=== PATIENT | male | born 1985 | race African-American/Black ===

== ENCOUNTER 2016-10-06 00:54 | Emergency (ER) | payer BC ==
[2016-10-06 01:25] VITALS: BMI 62.0
--- NOTE | 2016-10-06 01:39 | PDOC ---
History of Present Illness - General History Source: Patient Exam Limitations: No Limitations - History of Present Illness Initial Comments: 10/06/16 02:27 The patient is a 31 year old male, with a significant past medical history of a gastric sleeve operation (6 weeks ago), who presents to the emergency department complaining of numbness and paresthesias in the bilateral lower extremities for 2 days. The patient states the pain began in his left ankle, radiated up his legs, and is now up to his waist. He reports he has been losing sensation in the left lower extremities more than the right. The patient denies any decrease in strength or loss of bladder control. The patient reports he has not been adhering to the diet suggested by his bariatric surgeon. He states he has been unable to tolerate soft foods, but is able to have his protein shakes. The patient denies any dysuria, hematuria, frequency, or urgency. The patient denies any abdominal pain, nausea, vomiting, diarrhea, or constipation. The patient denies any fever, chills, cough, headache, or dizziness. Allergies: None reported. Past Surgical History: Gastric Sleeve(6 weeks ago) Social History: Non-smoker. No ETOH or drug use. <Janel Mccoy - Last Filed: 10/06/16 02:27> - General History Source: Patient <MatiasDallas - Last Filed: 10/11/16 19:51> - General Chief Complaint: Weakness Stated Complaint: NUMBNESS/SWELLING Time Seen by Provider: 10/06/16 01:39 Past History <Janel Mccoy - Last Filed: 10/06/16 02:27> - Past Medical History HTN: Yes - Surgical History GI Surgery: Yes (gastric sleeve) - Psycho/Social/Smoking Cessation Hx Suicidal Ideation: No Smoking History: Never smoked Have you smoked in the past 12 months: No Information on smoking cessation initiated: No Hx Alcohol Use: No Drug/Substance Use Hx: No <Dallas Valderrama - Last Filed: 10/11/16 19:51> - Past Medical History Allergies/Adverse Reactions: Allergies Allergy/AdvReac Type Severity Reaction Status Date / Time No Known Drug Allergies Allergy Verified 10/06/16 06:10 yolk Allergy Severe Hives Uncoded 10/06/16 06:10 Home Medications: Ambulatory Orders NK [No Known Home Medication] 10/06/16 Review of Systems - Review of Systems Able to Perform ROS?: Yes Comments:: 10/06/16 02:34 CONSTITUTIONAL: Absent: fever, no chills, no fatigue EYES: Absent: visual changes ENT: Absent: ear pain, no sore throat CARDIOVASCULAR: Absent: chest pain, no palpitations RESPIRATORY: Absent: cough, no SOB GI: Absent: abdominal pain, no nausea, no vomiting, no constipation, no diarrhea GENITOURINARY: Absent: dysuria, no frequency, no hematuria MUSKULOSKELETAL: Absent: back pain, no arthralgia, no myalgia SKIN: Absent: rash NEURO: Present: +Paresthesias and numbness to the bilateral lower extremities Absent: headache, dizziness, unsteady gait, seizure, mental status changes, bladder or bowel incontinence <Janel Mccoy - Last Filed: 10/06/16 02:27> *Physical Exam - Vital Signs Last Vital Signs Temp Pulse Resp BP Pulse Ox 97.8 F 79 16 140/96 97 10/06/16 01:01 10/06/16 01:01 10/06/16 01:01 10/06/16 01:01 10/06/16 01:01 - Physical Exam Comments: 10/06/16 02:34 GENERAL: Morbidly obese. Well developed, well nourished. Awake and alert. No acute distress. HEENT: Normocephalic, atraumatic. PERRLA, EOMI. No conjunctival pallor. Sclera are non- icteric. Moist mucous membranes. Oropharynx is clear. NECK: Supple. Full ROM. No JVD. Carotid pulses 2+ and symmetric, without bruits. No thyromegaly. No lymphadenopathy. CARDIOVASCULAR: Regular rate and rhythm. No murmurs, rubs, or gallops. Distal pulses are 2+ and symmetric. PULMONARY: No evidence of respiratory distress. Lungs clear to auscultation bilaterally. No wheezing, rales or rhonchi. ABDOMINAL: Soft. Non-tender. Non-distended. No rebound or guarding. No organomegaly. Normoactive bowel sounds. MUSCULOSKELETAL Normal range of motion at all joints. No bony deformities or tenderness. No CVA tenderness. Muscle strength 5/5. EXTREMITIES: No cyanosis. No clubbing. No edema. No calf tenderness. SKIN: Warm and dry. Normal capillary refill. No rashes. No jaundice. NEUROLOGICAL: Alert, awake, appropriate. Cranial nerves 2-12 intact. No deficits to light touch and temperature in face, upper extremities. No motor deficits in the in face, upper extremities and lower extremities. Normoreflexic in the upper and lower extremities. Normal speech. Toes are down-going bilaterally. Gait is normal without ataxia. Deficits to light touch in the bilateral lower extremities (left more than right). Decreased sensation to the interior thigh more than the lateral thigh. PSYCHIATRIC: Cooperative. Good eye contact. Appropriate mood and affect. <Janel Mccoy - Last Filed: 10/06/16 02:27> - Vital Signs Last Vital Signs Temp Pulse Resp BP Pulse Ox 97.8 F 79 16 140/96 97 10/06/16 01:01 10/06/16 01:01 10/06/16 01:01 10/06/16 01:01 10/06/16 01:01 <Dallas Valderrama - Last Filed: 10/11/16 19:51> ED Treatment Course - LABORATORY CBC & Chemistry Diagram: 10/06/16 02:20 10/06/16 02:20 <Dallas Valderrama - Last Filed: 10/11/16 19:51> Medical Decision Making - Medical Decision Making 10/11/16 19:51 Dr. Valderrama: The scribe's documentation has been prepared under my direction and personally reviewed by me in its entirery. I confirm that the note above accurately reflects all work, treatment, procedures, and medical decision making performed by me. <Dallas Valderrama - Last Filed: 10/11/16 19:51> *DC/Admit/Observation/Transfer - Attestations Scribe Attestion: 10/06/16 02:34 Documentation prepared by Janel Mccoy, acting as biomedical engineering professor for Dallas Valderrama DO. <Janel Mccoy - Last Filed: 10/06/16 02:27> - Discharge Dispostion Admit: No <Dallas Valderrama - Last Filed: 10/11/16 19:51> Diagnosis at time of Disposition: Paresthesias - Discharge Dispostion Disposition: HOME Condition at time of disposition: Stable - Referrals Referrals: Stephanie Peraza MD [Staff Physician] - - Patient Instructions Printed Discharge Instructions: DI for Numbness/tingling
[2016-10-06] MEDS ORDERED: ONDANSETRON 4 MG/2 ML VIAL ONE (02:18)
[2016-10-06] MEDS ORDERED: ONDANSETRON 4 MG/2 ML VIAL IVPUSH STA (02:19)
[2016-10-06] MEDS ORDERED: ONDANSETRON 4 MG/2 ML VIAL IVPB ONE (02:29)
[2016-10-06 02:31] LABS: BASOPHIL 0.9 % (0-2.0); EOSINOPHIL 2.8 % (0-4.5); MCH 27.7 pg (25.7-33.7); MCHC 33.4 g/dl (32.0-35.9); NEUTROPHILS 50.1 % (42.8-82.8); PLATELET COUNT 320 K/MM3 (134-434); WHITE BLOOD COUNT 6.5 K/mm3 (4.0-10.0)
[2016-10-06 02:54] LABS: ALBUMIN 3.7 g/dl (3.4-5.0); AMYLASE 36 U/L (25-115); ANION GAP 14 (8-16); BILIRUBIN,TOTAL 0.5 mg/dL (0.2-1.0); CALCIUM 9.3 mg/dL (8.5-10.1); CO2 27 mmol/L (21-32); CREATININE 0.8 mg/dL (0.7-1.3); GLUCOSE,RANDOM 97 mg/dL (74-106); MAGNESIUM 1.7 mg/dL (1.8-2.4); SGOT/AST 56 U/L (15-37); SGPT/ALT 76 U/L (12-78); TOT PROT 8.5 g/dl (6.4-8.2)
[2016-10-06 02:55] LABS: ALK PHOS 84 U/L (45-117)
[2016-10-06 03:01] LABS: TROPONIN I < 0.02 ng/ml (0.00-0.05)
[2016-10-06 03:52] LABS: INR 1.36 (0.82-1.09); PROTHROMBIN TIME (PATIENT) 15.1 SEC (9.98-11.88)
[2016-10-06 07:35] VITALS: TEMP 98.6
--- NOTE | 2016-10-06 08:11 | PDOC ---
*Physical Exam - Vital Signs Last Vital Signs Temp Pulse Resp BP Pulse Ox 98.6 F 67 18 143/90 97 10/06/16 07:35 10/06/16 07:35 10/06/16 07:35 10/06/16 07:35 10/06/16 07:35 ED Treatment Course - LABORATORY CBC & Chemistry Diagram: 10/06/16 02:20 10/06/16 02:20 - ADDITIONAL ORDERS Additional order review: Laboratory Results 10/06/16 10/06/16 10/06/16 02:20 02:20 02:20 INR D-Dimer Sodium 138 Potassium 3.6 Chloride 97 L Carbon Dioxide 27 Anion Gap 14 BUN 6 L Creatinine 0.8 Creat Clearance w eGFR > 60 Random Glucose 97 Calcium 9.3 Magnesium 1.7 L Total Bilirubin 0.5 AST 56 H ALT 76 Alkaline Phosphatase 84 Creatine Kinase 225 Creatine Kinase Index 0.8 CK-MB (CK-2) 1.754 CK-MB (CK-2) Rel Index Cancelled Troponin I < 0.02 Total Protein 8.5 H Albumin 3.7 Total Amylase 36 Lipase 94 91 10/06/16 02:20 INR 1.36 H D-Dimer 249 H Sodium Potassium Chloride Carbon Dioxide Anion Gap BUN Creatinine Creat Clearance w eGFR Random Glucose Calcium Magnesium Total Bilirubin AST ALT Alkaline Phosphatase Creatine Kinase Creatine Kinase Index CK-MB (CK-2) CK-MB (CK-2) Rel Index Troponin I Total Protein Albumin Total Amylase Lipase 10/06/16 02:20 RBC 4.74 MCV 83.0 MCHC 33.4 RDW 17.0 H MPV 8.0 Neutrophils % 50.1 Lymphocytes % 36.7 Monocytes % 9.5 Eosinophils % 2.8 Basophils % 0.9 - Medications Given in the ED: ED Medications Discontinued Medications Generic Name Dose Route Start Last Admin Trade Name Freq PRN Reason Stop Dose Admin Ondansetron HCl 4 mg 10/06/16 02:19 10/06/16 02:29 Zofran Injection IVPUSH 10/06/16 02:20 4 mg ONCE STA Administration Ondansetron HCl 4 mg 10/06/16 02:29 10/06/16 02:29 Zofran Injection IVPB 10/06/16 02:30 4 mg NOW ONE Administration Medical Decision Making - Medical Decision Making 10/06/16 09:49 Pt reassessed. He states that he is having paresthesias in the L medial leg and R lateral leg. He has history of back problems in the past. No recent injury. DVT study is negative. I counseled him that he will need to f/u with neurology as an outpatient. *DC/Admit/Observation/Transfer Diagnosis at time of Disposition: Paresthesias - Discharge Dispostion Disposition: HOME Condition at time of disposition: Stable Admit: No - Referrals Referrals: Stephanie Peraza MD [Staff Physician] - - Patient Instructions Printed Discharge Instructions: DI for Numbness/tingling
[2016-10-06 09:13] LABS: URINE APPEARANCE SLCLOUDY; URINE BLOOD NEGATIVE (NEGATIVE); URINE COLOR AMBER; URINE GLUCOSE (UA) NEGATIVE (NEGATIVE); URINE KETONE 1+ (NEGATIVE); URINE NITRITE NEGATIVE (NEGATIVE); URINE UROBILINOGEN 4.0 E.U/dl E.U./dl (0.2-1.0)
[2016-10-06 09:14] LABS: URINE LEUK ESTERASE TRACE (NEGATIVE); URINE PROTEIN 2+ (NEGATIVE)
[2016-10-06 09:18] LABS: URINE HYALINE CAST 30 /lpf; URINE MUCUS MANY; URINE RBC 3 /hpf (0-3); URINE WBC 4 /hpf (3-5)
[2016-10-06 10:14] VITALS: BP 137/80; PULSE 61
== END 2016-10-06 10:13 | disposition home or self-care (01) ==
LOC: JER 00:54
PROC: 3E033GC Introduction of Other Therapeutic Substance into Peripheral Vein, Percutaneous Approach (ICD-10-PCS; principal; 2016-10-06)
DX: R20.2 Paresthesia of skin (principal); Z98.84 Bariatric surgery status; E66.01 Morbid (severe) obesity due to excess calories; Z68.44 Body mass index [BMI] 60.0-69.9, adult; I10 Essential (primary) hypertension
CPT/HCPCS: 36415; 80053; 81003; 81015; 82150; 82550; 82553; 83690; 83735; 84484; 85025; 85379; 85610; 93970-TC; 99284-25

== ENCOUNTER 2016-11-11 16:25 | Inpatient (IN) | payer BC ==
[2016-11-11] MEDS ORDERED: ONDANSETRON 4 MG/2 ML VIAL IVPB ONE (16:39)
[2016-11-11] MEDS ORDERED: SODIUM CHLORIDE 1,000 ML IV STA ×2 (16:39→16:49)
[2016-11-11] MEDS ORDERED: FAMOTIDINE 20 MG/50 ML IVPB 50 ML IVPB ONE ×2 (16:48→17:06)
[2016-11-11] MEDS ORDERED: morphine CARPU-JECT 4 MG/1 ML DISP.SYRIN IVPUSH ONE (16:48)
[2016-11-11] MEDS ORDERED: morphine CARPU-JECT 4 MG/1 ML DISP.SYRIN ONE (17:05)
[2016-11-11] MEDS ORDERED: ONDANSETRON 4 MG/2 ML VIAL ONE ×2 (17:05→21:44)
[2016-11-11 17:09] LABS: BASOPHIL 0.4 % (0-2.0); EOSINOPHIL 0.1 % (0-4.5); MCH 28.4 pg (25.7-33.7); MCHC 33.8 g/dl (32.0-35.9); MEAN CELL VOLUME 83.9 fl (80-96); MEAN PLT VOLUME 7.7 fl (7.5-11.1); NEUTROPHILS 72.9 % (42.8-82.8); PLATELET COUNT 347 K/MM3 (134-434); RDW 17.7 % (11.9-15.9); WHITE BLOOD COUNT 11.7 K/mm3 (4.0-10.0)
--- NOTE | 2016-11-11 17:10 | PDOC ---
History of Present Illness - General History Source: Patient, Family Exam Limitations: No Limitations <Van Drummond - Last Filed: 11/11/16 20:54> - History of Present Illness Initial Comments: 11/11/16 17:11 The patient is a 31 year old male, with a significant past medical history of gastric sleeve, who presents to the emergency department with right upper and lower abdominal pain, nausea, diarrhea, and vomiting after reportedly eating chicken 2 days ago. He reports his right upper quadrant pain is sharp and constant, worse with his episodes of vomiting. He reports his right lower quadrant pain is dull and intermittent. He denies any exacerbating or alleviating factors to his right lower quadrant pain. He also reports a couple episodes of watery stool. The patient states that since the onset of these symptoms, he has been unable to eat without vomiting. He denies chest pain, shortness of breath, headache and dizziness. He denies fever, chills, and constipation. He denies dysuria, frequency, urgency and hematuria. Allergies: NKDA Past surgical history: gastric sleeve (. ) Social history: denies toxic habits <Tata Milan - Last Filed: 11/11/16 21:17> - General Chief Complaint: Pain, Acute Stated Complaint: VOMITING/ABD PAIN Time Seen by Provider: 11/11/16 16:39 Past History - Past Medical History GI Disorders: Yes (gastric sleeve(2016)) HTN: Yes - Surgical History GI Surgery: Yes (gastric sleeve) - Psycho/Social/Smoking Cessation Hx Anxiety: No Suicidal Ideation: No Smoking History: Never smoked Have you smoked in the past 12 months: No Information on smoking cessation initiated: No Hx Alcohol Use: No Drug/Substance Use Hx: No <Van Drummond - Last Filed: 11/11/16 20:54> <Tata Milan - Last Filed: 11/11/16 21:17> - Past Medical History Allergies/Adverse Reactions: Allergies Allergy/AdvReac Type Severity Reaction Status Date / Time No Known Drug Allergies Allergy Verified 11/11/16 16:33 Home Medications: Ambulatory Orders NK [No Known Home Medication] 10/06/16 Review of Systems - Review of Systems Able to Perform ROS?: Yes Comments:: 11/11/16 17:11 GENERAL/CONSTITUTIONAL: No fever or chills. No weakness. HEAD, EYES, EARS, NOSE AND THROAT: No change in vision. No ear pain or discharge. No sore throat. CARDIOVASCULAR: No chest pain or shortness of breath. RESPIRATORY: No cough, wheezing, or hemoptysis. GASTROINTESTINAL: (+)nausea, vomiting, diarrhea and right sided abdominal pain. NO constipation. GENITOURINARY: No dysuria, frequency, or change in urination. MUSCULOSKELETAL: No joint or muscle swelling or pain. No neck or back pain. SKIN: No rash NEUROLOGIC: No headache, vertigo, loss of consciousness, or change in strength/ sensation. ENDOCRINE: No increased thirst. No abnormal weight change. HEMATOLOGIC/LYMPHATIC: No anemia, easy bleeding, or history of blood clots. ALLERGIC/IMMUNOLOGIC: No hives or skin allergy. <Tata Milan - Last Filed: 11/11/16 21:17> *Physical Exam - Vital Signs Last Vital Signs Temp Pulse Resp BP Pulse Ox 98.6 F 111 H 20 130/82 100 11/11/16 16:30 11/11/16 16:30 11/11/16 16:30 11/11/16 16:30 11/11/16 16:30 <Van Drummond - Last Filed: 11/11/16 20:54> - Vital Signs Last Vital Signs Temp Pulse Resp BP Pulse Ox 98.6 F 111 H 20 130/82 100 11/11/16 16:30 11/11/16 16:30 11/11/16 16:30 11/11/16 16:30 11/11/16 16:30 - Physical Exam Comments: 11/11/16 17:12 GENERAL: (+) obese. Awake, alert, and fully oriented, in no acute distress HEAD: No signs of trauma EYES: PERRLA, EOMI, sclera anicteric, conjunctiva clear ENT: (+) Dry mucous membranes. Auricles normal inspection, hearing grossly normal, nares patent, oropharynx clear without exudates. NECK: Normal ROM, supple, no lymphadenopathy, JVD, or masses LUNGS: Breath sounds equal, clear to auscultation bilaterally. No wheezes, and no crackles HEART: Regular rate and rhythm, normal S1 and S2, no murmurs, rubs or gallops ABDOMEN: (+) RUQ tenderness to palpation. Soft, normoactive bowel sounds. No guarding, no rebound. No masses EXTREMITIES: Normal range of motion, no edema. No clubbing or cyanosis. No cords, erythema, or tenderness NEUROLOGICAL: Cranial nerves II-XII intact. Normal speech, normal gait. Sensation intact in upper and lower extremities. 5/5 motor strength in upper and lower extremities. No pronator drift. Finger to nose intact. Rapid alternations intact. SKIN: Warm, Dry, normal turgor, no rashes or lesions noted. <Tata Milan - Last Filed: 11/11/16 21:17> Heart Score/ECG Review #1 ECG reviewed & interpreted by me at: 16:45 11/11/16 17:10 NSR 98, +LVH, no std/mitzy, normal axis, normal intervals, QTC 441 msec <Van Drummond - Last Filed: 11/11/16 20:54> ED Treatment Course - LABORATORY CBC & Chemistry Diagram: 11/11/16 16:55 11/11/16 16:55 - RADIOLOGY Radiology Studies Ordered: Category Date Time Status ABDOMEN & PELVIS CT WITH CONTR [CT] Stat CT Scan 11/11/16 16:48 Ordered ABDOMEN US -LIMITED [US] Stat Ultrasound 11/11/16 16:48 Ordered <Van Drummond - Last Filed: 11/11/16 20:54> - LABORATORY CBC & Chemistry Diagram: 11/11/16 16:55 11/11/16 16:55 - RADIOLOGY Radiograph Interpretation: 11/11/16 20:34 EXAM: CT abdomen and pelvis with contrast was read by Nii Jacobson MD at 20:24 EST Findings: Mild atelectasis and scarring in lung bases. No pleural effusions. Prior gastric sleeve. Probable hepatic steatosis. Low attenuation area in the left hepatic lobe anteriorly, usually due to volume averaging with a hepatic ligament. Gallbladder, pancreas, adrenal glands, and spleen unremarkable. No renal or urinary calculi. No AAA. *Enlargement of the appendix measuring up to 2.5 cm thickness with ill-defined margins and moderate adjacent edema, suggestive of perforated appendicitis. No well formed abscess at this time. Adjacent mildly enlarged mesenteric lymph nodes, likely reactive. Slight thickening of the adjacent ileum, likely reactive. No evidence for diverticulitis, small bowel obstruction, free pelvic fluid, or free air. <Tata Milan - Last Filed: 11/11/16 21:17> Medical Decision Making - Medical Decision Making 11/11/16 16:50 A portion of this note was documented by scribe services under my direction. I have reviewed the details of the note, within reason, and agree with the documentation with the following case summary and management plan written by me. Patient treated in the ED. Nursing notes are reviewed and incorporated into the medical decision-making. Vital signs reviewed. Peripheral IV access obtained by the nurse, laboratory studies are drawn and sent, reviewed and interpreted by myself. Vital Signs Temp Pulse Resp BP Pulse Ox 98.6 F 111 H 20 130/82 100 11/11/16 16:30 11/11/16 16:30 11/11/16 16:30 11/11/16 16:30 11/11/16 16:30 31-year-old male with past medical history of obesity, gastric sleeve status post performed at 2005 presents with persistent vomiting and right upper quadrant pain for several days. Reported eating chicken and soon became ill. Denies fevers. Report some loose stooling as well. Differential includes bariatric complications, acute rosana, gastroenteritis. Patient appears dry. He has not had much appetite. Will hydrate patient up. Obtain labs and obtain CT abdomen and pelvis and reassess. 11/11/16 20:54 CBC, BMP 11/11/16 16:55 11/11/16 16:55 CMP Sodium 138 mmol/L (136-145) 11/11/16 16:55 Potassium 4.0 mmol/L (3.5-5.1) 11/11/16 16:55 Chloride 100 mmol/L (98-107) 11/11/16 16:55 Carbon Dioxide 26 mmol/L (21-32) 11/11/16 16:55 Anion Gap 12 (8-16) 11/11/16 16:55 BUN 9 mg/dL (7-18) D 11/11/16 16:55 Creatinine 0.7 mg/dL (0.7-1.3) 11/11/16 16:55 Creat Clearance w eGFR > 60 (>60) 11/11/16 16:55 Random Glucose 104 mg/dL (74-106) 11/11/16 16:55 Calcium 9.0 mg/dL (8.5-10.1) 11/11/16 16:55 Total Bilirubin 0.8 mg/dL (0.2-1.0) D 11/11/16 16:55 AST 41 U/L (15-37) H D 11/11/16 16:55 ALT 73 U/L (12-78) 11/11/16 16:55 Alkaline Phosphatase 129 U/L (45-117) H D 11/11/16 16:55 Creatine Kinase 68 IU/L (39-308) 11/11/16 16:55 Troponin I < 0.02 ng/ml (0.00-0.05) 11/11/16 16:55 Total Protein 8.3 g/dl (6.4-8.2) H 11/11/16 16:55 Albumin 3.0 g/dl (3.4-5.0) L 11/11/16 16:55 Lipase 104 U/L (73-393) 11/11/16 16:55 CT abdomen and pelvis: perforated appendicitis. Zosyn ordered. Dr. Chowdhury (surgery) paged. Awaiting phone call back. Case discussed with Dr. Cardenas. He accepts for med/surg admission. <Van Drummond - Last Filed: 11/11/16 20:54> - Medical Decision Making 11/11/16 21:17 Dr. Deepak Chowdhury was called and the patient's case was discussed at this time. <Tata Milan - Last Filed: 11/11/16 21:17> *DC/Admit/Observation/Transfer - Discharge Dispostion Admit: Yes <Van Drummond - Last Filed: 11/11/16 20:54> - Attestations Scribe Attestion: 11/11/16 17:13 Documentation prepared by Tata Milan, acting as director medical affairs for Van Drummond MD, MD <Tata Milan - Last Filed: 11/11/16 21:17> Diagnosis at time of Disposition: Perforated appendicitis - Referrals Referrals: STAFF,NOT ON [Primary Care Provider] -
[2016-11-11 17:36] LABS: ANION GAP 12 (8-16); BILIRUBIN,TOTAL 0.8 mg/dL (0.2-1.0); CO2 26 mmol/L (21-32); CREATININE 0.7 mg/dL (0.7-1.3); GLUCOSE,RANDOM 104 mg/dL (74-106); SGOT/AST 41 U/L (15-37); SGPT/ALT 73 U/L (12-78); TOT PROT 8.3 g/dl (6.4-8.2)
[2016-11-11 17:39] LABS: ALK PHOS 129 U/L (45-117); TROPONIN I < 0.02 ng/ml (0.00-0.05)
[2016-11-11] MEDS ORDERED: PIPERACILLIN/TAZOB 3.375 GM/50 ML PRE-DOCKED IVPB ONE (20:23)
[2016-11-11] MEDS ORDERED: PIPERACILLIN/TAZOB 3.375 GM 50 ML IVPB ONE (20:32)
[2016-11-11] MEDS ORDERED: SODIUM CHLORIDE 1,000 ML IV SCH (21:15)
--- NOTE | 2016-11-11 21:21 | PN ---
<Tyler Cardenas - Last Filed: 11/11/16 21:20> Teaching Attending Note Name of Resident: Brittany Hayes ATTENDING PHYSICIAN STATEMENT I saw and evaluated the patient. I reviewed the resident's note and discussed the case with the resident. I agree with the resident's findings and plan as documented. SUBJECTIVE: OBJECTIVE: ASSESSMENT AND PLAN: <Dallas Soto - Last Filed: 11/11/16 21:36> Teaching Attending Note Name of Resident: Brittany Hayes ATTENDING PHYSICIAN STATEMENT I saw and evaluated the patient. I reviewed the resident's note and discussed the case with the resident. I agree with the resident's findings and plan as documented. SUBJECTIVE: The patient is a 31 year old male, with past medical history of morbid obesity, who had abdominal pain located in the right upper and right lower quadrant, nausea, vomiting and diarrhea which started at 3am on Sunday and worsened Sunday morning. Started spontaneously. No trauma. Recent gastric sleeve in 2015 with 1over 100 pound weight loss. Unable to take PO without vomiting. Vomit is yellow in color, stools are mucous. Describes subjective chills. OBJECTIVE: GENERAL: +Morbidly obese. Awake, alert, and fully oriented, in no acute distress HEENT: Atraumatic. PERRLA, EOMI. Dry Oral mucosa. No JVD LUNGS: No distress, speaks full sentences, clear to auscultation bilaterally HEART: Regular rate and rhythm, normal S1 and S2, no murmurs, rubs or gallops, peripheral pulses normal and equal bilaterally. CHEST: +Gynecomasteo. ABDOMEN: +Right upper and lower quadrant abdominal tenderness. No rebound tenderness. Decrease bowel sounds. Soft, nontender, normoactive bowel sounds. No guarding, no rebound. No masses EXTREMITIES: Normal inspection, Normal range of motion, no edema. No clubbing or cyanosis. NEUROLOGICAL: Cranial nerves II through XII grossly intact. Normal speech, normal gait, no focal sensorimotor deficits SKIN: Warm, Dry, normal turgor, no rashes or lesions noted. Positive tattoos on his skin. CBCD WBC 11.7 K/mm3 (4.0-10.0) H D 11/11/16 16:55 RBC 4.16 M/mm3 (4.00-5.60) 11/11/16 16:55 Hgb 11.8 GM/dL (11.7-16.9) 11/11/16 16:55 Hct 34.9 % (35.4-49) L 11/11/16 16:55 MCV 83.9 fl (80-96) 11/11/16 16:55 MCHC 33.8 g/dl (32.0-35.9) 11/11/16 16:55 RDW 17.7 % (11.9-15.9) H 11/11/16 16:55 Plt Count 347 K/MM3 (134-434) 11/11/16 16:55 MPV 7.7 fl (7.5-11.1) 11/11/16 16:55 CMP Sodium 138 mmol/L (136-145) 11/11/16 16:55 Potassium 4.0 mmol/L (3.5-5.1) 11/11/16 16:55 Chloride 100 mmol/L (98-107) 11/11/16 16:55 Carbon Dioxide 26 mmol/L (21-32) 11/11/16 16:55 Anion Gap 12 (8-16) 11/11/16 16:55 BUN 9 mg/dL (7-18) D 11/11/16 16:55 Creatinine 0.7 mg/dL (0.7-1.3) 11/11/16 16:55 Creat Clearance w eGFR > 60 (>60) 11/11/16 16:55 Calcium 9.0 mg/dL (8.5-10.1) 11/11/16 16:55 Total Bilirubin 0.8 mg/dL (0.2-1.0) D 11/11/16 16:55 AST 41 U/L (15-37) H D 11/11/16 16:55 ALT 73 U/L (12-78) 11/11/16 16:55 Alkaline Phosphatase 129 U/L (45-117) H D 11/11/16 16:55 Total Protein 8.3 g/dl (6.4-8.2) H 11/11/16 16:55 Albumin 3.0 g/dl (3.4-5.0) L 11/11/16 16:55 Last Vital Signs Temp Pulse Resp BP Pulse Ox 98.6 F 111 H 20 130/82 100 11/11/16 16:30 11/11/16 16:30 11/11/16 16:30 11/11/16 16:30 11/11/16 16:30 CT abdomen and Pelvis Impression: Mild atelectasis and scarring in lung bases. No pleural effusions. Prior gastric sleeve. Probable hepatic steatosis. Low attenuation area in the left hepatic lobe anteriorly, usually due to volume averaging with a hepatic ligament. Gallbladder, pancreas, adrenal glands, and spleen unremarkable. No renal or urinary calculi. No AAA. *Enlargement of the appendix measuring up to 2.5 cm thickness with ill-defined margins and moderate adjacent edema, suggestive of perforated appendicitis. No well formed abscess at this time. Adjacent mildly enlarged mesenteric lymph nodes, likely reactive. Slight thickening of the adjacent ileum, likely reactive. No evidence for diverticulitis, small bowel obstruction, free pelvic fluid, or free air. EKG Sinus tachycardia with LVH ASSESSMENT AND PLAN: 1. Perforated Appendicitis, Clinically and hemodynalicaly stable with mild leukocytosis and tachycardia - Send blood cultures x2 - Surgery consult. - Continue Zosyn - NPO - IVF hydration - Morphine 2 mg IV Q4 if pain - Zofran 4 mg IV piggy back Q4 if nausea or vomiting 2. DVT Prophylaxes - Low risk for DVT - SCDs Admit to med surg Documentation prepared by Dallas Soto, acting as medical coding specialist for Tyler Cardenas MD.
[2016-11-11] MEDS: ONDANSETRON 4 MG/2 ML VIAL IVPUSH SCH (21:51)
[2016-11-11 22:03] LABS: URINE APPEARANCE CLEAR; URINE BILIRUBIN NEGATIVE (NEGATIVE); URINE COLOR AMBER; URINE GLUCOSE (UA) NEGATIVE (NEGATIVE); URINE KETONE 1+ (NEGATIVE)
[2016-11-11 22:04] LABS: URINE BLOOD NEGATIVE (NEGATIVE); URINE LEUK ESTERASE NEGATIVE (NEGATIVE); URINE NITRITE NEGATIVE (NEGATIVE); URINE PROTEIN 1+ (NEGATIVE); URINE RBC 2 /hpf (0-3); URINE UROBILINOGEN 4.0 E.U/dl E.U./dl (0.2-1.0); URINE WBC 3 /hpf (3-5)
[2016-11-11 22:05] LABS: URINE MUCUS MANY
[2016-11-11] MEDS ORDERED: morphine CARPU-JECT 2 MG/1 ML DISP.SYRIN ONE (22:05)
[2016-11-11] MEDS: morphine CARPU-JECT 2 MG/1 ML DISP.SYRIN IVPUSH PRN (22:10)
[2016-11-11 23:20] VITALS: BMI 56.5
--- NOTE | 2016-11-12 00:29 | HP ---
CHIEF COMPLAINT: Abdominal pain, nausea and vomiting PCP: HISTORY OF PRESENT ILLNESS: Patient is a 31 year old male presented to the ED with the chief complaints of abdominal pain, nausea and vomiting since 2 days. A/c to the patient, he was feeling fine until 2 days ago when he started having abdominal pain that woke him up from sleep at 3am. He started vomiting 4-5 times/day for 2 days, non projectile, non bilious with streaks of blood. Patient couldn't keep anything down, not even few sips of water. Started having abdominal pain, located in the right upper quadrant constant and in the Right lower quadrant which comes and goes, sharp in quality, 9/10 in intensity, radiating towards the back. No relieving or aggravating factors. Also reports to have diarrhoea, few times a day, watery, non bloody. Patient reports to have Gastric sleeve done in Aug, 2016 and lost 101 pounds. Denies chest pain, sob, cough, palpitation, fever, chills, rigors or sweating. Appetite decreased Sleep disturbed. ER course was notable for: (1) Tachycardic, Leukocytosis (11.7); AST-41; ALP-129; (2) CT abdomen/Pelvis: Ruptured appendicitis (3) IV NS, Morphine, Famotidine, Zofran, Zosyn Recent Travel: None PAST MEDICAL HISTORY: Seizure (at age 9yrs) PAST SURGICAL HISTORY: Gastric sleeve (Aug, 2016 at [facility]) Social History: Smoking: Denies Alcohol: Denies Drugs: Denies Family History: Mother of complications due to diabetes. Father has HIV, he was tested and is negative Allergies No Known Drug Allergies Allergy (Verified 11/11/16 16:33) HOME MEDICATIONS: Home Medications Medication Instructions Recorded NK [No Known Home Medication] 10/06/16 REVIEW OF SYSTEMS CONSTITUTIONAL: Present: loss of appetite Absent: fever, chills, diaphoresis, generalized weakness, malaise, weight change HEENT: Absent: rhinorrhea, nasal congestion, throat pain, throat swelling, difficulty swallowing, mouth swelling, ear pain, eye pain, visual changes CARDIOVASCULAR: Absent: chest pain, syncope, palpitations, irregular heart rate, lightheadedness , peripheral edema RESPIRATORY: Absent: cough, shortness of breath, dyspnea with exertion, orthopnea, wheezing, stridor, hemoptysis GASTROINTESTINAL: Present: abdominal pain, nausea, vomiting, diarrhea Absent: abdominal distension, constipation, melena, hematochezia GENITOURINARY: Absent: dysuria, frequency, urgency, hesitancy, hematuria, flank pain, genital pain MUSCULOSKELETAL: Absent: myalgia, arthralgia, joint swelling, back pain, neck pain SKIN: Absent: rash, itching, pallor HEMATOLOGIC/IMMUNOLOGIC: Absent: easy bleeding, easy bruising, lymphadenopathy, frequent infections ENDOCRINE: Absent: unexplained weight gain, unexplained weight loss, heat intolerance, cold intolerance NEUROLOGIC: Absent: headache, focal weakness or paresthesias, dizziness, unsteady gait, seizure, mental status changes, bladder or bowel incontinence PSYCHIATRIC: Absent: anxiety, depression, suicidal or homicidal ideation, hallucinations. PHYSICAL EXAMINATION Vital Signs - 24 hr 11/11/16 11/11/16 21:40 22:15 Temperature 97.6 F Pulse Rate 88 Pulse Rate [ 95 H Left] Respiratory 17 20 Rate Blood Pressure 161/95 Blood Pressure 125/78 [Arm] O2 Sat by Pulse 99 99 Oximetry (%) GENERAL: Morbidly obese patient, lying comfortably in bed, Awake, alert, and fully oriented, in no acute distress. HEAD: Normal with no signs of trauma. EYES: EOM intact, no pallor or icterus. EARS, NOSE, THROAT: Ears normal. Moist mucous membranes. NECK: Normal range of motion, supple without lymphadenopathy, JVD, or masses. LUNGS: Breath sounds equal, clear to auscultation bilaterally. No wheezes, and no crackles. No accessory muscle use. HEART: Regular rate and rhythm, normal S1 and S2 without murmur, rub or gallop. ABDOMEN: Soft, tenderness over the Right upper and right lower quadrant, rebound tenderness +, not distended, decreased bowel sounds, no guarding, no rebound, no masses. No hepatomegaly or splenomegaly. MUSCULOSKELETAL: Normal range of motion at all joints. No bony deformities or tenderness. No CVA tenderness. UPPER EXTREMITIES: 2+ pulses, warm, well-perfused. No cyanosis. No clubbing. Cap refill <2 seconds. No peripheral edema. LOWER EXTREMITIES: 2+ pulses, warm, well-perfused. No calf tenderness. No peripheral edema. NEUROLOGICAL: Cranial nerves II-XII intact. Normal speech. Gait not observed. PSYCHIATRIC: Cooperative. Good eye contact. Appropriate mood and affect. SKIN: Warm, dry, normal turgor, no rashes or lesions noted. 11/11/2016 CT abdomen and Pelvis Impression: Mild atelectasis and scarring in lung bases. No pleural effusions. Prior gastric sleeve. Probable hepatic steatosis. Low attenuation area in the left hepatic lobe anteriorly, usually due to volume averaging with a hepatic ligament. Gallbladder, pancreas, adrenal glands, and spleen unremarkable. No renal or urinary calculi. No AAA. *Enlargement of the appendix measuring up to 2.5 cm thickness with ill-defined margins and moderate adjacent edema, suggestive of perforated appendicitis. No well formed abscess at this time. Adjacent mildly enlarged mesenteric lymph nodes, likely reactive. Slight thickening of the adjacent ileum, likely reactive. No evidence for diverticulitis, small bowel obstruction, free pelvic fluid, or free air. ASSESSMENT/PLAN: Patient is a 31 year old male with PMH of seizure (at age 9 years), gastric sleeve (Aug, 2016 at [facility]), presented to the ED with the chief complaints of abdominal pain, nausea and vomiting since 2 days. # Perforated Appendicitis Patient presented with severe abdominal pain, nausea and vomiting. On arrival, Tachycardic, Leukocytosis (11.7); AST-41; ALP-129; In the ED, patient was given IV NS, Morphine, Famotidine, Zofran, Zosyn Abdominal CT scan as mentioned above Admitted in Med-Surg Surgery consult placed ID consult placed Continue IV fluids IV Morphine 2mg Q4H PRN NPO Monitor symptoms # Morbidly obese Diet and exercise counseling Eat small portions s/p gastric sleeve # FEN IV NS @ 100mls/hr Electrolytes WNL NPO # Prophylaxis For GI: Not indicated For DVT: On SCDS # Code status: Full Code # Dispo: Admitted in the Med-surg. Duration of stay unknown. Illness, Investigation and Plan of care explained to the patient. He verbalized understanding. Case seen and discussed with Dr. Cardenas. Visit type - Emergency Visit Emergency Visit: Yes ED Registration Date: 11/11/16 Care time: The patient presented to the Emergency Department on the above date and was hospitalized for further evaluation of their emergent condition. - New Patient This patient is new to me today: Yes Date on this admission: 11/11/16 - Critical Care Critical Care patient: No
[2016-11-12] MEDS: ONDANSETRON 4 MG/2 ML VIAL IVPUSH SCH ×3 (04:00→11:33)
[2016-11-12] MEDS: morphine CARPU-JECT 2 MG/1 ML DISP.SYRIN IVPUSH PRN ×2 (05:12→23:17)
[2016-11-12] MEDS ORDERED: PIPERACILLIN/TAZOB 3.375 GM/50 ML PRE-DOCKED IVPB ONE (07:45)
[2016-11-12 07:47] LABS: BASOPHIL 0.4 % (0-2.0); EOSINOPHIL 0.4 % (0-4.5); MCH 28.5 pg (25.7-33.7); MCHC 33.2 g/dl (32.0-35.9); MEAN CELL VOLUME 85.9 fl (80-96); MEAN PLT VOLUME 7.7 fl (7.5-11.1); NEUTROPHILS 73.6 % (42.8-82.8); PLATELET COUNT 278 K/MM3 (134-434)
[2016-11-12 08:14] LABS: ALBUMIN 2.6 g/dl (3.4-5.0); ANION GAP 9 (8-16); CALCIUM 8.4 mg/dL (8.5-10.1); CO2 28 mmol/L (21-32); GLUCOSE,RANDOM 91 mg/dL (74-106); INR 1.56 (0.82-1.09); PROTHROMBIN TIME (PATIENT) 17.3 SEC (9.98-11.88); SGPT/ALT 57 U/L (12-78)
[2016-11-12 08:16] LABS: ACTIVATED PTT 29.4 SECONDS (26.9-34.4)
[2016-11-12 08:17] LABS: ALK PHOS 109 U/L (45-117); BILIRUBIN,TOTAL 0.9 mg/dL (0.2-1.0); CREATININE 0.6 mg/dL (0.7-1.3); SGOT/AST 22 U/L (15-37); TOT PROT 7.2 g/dl (6.4-8.2)
--- NOTE | 2016-11-12 08:52 | PN ---
Progress Note (short form) - Note Progress Note: Subjective: has RUQ abd pain ( constant ) and RLQ abd pain ( intermittent ) x 2 days , no N/ V now but had it yesterday. had fever last night . no diarrhea . no CP or SOB . does n to have exertional cp or SOB . has no cardiac hx or pulm hx . Objective: Vital Signs: Last Vital Signs Temp Pulse Resp BP Pulse Ox 100.1 F H 96 H 20 139/79 99 11/12/16 06:00 11/12/16 06:00 11/12/16 06:00 11/12/16 06:00 11/11/16 22:15 Physical Exam: NAD , AAOx CV: RRR, no MRG, no JVD Lungs; CTAB ext : no edema over LE or UPper ext Abd : obese , soft , TTP in RUQ and RLQ . no rebound tenderness. Neg Rofsing sign , Neg Psoas sign, Positive Obtorater Sign . nl BS Labs: Laboratory Results - last 24 hr 11/11/16 11/11/16 11/11/16 16:55 16:55 18:52 WBC 11.7 H D RBC 4.16 Hgb 11.8 Hct 34.9 L MCV 83.9 MCHC 33.8 RDW 17.7 H Plt Count 347 MPV 7.7 Neutrophils % 72.9 D Lymphocytes % 17.6 D Monocytes % 9.0 Eosinophils % 0.1 D Basophils % 0.4 INR PTT (Actin FS) Sodium 138 Potassium 4.0 Chloride 100 Carbon Dioxide 26 Anion Gap 12 BUN 9 D Creatinine 0.7 Creat Clearance w eGFR > 60 Random Glucose 104 Calcium 9.0 Total Bilirubin 0.8 D AST 41 H D ALT 73 Alkaline Phosphatase 129 H D Creatine Kinase 68 Troponin I < 0.02 Total Protein 8.3 H Albumin 3.0 L Lipase 104 Urine Color Celi Urine Appearance Clear Urine pH 5.0 Ur Specific [place] 1.010 Urine Protein 1+ H Urine Glucose (UA) Negative Urine Ketones 1+ H Urine Blood Negative Urine Nitrite Negative Urine Bilirubin Negative Urine Urobilinogen 4.0 e.u/dl Ur Leukocyte Esterase Negative Urine RBC 2 Urine WBC 3 Ur Epithelial Cells Rare Urine Mucus Many 11/12/16 11/12/16 11/12/16 06:15 06:15 06:15 WBC 10.0 RBC 3.80 L Hgb 10.8 L Hct 32.6 L MCV 85.9 MCHC 33.2 RDW 18.0 H Plt Count 278 MPV 7.7 Neutrophils % 73.6 Lymphocytes % 14.8 Monocytes % 10.8 H Eosinophils % 0.4 D Basophils % 0.4 INR 1.56 H PTT (Actin FS) 29.4 Sodium 140 Potassium 4.1 Chloride 103 Carbon Dioxide 28 Anion Gap 9 BUN 8 Creatinine 0.6 L Creat Clearance w eGFR > 60 Random Glucose 91 Calcium 8.4 L Total Bilirubin 0.9 AST 22 D ALT 57 D Alkaline Phosphatase 109 Creatine Kinase Troponin I Total Protein 7.2 Albumin 2.6 L Lipase Urine Color Urine Appearance Urine pH Ur Specific [place] Urine Protein Urine Glucose (UA) Urine Ketones Urine Blood Urine Nitrite Urine Bilirubin Urine Urobilinogen Ur Leukocyte Esterase Urine RBC Urine WBC Ur Epithelial Cells Urine Mucus Imaging: prelim report of US and Abd CT , reviewed. Cxray image and report reviewed. Assessment/Plan: 31 y/o male with h/o Morbid obesity, s/p gastric sleeve sx in Aug 2016 who presented with Abd pain and was found to have ruptured appendix . 1- Appendicitis with rupture. No abscess formation on Ct scan. Pt is hemodynamically stable but had fever last night and missed his 2 am Abx dose. - give stat dose of zosyn , then standing - IVF , NPO , pain control - Spoke to Dr. Chowdhury, who will evaluate pt for surgery - His RUQ abd pain , might be due to the appendicitis , but he has small non obstructing stones, and ALk phos was slightly elevated last night .No evidence of cholecystitis on US per Imaging director of rehabilitation. ? CCY along with appendectomy. Sx eval appreciated - INR 1.5 . likely will be OK for sx otherwise will give FFPs before procedure - Pre-OP risk stratification :This is an intermediate risk sx. The pt himself is low risk pt, as he has no cardiac hx, and no exertional CP or SOB. He has no signs fo ACS, CHF or arrhythmias now . His functional status is > 10 METs. over all , this is a patietn who carries low risk for fabi-op cardiac complication for this intermediate risk sx. No further cardiac w/u is needed Visit type - Emergency Visit Emergency Visit: Yes ED Registration Date: 11/11/16 Care time: The patient presented to the Emergency Department on the above date and was hospitalized for further evaluation of their emergent condition. - New Patient This patient is new to me today: Yes Date on this admission: 11/12/16 - Critical Care Critical Care patient: No
--- NOTE | 2016-11-12 11:07 | CONSULT ---
Consult Consult Specialty:: general surgery Reason for Consultation:: perforated appendicitis - History of Present Illness Chief Complaint: ruq pain and emesis History of Present Illness: pt is a 31M with 2 day hx of intractable nonbilious emesis with RUQ pain starting 3AM sunday. He has never had this before. Of note he had a lap gastric sleeve at [facility] by Dr. Mele Heard in 08/2016 and has lost 100+ lbs since then. Came to ER and CT done. ER tells me it was perforated appendicitis. I reviewed films and concur that there appears to be phlegmon in RLQ. Await final reading. - Past Surgical History Additional Surgical History: 08/2016 gastric sleeve for morbid obesity at [facility] (Dr. Mele Heard) - Alcohol/Substance Use Hx Alcohol Use: No - Smoking History Smoking history: Never smoked Have you smoked in the past 12 months: No Home Medications - Allergies Allergies/Adverse Reactions: Allergies Allergy/AdvReac Type Severity Reaction Status Date / Time No Known Drug Allergies Allergy Verified 11/11/16 16:33 - Home Medications Home Medications: Ambulatory Orders NK [No Known Home Medication] 10/06/16 Review of Systems - Review of Systems Constitutional: denies: Chills, Diaphoresis Eyes: denies: Blind Spots, Blurred Vision HENT: denies: Difficult Swallowing, Ear Discharge Neck: denies: Decreased ROM, Lumps Cardiovascular: denies: Chest Pain, Edema Respiratory: denies: Cough, Exercise Intolerance Gastrointestinal: reports: Abdominal Pain, Vomiting Genitourinary: denies: Burning, Discharge Breasts: denies: Breast Implants, Discharge from Nipple Musculoskeletal: denies: Back Pain, Crepitus Integumentary: denies: Blister, Bruising Neurological: denies: Change in LOC, Change in Speech Endocrine: denies: Excessive Sweating, Flushing Hematology/Lymphatic: denies: Easily Bruised, Excessive Bleeding Psychiatric: denies: Altered Sleep Pattern Physical Exam Vital Signs: Vital Signs Temperature 99.5 F 11/12/16 10:00 Pulse Rate 92 H 11/12/16 10:00 Respiratory Rate 20 11/12/16 10:00 Blood Pressure 146/72 11/12/16 10:00 O2 Sat by Pulse Oximetry (%) 93 L 11/12/16 09:00 Constitutional: Yes: No Distress, Calm Eyes: Yes: Conjunctiva Clear, EOM Intact HENT: Yes: Atraumatic, Normocephalic, Thrush Neck: Yes: Supple, Trachea Midline Cardiovascular: Yes: Regular Rate and Rhythm Respiratory: Yes: Regular Gastrointestinal: Yes: Soft, Abdomen, Obese. No: Distention, Tenderness ...Rectal Exam: Yes: Deferred Renal/: No: CVA Tenderness - Left, CVA Tenderness - Right Breast(s): Yes: Gynecomastia. No: Mass Musculoskeletal: No: Joint Stiffness, Joint Swelling Extremities: No: Calf Tenderness, Erythema Integumentary: No: Erythema, Rash Neurological: Yes: Alert, Oriented Psychiatric: Yes: Alert, Oriented Labs: CBC, BMP 11/12/16 06:15 11/12/16 06:15 Imaging - Results Cat Scan: Image Reviewed Problem List - Problems (1) Perforated appendicitis Assessment/Plan: sips of clears IVF nystatin swish and swallow IV Abx given read of perforated appendicitis will attempt non operative management. counseled pt about hospital stay. Code(s): K35.2 - ACUTE APPENDICITIS WITH GENERALIZED PERITONITIS
[2016-11-12] MEDS: NYSTATIN 500,000 UNITS/5 ML SUSPENSION PO SCH ×2 (12:03→17:45)
[2016-11-12] MEDS: LACTATED RINGERS SOLUTION 1,000 ML IV SCH ×2 (12:04→23:07)
--- NOTE | 2016-11-12 12:30 | EKG ---
Test Reason : Blood Pressure : / mmHG Vent. Rate : 098 BPM Atrial Rate : 098 BPM P-R Int : 146 ms QRS Dur : 092 ms QT Int : 346 ms P-R-T Axes : 043 004 013 degrees QTc Int : 441 ms NORMAL SINUS RHYTHM MODERATE VOLTAGE CRITERIA FOR LVH, MAY BE NORMAL VARIANT NO PREVIOUS ECGS AVAILABLE Confirmed by NATHANIEL SCHNEIDER MD ([id number]) on 11/12/2016 12:30:21 PM Referred By: Confirmed By:NATHANIEL SCHNEIDER MD
[2016-11-12] MEDS ORDERED: ONDANSETRON 4 MG/2 ML VIAL IVPUSH PRN (13:12)
[2016-11-12] MEDS: PIPERACILLIN/TAZOB 3.375 GM 50 ML IVPB SCH ×2 (13:48→20:41)
--- NOTE | 2016-11-12 14:22 | CONSULT ---
Consult Consult Specialty:: infectious diseases Referred by:: Reason for Consultation:: appendicits - History of Present Illness Chief Complaint: abd pain History of Present Illness: 31 year old male presented to the ED with the chief complaints of abdominal pain, nausea and vomiting since 2 days. A/c to the patient, he was feeling fine until 2 days ago when he started having abdominal pain that woke him up from sleep at 3am. He started vomiting 4-5 times/day for 2 days, non projectile, non bilious with streaks of blood. patient was evaluated and imaging studies and found to have acute appendicitis patient is morbidly obese and has gastric sleeve done last year and has lost about 100 pounds patient currently feeling better and his pain is improving - History Source History Provided By: Patient Limitations to Obtaining History: No Limitations - Past Surgical History Additional Surgical History: 08/2016 gastric sleeve for morbid obesity at [facility] (Dr. Mele Heard) - Alcohol/Substance Use Hx Alcohol Use: No - Smoking History Smoking history: Never smoked Have you smoked in the past 12 months: No Home Medications - Allergies Allergies/Adverse Reactions: Allergies Allergy/AdvReac Type Severity Reaction Status Date / Time No Known Drug Allergies Allergy Verified 11/11/16 16:33 - Home Medications Home Medications: Ambulatory Orders NK [No Known Home Medication] 10/06/16 Review of Systems - Review of Systems Constitutional: reports: Other Eyes: reports: No Symptoms HENT: reports: No Symptoms Neck: reports: No Symptoms Cardiovascular: reports: No Symptoms Respiratory: reports: No Symptoms Gastrointestinal: reports: Nausea, Vomiting, Other (abd pain rt lower quadrant) Musculoskeletal: reports: No Symptoms Integumentary: reports: No Symptoms Neurological: reports: No Symptoms Endocrine: reports: No Symptoms Hematology/Lymphatic: reports: No Symptoms Psychiatric: reports: No Symptoms Physical Exam Vital Signs: Vital Signs Temperature 99.5 F 11/12/16 10:00 Pulse Rate 92 H 11/12/16 10:00 Respiratory Rate 20 11/12/16 10:00 Blood Pressure 146/72 11/12/16 10:00 O2 Sat by Pulse Oximetry (%) 93 L 11/12/16 09:00 Constitutional: Yes: Well Nourished, Obese (morbidly obese) Cardiovascular: Yes: Regular Rate and Rhythm Respiratory: Yes: Regular, CTA Bilaterally Gastrointestinal: Yes: Normal Bowel Sounds, Soft Musculoskeletal: Yes: WNL Extremities: Yes: WNL Neurological: Yes: Alert, Oriented Psychiatric: Yes: Alert, Oriented Labs: CBC, BMP 11/12/16 06:15 11/12/16 06:15 Imaging - Results Chest X-ray: Report Reviewed, Image Reviewed Cat Scan: Report Reviewed, Image Reviewed Assessment/Plan ac appendicitis morbid obesity plan continue abx iv fluids
[2016-11-12] MEDS: LISINOPRIL 10 MG TABLET (FP) PO SCH (17:45)
[2016-11-13] MEDS ORDERED: ONDANSETRON 4 MG/2 ML VIAL IVPB ONE (01:05)
[2016-11-13] MEDS: PIPERACILLIN/TAZOB 3.375 GM 50 ML IVPB SCH ×4 (02:03→20:30)
[2016-11-13] MEDS: LACTATED RINGERS SOLUTION 1,000 ML IV SCH ×5 (06:37→23:01)
[2016-11-13] MEDS: NYSTATIN 500,000 UNITS/5 ML SUSPENSION PO SCH ×4 (06:42→17:44)
[2016-11-13 09:01] LABS: INR 1.54 (0.82-1.09); PROTHROMBIN TIME (PATIENT) 17.1 SEC (9.98-11.88)
[2016-11-13] MEDS ORDERED: ROCURONIUM BROMIDE 50 MG/5 ML VIAL ONE ×2 (09:43→10:49)
[2016-11-13] MEDS ORDERED: PROPOFOL 20 ML ONE ×2 (09:43)
[2016-11-13] MEDS ORDERED: MIDAZOLAM HCL 2 MG/2 ML SINGLE DOSE VIAL ONE (09:47)
[2016-11-13] MEDS ORDERED: HEPARIN NA (PORCINE) 5,000 UNITS/ML 1ML VIAL ONE (10:57)
[2016-11-13] MEDS ORDERED: GLYCOPYRROLATE 0.2 MG/1 ML VIAL ONE (11:59)
[2016-11-13] MEDS ORDERED: NEOSTIGMINE METHYLSULFATE 0.5 MG/ML - 10 ML MDV ONE (11:59)
[2016-11-13] MEDS ORDERED: METOPROLOL TARTRATE 5 MG/5 ML VIAL ONE (11:59)
[2016-11-13] MEDS ORDERED: DESFLURANE GAS 240 ML BOTTLE IH ONE (12:03)
--- NOTE | 2016-11-13 12:15 | OP ---
Operative Note - Note: Operative Date: 11/13/16 Pre-Operative Diagnosis: appendicitis Operation: laparoscopic drainage of retroperitoneal periappendicial abscess Findings: large (20cc) fabi-appendicial abscess, markedly inflammed terminal ileum. unable to identify appendix Post-Operative Diagnosis: Other (fabi-appendiceal abscess) Surgeon: Deepak Chowdhury Pediatric Cns: Germaine Hammond Anesthesia: General Estimated Blood Loss (mls): 20 Operative Report Dictated: Yes
--- NOTE | 2016-11-13 13:01 | PN ---
Progress Note, Physician History of Present Illness: post op from laproscopic drianage of the apeendiceal abscess - Current Medication List Current Medications: Active Medications Fentanyl (Sublimaze Injection -) 50 mcg IVPUSH [id number] PRN PRN Reason: PAIN Stop: 11/16/16 12:48 Piperacillin Sod/Tazobactam Sod (Zosyn 3.375gm Ivpb (Pre-Docked)) 50 mls @ 100 mls/hr IVPB Q6H [facility] PRN Reason: Protocol Last Admin: 11/13/16 08:05 Dose: 100 mls/hr Lactated Ringer's (Lactated Ringers Solution) 1,000 mls @ 150 mls/hr IV ASDIR [facility] Last Admin: 11/13/16 06:37 Dose: 150 mls/hr Lisinopril (Prinivil) 10 mg PO DAILY [facility] Last Admin: 11/12/16 17:45 Dose: 10 mg Morphine Sulfate (Morphine Injection -) 2 mg IVPUSH Q4H PRN PRN Reason: PAIN Last Admin: 11/12/16 23:17 Dose: 2 mg Nystatin (Nystatin Oral Suspension -) 500,000 units PO Q6HPO [facility] Last Admin: 11/13/16 06:42 Dose: Not Given Ondansetron HCl (Zofran Injection) 4 mg IVPUSH Q6H PRN PRN Reason: NAUSEA Last Admin: 11/12/16 23:19 Dose: 4 mg - Objective Vital Signs: Vital Signs Temperature 98.2 F 11/13/16 08:40 Pulse Rate 87 11/13/16 08:40 Respiratory Rate 18 11/13/16 08:40 Blood Pressure 150/89 11/13/16 08:40 O2 Sat by Pulse Oximetry (%) 92 L 11/12/16 21:00 Constitutional: Yes: No Distress, Calm, Obese Cardiovascular: Yes: Regular Rate and Rhythm Respiratory: Yes: Regular, CTA Bilaterally Gastrointestinal: Yes: Normal Bowel Sounds, Soft Musculoskeletal: Yes: WNL Extremities: Yes: WNL Neurological: Yes: Alert, Oriented Psychiatric: Yes: Alert Labs: CBC, BMP 11/12/16 06:15 11/12/16 06:15 INR, PTT INR 1.54 (0.82-1.09) H 11/13/16 06:15 Assessment/Plan ac appendicitis morbid obesity plan continue abx continue as per surgery
[2016-11-13] MEDS: LISINOPRIL 10 MG TABLET (FP) PO SCH (13:02)
--- NOTE | 2016-11-13 13:54 | PN ---
Addendum entered and electronically signed by Ramon Reynoso RES 11/13/16 14:34: Zosyn day 2 not day 1 Original Note: Physical Exam: SUBJECTIVE: Patient seen and examined at bedside at 830 this morning for surgery today complains of abdominal pain OBJECTIVE: Vital Signs Period Temp Pulse Resp BP Sys/Peoples Pulse Ox Last 24 Hr 98.1 F-100.3 F 83-93 18-20 138-159/86-100 92 GENERAL: The patient is awake, alert, and fully oriented moderate distress HEAD: Normal with no signs of trauma. EYES: PERRL NECK: Trachea midline, full range of motion, supple. LUNGS: Breath sounds equal, clear to auscultation bilaterally, no wheezes, no crackles, no accessory muscle use. HEART: Regular rate and rhythm, S1, S2 without murmur, rub or gallop. ABDOMEN: Soft, obese, tender to palpation RLQ and RUQ voluntary guarding NEUROLOGICAL: Cranial nerves II through XII grossly intact. Normal speech, gait not observed. Laboratory Results - last 24 hr 11/13/16 06:15 INR 1.54 H Active Medications Generic Name Dose Route Start Last Admin Trade Name Freq PRN Reason Stop Dose Admin Lactated Ringer's 1,000 mls @ 150 mls/hr 11/13/16 13:51 Lactated Ringers Solution IV ASDIR EUSEBIA Piperacillin Sod/Tazobactam Sod 50 mls @ 100 mls/hr 11/13/16 14:00 Zosyn 3.375gm Ivpb (Pre-Docked) IVPB Q6H [facility] Protocol Lisinopril 10 mg 11/14/16 10:00 Prinivil PO DAILY [facility] Morphine Sulfate 2 mg 11/13/16 13:51 Morphine Injection - IVPUSH Q4H PRN PAIN Nystatin 500,000 units 11/13/16 18:00 Nystatin Oral Suspension - PO Q6HPO [facility] Ondansetron HCl 4 mg 11/13/16 13:51 Zofran Injection IVPUSH Q6H PRN NAUSEA ASSESSMENT/PLAN: 31M with a PMH of morbid obesity presents to the hospital with abdominal pain found to have a perforated appendicitis in the OR. Sepsis secondary to Perforated appendicitis: CT scan initially read as perforated appendicitis the read changed to non perforated appendicitis. Taken to the OR for attempted Laparoscopic appendectomy found to be perforated. Appendix was not able to be visualized as a result was not resected. Patient s/ p laparoscopic drainage and washout of fabi-appendiceal abscess POD #0 ID consult appreciated surgery consult appreciated will continue IV ABx with Zosyn day 1 Advance diet when able monitor drainage of Drain f/u cultures IVF pain control will follow up for post op check after surgery Leukocytosis: improving with antibiotics i suspect this will further improve after drainage Essential Hypertension: no previous diagnosis per patient but he has been hypertensive in the hopital although pain may be a contributing factor he liely has underlying hypertension started on lisinopril 10mg will continue and titrate up as needed Oral Thrush: Continue nystatin Swish and Swallow Morbid Obesity: s/p sleeve gastrectomy continue gastrectomy diet follow up outpatient PPx: HSQ no GI PPx needed-no major or minor criteria met PT consult not needed at this time FEN: continue LR @ 150ml/hr no electrolyte issues advance diet post-op as tolerated Case discussed with attending Dr. Goldberg Visit type - Emergency Visit Emergency Visit: Yes ED Registration Date: 11/11/16 Care time: The patient presented to the Emergency Department on the above date and was hospitalized for further evaluation of their emergent condition. - New Patient This patient is new to me today: Yes Date on this admission: 11/13/16 - Critical Care Critical Care patient: No
--- NOTE | 2016-11-13 15:39 | PN ---
Teaching Attending Note Name of Resident: Ramon Reynoso ATTENDING PHYSICIAN STATEMENT I saw and evaluated the patient. I reviewed the resident's note and discussed the case with the resident. I agree with the resident's findings and plan as documented. SUBJECTIVE: Has Abd pain , feels very dry. OBJECTIVE: NAD CV : RRR Lungs : CTAB ext : no rodo Abd : obese, drainage tube in . TTP in RLQ and RUQ . no rebound tenderness , hypoactive BS ASSESSMENT AND PLAN: 31 y/o male with h/o Morbid obesity, s/p gastric sleeve sx in Aug 2016 who presented with Abd pain and was found to have ruptured appendix . 1- Appendicitis with rupture. although final CT scan read showed non ruptured appendix. during OR an abscess was formed and the appendix is ruptured. appendectomy was not done and a drainage tube was placed . - cont zosyn - monitor blood count - cont IVF , will decrease rate in am - d/w CCY with Dr. Hogue who thought it was not necessary at this time - monitor RUQ . if needed can repeat US - clears and pain control 2- HTN: had a h/o HTN , was o n ACEI - cont lisinopril which was started yesterday dispo : OC
[2016-11-13] MEDS: morphine CARPU-JECT 2 MG/1 ML DISP.SYRIN IVPUSH PRN ×2 (16:01→20:02)
[2016-11-13] MEDS: ONDANSETRON 4 MG/2 ML VIAL IVPUSH PRN (18:49)
[2016-11-13] MEDS: HEPARIN NA (PORCINE) 5,000 UNITS/ML 1ML VIAL SQ SCH (21:58)
[2016-11-13] MEDS ORDERED: ACETAMINOPHEN 325 MG TABLET (FP) PO ONE (23:23)
--- NOTE | 2016-11-13 23:43 | OP ---
DATE OF OPERATION: 11/13/2016 PREOPERATIVE DIAGNOSIS: Acute appendicitis. POSTOPERATIVE DIAGNOSIS: Perforated appendix with abscess in the retroperitoneum and periappendiceal area with secondary inflammation of terminal ileum. SURGEON: Sandy Chowdhury M.D. AFTER SCHOOL PROGRAM COORDINATOR: Carlos Burgess OPERATIVE NOTE: Patient was brought to the emergency room after a preliminary CAT scan that was read as perforated appendix was re-read finally as acute appendicitis. Patient was taken to OR after his name, date of , and medical record number were confirmed. He was then induced and put under general anesthesia. He had appropriate SCDs on, and he received appropriate perioperative antibiotics. A Jameson was placed under sterile conditions, and then he was prepped and draped in the usual sterile fashion. A timeout was then performed. A 1-inch supraumbilical incision and I bluntly dissected down to his fascia. It took over 45 minutes to establish a Celis, as his abdominal wall was markedly obese, and it was very difficult to safely get in. Once I did get in, I was able to put in a 12-mm balloon Celis type trocar inside the abdomen and insufflate the abdomen to a pressure of 18 mmHg, as his heavy abdominal wall mandated such. At this point, we then placed him in Trendelenburg position, and then I placed a 5-mm trocar in his right upper quadrant because of limited insufflation and this extended through his whole abdominal wall. I then had to use a bariatric length, 5-mm trocar, and I put this in the upper midline. At this point, the patient was then placed in Trendelenburg position with some right side up; however, visualization was still somewhat limited, and then at this point I then attempted to identify the appendix in the right lower quadrant. I began by medializing the cecum and terminal ileum and trying to rotate it medially; however, the was somewhat necrotic, and the terminal ileum was very inflamed. Once I was able to medialize it, there was a large amount of purulent material that was expressed. Once I medialized this area, and this pus was then aspirated out. Once the cecum was medialized, the terminal ileum was completely standing anteriorly. We could not identify the appendix. At this point, the decision was made to just place a drain at this abscess area, as my concern was that conversion to open would most likely require ileocolic resection with a very high risk of wound infection in a super morbidly obese patient. Therefore, I thought it would be a better idea to leave a drain, control his sepsis, cool him down, and have a expert in laparoscopic surgery with more experience with super morbidly obese patient deal with his appendix definitively at a future date once this is cooled down. Once this drain was left in the abscess cavity, we then secured it with a 3-0 nylon to his skin, and then the trocars were removed, and then I closed the fascia with number 1 Vicryl in a running fashion tied to itself. Abelardo was then reapproximated with number 1 Vicryl, and the skin and subcutaneous tissues were reapproximated with skin dusty. A Jameson catheter was then removed. All counts were correct. SANDY CHOWDHURY M.D. [place]/[id number]
[2016-11-14] MEDS: NYSTATIN 500,000 UNITS/5 ML SUSPENSION PO SCH ×4 (00:06→17:44)
[2016-11-14] MEDS: PIPERACILLIN/TAZOB 3.375 GM 50 ML IVPB SCH ×4 (02:20→21:10)
[2016-11-14] MEDS: LACTATED RINGERS SOLUTION 1,000 ML IV SCH ×2 (05:59→18:50)
[2016-11-14] MEDS: HEPARIN NA (PORCINE) 5,000 UNITS/ML 1ML VIAL SQ SCH ×3 (05:59→21:10)
[2016-11-14] MEDS ORDERED: LACTATED RINGERS SOLUTION 1,000 ML IV SCH ×2 (07:40→12:57)
[2016-11-14 08:01] LABS: MCH 28.1 pg (25.7-33.7); MCHC 32.9 g/dl (32.0-35.9); MEAN CELL VOLUME 85.4 fl (80-96); MEAN PLT VOLUME 7.6 fl (7.5-11.1); PLATELET COUNT 306 K/MM3 (134-434); RDW 17.4 % (11.9-15.9); WHITE BLOOD COUNT 9.4 K/mm3 (4.0-10.0)
[2016-11-14 08:47] LABS: CALCIUM 8.5 mg/dL (8.5-10.1); CREATININE 0.6 mg/dL (0.7-1.3)
[2016-11-14] MEDS: ONDANSETRON 4 MG/2 ML VIAL IVPUSH PRN (09:27)
[2016-11-14] MEDS ORDERED: LISINOPRIL 10 MG TABLET (FP) PO SCH ×2 (10:00→12:36)
--- NOTE | 2016-11-14 12:35 | PN ---
Progress Note, Physician Chief Complaint: feels weird History of Present Illness: +fever overnight. hunger on/off. drain 30cc serosang. still having pain in RUQ/RLQ - Current Medication List Current Medications: Active Medications Heparin Sodium (Porcine) (Heparin -) 5,000 unit SQ TID [facility] Last Admin: 11/14/16 05:59 Dose: 5,000 unit Piperacillin Sod/Tazobactam Sod (Zosyn 3.375gm Ivpb (Pre-Docked)) 50 mls @ 100 mls/hr IVPB Q6H-IV [facility] PRN Reason: Protocol Last Admin: 11/14/16 09:29 Dose: 100 mls/hr Lactated Ringer's (Lactated Ringers Solution) 1,000 mls @ 100 mls/hr IV ASDIR [facility] Last Admin: 11/14/16 09:30 Dose: 100 mls/hr Lisinopril (Prinivil) 10 mg PO DAILY [facility] Last Admin: 11/14/16 09:29 Dose: 10 mg Morphine Sulfate (Morphine Injection -) 2 mg IVPUSH Q4H PRN PRN Reason: PAIN Last Admin: 11/13/16 20:02 Dose: 2 mg Nystatin (Nystatin Oral Suspension -) 500,000 units PO Q6HPO [facility] Last Admin: 11/14/16 11:42 Dose: 500,000 units Ondansetron HCl (Zofran Injection) 4 mg IVPUSH Q6H PRN PRN Reason: NAUSEA Last Admin: 11/14/16 09:27 Dose: 4 mg - Objective Vital Signs: Vital Signs Temperature 99.6 F 11/14/16 08:25 Pulse Rate 91 H 11/14/16 08:25 Respiratory Rate 20 11/14/16 08:25 Blood Pressure 154/99 11/14/16 08:25 O2 Sat by Pulse Oximetry (%) 94 L 11/13/16 21:00 Constitutional: Yes: No Distress, Calm Gastrointestinal: Yes: Soft, Tenderness. No: Distention Wound/Incision: Yes: Dressing Dry and Intact Labs: CBC, BMP 11/14/16 06:30 11/14/16 06:30 INR, PTT INR 1.54 (0.82-1.09) H 11/13/16 06:15 Problem List - Problems (1) Perforated appendicitis Assessment/Plan: s/p lap drainage of fabi-appendicial abscess. unable to find appendix. cont IV abx adv to reg diet if patient wants daily labs Code(s): K35.2 - ACUTE APPENDICITIS WITH GENERALIZED PERITONITIS
[2016-11-14] MEDS ORDERED: LISINOPRIL 10 MG TABLET (FP) PO ONE (12:36)
--- NOTE | 2016-11-14 12:49 | PN ---
Teaching Attending Note Name of Resident: Ramon Reynoso ATTENDING PHYSICIAN STATEMENT I saw and evaluated the patient. I reviewed the resident's note and discussed the case with the resident. I agree with the resident's findings and plan as documented. SUBJECTIVE:seen at 11: 15 am abd pain has imporved , no nausea or vomiting . had fever this am . has numbness and weakness in R arm and leg, which is chronic but worsened this AM to a point he was not able to lift his R arm or R leg earlier this am. he was w/u with An EMG as out pt , but denies any CT or MRI of brain OBJECTIVE: NAD , awake and alert CV : RRR Lungs : CTAB ext : no rodo Abd : morbidly obese, RIVERA drain in . TTP in RLQ and RUQ ( RUQ pain has improved) . no rebound tenderness , hypoactive BS. NEuro : Awake and alert , oriented. no facial droop, uvula at mid line , tongue at mid line . nl facial sensation , EOMI. round equal pupils reactive to light . strength : RUE : shoulder abduction 4/5 , Biceps 4/5 , triceps 4/5 , hand rn wound care 4/5 LUE : shoulder abduction 5/5 , Biceps 5/5 , triceps 5/5 , hand rn wound care 5/5 RLE : hip flexion 2/5, knee flexion 4/5, knee extension 4/5 , Ankle dorsiflecxion 2/5, ankle plantar flexion 5/5 LLE: hip flexion 5/5, knee flexion 5/5, knee extension 5/5 , Ankle dorsiflecxion 5/5, ankle plantar flexion 5/5 Reflexees: 2+ L knee jerk, 1+ R knee jerk . 2+ R biceps , 1+ L biceps Sensation: decreased to light touch in R upper and Lower ext. NL over face. ASSESSMENT AND PLAN: 31 y/o male with h/o Morbid obesity, s/p gastric sleeve sx in Aug 2016 who presented with Abd pain and was found to have ruptured appendix. 1- Complicated Appendicitis with rupture and periappendicial abscess. s/p laparoscopic RIVERA drainage of the abscess .POD1 - cont zosyn , fever trended down - monitor blood count - decrease IVF rate till am only - RUQ pain improved , if it worsens or if fever persists then will repeat US or do HIDA scan - advance diet to full ( normally on phase 3 post gastric sleeve diet ) 2- R upper and lower ext weakness and numbness : numbness and mild weakness are old , but weakness worsened this am> 3 hrs ago . He presneted to ER in Oct with b/l LE numbness, referred to neuro and he recently had EMG study. but no CT or MRI of brain . Exam today of R sided weakness and numbness ( worse ) is concerning. - check CT of head w/c stat - give ASA - after CT will check MRI to r/o stroke - if Neg might evaluate neck - lipid panel . 2- HTN: increase lisinopril. Dispo : [facility]LOC
[2016-11-14] MEDS ORDERED: ASPIRIN 325 MG ENTERIC COATED TABLET (FP) PO ONE (13:07)
--- NOTE | 2016-11-14 13:49 | PN ---
Physical Exam: SUBJECTIVE: Patient seen and examined when seen at 9AM patient stated he felt worse than before the surgery when seen again at 1145am he stated he feels better now. complains of right arm and right leg numbness and weakness. patient was very hypertensive 2 days ago. Concern for CVA. OBJECTIVE: Vital Signs Period Temp Pulse Resp BP Sys/Peoples Pulse Ox Last 24 Hr 98.9 F-101.8 F 91-98 18-20 150-162/85-102 94-94 GENERAL: The patient is awake, alert, and fully oriented HEAD: Normal with no signs of trauma. EYES: PERRLA EOMI NECK: Trachea midline, full range of motion, supple. LUNGS: Breath sounds equal, clear to auscultation bilaterally, no wheezes, no crackles, no accessory muscle use. HEART: Regular rate and rhythm, S1, S2 without murmur, rub or gallop. ABDOMEN: Soft, morbidly obese, tender to palpation RLQ and RUQ RIVERA drain in place with serosangenous output 30ml since midnight NEUROLOGICAL: Cranial nerves II through XII intact. no facial droop or weakness and sensation is intact in the face Normal speech. Left upper and left lower extremities have global 5/5 strength. RUE has decreased strength 3/5 strength there is also decreased sensation to the right upper extremity. RLE sensation also decreased when compared to the left hip flexion 2/5 strength knee flexion 4/5 ankle dorsifelxion 3/5 plantar flexion 4/5 reflexes: 2+ left knee 2+ left bicep 2+ right bicep 1+ right knee Laboratory Results - last 24 hr 11/14/16 11/14/16 06:30 06:30 WBC 9.4 RBC 3.66 L Hgb 10.3 L Hct 31.3 L MCV 85.4 MCHC 32.9 RDW 17.4 H Plt Count 306 MPV 7.6 Sodium 141 Potassium 4.0 Chloride 102 Carbon Dioxide 31 Anion Gap 8 BUN 5 L D Creatinine 0.6 L Random Glucose 99 Calcium 8.5 Active Medications Generic Name Dose Route Start Last Admin Trade Name Freq PRN Reason Stop Dose Admin Heparin Sodium (Porcine) 5,000 unit 11/13/16 22:00 11/14/16 13:26 Heparin - SQ 5,000 unit TID [facility] Administration Piperacillin Sod/Tazobactam Sod 50 mls @ 100 mls/hr 11/13/16 15:00 11/14/16 09: 29 Zosyn 3.375gm Ivpb (Pre-Docked) IVPB 100 mls/hr Q6H-IV [facility] Administration Protocol Lactated Ringer's 1,000 mls @ 50 mls/hr 11/14/16 12:57 11/14/16 13:26 Lactated Ringers Solution IV 11/15/16 01:39 50 mls/hr ASDIR [facility] Administration Lisinopril 20 mg 11/15/16 10:00 Prinivil PO DAILY [facility] Morphine Sulfate 2 mg 11/13/16 13:51 11/13/16 20:02 Morphine Injection - IVPUSH 2 mg Q4H PRN Administration PAIN Nystatin 500,000 units 11/13/16 18:00 11/14/16 11:42 Nystatin Oral Suspension - PO 500,000 units Q6HPO [facility] Administration Ondansetron HCl 4 mg 11/13/16 13:51 11/14/16 09:27 Zofran Injection IVPUSH 4 mg Q6H PRN Administration NAUSEA ASSESSMENT/PLAN: 31M with a PMH of morbid obesity presents to the hospital with abdominal pain found to have a perforated appendicitis in the OR. Sepsis secondary to Perforated appendicitis: CT scan initially read as perforated appendicitis the read changed to non perforated appendicitis. Taken to the OR for attempted Laparoscopic appendectomy found to be perforated. Appendix was not able to be visualized as a result was not resected. Patient s/ p laparoscopic drainage and washout of fabi-appendiceal abscess POD #1. Patient was discussed with Dr. Chowdhury. He will seek assistance from Dr. Horton as well as his opinion for this case as he has more experience with morbidly obese patients ID consult appreciated surgery consult appreciated will continue IV ABx with Zosyn day 3 Advance diet as tolerated --> Full liquid diet for dinner monitor drainage of Drain f/u cultures IVF pain control Will repeat ultrasound ig RUQ pain worsens currently he states it is improving Right sided numbness and weakness: need to rule out CVA. Patient had elevated diastolic BP to 100 2 days ago. Will do head CT if CT negative will consider MRI Will need to contact neurologist patient was seeing today office is closed states hes had this problem chronically and had an EMG as outpatient but now it is worse will give one dose aspirin 325mg will consider US of carotids Leukocytosis: Resolved continue with antibiotics Essential Hypertension: no previous diagnosis per patient but he has been hypertensive in the hospital although pain may be a contributing factor he likely has underlying hypertension started on lisinopril 10mg during this hospitalization, however, his blood pressure needs to be better controlled so will increase lisinopril to 20mg po daily Oral Thrush: Continue nystatin Swish and Swallow Morbid Obesity: s/p sleeve gastrectomy continue gastrectomy diet follow up outpatient PPx: HSQ no GI PPx needed-no major or minor criteria met PT consult not needed at this time FEN: continue LR but decrease to 50ml/hr no electrolyte issues will advance to full liquid diet for dinner Case discussed with attending Dr. Goldberg Visit type - Emergency Visit Emergency Visit: Yes ED Registration Date: 11/11/16 Care time: The patient presented to the Emergency Department on the above date and was hospitalized for further evaluation of their emergent condition. - New Patient This patient is new to me today: No - Critical Care Critical Care patient: No
[2016-11-14] MEDS ORDERED: ONDANSETRON 4 MG/2 ML VIAL IVPUSH STA (14:05)
[2016-11-14] MEDS: morphine CARPU-JECT 2 MG/1 ML DISP.SYRIN IVPUSH PRN (14:20)
[2016-11-14] MEDS ORDERED: oxyCODONE HCL 5 MG TABLET PO PRN (16:17)
[2016-11-14] MEDS ORDERED: BENZOCAINE/MENTH/CETYLPYRD CL 1 EACH LOZENGE MM PRN (18:38)
--- NOTE | 2016-11-14 20:52 | PN ---
Progress Note, Physician Chief Complaint: Pt. has a sore throat, not tolerating fluids well earlier. His fluids were increased, Also was having right sided weakness, in which CT was found to be negative for stroke. - Current Medication List Current Medications: Active Medications Benzocaine/Menthol (Cepacol Lozenge -) 1 each MM Q4H PRN PRN Reason: SORE THROAT Heparin Sodium (Porcine) (Heparin -) 5,000 unit SQ TID [facility] Last Admin: 11/14/16 13:26 Dose: 5,000 unit Piperacillin Sod/Tazobactam Sod (Zosyn 3.375gm Ivpb (Pre-Docked)) 50 mls @ 100 mls/hr IVPB Q6H-IV [facility] PRN Reason: Protocol Last Admin: 11/14/16 15:44 Dose: 100 mls/hr Lactated Ringer's (Lactated Ringers Solution) 1,000 mls @ 100 mls/hr IV ASDIR [facility] Last Admin: 11/14/16 18:50 Dose: 100 mls/hr Lisinopril (Prinivil) 20 mg PO DAILY [facility] Morphine Sulfate (Morphine Injection -) 2 mg IVPUSH Q4H PRN PRN Reason: PAIN Last Admin: 11/14/16 14:20 Dose: 2 mg Nystatin (Nystatin Oral Suspension -) 500,000 units PO Q6HPO [facility] Last Admin: 11/14/16 17:44 Dose: 500,000 units Ondansetron HCl (Zofran Injection) 4 mg IVPUSH Q6H PRN PRN Reason: NAUSEA Last Admin: 11/14/16 09:27 Dose: 4 mg Oxycodone HCl (Roxicodone -) 5 mg PO Q4H PRN PRN Reason: PAIN - Objective Vital Signs: Vital Signs Temperature 99.6 F 11/14/16 08:25 Pulse Rate 91 H 11/14/16 08:25 Respiratory Rate 20 11/14/16 08:25 Blood Pressure 154/99 11/14/16 08:25 O2 Sat by Pulse Oximetry (%) 94 L 11/13/16 21:00 Constitutional: Yes: Well Nourished, No Distress, Calm Musculoskeletal: Yes: WNL Neurological: Yes: WNL, Alert, Oriented Labs: CBC, BMP 11/14/16 06:30 11/14/16 06:30 INR, PTT INR 1.54 (0.82-1.09) H 11/13/16 06:15 Assessment/Plan POD#1 s/p laparoscopy with drain placement. Has a sore throat that is resolving. Stable post operative course. D/C from anesthesia care
[2016-11-15] MEDS: NYSTATIN 500,000 UNITS/5 ML SUSPENSION PO SCH ×6 (00:01→23:24)
[2016-11-15] MEDS: PIPERACILLIN/TAZOB 3.375 GM 50 ML IVPB SCH ×2 (02:19→10:41)
[2016-11-15] MEDS: LACTATED RINGERS SOLUTION 1,000 ML IV SCH ×2 (04:55→08:30)
--- NOTE | 2016-11-15 05:09 | HOSP ---
Subjective - Review of Symptoms Subjective: Was paged by the nurse and informed me that patient lost balance and hit his head this morning at 4:15am. Immediately went to assess the patient. A/c to the advanced nursing professor, patient had a large bowel movement so she cleaned him. Patient then tried to stand up and as he was doing so, his knees gave up and hit his head at the edge of the wall. A/c to the patient, he was able to hold himself and didn't hit the head with the force. Denies headache, dizziness, vertigo or any other symptoms before or after the fall. No h/o LOC. Did have urinary incontinence while trying to help him get on to the bed with the help of the nurses. Patient reports that he has been having nausea, 3-4 episodes of vomiting/day, had 1 large bowel movement after almost 5 days. He also mentions that he has been feeling worse and says its not getting any better. Physical examination Vitals: BP-159/103 mmHg, -84 bpm, T-100.4F, RR-20 GENERAL: Morbidly obese patient, lying comfortably in bed, Awake, alert, and fully oriented, in no acute distress. HEAD: Normal with no signs of trauma. EYES: EOM intact, no pallor or icterus. EARS, NOSE, THROAT: Ears normal. Moist mucous membranes. NECK: Normal range of motion, supple without lymphadenopathy, JVD, or masses. LUNGS: Breath sounds equal, clear to auscultation bilaterally. No wheezes, and no crackles. No accessory muscle use. HEART: Regular rate and rhythm, normal S1 and S2 without murmur, rub or gallop. ABDOMEN: Soft, morbidly obese, tender to palpation RLQ and RUQ RIVERA drain in place with serosangenous MUSCULOSKELETAL: Normal range of motion at all joints. No bony deformities or tenderness. No CVA tenderness. UPPER EXTREMITIES: 2+ pulses, warm, well-perfused. No cyanosis. No clubbing. Cap refill <2 seconds. No peripheral edema. LOWER EXTREMITIES: 2+ pulses, warm, well-perfused. No calf tenderness. No peripheral edema. NEUROLOGICAL: RUE : shoulder abduction 4/5 , Biceps 4/5 , triceps 4/5 , hand executive chef 4/5 LUE : shoulder abduction 5/5 , Biceps 5/5 , triceps 5/5 , hand executive chef 5/5 RLE : hip flexion 2/5, knee flexion 4/5, knee extension 4/5 , Ankle dorsiflecxion 2/5, ankle plantar flexion 5/5 LLE: hip flexion 5/5, knee flexion 5/5, knee extension 5/5 , Ankle dorsiflecxion 5/5, ankle plantar flexion 5/5 Reflexees: 2+ L knee jerk, 1+ R knee jerk . 2+ R biceps , 1+ L biceps Sensation: decreased to light touch in R upper and Lower ext. NL over face. PSYCHIATRIC: Cooperative. Good eye contact. Appropriate mood and affect. SKIN: Warm, dry, normal turgor, no rashes or lesions noted. A/P Head trauma s/p mechanical fall Patient had CT head done yesterday to r/o stroke since patient complained of numbness of the extremities He was scheduled to do an MRI of brain yesterday 11/14/2016. Would like to r/o fracture/bleed, hence will wait for the MRI brain today. Neurological exam unchanged as compared to yesterdays exam. No change in mental status. No significant symptoms post fall Nausea/Vomiting Most likely due to ruptured appenditicitis Continue Zofran 4mg stat Illness, plan of care explained to the patient. He verbalized understanding. Case discussed with Dr. eClaya. Physical Examination Vital Signs: Vital Signs Temperature 99.1 F 11/14/16 22:00 Pulse Rate 98 H 11/14/16 22:00 Respiratory Rate 22 11/14/16 22:00 Blood Pressure 160/90 11/14/16 22:00 O2 Sat by Pulse Oximetry (%) 94 L 11/14/16 21:00 Labs: CBC, BMP 11/14/16 06:30 11/14/16 06:30 Visit type - Emergency Visit Emergency Visit: Yes ED Registration Date: 11/11/16 Care time: The patient presented to the Emergency Department on the above date and was hospitalized for further evaluation of their emergent condition. - New Patient This patient is new to me today: Yes Date on this admission: 11/16/16 - Critical Care Critical Care patient: No
[2016-11-15] MEDS: ONDANSETRON 4 MG/2 ML VIAL IVPUSH PRN (05:11)
[2016-11-15] MEDS: HEPARIN NA (PORCINE) 5,000 UNITS/ML 1ML VIAL SQ SCH ×3 (05:41→21:49)
[2016-11-15 08:08] LABS: MCH 28.3 pg (25.7-33.7); MCHC 33.3 g/dl (32.0-35.9); MEAN CELL VOLUME 84.9 fl (80-96); MEAN PLT VOLUME 7.8 fl (7.5-11.1); PLATELET COUNT 330 K/MM3 (134-434); RDW 17.5 % (11.9-15.9); WHITE BLOOD COUNT 11.3 K/mm3 (4.0-10.0)
[2016-11-15 08:32] LABS: CALCIUM 8.5 mg/dL (8.5-10.1); CREATININE 0.5 mg/dL (0.7-1.3)
--- NOTE | 2016-11-15 10:20 | PN ---
Progress Note, Physician Chief Complaint: n/v History of Present Illness: pt feels worse than before surgery. more N/V/dry heaving. +BM yesterday. abd pain in RUQ and RLQ. low grade temp to 100.5 - Current Medication List Current Medications: Active Medications Benzocaine/Menthol (Cepacol Lozenge -) 1 each MM Q4H PRN PRN Reason: SORE THROAT Heparin Sodium (Porcine) (Heparin -) 5,000 unit SQ TID [facility] Last Admin: 11/15/16 05:41 Dose: 5,000 unit Piperacillin Sod/Tazobactam Sod (Zosyn 3.375gm Ivpb (Pre-Docked)) 50 mls @ 100 mls/hr IVPB Q6H-IV [facility] PRN Reason: Protocol Last Admin: 11/15/16 02:19 Dose: 100 mls/hr Lactated Ringer's (Lactated Ringers Solution) 1,000 mls @ 150 mls/hr IV ASDIR [facility] Lisinopril (Prinivil) 20 mg PO DAILY [facility] Morphine Sulfate (Morphine Injection -) 2 mg IVPUSH Q4H PRN PRN Reason: PAIN Last Admin: 11/14/16 14:20 Dose: 2 mg Nystatin (Nystatin Oral Suspension -) 500,000 units PO Q6HPO [facility] Last Admin: 11/15/16 05:41 Dose: Not Given Ondansetron HCl (Zofran Injection) 4 mg IVPUSH Q6H PRN PRN Reason: NAUSEA Last Admin: 11/15/16 05:11 Dose: 4 mg Oxycodone HCl (Roxicodone -) 5 mg PO Q4H PRN PRN Reason: PAIN - Objective Vital Signs: Vital Signs Temperature 100.5 F H 11/15/16 06:59 Pulse Rate 84 11/15/16 06:59 Respiratory Rate 20 11/15/16 06:59 Blood Pressure 159/100 11/15/16 06:59 O2 Sat by Pulse Oximetry (%) 94 L 11/14/16 21:00 Constitutional: Yes: Moderate Distress Eyes: Yes: Conjunctiva Clear, EOM Intact HENT: Yes: Atraumatic, Normocephalic Neck: Yes: Supple, Trachea Midline Cardiovascular: Yes: Regular Rate and Rhythm Respiratory: Yes: Regular, CTA Bilaterally Gastrointestinal: Yes: Soft, Other (drain serosanguinous). No: Distention, Tenderness ...Rectal Exam: Yes: Deferred Genitourinary: No: CVA Tenderness - Left, CVA Tenderness - Right Breast(s): No: Nipple Inversion, Skin Changes Musculoskeletal: No: Joint Stiffness, Joint Swelling Extremities: No: Calf Tenderness, Erythema Wound/Incision: Yes: Clean/Dry, Well Approximated Neurological: Yes: Alert, Oriented Psychiatric: Yes: Alert, Oriented Labs: CBC, BMP 11/15/16 06:10 11/15/16 06:10 INR, PTT INR 1.54 (0.82-1.09) H 11/13/16 06:15 Problem List - Problems (1) Perforated appendicitis Assessment/Plan: s/p lap drainage of retroperitoneal abscess from what i suppose was appendicitis patient isn't improving clinically will re-scan patient to assess hesitant to immediately reoperate because i am concerned about likely conversion to open and high likelihood of needing ileocolic resection and high likelihood of abd wall infection complications. currently not septic and will use CT to differeniate between poor source control vs simple postop ileus (had really inflammed TI) Code(s): K35.2 - ACUTE APPENDICITIS WITH GENERALIZED PERITONITIS
[2016-11-15] MEDS: LISINOPRIL 20 MG TABLET (FP) PO SCH (10:41)
--- NOTE | 2016-11-15 11:20 | PN ---
Progress Note, Physician History of Present Illness: patient post op from appendicitis still spiking fever - Current Medication List Current Medications: Active Medications Acetaminophen (Ofirmev Injection -) 1,000 mg IVPB ONCE ONE Stop: 11/15/16 10:41 Benzocaine/Menthol (Cepacol Lozenge -) 1 each MM Q4H PRN PRN Reason: SORE THROAT Heparin Sodium (Porcine) (Heparin -) 5,000 unit SQ TID [facility] Last Admin: 11/15/16 05:41 Dose: 5,000 unit Piperacillin Sod/Tazobactam Sod (Zosyn 3.375gm Ivpb (Pre-Docked)) 50 mls @ 100 mls/hr IVPB Q6H-IV [facility] PRN Reason: Protocol Last Admin: 11/15/16 10:41 Dose: 100 mls/hr Lactated Ringer's (Lactated Ringers Solution) 1,000 mls @ 150 mls/hr IV ASDIR [facility] Last Admin: 11/15/16 08:30 Dose: 150 mls/hr Lisinopril (Prinivil) 20 mg PO DAILY [facility] Last Admin: 11/15/16 10:41 Dose: 20 mg Morphine Sulfate (Morphine Injection -) 2 mg IVPUSH Q4H PRN PRN Reason: PAIN Last Admin: 11/14/16 14:20 Dose: 2 mg Nystatin (Nystatin Oral Suspension -) 500,000 units PO Q6HPO [facility] Last Admin: 11/15/16 05:41 Dose: Not Given Ondansetron HCl (Zofran Injection) 4 mg IVPUSH Q6H PRN PRN Reason: NAUSEA Last Admin: 11/15/16 05:11 Dose: 4 mg Oxycodone HCl (Roxicodone -) 5 mg PO Q4H PRN PRN Reason: PAIN - Objective Vital Signs: Vital Signs Temperature 100.5 F H 11/15/16 06:59 Pulse Rate 84 11/15/16 06:59 Respiratory Rate 20 11/15/16 06:59 Blood Pressure 159/100 11/15/16 06:59 O2 Sat by Pulse Oximetry (%) 94 L 11/14/16 21:00 Constitutional: Yes: No Distress, Calm HENT: Yes: Atraumatic Neck: Yes: Supple Cardiovascular: Yes: Regular Rate and Rhythm Respiratory: Yes: Regular, CTA Bilaterally Gastrointestinal: Yes: Soft, Hypoactive Bowel Sounds, Tenderness, Other ( drainage tube in place) Musculoskeletal: Yes: WNL Extremities: Yes: WNL Wound/Incision: Yes: Clean/Dry Neurological: Yes: Alert, Oriented Psychiatric: Yes: Alert, Oriented Labs: CBC, BMP 11/15/16 06:10 11/15/16 06:10 INR, PTT INR 1.54 (0.82-1.09) H 11/13/16 06:15 Assessment/Plan ac appendicitis morbid obesity plan will increase dose of zosyn will also add diflucan i think he should get an hiv test done
[2016-11-15] MEDS ORDERED: ACETAMINOPHEN 1000 MG/100 ML VIAL (NON FORMULARY) IVPB ONE (11:30)
--- NOTE | 2016-11-15 12:05 | PN ---
Physical Exam: SUBJECTIVE: Patient seen and examined at bedside. Patient had a BM yesterday and while going back to bed he states his knees buckled and he fell but he caught himself before he was able to hit his head. still complaining of pain nausea and vomiting. He states he feels worse off than before the surgery. He is spiking fevers and having leukocytosis. OBJECTIVE: Vital Signs Period Temp Pulse Resp BP Sys/Peoples Pulse Ox Last 24 Hr 99.1 F-100.5 F 84-98 20-22 159-160/90-100 94 GENERAL: The patient is awake, alert, and fully oriented HEAD: Normal with no signs of trauma. EYES: PERRLA EOMI NECK: Trachea midline, full range of motion, supple. LUNGS: Breath sounds equal, clear to auscultation bilaterally, no wheezes, no crackles, no accessory muscle use. HEART: Regular rate and rhythm, S1, S2 without murmur, rub or gallop. ABDOMEN: Soft, morbidly obese, tender to palpation RLQ and RUQ RIVERA drain in place with serous output NEUROLOGICAL: Cranial nerves II through XII intact. no facial droop or weakness and sensation is intact in the face Normal speech. Left upper and left lower extremities have global 5/5 strength. RUE has decreased strength 3/5 strength there is also decreased sensation to the right upper extremity. RLE sensation also decreased when compared to the left hip flexion 2/5 strength knee flexion 4/5 ankle dorsifelxion 3/5 plantar flexion 4/5 reflexes: 2+ left knee 2+ left bicep 2+ right bicep 1+ right knee Overall neurological exam unchanged from yesterday Laboratory Results - last 24 hr 11/15/16 11/15/16 06:10 06:10 WBC 11.3 H RBC 3.68 L Hgb 10.4 L Hct 31.3 L MCV 84.9 MCHC 33.3 RDW 17.5 H Plt Count 330 MPV 7.8 Sodium 138 Potassium 3.8 Chloride 100 Carbon Dioxide 31 Anion Gap 7 L BUN 6 L Creatinine 0.5 L Random Glucose 103 Calcium 8.5 Triglycerides 133 Cholesterol 175 Total LDL Cholesterol 94 HDL Cholesterol 39 L Active Medications Generic Name Dose Route Start Last Admin Trade Name Freq PRN Reason Stop Dose Admin Benzocaine/Menthol 1 each 11/14/16 18:38 Cepacol Lozenge - MM Q4H PRN SORE THROAT Heparin Sodium (Porcine) 5,000 unit 11/13/16 22:00 11/15/16 05:41 Heparin - SQ 5,000 unit TID [facility] Administration Lactated Ringer's 1,000 mls @ 150 mls/hr 11/15/16 08:13 11/15/16 08:30 Lactated Ringers Solution IV 150 mls/hr ASDIR [facility] Administration Piperacillin Sod/Tazobactam Sod 100 mls @ 200 mls/hr 11/15/16 18:00 Zosyn 4.5gm Ivpb (Pre-Docked) IVPB Q8H-IV [facility] Protocol Fluconazole 50 mls @ 100 mls/hr 11/15/16 11:45 Diflucan 100 Mg/D5w Premixed Ivpb - IVPB DAILY [facility] Lisinopril 20 mg 11/15/16 10:00 11/15/16 10:41 Prinivil PO 20 mg DAILY [facility] Administration Morphine Sulfate 2 mg 11/13/16 13:51 11/14/16 14:20 Morphine Injection - IVPUSH 2 mg Q4H PRN Administration PAIN Nystatin 500,000 units 11/13/16 18:00 11/15/16 05:41 Nystatin Oral Suspension - PO Not Given Q6HPO [facility] Ondansetron HCl 4 mg 11/13/16 13:51 11/15/16 05:11 Zofran Injection IVPUSH 4 mg Q6H PRN Administration NAUSEA Oxycodone HCl 5 mg 11/14/16 16:17 Roxicodone - PO Q4H PRN PAIN ASSESSMENT/PLAN: 31M with a PMH of morbid obesity presents to the hospital with abdominal pain found to have a perforated appendicitis in the OR. Sepsis secondary to Perforated appendicitis: CT scan initially read as perforated appendicitis the read changed to non perforated appendicitis. Taken to the OR for attempted Laparoscopic appendectomy found to be perforated. Appendix was not able to be visualized as a result was not resected. Patient s/ p laparoscopic drainage and washout of fabi-appendiceal abscess POD #2. Patient was discussed with Dr. Chowdhury. He will seek assistance from Dr. Horton as well as his opinion for this case as he has more experience with morbidly obese patients. After speaking to Dr. Chowdhury today he wis requesting a repeat CT scan with PO/IV contrast to check for abscess formation vs another pathology. ID consult appreciated-spoke to ID attending. will start diflucan and increase dose of Zosyn. Recommends HIV testing. Will talk to patient about it and hiv counselor him. surgery consult appreciated will continue IV ABx with Zosyn day 4 continue full liquid diet for now patient not tolerating diet will increase LR to 150ml/hr monitor drainage of Drain f/u cultures-negative so far pain control Will repeat ultrasound if RUQ pain worsens currently it is not worse but it is not better will follow up CT scan for now Right sided numbness and weakness: need to rule out CVA. Patient had elevated diastolic BP to 100 on this admission Head CT negative patient can not fit in MRI machine neurology consult placed will follow up states had EMG as outpatient does not know results Leukocytosis: WBC 11.3 today worse than yesterday continue with antibiotics - increase dose to zosyn start diflucan Essential Hypertension: no previous diagnosis per patient but he has been hypertensive in the hospital although pain may be a contributing factor he likely has underlying hypertension started on lisinopril 10mg during this hospitalization, however, his blood pressure needs to be better controlled continue lisinopril 20mg po daily will increase if NBP does not improve Oral Thrush: Continue nystatin Swish and Swallow Morbid Obesity: s/p sleeve gastrectomy continue gastrectomy diet follow up outpatient PPx: HSQ no GI PPx needed-no major or minor criteria met will get PT consult patient fll and it could be due to deconditioning. patient is at risk for rapid deconditioning given his morbid obesity FEN: continue LR and increase to 150ml/hr no electrolyte issues FLD Case discussed with attending Dr. Guzman Visit type - Emergency Visit Emergency Visit: Yes ED Registration Date: 11/11/16 Care time: The patient presented to the Emergency Department on the above date and was hospitalized for further evaluation of their emergent condition. - New Patient This patient is new to me today: No - Critical Care Critical Care patient: No
[2016-11-15] MEDS: FLUCONAZOLE 100 MG/D5W 50 ML IVPB SCH (13:34)
--- NOTE | 2016-11-15 15:20 | PN ---
Teaching Attending Note Name of Resident: Ramon Reynoso ATTENDING PHYSICIAN STATEMENT I saw and evaluated the patient. I reviewed the resident's note and discussed the case with the resident. I agree with the resident's findings and plan as documented. Vital Signs Temperature 98.7 F 11/15/16 13:41 Pulse Rate 82 11/15/16 13:44 Respiratory Rate 20 11/15/16 13:44 Blood Pressure 158/102 11/15/16 13:44 O2 Sat by Pulse Oximetry (%) 94 L 11/14/16 21:00 CBCD WBC 11.3 K/mm3 (4.0-10.0) H 11/15/16 06:10 RBC 3.68 M/mm3 (4.00-5.60) L 11/15/16 06:10 Hgb 10.4 GM/dL (11.7-16.9) L 11/15/16 06:10 Hct 31.3 % (35.4-49) L 11/15/16 06:10 MCV 84.9 fl (80-96) 11/15/16 06:10 MCHC 33.3 g/dl (32.0-35.9) 11/15/16 06:10 RDW 17.5 % (11.9-15.9) H 11/15/16 06:10 Plt Count 330 K/MM3 (134-434) 11/15/16 06:10 MPV 7.8 fl (7.5-11.1) 11/15/16 06:10 CMP Sodium 138 mmol/L (136-145) 11/15/16 06:10 Potassium 3.8 mmol/L (3.5-5.1) 11/15/16 06:10 Chloride 100 mmol/L (98-107) 11/15/16 06:10 Carbon Dioxide 31 mmol/L (21-32) 11/15/16 06:10 Anion Gap 7 (8-16) L 11/15/16 06:10 BUN 6 mg/dL (7-18) L 11/15/16 06:10 Creatinine 0.5 mg/dL (0.7-1.3) L 11/15/16 06:10 Creat Clearance w eGFR > 60 (>60) 11/12/16 06:15 Random Glucose 103 mg/dL (74-106) 11/15/16 06:10 Calcium 8.5 mg/dL (8.5-10.1) 11/15/16 06:10 Total Bilirubin 0.9 mg/dL (0.2-1.0) 11/12/16 06:15 AST 22 U/L (15-37) D 11/12/16 06:15 ALT 57 U/L (12-78) D 11/12/16 06:15 Alkaline Phosphatase 109 U/L (45-117) 11/12/16 06:15 Total Protein 7.2 g/dl (6.4-8.2) 11/12/16 06:15 Albumin 2.6 g/dl (3.4-5.0) L 11/12/16 06:15 CARDIAC ENZYMES Creatine Kinase 68 IU/L (39-308) 11/11/16 16:55 Troponin I < 0.02 ng/ml (0.00-0.05) 11/11/16 16:55 Current Medications Generic Name Dose Route Start Last Admin Trade Name Freq PRN Reason Stop Dose Admin Benzocaine/Menthol 1 each 11/14/16 18:38 Cepacol Lozenge - MM Q4H PRN SORE THROAT Heparin Sodium (Porcine) 5,000 unit 11/13/16 22:00 11/15/16 13:42 Heparin - SQ 5,000 unit TID [facility] Administration Lactated Ringer's 1,000 mls @ 150 mls/hr 11/15/16 08:13 11/15/16 08:30 Lactated Ringers Solution IV 150 mls/hr ASDIR [facility] Administration Piperacillin Sod/Tazobactam Sod 100 mls @ 200 mls/hr 11/15/16 18:00 Zosyn 4.5gm Ivpb (Pre-Docked) IVPB Q8H-IV [facility] Protocol Fluconazole 50 mls @ 100 mls/hr 11/15/16 11:45 11/15/16 13:34 Diflucan 100 Mg/D5w Premixed Ivpb - IVPB 100 mls/hr DAILY [facility] Administration Lisinopril 20 mg 11/15/16 10:00 11/15/16 10:41 Prinivil PO 20 mg DAILY [facility] Administration Morphine Sulfate 2 mg 11/13/16 13:51 11/14/16 14:20 Morphine Injection - IVPUSH 2 mg Q4H PRN Administration PAIN Nystatin 500,000 units 11/13/16 18:00 11/15/16 12:12 Nystatin Oral Suspension - PO 500,000 units Q6HPO [place] Administration Ondansetron HCl 4 mg 11/13/16 13:51 11/15/16 05:11 Zofran Injection IVPUSH 4 mg Q6H PRN Administration NAUSEA Oxycodone HCl 5 mg 11/14/16 16:17 Roxicodone - PO Q4H PRN PAIN Home Medications Medication Instructions Recorded NK [No Known Home Medication] 10/06/16 ASSESSMENT AND PLAN: Patient is a 31 yo male with h/o Morbid obesity, s/p gastric sleeve sx in Aug 2016 who presented with Abd pain and was found to have ruptured appendix. # POD #2 s/p laparoscopic RIVERA drainage of the abscess due to having an acute complicated Appendicitis with rupture and periappendicial abscess. On IV zosyn , and added Diflucan IV since patient has an oral thrush, HIV test was recommended to the patient. Dr.Peter Chowdhury surgical consult appreciated patient is going for CT scan of abdomen and pelvis. # Acute RUQ pain continues worse on palpation , will repeat US if pain worsens , might need HIDA scan # R upper and lower ext weakness and numbness : numbness and mild weakness are old . # Hypertensive Urgency on Lisinopril; will add Labetolol 100mg po bid with little sip of water. DVT Px: SCD, Heparin
--- NOTE | 2016-11-15 17:39 | CONSULT ---
Consult - text type - Consultation Consultation Note: NEUROLOGY CONSULTATION is greatly appreciated: This 31 yo RH man with h/o morbid obesity is s/p bariatric surgery. Admitted with nausea, vomiting and abdominal pain. H/O chronic, episodic headaches since teenage years. These occur 1/week without warning and are throbbing holocranial headaches with photophobia. + FH of migraines in his mother. Chronic, nocturnal leg cramps. Few months of numbness, tingling and pains in both legs at night. Occ sharp, shooting component on the right. Now occur duroing the day as well, particularly when immobile. Now, for 1 week, the "feelings have spread up to the right arm." Prior neuro eval and EMG studies in the [facility] few weeks ago. He doesn't know the results. ROS sig for Bruxism. Pt told by his girlfriend. EDGAR: Obese. Neck supple with full ROM. - SLR NEURO: MS/sapeech: Normal CN II-XII: Normal Motor: No drift. Normal strength, tone and reflexes. Toes downgoing. Coord: No FTN dystaxia Sensory: Normal Gait: deferred IMP: Non-focal neurological exam, probably normal. Migraine headaches. Restless Limbs syndrome. SUGGEST: Review prior neuro w/u, imaging and EMG to r/o cervical and LS radiculopathy. Check Fe++, TIBC, Ferritin. Trial of pramipexole .25 mg PO q HS x 2 days then BID after meals. Mobilize Pt OO bed to chair and ambulate. Also could consider treating with topiramate for migraine prophylaxis which may also assist with weight loss. Thank you very much, Nii Up MD
[2016-11-15] MEDS: LABETALOL HCL 100 MG TABLET (FP) PO SCH ×2 (17:49→21:49)
[2016-11-15] MEDS: PIPERACILLIN/TAZOB 4.5 GM 100 ML IVPB SCH (17:49)
[2016-11-15] MEDS: PRAMIPEXOLE DIHYDROCHLORIDE 0.25 MG TABLET PO SCH (21:50)
[2016-11-16] MEDS: NYSTATIN 500,000 UNITS/5 ML SUSPENSION PO SCH ×4 (00:40→18:29)
[2016-11-16] MEDS: PIPERACILLIN/TAZOB 4.5 GM 100 ML IVPB SCH ×3 (02:01→18:29)
[2016-11-16] MEDS: HEPARIN NA (PORCINE) 5,000 UNITS/ML 1ML VIAL SQ SCH ×3 (06:35→21:05)
[2016-11-16 07:49] LABS: BASOPHIL 0.7 % (0-2.0); EOSINOPHIL 1.1 % (0-4.5); MCH 28.3 pg (25.7-33.7); MCHC 33.2 g/dl (32.0-35.9); MEAN CELL VOLUME 85.3 fl (80-96); MEAN PLT VOLUME 7.5 fl (7.5-11.1); NEUTROPHILS 68.8 % (42.8-82.8); PLATELET COUNT 307 K/MM3 (134-434); RDW 17.5 % (11.9-15.9); WHITE BLOOD COUNT 9.4 K/mm3 (4.0-10.0)
[2016-11-16 08:08] LABS: ALBUMIN 2.1 g/dl (3.4-5.0); ALK PHOS 80 U/L (45-117); ANION GAP 8 (8-16); BILIRUBIN,TOTAL 0.8 mg/dL (0.2-1.0); CALCIUM 8.3 mg/dL (8.5-10.1); CO2 31 mmol/L (21-32); CREATININE 0.4 mg/dL (0.7-1.3); GLUCOSE,RANDOM 101 mg/dL (74-106); SGOT/AST 43 U/L (15-37); SGPT/ALT 54 U/L (12-78); TOT PROT 6.6 g/dl (6.4-8.2)
[2016-11-16] MEDS ORDERED: PT OWN MED DRAWER 7, Y5N ONE (09:59)
[2016-11-16] MEDS: LACTATED RINGERS SOLUTION 1,000 ML IV SCH ×2 (10:01→16:52)
[2016-11-16] MEDS: FLUCONAZOLE 100 MG/D5W 50 ML IVPB SCH (10:02)
[2016-11-16] MEDS: LABETALOL HCL 100 MG TABLET (FP) PO SCH ×3 (10:02→23:30)
[2016-11-16] MEDS: LISINOPRIL 20 MG TABLET (FP) PO SCH (10:02)
--- NOTE | 2016-11-16 10:27 | PN ---
Progress Note, Physician Chief Complaint: feels better History of Present Illness: no more retching. feels better than yesterday. CT results noted. abscess/ phlegmon now more medial/superior in retroperitoneal plane. - Current Medication List Current Medications: Active Medications Benzocaine/Menthol (Cepacol Lozenge -) 1 each MM Q4H PRN PRN Reason: SORE THROAT Heparin Sodium (Porcine) (Heparin -) 5,000 unit SQ TID [facility] Last Admin: 11/16/16 06:35 Dose: 5,000 unit Lactated Ringer's (Lactated Ringers Solution) 1,000 mls @ 150 mls/hr IV ASDIR [facility] Last Admin: 11/16/16 10:01 Dose: 150 mls/hr Piperacillin Sod/Tazobactam Sod (Zosyn 4.5gm Ivpb (Pre-Docked)) 100 mls @ 200 mls/hr IVPB Q8H-IV [place] PRN Reason: Protocol Last Admin: 11/16/16 10:01 Dose: 200 mls/hr Fluconazole (Diflucan 100 Mg/D5w Premixed Ivpb -) 50 mls @ 100 mls/hr IVPB DAILY [facility] Last Admin: 11/16/16 10:02 Dose: 100 mls/hr Labetalol HCl (Normodyne -) 100 mg PO BID [facility] Last Admin: 11/16/16 10:02 Dose: 100 mg Lisinopril (Prinivil) 20 mg PO DAILY [facility] Last Admin: 11/16/16 10:02 Dose: 20 mg Morphine Sulfate (Morphine Injection -) 2 mg IVPUSH Q4H PRN PRN Reason: PAIN Last Admin: 11/14/16 14:20 Dose: 2 mg Nystatin (Nystatin Oral Suspension -) 500,000 units PO Q6HPO [facility] Last Admin: 11/16/16 06:35 Dose: 500,000 units Ondansetron HCl (Zofran Injection) 4 mg IVPUSH Q6H PRN PRN Reason: NAUSEA Last Admin: 11/15/16 05:11 Dose: 4 mg Oxycodone HCl (Roxicodone -) 5 mg PO Q4H PRN PRN Reason: PAIN Pramipexole Dihydrochloride (Mirapex -) 0.25 mg PO BIDCOX BRANSON Pramipexole Dihydrochloride (Mirapex -) 0.25 mg PO DAILY@1830 [facility] Stop: 11/16/16 18:31 Last Admin: 11/15/16 21:50 Dose: 0.25 mg - Objective Vital Signs: Vital Signs Temperature 98.7 F 11/16/16 06:19 Pulse Rate 82 11/16/16 06:19 Respiratory Rate 20 11/16/16 06:19 Blood Pressure 139/98 11/16/16 06:19 O2 Sat by Pulse Oximetry (%) 94 L 11/15/16 21:00 Constitutional: Yes: No Distress, Calm Eyes: Yes: Conjunctiva Clear, EOM Intact HENT: Yes: Atraumatic, Normocephalic Neck: Yes: Supple, Trachea Midline Cardiovascular: Yes: Regular Rate and Rhythm Respiratory: Yes: Regular Gastrointestinal: Yes: Soft. No: Distention, Tenderness ...Rectal Exam: Yes: Deferred Genitourinary: No: CVA Tenderness - Left, CVA Tenderness - Right Breast(s): Yes: Gynecomastia. No: Mass, Nipple Inversion Musculoskeletal: No: Joint Stiffness, Joint Swelling Extremities: No: Calf Tenderness, Erythema Integumentary: No: Erythema, Rash Wound/Incision: Yes: Clean/Dry, Well Approximated Neurological: Yes: Alert, Oriented Psychiatric: Yes: Alert, Oriented Labs: CBC, BMP 11/16/16 06:20 11/16/16 06:20 INR, PTT INR 1.54 (0.82-1.09) H 11/13/16 06:15 Problem List - Problems (1) Perforated appendicitis Assessment/Plan: s/p lap drainage of abscess from appendicitis -cont IV Abx clear liquid diet avoid operation for now Code(s): K35.2 - ACUTE APPENDICITIS WITH GENERALIZED PERITONITIS
[2016-11-16 10:28] LABS: HIV 1 & 2 AB NEGATIVE; HIV 1 AGp24 NEGATIVE
[2016-11-16] MEDS ORDERED: POTASSIUM CHLORIDE TABS 20 MEQ TABLET.ER (FP) PO ONE (14:04)
--- NOTE | 2016-11-16 14:15 | PN ---
Progress Note, Physician History of Present Illness: patient stable feeling much better no fevers - Current Medication List Current Medications: Active Medications Benzocaine/Menthol (Cepacol Lozenge -) 1 each MM Q4H PRN PRN Reason: SORE THROAT Heparin Sodium (Porcine) (Heparin -) 5,000 unit SQ TID [facility] Last Admin: 11/16/16 06:35 Dose: 5,000 unit Lactated Ringer's (Lactated Ringers Solution) 1,000 mls @ 150 mls/hr IV ASDIR [facility] Last Admin: 11/16/16 10:01 Dose: 150 mls/hr Piperacillin Sod/Tazobactam Sod (Zosyn 4.5gm Ivpb (Pre-Docked)) 100 mls @ 200 mls/hr IVPB Q8H-IV [place] PRN Reason: Protocol Last Admin: 11/16/16 10:01 Dose: 200 mls/hr Fluconazole (Diflucan 100 Mg/D5w Premixed Ivpb -) 50 mls @ 100 mls/hr IVPB DAILY [facility] Last Admin: 11/16/16 10:02 Dose: 100 mls/hr Labetalol HCl (Normodyne -) 100 mg PO BID [facility] Last Admin: 11/16/16 10:02 Dose: 100 mg Lisinopril (Prinivil) 20 mg PO DAILY [facility] Last Admin: 11/16/16 10:02 Dose: 20 mg Morphine Sulfate (Morphine Injection -) 2 mg IVPUSH Q4H PRN PRN Reason: PAIN Last Admin: 11/14/16 14:20 Dose: 2 mg Nystatin (Nystatin Oral Suspension -) 500,000 units PO Q6HPO [facility] Last Admin: 11/16/16 13:04 Dose: 500,000 units Ondansetron HCl (Zofran Injection) 4 mg IVPUSH Q6H PRN PRN Reason: NAUSEA Last Admin: 11/15/16 05:11 Dose: 4 mg Oxycodone HCl (Roxicodone -) 5 mg PO Q4H PRN PRN Reason: PAIN Pantoprazole Sodium (Protonix -) 40 mg PO DAILY [facility] Potassium Chloride (K-Dur -) 40 meq PO ONCE ONE Stop: 11/16/16 14:05 Pramipexole Dihydrochloride (Mirapex -) 0.25 mg PO BIDPC [facility] Pramipexole Dihydrochloride (Mirapex -) 0.25 mg PO DAILY@1830 [facility] Stop: 11/16/16 18:31 Last Admin: 11/15/16 21:50 Dose: 0.25 mg - Objective Vital Signs: Vital Signs Temperature 98.7 F 11/16/16 06:19 Pulse Rate 82 11/16/16 06:19 Respiratory Rate 20 11/16/16 06:19 Blood Pressure 139/98 11/16/16 06:19 O2 Sat by Pulse Oximetry (%) 94 L 11/15/16 21:00 Constitutional: Yes: No Distress, Calm Cardiovascular: Yes: Regular Rate and Rhythm Respiratory: Yes: Regular, CTA Bilaterally Gastrointestinal: Yes: Normal Bowel Sounds, Soft, Other (drainage tube in place) Musculoskeletal: Yes: WNL Extremities: Yes: WNL Labs: CBC, BMP 11/16/16 06:20 11/16/16 06:20 INR, PTT INR 1.54 (0.82-1.09) H 11/13/16 06:15 Assessment/Plan ac appendicitis morbid obesity plan continue current mgmt continue abx will decide further course once patient remains afebrile
--- NOTE | 2016-11-16 14:18 | PN ---
Physical Exam: SUBJECTIVE: Patient seen and examined. States he feels slightly better than yesterday happy he is not having any more fevers OBJECTIVE: Vital Signs Period Temp Pulse Resp BP Sys/Peoples Pulse Ox Last 24 Hr 98.7 F-99.5 F 72-88 20-85 139-182/72-113 94 GENERAL: The patient is awake, alert, and fully oriented HEAD: Normal with no signs of trauma. EYES: PERRLA EOMI NECK: Trachea midline, full range of motion, supple. LUNGS: Breath sounds equal, clear to auscultation bilaterally, no wheezes, no crackles, no accessory muscle use. HEART: Regular rate and rhythm, S1, S2 without murmur, rub or gallop. ABDOMEN: Soft, morbidly obese, tender to palpation RLQ and RUQ RIVERA drain in place with serous output NEUROLOGICAL: Cranial nerves II through XII intact. no facial droop or weakness and sensation is intact in the face Normal speech. Laboratory Results - last 24 hr 11/16/16 11/16/16 11/16/16 06:20 06:20 06:20 WBC 9.4 RBC 3.48 L Hgb 9.9 L Hct 29.7 L MCV 85.3 MCHC 33.2 RDW 17.5 H Plt Count 307 MPV 7.5 Neutrophils % 68.8 Lymphocytes % 19.9 D Monocytes % 9.5 Eosinophils % 1.1 D Basophils % 0.7 Sodium 137 Potassium 3.5 Chloride 98 Carbon Dioxide 31 Anion Gap 8 BUN 4 L D Creatinine 0.4 L Creat Clearance w eGFR > 60 Random Glucose 101 Calcium 8.3 L Total Bilirubin 0.8 AST 43 H D ALT 54 Alkaline Phosphatase 80 D Total Protein 6.6 Albumin 2.1 L HIV 1&2 Antibody Screen Negative HIV P24 Antigen Negative Active Medications Generic Name Dose Route Start Last Admin Trade Name Freq PRN Reason Stop Dose Admin Benzocaine/Menthol 1 each 11/14/16 18:38 Cepacol Lozenge - MM Q4H PRN SORE THROAT Heparin Sodium (Porcine) 5,000 unit 11/13/16 22:00 11/16/16 06:35 Heparin - SQ 5,000 unit TID [place] Administration Lactated Ringer's 1,000 mls @ 150 mls/hr 11/15/16 08:13 11/16/16 10:01 Lactated Ringers Solution IV 150 mls/hr ASDIR [place] Administration Piperacillin Sod/Tazobactam Sod 100 mls @ 200 mls/hr 11/15/16 18:00 11/16/16 10 :01 Zosyn 4.5gm Ivpb (Pre-Docked) IVPB 200 mls/hr Q8H-IV [place] Administration Protocol Fluconazole 50 mls @ 100 mls/hr 11/15/16 11:45 11/16/16 10:02 Diflucan 100 Mg/D5w Premixed Ivpb - IVPB 100 mls/hr DAILY [place] Administration Labetalol HCl 100 mg 11/15/16 17:30 11/16/16 10:02 Normodyne - PO 100 mg BID [place] Administration Lisinopril 20 mg 11/15/16 10:00 11/16/16 10:02 Prinivil PO 20 mg DAILY [place] Administration Morphine Sulfate 2 mg 11/13/16 13:51 11/14/16 14:20 Morphine Injection - IVPUSH 2 mg Q4H PRN Administration PAIN Nystatin 500,000 units 11/13/16 18:00 11/16/16 13:04 Nystatin Oral Suspension - PO 500,000 units Q6HPO [place] Administration Ondansetron HCl 4 mg 11/13/16 13:51 11/15/16 05:11 Zofran Injection IVPUSH 4 mg Q6H PRN Administration NAUSEA Oxycodone HCl 5 mg 11/14/16 16:17 Roxicodone - PO Q4H PRN PAIN Pantoprazole Sodium 40 mg 11/16/16 14:15 Protonix - PO DAILY [place] Pramipexole Dihydrochloride 0.25 mg 11/17/16 09:00 Mirapex - PO BIDPC [place] Pramipexole Dihydrochloride 0.25 mg 11/15/16 18:30 11/15/16 21:50 Mirapex - PO 11/16/16 18:31 0.25 mg DAILY@1830 [place] Administration ASSESSMENT/PLAN: 31M with a PMH of morbid obesity presents to the hospital with abdominal pain found to have a perforated appendicitis in the OR. Sepsis secondary to Perforated appendicitis: CT scan initially read as perforated appendicitis the read changed to non perforated appendicitis. Taken to the OR for attempted Laparoscopic appendectomy found to be perforated. Appendix was not able to be visualized as a result was not resected. Patient s/ p laparoscopic drainage and washout of fabi-appendiceal abscess POD #3. CT scan did not show any worsening pathology abscess moved more medial appendix not visualized ID consult appreciated-spoke to ID attending. continue diflucan and increased dose of Zosyn. HIV test negative surgery consult appreciated will continue IV ABx with Zosyn day 5 continue full liquid diet for now patient not tolerating diet decrease LR to 100ml/hr as he states he feels his legs more swollen monitor drainage of Drain f/u cultures-negative so far pain control Will repeat ultrasound if RUQ pain worsens currently it is not worse but it is not better will follow up CT scan for now Right sided numbness and weakness: need to rule out CVA. Patient had elevated diastolic BP to 100 on this admission Head CT negative patient can not fit in MRI machine neurology consult appreciated likely from restless leg syndrome-on mirapex states had EMG as outpatient does not know results-unable to reach neurologist Leukocytosis: WBC 9.4 improved continue with antibiotics - increased dose of zosyn continue diflucan Essential Hypertension: no previous diagnosis per patient but he has been hypertensive in the hospital although pain may be a contributing factor he likely has underlying hypertension started on lisinopril 10mg during this hospitalization, however, his blood pressure needs to be better controlled continue lisinopril 20mg po daily BP improved Oral Thrush: Continue nystatin Swish and Swallow HIV negative Morbid Obesity: s/p sleeve gastrectomy continue gastrectomy diet follow up outpatient PPx: HSQ protonix PT consult FEN: Decrease LR to 150ml/hr give potassium for hypokalemia FLD Visit type - Emergency Visit Emergency Visit: Yes ED Registration Date: 11/11/16 Care time: The patient presented to the Emergency Department on the above date and was hospitalized for further evaluation of their emergent condition. - New Patient This patient is new to me today: No - Critical Care Critical Care patient: No
[2016-11-16] MEDS: PANTOPRAZOLE 40 MG TABLET (FP) PO SCH (15:04)
[2016-11-16] MEDS: PRAMIPEXOLE DIHYDROCHLORIDE 0.25 MG TABLET PO SCH (18:29)
[2016-11-16] MEDS ORDERED: LISINOPRIL 20 MG TABLET (FP) PO ONE (18:30)
[2016-11-16] MEDS: ONDANSETRON 4 MG/2 ML VIAL IVPUSH PRN (20:33)
--- NOTE | 2016-11-16 21:56 | PN ---
Teaching Attending Note Name of Resident: Ramon Reynoso ATTENDING PHYSICIAN STATEMENT I saw and evaluated the patient. I reviewed the resident's note and discussed the case with the resident. I agree with the resident's findings and plan as documented. Patient is not able to tolerate any food. Feels nauseas after trying to eat any food. Vital Signs Temperature 99.8 F H 11/16/16 17:06 Pulse Rate 66 11/16/16 17:06 Respiratory Rate 20 11/16/16 17:06 Blood Pressure 161/100 11/16/16 17:06 O2 Sat by Pulse Oximetry (%) 94 L 11/16/16 09:00 CBCD WBC 9.4 K/mm3 (4.0-10.0) 11/16/16 06:20 RBC 3.48 M/mm3 (4.00-5.60) L 11/16/16 06:20 Hgb 9.9 GM/dL (11.7-16.9) L 11/16/16 06:20 Hct 29.7 % (35.4-49) L 11/16/16 06:20 MCV 85.3 fl (80-96) 11/16/16 06:20 MCHC 33.2 g/dl (32.0-35.9) 11/16/16 06:20 RDW 17.5 % (11.9-15.9) H 11/16/16 06:20 Plt Count 307 K/MM3 (134-434) 11/16/16 06:20 MPV 7.5 fl (7.5-11.1) 11/16/16 06:20 CMP Sodium 137 mmol/L (136-145) 11/16/16 06:20 Potassium 3.5 mmol/L (3.5-5.1) 11/16/16 06:20 Chloride 98 mmol/L (98-107) 11/16/16 06:20 Carbon Dioxide 31 mmol/L (21-32) 11/16/16 06:20 Anion Gap 8 (8-16) 11/16/16 06:20 BUN 4 mg/dL (7-18) L D 11/16/16 06:20 Creatinine 0.4 mg/dL (0.7-1.3) L 11/16/16 06:20 Creat Clearance w eGFR > 60 (>60) 11/16/16 06:20 Random Glucose 101 mg/dL (74-106) 11/16/16 06:20 Calcium 8.3 mg/dL (8.5-10.1) L 11/16/16 06:20 Total Bilirubin 0.8 mg/dL (0.2-1.0) 11/16/16 06:20 AST 43 U/L (15-37) H D 11/16/16 06:20 ALT 54 U/L (12-78) 11/16/16 06:20 Alkaline Phosphatase 80 U/L (45-117) D 11/16/16 06:20 Total Protein 6.6 g/dl (6.4-8.2) 11/16/16 06:20 Albumin 2.1 g/dl (3.4-5.0) L 11/16/16 06:20 CARDIAC ENZYMES Creatine Kinase 68 IU/L (39-308) 11/11/16 16:55 Troponin I < 0.02 ng/ml (0.00-0.05) 11/11/16 16:55 Current Medications Generic Name Dose Route Start Last Admin Trade Name Freq PRN Reason Stop Dose Admin Benzocaine/Menthol 1 each 11/14/16 18:38 Cepacol Lozenge - MM Q4H PRN SORE THROAT Heparin Sodium (Porcine) 5,000 unit 11/13/16 22:00 11/16/16 21:05 Heparin - SQ 5,000 unit TID [place] Administration Piperacillin Sod/Tazobactam Sod 100 mls @ 200 mls/hr 11/15/16 18:00 11/16/16 18 :29 Zosyn 4.5gm Ivpb (Pre-Docked) IVPB 200 mls/hr Q8H-IV [place] Administration Protocol Fluconazole 50 mls @ 100 mls/hr 11/15/16 11:45 11/16/16 10:02 Diflucan 100 Mg/D5w Premixed Ivpb - IVPB 100 mls/hr DAILY [place] Administration Lactated Ringer's 1,000 mls @ 100 mls/hr 11/16/16 15:46 11/16/16 16:52 Lactated Ringers Solution IV 100 mls/hr ASDIR [place] Administration Labetalol HCl 100 mg 11/15/16 17:30 11/16/16 21:35 Normodyne - PO Not Given BID [place] Lisinopril 40 mg 11/17/16 10:00 Prinivil PO DAILY [facility] Morphine Sulfate 2 mg 11/13/16 13:51 11/14/16 14:20 Morphine Injection - IVPUSH 2 mg Q4H PRN Administration PAIN Nystatin 500,000 units 11/13/16 18:00 11/16/16 18:29 Nystatin Oral Suspension - PO 500,000 units Q6HPO [place] Administration Ondansetron HCl 4 mg 11/13/16 13:51 11/16/16 20:33 Zofran Injection IVPUSH 4 mg Q6H PRN Administration NAUSEA Oxycodone HCl 5 mg 11/14/16 16:17 Roxicodone - PO Q4H PRN PAIN Pantoprazole Sodium 40 mg 11/16/16 14:15 11/16/16 15:04 Protonix - PO 40 mg DAILY [place] Administration Pramipexole Dihydrochloride 0.25 mg 11/17/16 09:00 Mirapex - PO BIDPC [facility] Home Medications Medication Instructions Recorded NK [No Known Home Medication] 10/06/16 11/16/2016 CT scan of the abdomen and pelvis following oral and intravenous contrast. Coronal and sagittal reformatted images were obtained 120 cc of Omnipaque 350 was intravenously injected Comparison: Prior CT scan of the abdomen pelvis dated 11/17 There are now bibasal atelectatic changes and probable infiltrates, right more than left. The heart is within normal limits in size. Fatty infiltration of the liver mainly in the left hepatic lobe again seen. The spleen, pancreas, gallbladder, both adrenal glands and both kidneys appear unremarkable. Nondistended stomach with surgical sutures is suggestive of a gastric sleeve. There is no evidence of small bowel obstruction. Interval surgery with a midline incision in the lower anterior abdominal pelvic wall. A Percutaneous drainage catheter is now present in the right lower quadrant with the catheter tip seen extending to the right lower pelvis, anteriorly. A few extraluminal air pockets are present in the inferior aspect of the right lower quadrant. There is stranding/inflammation with phlegmon like density again seen now measuring 6 x 4.4 cm that appears to have slightly increased since see prior examination with thickening of the adjacent bowel loops. Partially distended urinary bladder without wall thickening. Perirectal fat is clear. Visualized osseous structures appear intact with anterior spondylosis at T12 and L1 level IMPRESSION: Status post op. The appendix is not seen. Interval slight increase in edema with stranding and phlegmon like density in the right lower quadrant. A percutaneous drainage catheter is now present with its tip extending to lowermost portion of the right lower quadrant , anteriorly with a few air pockets consistent with recent surgery. Close follow-up is needed. ASSESSMENT AND PLAN: Patient is a 31 yo male with h/o Morbid obesity, s/p gastric sleeve sx in Aug 2016 who presented with Abd pain and was found to have ruptured appendix. # POD #3 s/p laparoscopic RIVERA drainage of the abscess due to having an acute complicated Appendicitis with rupture and periappendicial abscess. On IV zosyn , and added Diflucan IV and Nyastatin liquid for an oral thrush, HIV test was recommended to the patient. Dr.Peter Chowdhury surgical consult appreciated. # Acute RUQ pain continues worse on palpation , will repeat US if needed # R upper and lower ext weakness and numbness : numbness and mild weakness which are old . # Hypertensive Urgency on Lisinopril; continue Labetolol 100mg po bid . DVT Px: SCD, Heparin
[2016-11-17] MEDS: PIPERACILLIN/TAZOB 4.5 GM 100 ML IVPB SCH ×4 (02:43→17:22)
[2016-11-17] MEDS: LACTATED RINGERS SOLUTION 1,000 ML IV SCH (02:48)
[2016-11-17] MEDS: HEPARIN NA (PORCINE) 5,000 UNITS/ML 1ML VIAL SQ SCH ×3 (06:00→21:39)
[2016-11-17] MEDS: NYSTATIN 500,000 UNITS/5 ML SUSPENSION PO SCH ×4 (06:00→23:30)
[2016-11-17 06:06] LABS: SERUM IRON 38 ug/dL (38-169); TOTAL IRON BINDING CAPACITY 137 ug/dL (250-450); UIBC 99 ug/dL (111-343)
--- NOTE | 2016-11-17 08:05 | PN ---
Teaching Attending Note Name of Resident: Ramon Reynoso ATTENDING PHYSICIAN STATEMENT I saw and evaluated the patient. I reviewed the resident's note and discussed the case with the resident. I agree with the resident's findings and plan as documented. Patient feels the same , continues to feel nauseas and continues to have pain. Vital Signs Temperature 98.1 F 11/17/16 06:00 Pulse Rate 66 11/17/16 06:00 Respiratory Rate 18 11/17/16 06:00 Blood Pressure 180/98 11/17/16 06:00 O2 Sat by Pulse Oximetry (%) 95 11/16/16 21:00 CBCD WBC 9.4 K/mm3 (4.0-10.0) 11/16/16 06:20 RBC 3.48 M/mm3 (4.00-5.60) L 11/16/16 06:20 Hgb 9.9 GM/dL (11.7-16.9) L 11/16/16 06:20 Hct 29.7 % (35.4-49) L 11/16/16 06:20 MCV 85.3 fl (80-96) 11/16/16 06:20 MCHC 33.2 g/dl (32.0-35.9) 11/16/16 06:20 RDW 17.5 % (11.9-15.9) H 11/16/16 06:20 Plt Count 307 K/MM3 (134-434) 11/16/16 06:20 MPV 7.5 fl (7.5-11.1) 11/16/16 06:20 CMP Sodium 137 mmol/L (136-145) 11/16/16 06:20 Potassium 3.5 mmol/L (3.5-5.1) 11/16/16 06:20 Chloride 98 mmol/L (98-107) 11/16/16 06:20 Carbon Dioxide 31 mmol/L (21-32) 11/16/16 06:20 Anion Gap 8 (8-16) 11/16/16 06:20 BUN 4 mg/dL (7-18) L D 11/16/16 06:20 Creatinine 0.4 mg/dL (0.7-1.3) L 11/16/16 06:20 Creat Clearance w eGFR > 60 (>60) 11/16/16 06:20 Random Glucose 101 mg/dL (74-106) 11/16/16 06:20 Calcium 8.3 mg/dL (8.5-10.1) L 11/16/16 06:20 Total Bilirubin 0.8 mg/dL (0.2-1.0) 11/16/16 06:20 AST 43 U/L (15-37) H D 11/16/16 06:20 ALT 54 U/L (12-78) 11/16/16 06:20 Alkaline Phosphatase 80 U/L (45-117) D 11/16/16 06:20 Total Protein 6.6 g/dl (6.4-8.2) 11/16/16 06:20 Albumin 2.1 g/dl (3.4-5.0) L 11/16/16 06:20 CARDIAC ENZYMES Creatine Kinase 68 IU/L (39-308) 11/11/16 16:55 Troponin I < 0.02 ng/ml (0.00-0.05) 11/11/16 16:55 Current Medications Generic Name Dose Route Start Last Admin Trade Name Freq PRN Reason Stop Dose Admin Benzocaine/Menthol 1 each 11/14/16 18:38 Cepacol Lozenge - MM Q4H PRN SORE THROAT Heparin Sodium (Porcine) 5,000 unit 11/13/16 22:00 11/17/16 06:00 Heparin - SQ 5,000 unit TID [place] Administration Piperacillin Sod/Tazobactam Sod 100 mls @ 200 mls/hr 11/15/16 18:00 11/17/16 02 :43 Zosyn 4.5gm Ivpb (Pre-Docked) IVPB 200 mls/hr Q8H-IV [place] Administration Protocol Fluconazole 50 mls @ 100 mls/hr 11/15/16 11:45 11/16/16 10:02 Diflucan 100 Mg/D5w Premixed Ivpb - IVPB 100 mls/hr DAILY [place] Administration Lactated Ringer's 1,000 mls @ 100 mls/hr 11/16/16 15:46 11/17/16 02:48 Lactated Ringers Solution IV 100 mls/hr ASDIR [place] Administration Labetalol HCl 100 mg 11/15/16 17:30 11/16/16 23:30 Normodyne - PO 100 mg BID [place] Administration Lisinopril 40 mg 03/17/17 10:00 Prinivil PO DAILY [place] Morphine Sulfate 2 mg 11/13/16 13:51 11/14/16 14:20 Morphine Injection - IVPUSH 2 mg Q4H PRN Administration PAIN Nystatin 500,000 units 11/13/16 18:00 11/17/16 06:00 Nystatin Oral Suspension - PO 500,000 units Q6HPO [place] Administration Ondansetron HCl 4 mg 11/13/16 13:51 11/16/16 20:33 Zofran Injection IVPUSH 4 mg Q6H PRN Administration NAUSEA Oxycodone HCl 5 mg 11/14/16 16:17 Roxicodone - PO Q4H PRN PAIN Pantoprazole Sodium 40 mg 11/16/16 14:15 11/16/16 15:04 Protonix - PO 40 mg DAILY [place] Administration Pramipexole Dihydrochloride 0.25 mg 11/17/16 09:00 Mirapex - PO BIDPC [facility] Home Medications Medication Instructions Recorded NK [No Known Home Medication] 10/06/16 ASSESSMENT AND PLAN: Patient is a 31 yo male with h/o Morbid obesity, s/p gastric sleeve sx in Aug 2016 who presented with Abd pain and was found to have ruptured appendix. # POD #4 s/p laparoscopic RIVERA drainage of the abscess due to having an acute complicated Appendicitis with rupture and periappendicial abscess. On IV zosyn ,Diflucan IV and oral Nyastatin since patient has an oral thrush , HIV test was recommended to the patient. Dr.Peter Chowdhury surgical consult appreciated. # Acute RUQ pain continues worse on palpation # R upper and lower ext weakness and numbness : numbness and mild weakness which are old . # Hypertensive Urgency on Lisinopril; Labetolol 100mg po bid with little sip of water. DVT Px: SCD, Heparin
[2016-11-17 08:22] LABS: MCH 28.5 pg (25.7-33.7); MCHC 33.3 g/dl (32.0-35.9); MEAN CELL VOLUME 85.6 fl (80-96); MEAN PLT VOLUME 7.6 fl (7.5-11.1); PLATELET COUNT 342 K/MM3 (134-434); RDW 17.5 % (11.9-15.9); WHITE BLOOD COUNT 8.2 K/mm3 (4.0-10.0)
[2016-11-17] MEDS ORDERED: PT OWN MED DRAWER 7, Y5N ONE ×2 (08:47→17:09)
[2016-11-17] MEDS: LABETALOL HCL 100 MG TABLET (FP) PO SCH ×2 (08:55→12:05)
[2016-11-17] MEDS: PRAMIPEXOLE DIHYDROCHLORIDE 0.25 MG TABLET PO SCH ×2 (08:55→18:21)
[2016-11-17] MEDS: LISINOPRIL 20 MG TABLET (FP) PO SCH ×2 (08:56→10:42)
[2016-11-17] MEDS: PANTOPRAZOLE 40 MG TABLET (FP) PO SCH ×2 (08:56→10:20)
--- NOTE | 2016-11-17 10:02 | PN ---
Progress Note, Physician Chief Complaint: feels better History of Present Illness: drinking minimal fluids. tolerated some apple sauce. alot less pain. no more N/V. wbc 8. - Current Medication List Current Medications: Active Medications Benzocaine/Menthol (Cepacol Lozenge -) 1 each MM Q4H PRN PRN Reason: SORE THROAT Heparin Sodium (Porcine) (Heparin -) 5,000 unit SQ TID [facility] Last Admin: 11/17/16 06:00 Dose: 5,000 unit Piperacillin Sod/Tazobactam Sod (Zosyn 4.5gm Ivpb (Pre-Docked)) 100 mls @ 200 mls/hr IVPB Q8H-IV [place] PRN Reason: Protocol Last Admin: 11/17/16 08:57 Dose: 200 mls/hr Fluconazole (Diflucan 100 Mg/D5w Premixed Ivpb -) 50 mls @ 100 mls/hr IVPB DAILY [facility] Last Admin: 11/16/16 10:02 Dose: 100 mls/hr Lactated Ringer's (Lactated Ringers Solution) 1,000 mls @ 100 mls/hr IV ASDIR [facility] Last Admin: 11/17/16 02:48 Dose: 100 mls/hr Labetalol HCl (Normodyne -) 100 mg PO BID [facility] Last Admin: 11/17/16 08:55 Dose: 100 mg Lisinopril (Prinivil) 40 mg PO DAILY [facility] Last Admin: 11/17/16 08:56 Dose: 40 mg Morphine Sulfate (Morphine Injection -) 2 mg IVPUSH Q4H PRN PRN Reason: PAIN Last Admin: 11/14/16 14:20 Dose: 2 mg Nystatin (Nystatin Oral Suspension -) 500,000 units PO Q6HPO [facility] Last Admin: 11/17/16 06:00 Dose: 500,000 units Ondansetron HCl (Zofran Injection) 4 mg IVPUSH Q6H PRN PRN Reason: NAUSEA Last Admin: 11/16/16 20:33 Dose: 4 mg Oxycodone HCl (Roxicodone -) 5 mg PO Q4H PRN PRN Reason: PAIN Pantoprazole Sodium (Protonix -) 40 mg PO DAILY [facility] Last Admin: 11/17/16 08:56 Dose: 40 mg Pramipexole Dihydrochloride (Mirapex -) 0.25 mg PO BIDPC [facility] Last Admin: 11/17/16 08:55 Dose: 0.25 mg - Objective Vital Signs: Vital Signs Temperature 98.1 F 11/17/16 06:00 Pulse Rate 66 11/17/16 06:00 Respiratory Rate 18 11/17/16 06:00 Blood Pressure 180/98 11/17/16 06:00 O2 Sat by Pulse Oximetry (%) 95 11/16/16 21:00 Constitutional: Yes: No Distress, Calm Eyes: Yes: Conjunctiva Clear, EOM Intact HENT: Yes: Atraumatic, Normocephalic Neck: Yes: Supple, Trachea Midline Cardiovascular: Yes: Regular Rate and Rhythm Respiratory: Yes: Regular Gastrointestinal: Yes: Soft, Other (drain serous fluid). No: Distention, Tenderness Genitourinary: No: CVA Tenderness - Left, CVA Tenderness - Right Breast(s): No: Mass, Nipple Inversion Musculoskeletal: No: Joint Stiffness, Joint Swelling Extremities: No: Calf Tenderness, Erythema Integumentary: No: Erythema, Rash Neurological: Yes: Alert, Oriented Psychiatric: Yes: Alert, Oriented Labs: CBC, BMP 11/17/16 06:15 11/16/16 06:20 INR, PTT INR 1.54 (0.82-1.09) H 11/13/16 06:15 Problem List - Problems (1) Perforated appendicitis Assessment/Plan: adv to regular diet cont IV abx he can go home once his ileus resolves where he is eating more and meeting caloric needs and can be weaned off IVF will likely remove drain prior to discharge. I anticiapte he will need a couple more days in hospital but it really depends on his appetite. he will likely need oral abx to go home with. Code(s): K35.2 - ACUTE APPENDICITIS WITH GENERALIZED PERITONITIS
[2016-11-17] MEDS ORDERED: LABETALOL HCL 100 MG TABLET (FP) PO ONE (10:06)
--- NOTE | 2016-11-17 10:09 | PN ---
Physical Exam: SUBJECTIVE: Patient seen and examined at bedside states he feels better today still does not have his appetite completely back but it is improved OBJECTIVE: Vital Signs Period Temp Pulse Resp BP Sys/Peoples Pulse Ox Last 24 Hr 98.1 F-99.8 F 65-71 18-20 150-180/90-101 95 GENERAL: The patient is awake, alert, and fully oriented HEAD: Normal with no signs of trauma. EYES: PERRLA EOMI NECK: Trachea midline, full range of motion, supple. LUNGS: Breath sounds equal, clear to auscultation bilaterally, no wheezes, no crackles, no accessory muscle use. HEART: Regular rate and rhythm, S1, S2 without murmur, rub or gallop. ABDOMEN: Soft, morbidly obese, tender to palpation RLQ and RUQ but improved and less tender than yesterday. RIVERA drain in place with serous output NEUROLOGICAL: Cranial nerves II through XII intact. no facial droop or weakness and sensation is intact in the face Normal speech. Laboratory Results - last 24 hr 11/15/16 11/16/16 11/17/16 18:45 06:20 06:15 WBC 8.2 RBC 3.63 L Hgb 10.3 L Hct 31.1 L MCV 85.6 MCHC 33.3 RDW 17.5 H Plt Count 342 MPV 7.6 Iron 38 TIBC 137 L Iron Saturation 28 HIV 1&2 Antibody Screen Negative HIV P24 Antigen Negative Active Medications Generic Name Dose Route Start Last Admin Trade Name Freq PRN Reason Stop Dose Admin Amlodipine Besylate 5 mg 11/17/16 10:15 Norvasc - PO DAILY [facility] Benzocaine/Menthol 1 each 11/14/16 18:38 Cepacol Lozenge - MM Q4H PRN SORE THROAT Heparin Sodium (Porcine) 5,000 unit 11/13/16 22:00 11/17/16 06:00 Heparin - SQ 5,000 unit TID [facility] Administration Piperacillin Sod/Tazobactam Sod 100 mls @ 200 mls/hr 11/15/16 18:00 11/17/16 08 :57 Zosyn 4.5gm Ivpb (Pre-Docked) IVPB 200 mls/hr Q8H-IV [facility] Administration Protocol Fluconazole 50 mls @ 100 mls/hr 11/15/16 11:45 11/16/16 10:02 Diflucan 100 Mg/D5w Premixed Ivpb - IVPB 100 mls/hr DAILY [facility] Administration Labetalol HCl 100 mg 11/17/16 10:06 Normodyne - PO 11/17/16 10:07 ONCE ONE Labetalol HCl 200 mg 11/17/16 10:06 Normodyne - PO BID [facility] Lisinopril 40 mg 11/17/16 10:00 11/17/16 08:56 Prinivil PO 40 mg DAILY [facility] Administration Nystatin 500,000 units 11/13/16 18:00 11/17/16 06:00 Nystatin Oral Suspension - PO 500,000 units Q6HPO [facility] Administration Ondansetron HCl 4 mg 11/13/16 13:51 11/16/16 20:33 Zofran Injection IVPUSH 4 mg Q6H PRN Administration NAUSEA Oxycodone HCl 5 mg 11/14/16 16:17 Roxicodone - PO Q4H PRN PAIN Pantoprazole Sodium 40 mg 11/16/16 14:15 11/17/16 08:56 Protonix - PO 40 mg DAILY [facility] Administration Pramipexole Dihydrochloride 0.25 mg 11/17/16 09:00 11/17/16 08:55 Mirapex - PO 0.25 mg BIDPC [facility] Administration Laboratory Results - last 24 hr 11/15/16 11/16/16 11/17/16 18:45 06:20 06:15 WBC 8.2 RBC 3.63 L Hgb 10.3 L Hct 31.1 L MCV 85.6 MCHC 33.3 RDW 17.5 H Plt Count 342 MPV 7.6 Iron 38 TIBC 137 L Iron Saturation 28 HIV 1&2 Antibody Screen Negative HIV P24 Antigen Negative ASSESSMENT/PLAN: 31M with a PMH of morbid obesity presents to the hospital with abdominal pain found to have a perforated appendicitis in the OR. Sepsis secondary to Perforated appendicitis: CT scan initially read as perforated appendicitis the read changed to non perforated appendicitis. Taken to the OR for attempted Laparoscopic appendectomy found to be perforated. Appendix was not able to be visualized as a result was not resected. Patient s/ p laparoscopic drainage and washout of fabi-appendiceal abscess POD #4. CT scan did not show any worsening pathology abscess moved more medial appendix not visualized ID consult appreciated-spoke to ID attending. continue diflucan and increased dose of Zosyn. HIV test negative surgery consult appreciated recommendations noted will continue IV ABx with Zosyn day 6 advance to regular diet stop IVF monitor drainage of Drain f/u cultures-negative so far pain control Will repeat ultrasound if RUQ pain worsens currently it is not worse but it is not better will follow up CT scan for now Micro-no growth so far Right sided numbness and weakness: Head CT negative patient can not fit in MRI machine neurology consult appreciated likely from restless leg syndrome-on mirapex after he was started on mirapex he states his right leg has more function now states had EMG as outpatient does not know results-unable to reach neurologist Leukocytosis: Wresolved continue with antibiotics - increased dose of zosyn continue diflucan Essential Hypertension: no previous diagnosis per patient but he has been hypertensive in the hospital although pain may be a contributing factor he likely has underlying hypertension started on lisinopril 10mg during this hospitalization, however, his blood pressure needs to be better controlled increase lisinopril to 40mg po daily start norvasc 5mg po daily increase PO labealol to 200 BID Oral Thrush: Continue nystatin Swish and Swallow HIV negative Morbid Obesity: s/p sleeve gastrectomy continue gastrectomy diet follow up outpatient PPx: HSQ protonix PT consult FEN: stop IVF no electrolyte issues advance to regular diet today D/C home once tolerating diet Visit type - Emergency Visit Emergency Visit: Yes ED Registration Date: 11/11/16 Care time: The patient presented to the Emergency Department on the above date and was hospitalized for further evaluation of their emergent condition. - New Patient This patient is new to me today: No - Critical Care Critical Care patient: No
[2016-11-17] MEDS ORDERED: amLODIPine BESYLATE 5 MG TABLET (FP) PO SCH (10:15)
[2016-11-17] MEDS: FLUCONAZOLE 100 MG/D5W 50 ML IVPB SCH ×2 (10:20→10:43)
[2016-11-17] MEDS ORDERED: amLODIPine BESYLATE 5 MG TABLET (FP) PO ONE (13:04)
--- NOTE | 2016-11-17 14:06 | PN ---
Progress Note, Physician History of Present Illness: patient improving no fevers wbc normalized - Current Medication List Current Medications: Active Medications Amlodipine Besylate (Norvasc -) 10 mg PO DAILY [facility] Benzocaine/Menthol (Cepacol Lozenge -) 1 each MM Q4H PRN PRN Reason: SORE THROAT Heparin Sodium (Porcine) (Heparin -) 5,000 unit SQ TID [facility] Last Admin: 11/17/16 06:00 Dose: 5,000 unit Piperacillin Sod/Tazobactam Sod (Zosyn 4.5gm Ivpb (Pre-Docked)) 100 mls @ 200 mls/hr IVPB Q8H-IV [facility] PRN Reason: Protocol Last Admin: 11/17/16 10:42 Dose: Not Given Fluconazole (Diflucan 100 Mg/D5w Premixed Ivpb -) 50 mls @ 100 mls/hr IVPB DAILY [facility] Last Admin: 11/17/16 10:43 Dose: 100 mls/hr Labetalol HCl (Normodyne -) 200 mg PO BID [facility] Lisinopril (Prinivil) 40 mg PO DAILY [facility] Last Admin: 11/17/16 10:42 Dose: Not Given Nystatin (Nystatin Oral Suspension -) 500,000 units PO Q6HPO [facility] Last Admin: 11/17/16 11:35 Dose: 500,000 units Ondansetron HCl (Zofran Injection) 4 mg IVPUSH Q6H PRN PRN Reason: NAUSEA Last Admin: 11/16/16 20:33 Dose: 4 mg Oxycodone HCl (Roxicodone -) 5 mg PO Q4H PRN PRN Reason: PAIN Pantoprazole Sodium (Protonix -) 40 mg PO DAILY [facility] Last Admin: 11/17/16 10:20 Dose: Not Given Pramipexole Dihydrochloride (Mirapex -) 0.25 mg PO BIDPC [facility] Last Admin: 11/17/16 08:55 Dose: 0.25 mg - Objective Vital Signs: Vital Signs Temperature 98.3 F 11/17/16 10:00 Pulse Rate 76 11/17/16 10:00 Respiratory Rate 18 11/17/16 10:00 Blood Pressure 154/98 11/17/16 13:01 O2 Sat by Pulse Oximetry (%) 95 11/16/16 21:00 Constitutional: Yes: No Distress, Calm Cardiovascular: Yes: Regular Rate and Rhythm Respiratory: Yes: Regular, CTA Bilaterally Gastrointestinal: Yes: Soft, Hypoactive Bowel Sounds, Other Musculoskeletal: Yes: WNL Extremities: Yes: WNL Neurological: Yes: Alert, Oriented Psychiatric: Yes: Alert, Oriented Labs: CBC, BMP 11/17/16 06:15 11/16/16 06:20 INR, PTT INR 1.54 (0.82-1.09) H 11/13/16 06:15 Assessment/Plan ac appendicitis morbid obesity oral thrush abd abscess plan continue abx continue as per surgery will stop diflucan probably by tomorrow await for gi function to return
[2016-11-17] MEDS: LABETALOL HCL 200 MG TABLET (FP) PO SCH (21:39)
[2016-11-18] MEDS: PIPERACILLIN/TAZOB 4.5 GM 100 ML IVPB SCH ×3 (01:26→17:26)
[2016-11-18] MEDS: HEPARIN NA (PORCINE) 5,000 UNITS/ML 1ML VIAL SQ SCH ×3 (06:02→22:15)
[2016-11-18] MEDS: NYSTATIN 500,000 UNITS/5 ML SUSPENSION PO SCH ×3 (06:02→17:33)
[2016-11-18] MEDS: amLODIPine BESYLATE 10 MG TABLET (FP) PO SCH ×2 (08:09→09:01)
[2016-11-18] MEDS: LISINOPRIL 20 MG TABLET (FP) PO SCH ×2 (08:09→09:01)
[2016-11-18] MEDS ORDERED: PT OWN MED DRAWER 7, Y5N ONE ×2 (08:57→09:55)
[2016-11-18] MEDS: PRAMIPEXOLE DIHYDROCHLORIDE 0.25 MG TABLET PO SCH ×2 (09:00→09:19)
[2016-11-18] MEDS: PANTOPRAZOLE 40 MG TABLET (FP) PO SCH (09:00)
[2016-11-18] MEDS: LABETALOL HCL 200 MG TABLET (FP) PO SCH ×2 (09:00→22:14)
--- NOTE | 2016-11-18 09:09 | PN ---
Progress Note, Physician Chief Complaint: cant eat History of Present Illness: when he eats it just comes back out. +BM. no more pain. no fever. feels very weak. - Current Medication List Current Medications: Active Medications Amlodipine Besylate (Norvasc -) 10 mg PO DAILY [facility] Last Admin: 11/18/16 09:01 Dose: Not Given Benzocaine/Menthol (Cepacol Lozenge -) 1 each MM Q4H PRN PRN Reason: SORE THROAT Heparin Sodium (Porcine) (Heparin -) 5,000 unit SQ TID [facility] Last Admin: 11/18/16 06:02 Dose: 5,000 unit Piperacillin Sod/Tazobactam Sod (Zosyn 4.5gm Ivpb (Pre-Docked)) 100 mls @ 200 mls/hr IVPB Q8H-IV [facility] PRN Reason: Protocol Last Admin: 11/18/16 09:00 Dose: 200 mls/hr Fluconazole (Diflucan 100 Mg/D5w Premixed Ivpb -) 50 mls @ 100 mls/hr IVPB DAILY [facility] Last Admin: 11/17/16 10:43 Dose: 100 mls/hr Labetalol HCl (Normodyne -) 200 mg PO BID [facility] Last Admin: 11/18/16 09:00 Dose: 200 mg Lisinopril (Prinivil) 40 mg PO DAILY [facility] Last Admin: 11/18/16 09:01 Dose: Not Given Nystatin (Nystatin Oral Suspension -) 500,000 units PO Q6HPO [facility] Last Admin: 11/18/16 06:02 Dose: 500,000 units Ondansetron HCl (Zofran Injection) 4 mg IVPUSH Q6H PRN PRN Reason: NAUSEA Last Admin: 11/16/16 20:33 Dose: 4 mg Oxycodone HCl (Roxicodone -) 5 mg PO Q4H PRN PRN Reason: PAIN Pantoprazole Sodium (Protonix -) 40 mg PO DAILY [facility] Last Admin: 11/18/16 09:00 Dose: 40 mg Pramipexole Dihydrochloride (Mirapex -) 0.25 mg PO BIDPC [facility] Last Admin: 11/18/16 09:00 Dose: 0.25 mg - Objective Vital Signs: Vital Signs Temperature 98.6 F 11/18/16 06:22 Pulse Rate 74 11/18/16 06:22 Respiratory Rate 20 11/18/16 06:22 Blood Pressure 159/98 11/18/16 06:22 O2 Sat by Pulse Oximetry (%) 96 11/17/16 21:00 Constitutional: Yes: No Distress, Calm Eyes: Yes: Conjunctiva Clear, EOM Intact HENT: Yes: Atraumatic, Normocephalic Neck: Yes: Supple, Trachea Midline Cardiovascular: Yes: Regular Rate and Rhythm Respiratory: Yes: Regular Gastrointestinal: Yes: Soft. No: Distention, Tenderness Genitourinary: No: CVA Tenderness - Left, CVA Tenderness - Right Breast(s): No: Mass, Nipple Inversion Musculoskeletal: No: Joint Stiffness, Joint Swelling Extremities: No: Calf Tenderness, Erythema Integumentary: No: Erythema, Rash Wound/Incision: Yes: Clean/Dry, Well Approximated Neurological: Yes: Alert, Oriented Psychiatric: Yes: Alert, Oriented Labs: CBC, BMP 11/16/16 06:20 INR, PTT INR 1.54 (0.82-1.09) H 11/13/16 06:15 Problem List - Problems (1) Perforated appendicitis Assessment/Plan: s/p lap drainage of appendiceal abscess postop ileus cont IVF/IV abx hopefully will not have to reoperate for his ileus Code(s): K35.2 - ACUTE APPENDICITIS WITH GENERALIZED PERITONITIS
[2016-11-18 09:19] LABS: MCH 28.3 pg (25.7-33.7); MCHC 33.4 g/dl (32.0-35.9); MEAN CELL VOLUME 84.9 fl (80-96); MEAN PLT VOLUME 7.4 fl (7.5-11.1); PLATELET COUNT 374 K/MM3 (134-434); RDW 17.2 % (11.9-15.9); WHITE BLOOD COUNT 8.5 K/mm3 (4.0-10.0)
[2016-11-18] MEDS: FLUCONAZOLE 100 MG/D5W 50 ML IVPB SCH (09:56)
--- NOTE | 2016-11-18 11:30 | PN ---
Progress Note, Physician History of Present Illness: patient doing well still not able to take properly otherwise doing well - Current Medication List Current Medications: Active Medications Amlodipine Besylate (Norvasc -) 10 mg PO DAILY [facility] Last Admin: 11/18/16 09:01 Dose: Not Given Benzocaine/Menthol (Cepacol Lozenge -) 1 each MM Q4H PRN PRN Reason: SORE THROAT Heparin Sodium (Porcine) (Heparin -) 5,000 unit SQ TID [facility] Last Admin: 11/18/16 06:02 Dose: 5,000 unit Piperacillin Sod/Tazobactam Sod (Zosyn 4.5gm Ivpb (Pre-Docked)) 100 mls @ 200 mls/hr IVPB Q8H-IV [facility] PRN Reason: Protocol Last Admin: 11/18/16 09:00 Dose: 200 mls/hr Fluconazole (Diflucan 100 Mg/D5w Premixed Ivpb -) 50 mls @ 100 mls/hr IVPB DAILY [facility] Last Admin: 11/18/16 09:56 Dose: 100 mls/hr Labetalol HCl (Normodyne -) 200 mg PO BID [facility] Last Admin: 11/18/16 09:00 Dose: 200 mg Lisinopril (Prinivil) 40 mg PO DAILY [facility] Last Admin: 11/18/16 09:01 Dose: Not Given Nystatin (Nystatin Oral Suspension -) 500,000 units PO Q6HPO [facility] Last Admin: 11/18/16 11:09 Dose: 500,000 units Ondansetron HCl (Zofran Injection) 4 mg IVPUSH Q6H PRN PRN Reason: NAUSEA Last Admin: 11/16/16 20:33 Dose: 4 mg Oxycodone HCl (Roxicodone -) 5 mg PO Q4H PRN PRN Reason: PAIN Pantoprazole Sodium (Protonix -) 40 mg PO DAILY [facility] Last Admin: 11/18/16 09:00 Dose: 40 mg Pramipexole Dihydrochloride (Mirapex -) 0.25 mg PO BIDPC [facility] Last Admin: 11/18/16 09:00 Dose: 0.25 mg - Objective Vital Signs: Vital Signs Temperature 97.9 F 11/18/16 09:00 Pulse Rate 70 11/18/16 09:00 Respiratory Rate 20 11/18/16 09:00 Blood Pressure 176/100 11/18/16 09:00 O2 Sat by Pulse Oximetry (%) 96 11/17/16 21:00 Constitutional: Yes: No Distress, Calm, Obese Cardiovascular: Yes: Regular Rate and Rhythm Respiratory: Yes: Regular, CTA Bilaterally Gastrointestinal: Yes: Soft, Hypoactive Bowel Sounds, Other (drainage tube in place) Musculoskeletal: Yes: WNL Extremities: Yes: WNL Neurological: Yes: Alert, Oriented Psychiatric: Yes: Alert Labs: CBC, BMP 11/18/16 08:30 11/16/16 06:20 INR, PTT INR 1.54 (0.82-1.09) H 11/13/16 06:15 Assessment/Plan ac appendicitis morbid obesity oral thrush abd abscess plan continue abx continue as per surgery stopped diflucan will monitor how patient does
--- NOTE | 2016-11-18 16:29 | PN ---
Physical Exam: SUBJECTIVE: Patient seen and examined Patient continues to feel nauseas, unable to keep anything down, feeling nauseas. OBJECTIVE: Vital Signs Temperature 97.6 F 11/18/16 14:43 Pulse Rate 72 11/18/16 14:43 Respiratory Rate 20 11/18/16 14:43 Blood Pressure 150/91 11/18/16 14:43 O2 Sat by Pulse Oximetry (%) 96 11/17/16 21:00 GENERAL: The patient is awake, alert, and fully oriented, in no acute distress with morbid obesity HEAD: Normal with no signs of trauma. EYES: PERRL, extraocular movements intact, sclera anicteric, conjunctiva clear. ENT: Ears normal, oropharynx clear without exudates, moist mucous membranes. NECK: Trachea midline, full range of motion, supple. LUNGS: Breath sounds equal, clear to auscultation bilaterally, no wheezes, no crackles, no accessory muscle use. HEART: Regular rate and rhythm, S1, S2 without murmur, rub or gallop. ABDOMEN: Soft, positive for RIVERA draining around 10cc serasengounous fluid ,with mild tenderness on palpation , normoactive bowel sounds, no guarding, no rebound , no masses. EXTREMITIES: 2+ pulses, warm, well-perfused, no edema. NEUROLOGICAL: Cranial nerves II through XII grossly intact. Normal speech, gait not observed. PSYCH: Normal mood, normal affect. SKIN: Warm, dry, normal turgor, no rashes or lesions noted CBCD WBC 8.5 K/mm3 (4.0-10.0) 11/18/16 08:30 RBC 3.87 M/mm3 (4.00-5.60) L 11/18/16 08:30 Hgb 11.0 GM/dL (11.7-16.9) L 11/18/16 08:30 Hct 32.9 % (35.4-49) L 11/18/16 08:30 MCV 84.9 fl (80-96) 11/18/16 08:30 MCHC 33.4 g/dl (32.0-35.9) 11/18/16 08:30 RDW 17.2 % (11.9-15.9) H 11/18/16 08:30 Plt Count 374 K/MM3 (134-434) 11/18/16 08:30 MPV 7.4 fl (7.5-11.1) L 11/18/16 08:30 CMP Sodium 137 mmol/L (136-145) 11/16/16 06:20 Potassium 3.5 mmol/L (3.5-5.1) 11/16/16 06:20 Chloride 98 mmol/L (98-107) 11/16/16 06:20 Carbon Dioxide 31 mmol/L (21-32) 11/16/16 06:20 Anion Gap 8 (8-16) 11/16/16 06:20 BUN 4 mg/dL (7-18) L D 11/16/16 06:20 Creatinine 0.4 mg/dL (0.7-1.3) L 11/16/16 06:20 Creat Clearance w eGFR > 60 (>60) 11/16/16 06:20 Random Glucose 101 mg/dL (74-106) 11/16/16 06:20 Calcium 8.3 mg/dL (8.5-10.1) L 11/16/16 06:20 Total Bilirubin 0.8 mg/dL (0.2-1.0) 11/16/16 06:20 AST 43 U/L (15-37) H D 11/16/16 06:20 ALT 54 U/L (12-78) 11/16/16 06:20 Alkaline Phosphatase 80 U/L (45-117) D 11/16/16 06:20 Total Protein 6.6 g/dl (6.4-8.2) 11/16/16 06:20 Albumin 2.1 g/dl (3.4-5.0) L 11/16/16 06:20 CARDIAC ENZYMES Creatine Kinase 68 IU/L (39-308) 11/11/16 16:55 Troponin I < 0.02 ng/ml (0.00-0.05) 11/11/16 16:55 Laboratory Results - last 24 hr 11/18/16 08:30 WBC 8.5 RBC 3.87 L Hgb 11.0 L Hct 32.9 L MCV 84.9 MCHC 33.4 RDW 17.2 H Plt Count 374 MPV 7.4 L Active Medications Generic Name Dose Route Start Last Admin Trade Name Freq PRN Reason Stop Dose Admin Amlodipine Besylate 10 mg 11/18/16 10:00 11/18/16 09:01 Norvasc - PO Not Given DAILY [facility] Benzocaine/Menthol 1 each 11/14/16 18:38 Cepacol Lozenge - MM Q4H PRN SORE THROAT Heparin Sodium (Porcine) 5,000 unit 11/13/16 22:00 11/18/16 13:08 Heparin - SQ 5,000 unit TID [facility] Administration Piperacillin Sod/Tazobactam Sod 100 mls @ 200 mls/hr 11/15/16 18:00 11/18/16 09 :00 Zosyn 4.5gm Ivpb (Pre-Docked) IVPB 200 mls/hr Q8H-IV [facility] Administration Protocol Labetalol HCl 200 mg 11/17/16 10:06 11/18/16 09:00 Normodyne - PO 200 mg BID [facility] Administration Lisinopril 40 mg 11/17/16 10:00 11/18/16 09:01 Prinivil PO Not Given DAILY [facility] Nystatin 500,000 units 11/13/16 18:00 11/18/16 11:09 Nystatin Oral Suspension - PO 500,000 units Q6HPO [facility] Administration Ondansetron HCl 4 mg 11/13/16 13:51 11/16/16 20:33 Zofran Injection IVPUSH 4 mg Q6H PRN Administration NAUSEA Oxycodone HCl 5 mg 11/14/16 16:17 Roxicodone - PO Q4H PRN PAIN Pantoprazole Sodium 40 mg 11/16/16 14:15 11/18/16 09:00 Protonix - PO 40 mg DAILY [facility] Administration Pramipexole Dihydrochloride 0.25 mg 11/17/16 09:00 11/18/16 09:00 Mirapex - PO 0.25 mg BIDPC [facility] Administration Home Medications Medication Instructions Recorded NK [No Known Home Medication] 10/06/16 ASSESSMENT/PLAN: Patient is a 31 yo male with h/o Morbid obesity, s/p gastric sleeve sx in Aug 2016 who presented with Abd pain and was found to h. On IV zosyn continue, HIV test was recommended to the patient. Dr.Peter Chowdhury surgical consult appreciated ; CT scan of abdomen and pelvis repeated on 11/15/2016; # POD #5 s/p laparoscopic RIVERA drainage of the abscess due to having an acute complicated Appendicitis with rupture. Continue IV zosyn ,oral Nyastatin since patient has an oral thrush. Dr.Peter Chowdhury surgery on the case. #post-op ileus cont IVF/IV abx discussed with # Acute RUQ pain continues worse on palpation # R upper and lower ext weakness and numbness : numbness and mild weakness are old . # Hypertensive Urgency on Lisinopril; will add Labetolol 100mg po bid with little sip of water. DVT Px: SCD, Heparin Visit type - Emergency Visit Emergency Visit: Yes ED Registration Date: 11/11/16 Care time: The patient presented to the Emergency Department on the above date and was hospitalized for further evaluation of their emergent condition. - New Patient This patient is new to me today: No - Critical Care Critical Care patient: No
[2016-11-19] MEDS: NYSTATIN 500,000 UNITS/5 ML SUSPENSION PO SCH ×5 (01:07→17:14)
[2016-11-19] MEDS: PIPERACILLIN/TAZOB 4.5 GM 100 ML IVPB SCH ×3 (02:06→17:14)
[2016-11-19] MEDS: HEPARIN NA (PORCINE) 5,000 UNITS/ML 1ML VIAL SQ SCH ×3 (06:54→21:54)
[2016-11-19 09:13] LABS: BASOPHIL 0.8 % (0-2.0); EOSINOPHIL 2.2 % (0-4.5); MCH 28.1 pg (25.7-33.7); MCHC 33.1 g/dl (32.0-35.9); MEAN CELL VOLUME 84.9 fl (80-96); MEAN PLT VOLUME 7.3 fl (7.5-11.1); NEUTROPHILS 67.2 % (42.8-82.8); PLATELET COUNT 400 K/MM3 (134-434); RDW 17.5 % (11.9-15.9); WHITE BLOOD COUNT 9.5 K/mm3 (4.0-10.0)
[2016-11-19] MEDS ORDERED: PT OWN MED DRAWER 7, Y5N ONE (09:17)
[2016-11-19] MEDS: PRAMIPEXOLE DIHYDROCHLORIDE 0.25 MG TABLET PO SCH ×2 (09:19→18:09)
[2016-11-19] MEDS: PANTOPRAZOLE 40 MG TABLET (FP) PO SCH (09:20)
[2016-11-19] MEDS: amLODIPine BESYLATE 10 MG TABLET (FP) PO SCH (09:20)
[2016-11-19] MEDS: LISINOPRIL 20 MG TABLET (FP) PO SCH (09:20)
[2016-11-19] MEDS: LABETALOL HCL 200 MG TABLET (FP) PO SCH ×2 (09:20→21:53)
[2016-11-19 09:32] LABS: ALBUMIN 2.5 g/dl (3.4-5.0); ANION GAP 11 (8-16); CALCIUM 8.7 mg/dL (8.5-10.1); CO2 27 mmol/L (21-32); GLUCOSE,RANDOM 95 mg/dL (74-106); PHOSPHOROUS 3.7 mg/dL (2.5-4.9); SGOT/AST 137 U/L (15-37); SGPT/ALT 149 U/L (12-78)
[2016-11-19 09:34] LABS: ALK PHOS 82 U/L (45-117); BILIRUBIN,TOTAL 0.7 mg/dL (0.2-1.0); CREATININE 0.5 mg/dL (0.7-1.3); TOT PROT 7.5 g/dl (6.4-8.2)
--- NOTE | 2016-11-19 12:02 | PN ---
Physical Exam: SUBJECTIVE: Patient seen and examined at bedside states he is still anable to tolerate PO patient was ambulating with staff this morning and his "knees buckled" but patient was caught by the staff and never fell. he was lowered to the ground by staff OBJECTIVE: Vital Signs Period Temp Pulse Resp BP Sys/Peoples Pulse Ox Last 24 Hr 97.6 F-99.1 F 71-73 18-22 139-150/76-91 GENERAL: The patient is awake, alert, and fully oriented HEAD: Normal with no signs of trauma. EYES: PERRLA EOMI NECK: Trachea midline, full range of motion, supple. LUNGS: Breath sounds equal, clear to auscultation bilaterally, no wheezes, no crackles, no accessory muscle use. HEART: Regular rate and rhythm, S1, S2 without murmur, rub or gallop. ABDOMEN: Soft, morbidly obese, tender to palpation RLQ and RUQ RIVERA drain in place with serous output NEUROLOGICAL: Cranial nerves II through XII intact. no facial droop or weakness and sensation is intact in the face Normal speech. Laboratory Results - last 24 hr 11/19/16 11/19/16 08:50 08:50 WBC 9.5 RBC 3.86 L Hgb 10.8 L Hct 32.8 L MCV 84.9 MCHC 33.1 RDW 17.5 H Plt Count 400 MPV 7.3 L Neutrophils % 67.2 Lymphocytes % 22.4 Monocytes % 7.4 Eosinophils % 2.2 D Basophils % 0.8 Sodium 133 L Potassium 3.9 Chloride 95 L Carbon Dioxide 27 Anion Gap 11 BUN 6 L D Creatinine 0.5 L D Creat Clearance w eGFR > 60 Random Glucose 95 Calcium 8.7 Phosphorus 3.7 Magnesium 2.0 Total Bilirubin 0.7 AST 137 H D ALT 149 H D Alkaline Phosphatase 82 Total Protein 7.5 Albumin 2.5 L Active Medications Generic Name Dose Route Start Last Admin Trade Name Freq PRN Reason Stop Dose Admin Amlodipine Besylate 10 mg 11/18/16 10:00 11/19/16 09:20 Norvasc - PO 10 mg DAILY [facility] Administration Benzocaine/Menthol 1 each 11/14/16 18:38 Cepacol Lozenge - MM Q4H PRN SORE THROAT Heparin Sodium (Porcine) 5,000 unit 11/13/16 22:00 11/19/16 06:54 Heparin - SQ 5,000 unit TID [facility] Administration Piperacillin Sod/Tazobactam Sod 100 mls @ 200 mls/hr 11/15/16 18:00 11/19/16 09 :20 Zosyn 4.5gm Ivpb (Pre-Docked) IVPB 200 mls/hr Q8H-IV [facility] Administration Protocol Labetalol HCl 200 mg 11/17/16 10:06 11/19/16 09:20 Normodyne - PO 200 mg BID [facility] Administration Lisinopril 40 mg 11/17/16 10:00 11/19/16 09:20 Prinivil PO 40 mg DAILY [facility] Administration Nystatin 500,000 units 11/13/16 18:00 11/19/16 11:55 Nystatin Oral Suspension - PO 500,000 units Q6HPO [facility] Administration Ondansetron HCl 4 mg 11/13/16 13:51 11/16/16 20:33 Zofran Injection IVPUSH 4 mg Q6H PRN Administration NAUSEA Oxycodone HCl 5 mg 11/14/16 16:17 Roxicodone - PO Q4H PRN PAIN Pantoprazole Sodium 40 mg 11/16/16 14:15 11/19/16 09:20 Protonix - PO 40 mg DAILY [facility] Administration Pramipexole Dihydrochloride 0.25 mg 11/17/16 09:00 11/19/16 09:19 Mirapex - PO 0.25 mg BIDPC [facility] Administration ASSESSMENT/PLAN: 31M with a PMH of morbid obesity presents to the hospital with abdominal pain found to have a perforated appendicitis in the OR. Sepsis secondary to Perforated appendicitis: CT scan initially read as perforated appendicitis the read changed to non perforated appendicitis. Taken to the OR for attempted Laparoscopic appendectomy found to be perforated. Appendix was not able to be visualized as a result was not resected. Patient s/ p laparoscopic drainage and washout of fabi-appendiceal abscess POD #6. CT scan did not show any worsening pathology abscess moved more medial appendix not visualized ID consult appreciated-spoke to ID attending. continue diflucan and increased dose of Zosyn. HIV test negative surgery consult appreciated recommendations noted will continue IV ABx with Zosyn day 7 unable to tolerate diet continue to monitor drainage of RIVERA Drain f/u cultures-negative final pain control Will repeat RUQ ultrasound as pain is not improving Right sided numbness and weakness: Head CT negative patient can not fit in MRI machine neurology consult appreciated likely from restless leg syndrome-on mirapex after he was started on mirapex he states his right leg has more function now states had EMG as outpatient does not know results-unable to reach neurologist this is the second time on this admission that patient states his "knees buckled " on him. likely he is very deconditioned from a combination of Class 3 severe super morbid obesity and lack of movement will continue PT consult nurses made aware that they should not ambulate patient without adequate client support professional and he should always have a chair behind him Leukocytosis: resolved continue with antibiotics - zosyn diflucan stopped Essential Hypertension: no previous diagnosis per patient but he has been hypertensive in the hospital although pain may be a contributing factor he likely has underlying hypertension Better controlled today continue lisinopril 40mg po daily continue norvasc 10mg po daily continue PO labealol to 200 BID Oral Thrush: Continue nystatin Swish and Swallow diflucan stopped HIV negative Morbid Obesity: s/p sleeve gastrectomy follow up outpatient PPx: HSQ protonix PT consult FEN: stop IVF no electrolyte issues on regular diet D/C home once tolerating diet Visit type - Emergency Visit Emergency Visit: Yes ED Registration Date: 11/11/16 Care time: The patient presented to the Emergency Department on the above date and was hospitalized for further evaluation of their emergent condition. - New Patient This patient is new to me today: No - Critical Care Critical Care patient: No
--- NOTE | 2016-11-19 14:25 | PN ---
Progress Note, Physician Chief Complaint: unable to eat History of Present Illness: N/V with eating. no abd pain. no leukocytosis. feels very weak. - Current Medication List Current Medications: Active Medications Amlodipine Besylate (Norvasc -) 10 mg PO DAILY [facility] Last Admin: 11/19/16 09:20 Dose: 10 mg Benzocaine/Menthol (Cepacol Lozenge -) 1 each MM Q4H PRN PRN Reason: SORE THROAT Heparin Sodium (Porcine) (Heparin -) 5,000 unit SQ TID [facility] Last Admin: 11/19/16 13:08 Dose: 5,000 unit Piperacillin Sod/Tazobactam Sod (Zosyn 4.5gm Ivpb (Pre-Docked)) 100 mls @ 200 mls/hr IVPB Q8H-IV [facility] PRN Reason: Protocol Last Admin: 11/19/16 09:20 Dose: 200 mls/hr Labetalol HCl (Normodyne -) 200 mg PO BID [facility] Last Admin: 11/19/16 09:20 Dose: 200 mg Lisinopril (Prinivil) 40 mg PO DAILY [facility] Last Admin: 11/19/16 09:20 Dose: 40 mg Nystatin (Nystatin Oral Suspension -) 500,000 units PO Q6HPO [facility] Last Admin: 11/19/16 11:55 Dose: 500,000 units Ondansetron HCl (Zofran Injection) 4 mg IVPUSH Q6H PRN PRN Reason: NAUSEA Last Admin: 11/16/16 20:33 Dose: 4 mg Oxycodone HCl (Roxicodone -) 5 mg PO Q4H PRN PRN Reason: PAIN Pantoprazole Sodium (Protonix -) 40 mg PO DAILY [facility] Last Admin: 11/19/16 09:20 Dose: 40 mg Pramipexole Dihydrochloride (Mirapex -) 0.25 mg PO BIDPC [facility] Last Admin: 11/19/16 09:19 Dose: 0.25 mg - Objective Vital Signs: Vital Signs Temperature 99.8 F H 11/19/16 09:00 Pulse Rate 77 11/19/16 09:00 Respiratory Rate 20 11/19/16 09:00 Blood Pressure 153/88 11/19/16 09:00 O2 Sat by Pulse Oximetry (%) 96 11/17/16 21:00 Constitutional: Yes: No Distress, Calm Gastrointestinal: Yes: Soft, Abdomen, Obese. No: Distention, Tenderness Labs: CBC, BMP 11/19/16 08:50 11/19/16 08:50 INR, PTT INR 1.54 (0.82-1.09) H 11/13/16 06:15 Problem List - Problems (1) Perforated appendicitis Assessment/Plan: cont IV abx if he fails to improve will contemplate exlap this week. will likely need R hemicolectomy. Code(s): K35.2 - ACUTE APPENDICITIS WITH GENERALIZED PERITONITIS
--- NOTE | 2016-11-19 16:41 | PN ---
Teaching Attending Note Name of Resident: Ramon Reynoso ATTENDING PHYSICIAN STATEMENT I saw and evaluated the patient. I reviewed the resident's note and discussed the case with the resident. I agree with the resident's findings and plan as documented. Patient is unable to keep any food down Vital Signs Temperature 98.3 F 11/19/16 14:54 Pulse Rate 79 11/19/16 14:54 Respiratory Rate 20 11/19/16 14:54 Blood Pressure 144/87 11/19/16 14:54 O2 Sat by Pulse Oximetry (%) 96 11/17/16 21:00 CBCD WBC 9.5 K/mm3 (4.0-10.0) 11/19/16 08:50 RBC 3.86 M/mm3 (4.00-5.60) L 11/19/16 08:50 Hgb 10.8 GM/dL (11.7-16.9) L 11/19/16 08:50 Hct 32.8 % (35.4-49) L 11/19/16 08:50 MCV 84.9 fl (80-96) 11/19/16 08:50 MCHC 33.1 g/dl (32.0-35.9) 11/19/16 08:50 RDW 17.5 % (11.9-15.9) H 11/19/16 08:50 Plt Count 400 K/MM3 (134-434) 11/19/16 08:50 MPV 7.3 fl (7.5-11.1) L 11/19/16 08:50 CMP Sodium 133 mmol/L (136-145) L 11/19/16 08:50 Potassium 3.9 mmol/L (3.5-5.1) 11/19/16 08:50 Chloride 95 mmol/L (98-107) L 11/19/16 08:50 Carbon Dioxide 27 mmol/L (21-32) 11/19/16 08:50 Anion Gap 11 (8-16) 11/19/16 08:50 BUN 6 mg/dL (7-18) L D 11/19/16 08:50 Creatinine 0.5 mg/dL (0.7-1.3) L D 11/19/16 08:50 Creat Clearance w eGFR > 60 (>60) 11/19/16 08:50 Random Glucose 95 mg/dL (74-106) 11/19/16 08:50 Calcium 8.7 mg/dL (8.5-10.1) 11/19/16 08:50 Total Bilirubin 0.7 mg/dL (0.2-1.0) 11/19/16 08:50 AST 137 U/L (15-37) H D 11/19/16 08:50 ALT 149 U/L (12-78) H D 11/19/16 08:50 Alkaline Phosphatase 82 U/L (45-117) 11/19/16 08:50 Total Protein 7.5 g/dl (6.4-8.2) 11/19/16 08:50 Albumin 2.5 g/dl (3.4-5.0) L 11/19/16 08:50 CARDIAC ENZYMES Creatine Kinase 68 IU/L (39-308) 11/11/16 16:55 Troponin I < 0.02 ng/ml (0.00-0.05) 11/11/16 16:55 Current Medications Generic Name Dose Route Start Last Admin Trade Name Freq PRN Reason Stop Dose Admin Amlodipine Besylate 10 mg 11/18/16 10:00 11/19/16 09:20 Norvasc - PO 10 mg DAILY [facility] Administration Benzocaine/Menthol 1 each 11/14/16 18:38 Cepacol Lozenge - MM Q4H PRN SORE THROAT Heparin Sodium (Porcine) 5,000 unit 11/13/16 22:00 11/19/16 13:08 Heparin - SQ 5,000 unit TID [facility] Administration Piperacillin Sod/Tazobactam Sod 100 mls @ 200 mls/hr 11/15/16 18:00 11/19/16 09 :20 Zosyn 4.5gm Ivpb (Pre-Docked) IVPB 200 mls/hr Q8H-IV [facility] Administration Protocol Labetalol HCl 200 mg 11/17/16 10:06 11/19/16 09:20 Normodyne - PO 200 mg BID [facility] Administration Lisinopril 40 mg 11/17/16 10:00 11/19/16 09:20 Prinivil PO 40 mg DAILY [facility] Administration Nystatin 500,000 units 11/13/16 18:00 11/19/16 11:55 Nystatin Oral Suspension - PO 500,000 units Q6HPO [facility] Administration Ondansetron HCl 4 mg 11/13/16 13:51 11/16/16 20:33 Zofran Injection IVPUSH 4 mg Q6H PRN Administration NAUSEA Oxycodone HCl 5 mg 11/14/16 16:17 Roxicodone - PO Q4H PRN PAIN Pantoprazole Sodium 40 mg 11/16/16 14:15 11/19/16 09:20 Protonix - PO 40 mg DAILY [facility] Administration Pramipexole Dihydrochloride 0.25 mg 11/17/16 09:00 11/19/16 09:19 Mirapex - PO 0.25 mg BIDPC [facility] Administration Home Medications Medication Instructions Recorded NK [No Known Home Medication] 10/06/16 ASSESSMENT AND PLAN: Patient is a 31 yo male with h/o Morbid obesity, s/p gastric sleeve sx in Aug 2016 who presented with Abd pain and was found to h. On IV zosyn continue, HIV test was recommended to the patient. Dr.Peter Chowdhury surgical consult appreciated ; CT scan of abdomen and pelvis repeated on 11/15/2016; # POD #6 s/p laparoscopic RIVERA drainage of the abscess due to having an acute complicated Appendicitis with rupture. Continue IV zosyn ,oral Nyastatin since patient has an oral thrush. Dr.Peter Chowdhury surgery on the case. if patient does not improve might on him . will add IVf #post-op ileus cont IVF/IV abx discussed with # Acute RUQ pain continues worse on palpation # R upper and lower ext weakness and numbness : numbness and mild weakness are old . # Hypertensive Urgency on Lisinopril; will add Labetolol 100mg po bid with little sip of water. DVT Px: SCD, Heparin
--- NOTE | 2016-11-19 16:53 | PN ---
Progress Note, Physician History of Present Illness: patient doing well still no able to take even liquids according to him says he feels very thirsty but cannot take anything by mouth--not able to - Current Medication List Current Medications: Active Medications Amlodipine Besylate (Norvasc -) 10 mg PO DAILY [facility] Last Admin: 11/19/16 09:20 Dose: 10 mg Benzocaine/Menthol (Cepacol Lozenge -) 1 each MM Q4H PRN PRN Reason: SORE THROAT Heparin Sodium (Porcine) (Heparin -) 5,000 unit SQ TID [facility] Last Admin: 11/19/16 13:08 Dose: 5,000 unit Piperacillin Sod/Tazobactam Sod (Zosyn 4.5gm Ivpb (Pre-Docked)) 100 mls @ 200 mls/hr IVPB Q8H-IV [facility] PRN Reason: Protocol Last Admin: 11/19/16 09:20 Dose: 200 mls/hr Labetalol HCl (Normodyne -) 200 mg PO BID [facility] Last Admin: 11/19/16 09:20 Dose: 200 mg Lisinopril (Prinivil) 40 mg PO DAILY [facility] Last Admin: 11/19/16 09:20 Dose: 40 mg Nystatin (Nystatin Oral Suspension -) 500,000 units PO Q6HPO [facility] Last Admin: 11/19/16 11:55 Dose: 500,000 units Ondansetron HCl (Zofran Injection) 4 mg IVPUSH Q6H PRN PRN Reason: NAUSEA Last Admin: 11/16/16 20:33 Dose: 4 mg Oxycodone HCl (Roxicodone -) 5 mg PO Q4H PRN PRN Reason: PAIN Pantoprazole Sodium (Protonix -) 40 mg PO DAILY [facility] Last Admin: 11/19/16 09:20 Dose: 40 mg Pramipexole Dihydrochloride (Mirapex -) 0.25 mg PO BIDPC [facility] Last Admin: 11/19/16 09:19 Dose: 0.25 mg - Objective Vital Signs: Vital Signs Temperature 98.3 F 11/19/16 14:54 Pulse Rate 79 11/19/16 14:54 Respiratory Rate 20 11/19/16 14:54 Blood Pressure 144/87 11/19/16 14:54 O2 Sat by Pulse Oximetry (%) 96 11/17/16 21:00 Constitutional: Yes: No Distress, Calm Cardiovascular: Yes: Regular Rate and Rhythm Respiratory: Yes: Regular, CTA Bilaterally Gastrointestinal: Yes: Soft, Hypoactive Bowel Sounds Musculoskeletal: Yes: WNL Extremities: Yes: WNL Wound/Incision: Yes: Clean/Dry Neurological: Yes: Alert, Oriented Psychiatric: Yes: Alert Labs: CBC, BMP 11/19/16 08:50 11/19/16 08:50 INR, PTT INR 1.54 (0.82-1.09) H 11/13/16 06:15 Assessment/Plan ac appendicitis morbid obesity oral thrush abd abscess plan continue abx once patient starts eating we will switch to oral patient not able to take y mouth
[2016-11-19] MEDS: SODIUM CHLORIDE 0.45% 1,000 ML IV SCH (18:07)
[2016-11-20] MEDS: NYSTATIN 500,000 UNITS/5 ML SUSPENSION PO SCH ×4 (00:05→17:17)
[2016-11-20] MEDS: PIPERACILLIN/TAZOB 4.5 GM 100 ML IVPB SCH ×3 (02:05→17:16)
[2016-11-20] MEDS: SODIUM CHLORIDE 0.45% 1,000 ML IV SCH (04:39)
[2016-11-20] MEDS: HEPARIN NA (PORCINE) 5,000 UNITS/ML 1ML VIAL SQ SCH ×3 (06:01→22:44)
[2016-11-20 08:34] LABS: MCH 28.4 pg (25.7-33.7); MCHC 33.1 g/dl (32.0-35.9); MEAN CELL VOLUME 85.9 fl (80-96); MEAN PLT VOLUME 7.5 fl (7.5-11.1); PLATELET COUNT 355 K/MM3 (134-434); RDW 17.9 % (11.9-15.9)
[2016-11-20] MEDS: PRAMIPEXOLE DIHYDROCHLORIDE 0.25 MG TABLET PO SCH ×2 (08:46→17:29)
[2016-11-20 09:00] LABS: ALBUMIN 2.5 g/dl (3.4-5.0); ALK PHOS 76 U/L (45-117); ANION GAP 11 (8-16); BILIRUBIN,TOTAL 0.6 mg/dL (0.2-1.0); CALCIUM 8.3 mg/dL (8.5-10.1); CO2 25 mmol/L (21-32); CREATININE 0.5 mg/dL (0.7-1.3); GLUCOSE,RANDOM 82 mg/dL (74-106); PHOSPHOROUS 3.2 mg/dL (2.5-4.9); SGOT/AST 108 U/L (15-37); SGPT/ALT 151 U/L (12-78); TOT PROT 7.2 g/dl (6.4-8.2)
[2016-11-20] MEDS: PANTOPRAZOLE 40 MG TABLET (FP) PO SCH (10:46)
[2016-11-20] MEDS: amLODIPine BESYLATE 10 MG TABLET (FP) PO SCH (10:46)
[2016-11-20] MEDS: LABETALOL HCL 200 MG TABLET (FP) PO SCH ×2 (10:46→22:44)
[2016-11-20] MEDS: LISINOPRIL 20 MG TABLET (FP) PO SCH (10:46)
--- NOTE | 2016-11-20 11:08 | PN ---
Progress Note, Physician Chief Complaint: min PO intake History of Present Illness: +flatus. no pain. no fever. no leukocytosis. tolerating less than his post sleeve diet. hyponatremia. - Current Medication List Current Medications: Active Medications Amlodipine Besylate (Norvasc -) 10 mg PO DAILY [facility] Last Admin: 11/20/16 10:46 Dose: 10 mg Benzocaine/Menthol (Cepacol Lozenge -) 1 each MM Q4H PRN PRN Reason: SORE THROAT Last Admin: 11/19/16 21:54 Dose: 1 each Heparin Sodium (Porcine) (Heparin -) 5,000 unit SQ TID [facility] Last Admin: 11/20/16 06:01 Dose: 5,000 unit Piperacillin Sod/Tazobactam Sod (Zosyn 4.5gm Ivpb (Pre-Docked)) 100 mls @ 200 mls/hr IVPB Q8H-IV [facility] PRN Reason: Protocol Last Admin: 11/20/16 10:46 Dose: 200 mls/hr Amino Acids (Clinimix -) 1,000 mls @ 84 mls/hr IV Q12H [facility] Labetalol HCl (Normodyne -) 200 mg PO BID [facility] Last Admin: 11/20/16 10:46 Dose: 200 mg Lisinopril (Prinivil) 40 mg PO DAILY [facility] Last Admin: 11/20/16 10:46 Dose: 40 mg Nystatin (Nystatin Oral Suspension -) 500,000 units PO Q6HPO [facility] Last Admin: 11/20/16 06:39 Dose: Not Given Ondansetron HCl (Zofran Injection) 4 mg IVPUSH Q6H PRN PRN Reason: NAUSEA Last Admin: 11/16/16 20:33 Dose: 4 mg Oxycodone HCl (Roxicodone -) 5 mg PO Q4H PRN PRN Reason: PAIN Pantoprazole Sodium (Protonix -) 40 mg PO DAILY [facility] Last Admin: 11/20/16 10:46 Dose: 40 mg Pramipexole Dihydrochloride (Mirapex -) 0.25 mg PO BIDPC [facility] Last Admin: 11/20/16 08:46 Dose: Not Given - Objective Vital Signs: Vital Signs Temperature 97.8 F 11/20/16 08:52 Pulse Rate 78 11/20/16 08:52 Respiratory Rate 20 11/20/16 08:52 Blood Pressure 127/89 11/20/16 08:52 O2 Sat by Pulse Oximetry (%) 97 11/19/16 21:00 Constitutional: Yes: No Distress, Calm Eyes: Yes: Conjunctiva Clear, EOM Intact HENT: Yes: Atraumatic, Normocephalic Neck: Yes: Supple, Trachea Midline Cardiovascular: Yes: Regular Rate and Rhythm Respiratory: Yes: Regular Gastrointestinal: Yes: Soft, Other (inc c/d/i). No: Distention, Tenderness Genitourinary: No: CVA Tenderness - Left, CVA Tenderness - Right Musculoskeletal: No: Back Pain, Joint Stiffness Extremities: No: Calf Tenderness, Erythema Integumentary: No: Erythema, Rash Neurological: Yes: Alert, Oriented Psychiatric: Yes: Alert, Oriented Labs: CBC, BMP 11/20/16 07:00 11/20/16 07:00 INR, PTT INR 1.54 (0.82-1.09) H 11/13/16 06:15 Problem List - Problems (1) Perforated appendicitis Assessment/Plan: ileus vs obstruction from uncontrolled infection please start TPN u/s results noted reg diet CT scan tomorrow with oral/IV contrast to help determine ileus vs obstruction if he doesn't eat well by Sunday plan will be exlap on Sunday afternoon wiht possible right hemicolectomy/possible ostomy creation. Code(s): K35.2 - ACUTE APPENDICITIS WITH GENERALIZED PERITONITIS
[2016-11-20] MEDS: AMINO ACIDS 4.25%/D5W 1,000 ML IV SCH ×2 (11:43→20:16)
--- NOTE | 2016-11-20 13:10 | PN ---
Progress Note, Physician History of Present Illness: patient says he is doing well still not able to eat properly or tolerate liquids surgery note and plan noted now on clinimax - Current Medication List Current Medications: Active Medications Amlodipine Besylate (Norvasc -) 10 mg PO DAILY [facility] Last Admin: 11/20/16 10:46 Dose: 10 mg Benzocaine/Menthol (Cepacol Lozenge -) 1 each MM Q4H PRN PRN Reason: SORE THROAT Last Admin: 11/19/16 21:54 Dose: 1 each Heparin Sodium (Porcine) (Heparin -) 5,000 unit SQ TID [facility] Last Admin: 11/20/16 06:01 Dose: 5,000 unit Piperacillin Sod/Tazobactam Sod (Zosyn 4.5gm Ivpb (Pre-Docked)) 100 mls @ 200 mls/hr IVPB Q8H-IV [facility] PRN Reason: Protocol Last Admin: 11/20/16 10:46 Dose: 200 mls/hr Amino Acids (Clinimix -) 1,000 mls @ 84 mls/hr IV Q12H [facility] Last Admin: 11/20/16 11:43 Dose: 84 mls/hr Labetalol HCl (Normodyne -) 200 mg PO BID [facility] Last Admin: 11/20/16 10:46 Dose: 200 mg Lisinopril (Prinivil) 40 mg PO DAILY [facility] Last Admin: 11/20/16 10:46 Dose: 40 mg Nystatin (Nystatin Oral Suspension -) 500,000 units PO Q6HPO [facility] Last Admin: 11/20/16 11:48 Dose: 500,000 units Ondansetron HCl (Zofran Injection) 4 mg IVPUSH Q6H PRN PRN Reason: NAUSEA Last Admin: 11/16/16 20:33 Dose: 4 mg Oxycodone HCl (Roxicodone -) 5 mg PO Q4H PRN PRN Reason: PAIN Pantoprazole Sodium (Protonix -) 40 mg PO DAILY [facility] Last Admin: 11/20/16 10:46 Dose: 40 mg Pramipexole Dihydrochloride (Mirapex -) 0.25 mg PO BIDPC [facility] Last Admin: 11/20/16 08:46 Dose: Not Given - Objective Vital Signs: Vital Signs Temperature 97.8 F 11/20/16 08:52 Pulse Rate 78 11/20/16 08:52 Respiratory Rate 20 11/20/16 08:52 Blood Pressure 127/89 11/20/16 08:52 O2 Sat by Pulse Oximetry (%) 98 11/20/16 12:06 Constitutional: Yes: No Distress, Calm, Obese Cardiovascular: Yes: Regular Rate and Rhythm Respiratory: Yes: Regular, Poor Air Entry Gastrointestinal: Yes: Soft, Hypoactive Bowel Sounds, Other (drianage tube in place) Musculoskeletal: Yes: WNL Extremities: Yes: WNL Neurological: Yes: Alert, Oriented Psychiatric: Yes: Alert, Oriented Labs: CBC, BMP 11/20/16 07:00 11/20/16 07:00 INR, PTT INR 1.54 (0.82-1.09) H 11/13/16 06:15 Assessment/Plan ac appendicitis morbid obesity oral thrush abd abscess plan continue abx plan of surgery noted continue current mgmt final decision after surgery decision
--- NOTE | 2016-11-20 14:08 | PN ---
Physical Exam: SUBJECTIVE: Patient seen and examined at bedside having flatus still not tolerating PO diet OBJECTIVE: Vital Signs Period Temp Pulse Resp BP Sys/Peoples Pulse Ox Last 24 Hr 97.5 F-98.4 F 72-85 18-20 127-158/85-93 97-98 GENERAL: The patient is awake, alert, and fully oriented HEAD: Normal with no signs of trauma. EYES: PERRLA EOMI NECK: Trachea midline, full range of motion, supple. LUNGS: Breath sounds equal, clear to auscultation bilaterally, no wheezes, no crackles, no accessory muscle use. HEART: Regular rate and rhythm, S1, S2 without murmur, rub or gallop. ABDOMEN: Soft, morbidly obese, tender to palpation RLQ and RUQ RIVERA drain in place with serous output NEUROLOGICAL: Cranial nerves II through XII intact. no facial droop or weakness and sensation is intact in the face Normal speech. Laboratory Results - last 24 hr 11/20/16 11/20/16 07:00 07:00 WBC 9.0 RBC 3.67 L Hgb 10.4 L Hct 31.5 L MCV 85.9 MCHC 33.1 RDW 17.9 H Plt Count 355 MPV 7.5 Neutrophils % 56.0 Lymphocytes % 30.0 D Monocytes % 8.0 Eosinophils % 3.0 Basophils % 2.0 Band Neutrophils 1.0 Differential Comment Manual diff done Sodium 131 L Potassium 4.0 Chloride 95 L Carbon Dioxide 25 Anion Gap 11 BUN 7 Creatinine 0.5 L Creat Clearance w eGFR > 60 Random Glucose 82 Calcium 8.3 L Phosphorus 3.2 Magnesium 2.0 Total Bilirubin 0.6 AST 108 H D ALT 151 H Alkaline Phosphatase 76 Total Protein 7.2 Albumin 2.5 L Active Medications Generic Name Dose Route Start Last Admin Trade Name Freq PRN Reason Stop Dose Admin Amlodipine Besylate 10 mg 11/18/16 10:00 11/20/16 10:46 Norvasc - PO 10 mg DAILY [facility] Administration Benzocaine/Menthol 1 each 11/14/16 18:38 11/19/16 21:54 Cepacol Lozenge - MM 1 each Q4H PRN Administration SORE THROAT Heparin Sodium (Porcine) 5,000 unit 11/13/16 22:00 11/20/16 06:01 Heparin - SQ 5,000 unit TID [facility] Administration Piperacillin Sod/Tazobactam Sod 100 mls @ 200 mls/hr 11/15/16 18:00 11/20/16 10 :46 Zosyn 4.5gm Ivpb (Pre-Docked) IVPB 200 mls/hr Q8H-IV [facility] Administration Protocol Amino Acids 1,000 mls @ 84 mls/hr 11/20/16 07:45 11/20/16 11:43 Clinimix - IV 84 mls/hr Q12H [facility] Administration Labetalol HCl 200 mg 11/17/16 10:06 11/20/16 10:46 Normodyne - PO 200 mg BID [facility] Administration Lisinopril 40 mg 11/17/16 10:00 11/20/16 10:46 Prinivil PO 40 mg DAILY [facility] Administration Nystatin 500,000 units 11/13/16 18:00 11/20/16 11:48 Nystatin Oral Suspension - PO 500,000 units Q6HPO [facility] Administration Ondansetron HCl 4 mg 11/13/16 13:51 11/16/16 20:33 Zofran Injection IVPUSH 4 mg Q6H PRN Administration NAUSEA Oxycodone HCl 5 mg 11/14/16 16:17 Roxicodone - PO Q4H PRN PAIN Pantoprazole Sodium 40 mg 11/16/16 14:15 11/20/16 10:46 Protonix - PO 40 mg DAILY [facility] Administration Pramipexole Dihydrochloride 0.25 mg 11/17/16 09:00 11/20/16 08:46 Mirapex - PO Not Given BIDPC [facility] ASSESSMENT/PLAN: 31M with a PMH of morbid obesity presents to the hospital with abdominal pain found to have a perforated appendicitis in the OR. Sepsis secondary to Perforated appendicitis: CT scan initially read as perforated appendicitis the read changed to non perforated appendicitis. Taken to the OR for attempted Laparoscopic appendectomy found to be perforated. Appendix was not able to be visualized as a result was not resected. Patient s/ p laparoscopic drainage and washout of fabi-appendiceal abscess POD #7. CT scan did not show any worsening pathology abscess moved more medial appendix not visualized ID consult appreciated- HIV test negative surgery consult appreciated recommendations noted-CT scan tomorrow possible Ex- lap on sunday will continue IV ABx with Zosyn day 9 unable to tolerate diet continue to monitor drainage of RIVERA Drain f/u cultures-negative final pain control repeat RUQ US show cholelithiasis without cholecystitis and diffuse fatty infiltration of liver Right sided numbness and weakness: Head CT negative patient can not fit in MRI machine neurology consult appreciated likely from restless leg syndrome-on mirapex after he was started on mirapex he states his right leg has more function now states had EMG as outpatient does not know results-unable to reach neurologist this is the second time on this admission that patient states his "knees buckled " on him. likely he is very deconditioned from a combination of Class 3 severe super morbid obesity and lack of movement will continue PT consult nurses made aware that they should not ambulate patient without adequate residential support worker and he should always have a chair behind him Leukocytosis: resolved continue with antibiotics - zosyn diflucan stopped Essential Hypertension: no previous diagnosis per patient but he has been hypertensive in the hospital although pain may be a contributing factor he likely has underlying hypertension Better controlled today continue lisinopril 40mg po daily continue norvasc 10mg po daily continue PO labetalol to 200 BID Oral Thrush: Continue nystatin Swish and Swallow diflucan stopped HIV negative Morbid Obesity: s/p sleeve gastrectomy follow up outpatient PPx: HSQ protonix PT consult FEN: stop IVF no electrolyte issues on regular diet but not tolerating started on clinimix. Dietary consult placed for TPN-patient will need PICC vs central line for TPN Visit type - Emergency Visit Emergency Visit: Yes ED Registration Date: 11/11/16 Care time: The patient presented to the Emergency Department on the above date and was hospitalized for further evaluation of their emergent condition. - New Patient This patient is new to me today: No - Critical Care Critical Care patient: No
--- NOTE | 2016-11-20 15:37 | PN ---
Teaching Attending Note Name of Resident: Ramon Reynoso ATTENDING PHYSICIAN STATEMENT I saw and evaluated the patient. I reviewed the resident's note and discussed the case with the resident. I agree with the resident's findings and plan as documented. c/o unable to eat.feeling nauseas Vital Signs Temperature 97.7 F 11/20/16 15:12 Pulse Rate 81 11/20/16 15:12 Respiratory Rate 20 11/20/16 15:12 Blood Pressure 125/65 11/20/16 15:12 O2 Sat by Pulse Oximetry (%) 98 11/20/16 12:06 CBCD WBC 9.0 K/mm3 (4.0-10.0) 11/20/16 07:00 RBC 3.67 M/mm3 (4.00-5.60) L 11/20/16 07:00 Hgb 10.4 GM/dL (11.7-16.9) L 11/20/16 07:00 Hct 31.5 % (35.4-49) L 11/20/16 07:00 MCV 85.9 fl (80-96) 11/20/16 07:00 MCHC 33.1 g/dl (32.0-35.9) 11/20/16 07:00 RDW 17.9 % (11.9-15.9) H 11/20/16 07:00 Plt Count 355 K/MM3 (134-434) 11/20/16 07:00 MPV 7.5 fl (7.5-11.1) 11/20/16 07:00 CMP Sodium 131 mmol/L (136-145) L 11/20/16 07:00 Potassium 4.0 mmol/L (3.5-5.1) 11/20/16 07:00 Chloride 95 mmol/L (98-107) L 11/20/16 07:00 Carbon Dioxide 25 mmol/L (21-32) 11/20/16 07:00 Anion Gap 11 (8-16) 11/20/16 07:00 BUN 7 mg/dL (7-18) 11/20/16 07:00 Creatinine 0.5 mg/dL (0.7-1.3) L 11/20/16 07:00 Creat Clearance w eGFR > 60 (>60) 11/20/16 07:00 Random Glucose 82 mg/dL (74-106) 11/20/16 07:00 Calcium 8.3 mg/dL (8.5-10.1) L 11/20/16 07:00 Total Bilirubin 0.6 mg/dL (0.2-1.0) 11/20/16 07:00 AST 108 U/L (15-37) H D 11/20/16 07:00 ALT 151 U/L (12-78) H 11/20/16 07:00 Alkaline Phosphatase 76 U/L (45-117) 11/20/16 07:00 Total Protein 7.2 g/dl (6.4-8.2) 11/20/16 07:00 Albumin 2.5 g/dl (3.4-5.0) L 11/20/16 07:00 CARDIAC ENZYMES Creatine Kinase 68 IU/L (39-308) 11/11/16 16:55 Troponin I < 0.02 ng/ml (0.00-0.05) 11/11/16 16:55 Current Medications Generic Name Dose Route Start Last Admin Trade Name Freq PRN Reason Stop Dose Admin Amlodipine Besylate 10 mg 11/18/16 10:00 11/20/16 10:46 Norvasc - PO 10 mg DAILY [facility] Administration Benzocaine/Menthol 1 each 11/14/16 18:38 11/19/16 21:54 Cepacol Lozenge - MM 1 each Q4H PRN Administration SORE THROAT Heparin Sodium (Porcine) 5,000 unit 11/13/16 22:00 11/20/16 14:09 Heparin - SQ 5,000 unit TID [facility] Administration Piperacillin Sod/Tazobactam Sod 100 mls @ 200 mls/hr 11/15/16 18:00 11/20/16 10 :46 Zosyn 4.5gm Ivpb (Pre-Docked) IVPB 200 mls/hr Q8H-IV [facility] Administration Protocol Amino Acids 1,000 mls @ 84 mls/hr 11/20/16 07:45 11/20/16 11:43 Clinimix - IV 84 mls/hr Q12H [facility] Administration Labetalol HCl 200 mg 11/17/16 10:06 11/20/16 10:46 Normodyne - PO 200 mg BID [facility] Administration Lisinopril 40 mg 11/17/16 10:00 11/20/16 10:46 Prinivil PO 40 mg DAILY [facility] Administration Nystatin 500,000 units 11/13/16 18:00 11/20/16 11:48 Nystatin Oral Suspension - PO 500,000 units Q6HPO [facility] Administration Ondansetron HCl 4 mg 11/13/16 13:51 11/16/16 20:33 Zofran Injection IVPUSH 4 mg Q6H PRN Administration NAUSEA Oxycodone HCl 5 mg 11/14/16 16:17 Roxicodone - PO Q4H PRN PAIN Pantoprazole Sodium 40 mg 11/16/16 14:15 11/20/16 10:46 Protonix - PO 40 mg DAILY [facility] Administration Pramipexole Dihydrochloride 0.25 mg 11/17/16 09:00 11/20/16 08:46 Mirapex - PO Not Given BIDPC [facility] Home Medications Medication Instructions Recorded NK [No Known Home Medication] 10/06/16 ASSESSMENT AND PLAN: Patient is a 31 yo male with h/o Morbid obesity, s/p gastric sleeve sx in Aug 2016 who presented with Abd pain and was found to h. On IV zosyn continue, HIV test was recommended to the patient. Dr.Peter Chowdhury surgical consult appreciated ; CT scan of abdomen and pelvis repeated on 11/15/2016; # POD #7 s/p laparoscopic RIVERA drainage of the abscess due to having an acute complicated Appendicitis with rupture. Continue IV zosyn ,oral Nyastatin since patient has an oral thrush. Dr.Peter Chowdhury surgery on the case. if patient does not improve by Sunday , he will operate by Sunday. Started on Clinimax since unable to tolerate any diet #post-op ileus cont IVF/IV abx discussed with # Acute RUQ pain continues worse on palpation # R upper and lower ext weakness and numbness : numbness and mild weakness are old . # Hypertensive Urgency on Lisinopril; will add Labetolol 200mg po bid with little sip of water. DVT Px: SCD, Heparin
[2016-11-20] MEDS ORDERED: PT OWN MED DRAWER 7, Y5N ONE (17:27)
[2016-11-21] MEDS: NYSTATIN 500,000 UNITS/5 ML SUSPENSION PO SCH ×4 (00:16→17:41)
[2016-11-21] MEDS: AMINO ACIDS 4.25%/D5W 1,000 ML IV SCH ×3 (00:17→12:55)
[2016-11-21] MEDS: PIPERACILLIN/TAZOB 4.5 GM 100 ML IVPB SCH ×2 (02:13→09:15)
[2016-11-21] MEDS: HEPARIN NA (PORCINE) 5,000 UNITS/ML 1ML VIAL SQ SCH ×3 (06:28→22:30)
[2016-11-21] MEDS ORDERED: PT OWN MED DRAWER 7, Y5N ONE (09:11)
[2016-11-21] MEDS: LISINOPRIL 20 MG TABLET (FP) PO SCH (09:14)
[2016-11-21] MEDS: PRAMIPEXOLE DIHYDROCHLORIDE 0.25 MG TABLET PO SCH ×2 (09:14→18:08)
[2016-11-21] MEDS: amLODIPine BESYLATE 10 MG TABLET (FP) PO SCH (09:14)
[2016-11-21] MEDS: LABETALOL HCL 200 MG TABLET (FP) PO SCH ×2 (09:14→22:29)
[2016-11-21] MEDS: PANTOPRAZOLE 40 MG TABLET (FP) PO SCH (09:14)
--- NOTE | 2016-11-21 09:46 | PN ---
Progress Note, Physician Chief Complaint: emesis History of Present Illness: pt refuses to take oral contrast as it causes abd pain. labs today pending. - Current Medication List Current Medications: Active Medications Amlodipine Besylate (Norvasc -) 10 mg PO DAILY [facility] Last Admin: 11/21/16 09:14 Dose: 10 mg Benzocaine/Menthol (Cepacol Lozenge -) 1 each MM Q4H PRN PRN Reason: SORE THROAT Last Admin: 11/19/16 21:54 Dose: 1 each Heparin Sodium (Porcine) (Heparin -) 5,000 unit SQ TID [facility] Last Admin: 11/21/16 06:28 Dose: 5,000 unit Piperacillin Sod/Tazobactam Sod (Zosyn 4.5gm Ivpb (Pre-Docked)) 100 mls @ 200 mls/hr IVPB Q8H-IV [facility] PRN Reason: Protocol Last Admin: 11/21/16 09:15 Dose: 200 mls/hr Amino Acids (Clinimix -) 1,000 mls @ 84 mls/hr IV Q12H [facility] Last Admin: 11/21/16 09:15 Dose: Not Given Labetalol HCl (Normodyne -) 200 mg PO BID [facility] Last Admin: 11/21/16 09:14 Dose: 200 mg Lisinopril (Prinivil) 40 mg PO DAILY [facility] Last Admin: 11/21/16 09:14 Dose: 40 mg Nystatin (Nystatin Oral Suspension -) 500,000 units PO Q6HPO [facility] Last Admin: 11/21/16 06:28 Dose: Not Given Ondansetron HCl (Zofran Injection) 4 mg IVPUSH Q6H PRN PRN Reason: NAUSEA Last Admin: 11/16/16 20:33 Dose: 4 mg Oxycodone HCl (Roxicodone -) 5 mg PO Q4H PRN PRN Reason: PAIN Pantoprazole Sodium (Protonix -) 40 mg PO DAILY [facility] Last Admin: 11/21/16 09:14 Dose: 40 mg Pramipexole Dihydrochloride (Mirapex -) 0.25 mg PO BIDPC [facility] Last Admin: 11/21/16 09:14 Dose: 0.25 mg - Objective Vital Signs: Vital Signs Temperature 98.2 F 11/21/16 08:08 Pulse Rate 66 11/21/16 08:08 Respiratory Rate 18 11/21/16 08:08 Blood Pressure 117/59 11/21/16 08:08 O2 Sat by Pulse Oximetry (%) 97 11/20/16 21:00 Constitutional: Yes: No Distress, Calm Eyes: Yes: Conjunctiva Clear, EOM Intact HENT: Yes: Atraumatic, Normocephalic Neck: Yes: Supple, Trachea Midline Cardiovascular: Yes: Regular Rate and Rhythm Respiratory: Yes: Regular, CTA Bilaterally Gastrointestinal: Yes: Soft, Other (incision c/d/i.). No: Distention, Tenderness Genitourinary: No: CVA Tenderness - Left, CVA Tenderness - Right Breast(s): No: Nipple Inversion, Skin Changes Musculoskeletal: No: Joint Stiffness, Joint Swelling Extremities: No: Calf Tenderness, Erythema Integumentary: No: Erythema, Rash Wound/Incision: Yes: Clean/Dry, Well Approximated Neurological: Yes: Alert, Oriented Psychiatric: Yes: Alert, Oriented Labs: INR, PTT INR 1.54 (0.82-1.09) H 11/13/16 06:15 Problem List - Problems (1) Perforated appendicitis Assessment/Plan: s/p drainage of perforated appendicitis abscess in super morbidly obese patient. could not identify appendix at last operation. patients chief complaint is inability to tolerate PO for CT scan today. will do it without oral contrast. communicated to patient the importance but he says he cannot do it. please start TPN will hold off on operative therapy for now. will cancel operation for tomorrow unless CT shows otherwise. Code(s): K35.2 - ACUTE APPENDICITIS WITH GENERALIZED PERITONITIS
[2016-11-21 10:02] LABS: MCH 28.1 pg (25.7-33.7); MEAN CELL VOLUME 85.3 fl (80-96); MEAN PLT VOLUME 7.4 fl (7.5-11.1); PLATELET COUNT 390 K/MM3 (134-434); RDW 17.5 % (11.9-15.9); WHITE BLOOD COUNT 10.1 K/mm3 (4.0-10.0)
[2016-11-21 10:08] LABS: ALBUMIN 2.8 g/dl (3.4-5.0); ALK PHOS 77 U/L (45-117); ANION GAP 9 (8-16); BILIRUBIN,TOTAL 0.6 mg/dL (0.2-1.0); CALCIUM 8.9 mg/dL (8.5-10.1); CO2 24 mmol/L (21-32); CREATININE 0.6 mg/dL (0.7-1.3); GLUCOSE,RANDOM 95 mg/dL (74-106); SGOT/AST 75 U/L (15-37); SGPT/ALT 150 U/L (12-78); TOT PROT 7.9 g/dl (6.4-8.2)
[2016-11-21] MEDS ORDERED: PICC LINE 8 ML FLUSH PROTOCOL IVPUSH PRN (13:40)
--- NOTE | 2016-11-21 13:47 | PN ---
Addendum entered and electronically signed by Ramon Reynoso RES 11/21/16 14:07: Plan: transaminitis: likely secondary to fatty liver infiltration Original Note: Physical Exam: SUBJECTIVE: Patient seen and examined at bedside still not tolerating doet OBJECTIVE: Vital Signs Period Temp Pulse Resp BP Sys/Peoples Pulse Ox Last 24 Hr 97.7 F-98.7 F 66-88 18-20 117-144/59-89 95-97 GENERAL: The patient is awake, alert, and fully oriented HEAD: Normal with no signs of trauma. EYES: PERRLA EOMI NECK: Trachea midline, full range of motion, supple. LUNGS: Breath sounds equal, clear to auscultation bilaterally, no wheezes, no crackles, no accessory muscle use. HEART: Regular rate and rhythm, S1, S2 without murmur, rub or gallop. ABDOMEN: Soft, morbidly obese, tender to palpation RLQ and RUQ RIVERA drain in place with serous output NEUROLOGICAL: Cranial nerves II through XII intact. no facial droop or weakness and sensation is intact in the face Normal speech. Sensation > on left upper and lower extremities vs right upper and lower extremities. Right arm 2/5 strength right leg 1/5 strength Laboratory Results - last 24 hr 11/21/16 11/21/16 07:30 07:30 WBC 10.1 H RBC 3.92 L Hgb 11.0 L Hct 33.4 L MCV 85.3 MCHC 33.0 RDW 17.5 H Plt Count 390 MPV 7.4 L Sodium 132 L Potassium 4.1 Chloride 99 Carbon Dioxide 24 Anion Gap 9 BUN 10 D Creatinine 0.6 L Creat Clearance w eGFR > 60 Random Glucose 95 Calcium 8.9 Total Bilirubin 0.6 AST 75 H D ALT 150 H Alkaline Phosphatase 77 Total Protein 7.9 Albumin 2.8 L Active Medications Generic Name Dose Route Start Last Admin Trade Name Freq PRN Reason Stop Dose Admin Amlodipine Besylate 10 mg 11/18/16 10:00 11/21/16 09:14 Norvasc - PO 10 mg DAILY [facility] Administration Benzocaine/Menthol 1 each 11/14/16 18:38 11/19/16 21:54 Cepacol Lozenge - MM 1 each Q4H PRN Administration SORE THROAT Heparin Sodium (Porcine) 5,000 unit 11/13/16 22:00 11/21/16 06:28 Heparin - SQ 5,000 unit TID [facility] Administration IV Flush 8 ml 11/21/16 13:40 Picc Line Flush IVPUSH PRN PRN Protocol Piperacillin Sod/Tazobactam Sod 100 mls @ 200 mls/hr 11/15/16 18:00 11/21/16 09 :15 Zosyn 4.5gm Ivpb (Pre-Docked) IVPB 200 mls/hr Q8H-IV [facility] Administration Protocol Amino Acids 1,000 mls @ 84 mls/hr 11/20/16 07:45 11/21/16 12:55 Clinimix - IV 84 mls/hr Q12H [facility] Administration Labetalol HCl 200 mg 11/17/16 10:06 11/21/16 09:14 Normodyne - PO 200 mg BID [facility] Administration Lisinopril 40 mg 11/17/16 10:00 11/21/16 09:14 Prinivil PO 40 mg DAILY [facility] Administration Nystatin 500,000 units 11/13/16 18:00 11/21/16 06:28 Nystatin Oral Suspension - PO Not Given Q6HPO [facility] Ondansetron HCl 4 mg 11/13/16 13:51 11/16/16 20:33 Zofran Injection IVPUSH 4 mg Q6H PRN Administration NAUSEA Oxycodone HCl 5 mg 11/14/16 16:17 Roxicodone - PO Q4H PRN PAIN Pantoprazole Sodium 40 mg 11/16/16 14:15 11/21/16 09:14 Protonix - PO 40 mg DAILY [facility] Administration Pramipexole Dihydrochloride 0.25 mg 11/17/16 09:00 11/21/16 09:14 Mirapex - PO 0.25 mg BIDPC [facility] Administration ASSESSMENT/PLAN: 31M with a PMH of morbid obesity presents to the hospital with abdominal pain found to have a perforated appendicitis in the OR. Sepsis secondary to Perforated appendicitis: CT scan initially read as perforated appendicitis the read changed to non perforated appendicitis. Taken to the OR for attempted Laparoscopic appendectomy found to be perforated. Appendix was not able to be visualized as a result was not resected. Patient s/ p laparoscopic drainage and washout of fabi-appendiceal abscess POD #8. CT scan did not show any worsening pathology abscess moved more medial appendix not visualized ID consult appreciated- HIV test negative surgery consult appreciated recommendations noted will continue IV ABx with Zosyn day 10 unable to tolerate diet continue to monitor drainage of RIVERA Drain f/u cultures-negative final pain control repeat RUQ US show cholelithiasis without cholecystitis and diffuse fatty infiltration of liver will Get nephrology consult for TPN and IR consult for PICC CT scan number 3 done this AM reviewed no significant changes possible Ex-lap tomorrow Right sided numbness and weakness: Head CT negative patient can not fit in MRI machine neurology consult appreciated likely from restless leg syndrome-on mirapex after he was started on mirapex he states his right leg has more function now states had EMG as outpatient does not know results-unable to reach neurologist this is the second time on this admission that patient states his "knees buckled " on him. likely he is very deconditioned from a combination of Class 3 severe super morbid obesity and lack of movement will continue PT consult nurses made aware that they should not ambulate patient without adequate residential direct support professional and he should always have a chair behind him open MRI as outpatient Leukocytosis: resolved but trending upwards continue with antibiotics - zosyn diflucan stopped Essential Hypertension: no previous diagnosis per patient but he has been hypertensive in the hospital although pain may be a contributing factor he likely has underlying hypertension Better controlled today continue lisinopril 40mg po daily continue norvasc 10mg po daily continue PO labetalol to 200 BID Oral Thrush: Continue nystatin Swish and Swallow diflucan stopped HIV negative Morbid Obesity: s/p sleeve gastrectomy follow up outpatient PPx: HSQ protonix PT consult FEN: stop IVF no electrolyte issues on regular diet but not tolerating started on clinimix. nephrology consult placed for TPN-patient will need PICC - radiology consult obtained Visit type - Emergency Visit Emergency Visit: Yes ED Registration Date: 11/11/16 Care time: The patient presented to the Emergency Department on the above date and was hospitalized for further evaluation of their emergent condition. - New Patient This patient is new to me today: No - Critical Care Critical Care patient: No
--- NOTE | 2016-11-21 13:52 | PN ---
Progress Note, Physician History of Present Illness: patient had a bout of vomiting today not able to keep anything down ct scan mcrae today - Current Medication List Current Medications: Active Medications Amlodipine Besylate (Norvasc -) 10 mg PO DAILY [facility] Last Admin: 11/21/16 09:14 Dose: 10 mg Benzocaine/Menthol (Cepacol Lozenge -) 1 each MM Q4H PRN PRN Reason: SORE THROAT Last Admin: 11/19/16 21:54 Dose: 1 each Heparin Sodium (Porcine) (Heparin -) 5,000 unit SQ TID [facility] Last Admin: 11/21/16 06:28 Dose: 5,000 unit IV Flush (Picc Line Flush) 8 ml IVPUSH PRN PRN PRN Reason: Protocol Amino Acids (Clinimix -) 1,000 mls @ 84 mls/hr IV Q12H [facility] Last Admin: 11/21/16 12:55 Dose: 84 mls/hr Piperacillin Sod/Tazobactam (Sod 3.375 gm/ Dextrose) 50 mls @ 100 mls/hr IVPB Q8H-IV [facility] PRN Reason: Protocol Labetalol HCl (Normodyne -) 200 mg PO BID [facility] Last Admin: 11/21/16 09:14 Dose: 200 mg Lisinopril (Prinivil) 40 mg PO DAILY [facility] Last Admin: 11/21/16 09:14 Dose: 40 mg Nystatin (Nystatin Oral Suspension -) 500,000 units PO Q6HPO [facility] Last Admin: 11/21/16 06:28 Dose: Not Given Ondansetron HCl (Zofran Injection) 4 mg IVPUSH Q6H PRN PRN Reason: NAUSEA Last Admin: 11/16/16 20:33 Dose: 4 mg Oxycodone HCl (Roxicodone -) 5 mg PO Q4H PRN PRN Reason: PAIN Pantoprazole Sodium (Protonix -) 40 mg PO DAILY [facility] Last Admin: 11/21/16 09:14 Dose: 40 mg Pramipexole Dihydrochloride (Mirapex -) 0.25 mg PO BIDPC [facility] Last Admin: 11/21/16 09:14 Dose: 0.25 mg - Objective Vital Signs: Vital Signs Temperature 98.2 F 11/21/16 08:08 Pulse Rate 88 11/21/16 10:20 Respiratory Rate 18 11/21/16 08:08 Blood Pressure 117/59 11/21/16 08:08 O2 Sat by Pulse Oximetry (%) 95 11/21/16 10:20 Eyes: Yes: Conjunctiva Clear HENT: Yes: Atraumatic Cardiovascular: Yes: Regular Rate and Rhythm Respiratory: Yes: Regular, Poor Air Entry Gastrointestinal: Yes: Abdomen, Obese, Hypoactive Bowel Sounds Musculoskeletal: Yes: WNL Extremities: Yes: WNL Neurological: Yes: Alert, Oriented Psychiatric: Yes: Alert Labs: CBC, BMP 11/21/16 07:30 11/21/16 07:30 INR, PTT INR 1.54 (0.82-1.09) H 11/13/16 06:15 Assessment/Plan ac appendicitis morbid obesity oral thrush abd abscess plan continue abx await for surgery to evaluate the ct scan continue nutrition continue hydration
--- NOTE | 2016-11-21 15:18 | PN ---
Teaching Attending Note Name of Resident: Ramon Reynoso ATTENDING PHYSICIAN STATEMENT I saw and evaluated the patient. I reviewed the resident's note and discussed the case with the resident. I agree with the resident's findings and plan as documented. SUBJECTIVE: cont to have ABd pain , no fever or chills, has Nausea and vomited x 1 today . OBJECTIVE: abd pain has imporved , no nausea or vomiting . had fever this am . has numbness and weakness in R arm and leg, which is chronic but worsened this AM to a point he was not able to lift his R arm or R leg earlier this am. he was w/u with An EMG as out pt , but denies any CT or MRI of brain OBJECTIVE: NAD , awake and alert CV : RRR Lungs : CTAB ext : no rodo Abd : morbidly obese, RIVERA drain in . TTP in RLQ and RUQ. no rebound tenderness , NL BS. NEuro : Awake and alert , oriented. no facial droop, . round equal pupils Strength : RUE : shoulder abduction 4/5 , Biceps 4/5 , triceps 4/5 , hand building services coordinator 4/5 LUE : shoulder abduction 5/5 , Biceps 5/5 , triceps 5/5 , hand building services coordinator 5/5 RLE : hip flexion 2/5, knee flexion 4/5, knee extension 4/5 , Ankle dorsiflecxion 2/5, ankle plantar flexion 5/5 LLE: hip flexion 5/5, knee flexion 5/5, knee extension 5/5 , Ankle dorsiflecxion 3/5, ankle plantar flexion 5/5 Reflexes: 2+ L knee jerk, 1+ R knee jerk . Sensation: decreased to light touch in R upper and Lower ext. ASSESSMENT AND PLAN: 31 y/o male with h/o Morbid obesity, s/p gastric sleeve sx in Aug 2016 who presented with Abd pain and was found to have ruptured appendix. 1- Complicated Appendicitis with rupture and fabi-appendicial abscess. s/p laparoscopic RIVERA drainage of the abscess on 11/13 - Cont zosyn , monitor WBC - CT scan today with no herb abscess - RUQ US with no evidence of acute cholecystitis . - will plan for TPN , consult nephro for that. - cont Clinimix for now 2- R upper and lower ext weakness and numbness: still present. possible stroke - could not fit in MRI - control BP - hold off Asa now due to possible intervention - hold off statin due to elevated LFTS 3- HTN: cont BP meds 4- oral thrush: cont antifungal Dispo : HLOC
--- NOTE | 2016-11-21 15:58 | CONSULT ---
Consult Consult Specialty:: Nephrology Reason for Consultation:: TPN - History of Present Illness Chief Complaint: abdominal pain History of Present Illness: Pt is a 31 year old male with PMHx of obesity who initially presents to the ER with abdominal pain. He initially has bariatric surgery in August of 2016 which went well. He was found to have complicated appendicitis. Over the course of his admission he has continued to loose weight and is unable to tolerated diet. He vomits whenever he eats any food. I was called to prescribe TPN. I discussed the case with surgery and they feel that the patient has not gotten any caloric intake. He is awake and alert. He denies shortness of breath. - History Source History Provided By: Patient, Medical Record - Past Medical History Additional Medical History: morbid obesity - Past Surgical History Additional Surgical History: 08/2016 gastric sleeve for morbid obesity at [facility]/[place] (Dr. Mele Heard) - Alcohol/Substance Use Hx Alcohol Use: No - Smoking History Smoking history: Never smoked Have you smoked in the past 12 months: No Home Medications - Allergies Allergies/Adverse Reactions: Allergies Allergy/AdvReac Type Severity Reaction Status Date / Time No Known Drug Allergies Allergy Verified 11/11/16 16:33 - Home Medications Home Medications: Ambulatory Orders NK [No Known Home Medication] 10/06/16 Family Disease History - Family Disease History Family History: Denies Review of Systems - Review of Systems Constitutional: reports: Loss of Appetite Eyes: reports: No Symptoms HENT: reports: No Symptoms Neck: reports: No Symptoms Cardiovascular: reports: No Symptoms Respiratory: reports: No Symptoms Gastrointestinal: reports: Other (vomiting) Musculoskeletal: reports: No Symptoms Integumentary: reports: No Symptoms Neurological: reports: No Symptoms Endocrine: reports: No Symptoms Physical Exam Vital Signs: Vital Signs Temperature 97.7 F 11/21/16 15:09 Pulse Rate 68 11/21/16 15:09 Respiratory Rate 18 11/21/16 15:09 Blood Pressure 117/59 11/21/16 08:08 O2 Sat by Pulse Oximetry (%) 95 11/21/16 10:20 Constitutional: Yes: Calm Eyes: Yes: Conjunctiva Clear HENT: Yes: Atraumatic Neck: Yes: Supple Cardiovascular: Yes: S1, S2 Respiratory: Yes: CTA Bilaterally Gastrointestinal: Yes: Normal Bowel Sounds, Abdomen, Obese Renal/: Yes: WNL Musculoskeletal: Yes: Muscle Weakness Edema: Yes Edema: LLE: 1+, RLE: 1+ Neurological: Yes: Oriented Psychiatric: Yes: Oriented Labs: CBC, BMP 11/21/16 07:30 11/21/16 07:30 Laboratory Tests 11/19/16 11/20/16 11/20/16 08:50 07:00 07:00 WBC Hgb 10.4 L Sodium 133 L 131 L Potassium 4.0 Chloride 95 L Carbon Dioxide Anion Gap 11 BUN 7 Creatinine AST ALT 11/21/16 11/21/16 07:30 07:30 WBC 10.1 H Hgb 11.0 L Sodium 132 L Potassium 4.1 Chloride 99 Carbon Dioxide 24 Anion Gap 9 BUN 10 D Creatinine 0.6 L AST 75 H D ALT 150 H Imaging - Results Cat Scan: Report Reviewed Problem List - Problems (1) Perforated appendicitis Code(s): K35.2 - ACUTE APPENDICITIS WITH GENERALIZED PERITONITIS (2) Hyponatremia Code(s): E87.1 - HYPO-OSMOLALITY AND HYPONATREMIA (3) Malnutrition Code(s): E46 - UNSPECIFIED PROTEIN-CALORIE MALNUTRITION Assessment/Plan Current Medications Generic Name Dose Route Start Last Admin Trade Name Freq PRN Reason Stop Dose Admin Amlodipine Besylate 10 mg 11/18/16 10:00 11/21/16 09:14 Norvasc - PO 10 mg DAILY [facility] Administration Benzocaine/Menthol 1 each 11/14/16 18:38 11/19/16 21:54 Cepacol Lozenge - MM 1 each Q4H PRN Administration SORE THROAT Heparin Sodium (Porcine) 5,000 unit 11/13/16 22:00 11/21/16 14:13 Heparin - SQ Not Given TID [facility] IV Flush 8 ml 11/21/16 13:40 Picc Line Flush IVPUSH PRN PRN Protocol Amino Acids 1,000 mls @ 84 mls/hr 11/20/16 07:45 11/21/16 12:55 Clinimix - IV 84 mls/hr Q12H [facility] Administration Piperacillin Sod/Tazobactam Sod 50 mls @ 100 mls/hr 11/21/16 18:00 Zosyn 3.375gm Ivpb (Pre-Docked) IVPB Q8H-IV [facility] Protocol Labetalol HCl 200 mg 11/17/16 10:06 11/21/16 09:14 Normodyne - PO 200 mg BID [facility] Administration Lisinopril 40 mg 11/17/16 10:00 11/21/16 09:14 Prinivil PO 40 mg DAILY [facility] Administration Nystatin 500,000 units 11/13/16 18:00 11/21/16 14:18 Nystatin Oral Suspension - PO Not Given Q6HPO [facility] Ondansetron HCl 4 mg 11/13/16 13:51 11/16/16 20:33 Zofran Injection IVPUSH 4 mg Q6H PRN Administration NAUSEA Oxycodone HCl 5 mg 11/14/16 16:17 Roxicodone - PO Q4H PRN PAIN Pantoprazole Sodium 40 mg 11/16/16 14:15 11/21/16 09:14 Protonix - PO 40 mg DAILY [facility] Administration Pramipexole Dihydrochloride 0.25 mg 11/17/16 09:00 11/21/16 09:14 Mirapex - PO 0.25 mg BIDPC [facility] Administration Impression 1. complicated appendicitis 2. malnutrition 3. hyponatremia 4. obesity 5. HTN 6. anemia Plan - discussed with surgery, will start TPN - pt is going for venous access today - nutrition follow up - will likely start TPN tomorrow afternoon - monitor bp - monitor sodium levels - check osms and urine sodium - will follow Dr Mondragon
[2016-11-21] MEDS: PIPERACILLIN/TAZOB 3.375 GM 50 ML IVPB SCH (17:41)
[2016-11-22] MEDS: PIPERACILLIN/TAZOB 3.375 GM 50 ML IVPB SCH ×3 (02:13→17:26)
[2016-11-22] MEDS: NYSTATIN 500,000 UNITS/5 ML SUSPENSION PO SCH ×4 (06:25→17:15)
[2016-11-22] MEDS: HEPARIN NA (PORCINE) 5,000 UNITS/ML 1ML VIAL SQ SCH ×3 (06:29→22:34)
[2016-11-22 07:52] LABS: MCH 28.3 pg (25.7-33.7); MCHC 33.1 g/dl (32.0-35.9); MEAN CELL VOLUME 85.6 fl (80-96); MEAN PLT VOLUME 7.2 fl (7.5-11.1); PLATELET COUNT 399 K/MM3 (134-434); RDW 17.9 % (11.9-15.9); WHITE BLOOD COUNT 10.3 K/mm3 (4.0-10.0)
[2016-11-22 08:36] LABS: ANION GAP 13 (8-16); CALCIUM 9.1 mg/dL (8.5-10.1); CO2 22 mmol/L (21-32); CREATININE 0.7 mg/dL (0.7-1.3); GLUCOSE,RANDOM 97 mg/dL (74-106); SGOT/AST 66 U/L (15-37); SGPT/ALT 143 U/L (12-78)
[2016-11-22 08:38] LABS: ALK PHOS 80 U/L (45-117); BILIRUBIN,TOTAL 0.6 mg/dL (0.2-1.0); TOT PROT 8.6 g/dl (6.4-8.2)
[2016-11-22] MEDS ORDERED: PT OWN MED DRAWER 7, Y5N ONE ×2 (08:43→17:17)
[2016-11-22] MEDS: LABETALOL HCL 200 MG TABLET (FP) PO SCH ×2 (10:07→22:33)
[2016-11-22] MEDS: amLODIPine BESYLATE 10 MG TABLET (FP) PO SCH (10:07)
[2016-11-22] MEDS: LISINOPRIL 20 MG TABLET (FP) PO SCH (10:07)
[2016-11-22] MEDS: PANTOPRAZOLE 40 MG TABLET (FP) PO SCH (10:07)
[2016-11-22] MEDS: PRAMIPEXOLE DIHYDROCHLORIDE 0.25 MG TABLET PO SCH ×2 (10:08→18:15)
[2016-11-22] MEDS: AMINO ACIDS 4.25%/D5W 1,000 ML IV SCH ×2 (11:00→14:26)
[2016-11-22] MEDS: ONDANSETRON 4 MG/2 ML VIAL IVPUSH PRN (12:56)
[2016-11-22 13:18] LABS: ALBUMIN 2.9 g/dl (3.4-5.0); BILIRUBIN,DIRECT 0.2 mg/dL (0.0-0.2); MAGNESIUM 1.9 mg/dL (1.8-2.4)
--- NOTE | 2016-11-22 13:23 | PN ---
Progress Note, Physician History of Present Illness: Pt seen and examined at bedside. He is awake and alert. He is still not able to tolerate any diet. He complains of weakness. - Current Medication List Current Medications: Active Medications Amlodipine Besylate (Norvasc -) 10 mg PO DAILY [facility] Last Admin: 11/22/16 10:07 Dose: 10 mg Benzocaine/Menthol (Cepacol Lozenge -) 1 each MM Q4H PRN PRN Reason: SORE THROAT Last Admin: 11/19/16 21:54 Dose: 1 each Heparin Sodium (Porcine) (Heparin -) 5,000 unit SQ TID [facility] Last Admin: 11/22/16 06:29 Dose: 5,000 unit IV Flush (Picc Line Flush) 8 ml IVPUSH PRN PRN PRN Reason: Protocol Amino Acids (Clinimix -) 1,000 mls @ 84 mls/hr IV Q12H [facility] Last Admin: 11/21/16 12:55 Dose: 84 mls/hr Piperacillin Sod/Tazobactam Sod (Zosyn 3.375gm Ivpb (Pre-Docked)) 50 mls @ 100 mls/hr IVPB Q8H-IV [facility] PRN Reason: Protocol Last Admin: 11/22/16 10:07 Dose: 100 mls/hr Labetalol HCl (Normodyne -) 200 mg PO BID [facility] Last Admin: 11/22/16 10:07 Dose: 200 mg Lisinopril (Prinivil) 40 mg PO DAILY [facility] Last Admin: 11/22/16 10:07 Dose: 40 mg Nystatin (Nystatin Oral Suspension -) 500,000 units PO Q6HPO [facility] Last Admin: 11/22/16 12:40 Dose: Not Given Ondansetron HCl (Zofran Injection) 4 mg IVPUSH Q6H PRN PRN Reason: NAUSEA Last Admin: 11/22/16 12:56 Dose: 4 mg Pantoprazole Sodium (Protonix -) 40 mg PO DAILY [facility] Last Admin: 11/22/16 10:07 Dose: 40 mg Pramipexole Dihydrochloride (Mirapex -) 0.25 mg PO BIDPC [facility] Last Admin: 11/22/16 10:08 Dose: 0.25 mg - Objective Vital Signs: Vital Signs Temperature 97.6 F 11/22/16 10:00 Pulse Rate 75 11/22/16 10:00 Respiratory Rate 18 11/22/16 10:00 Blood Pressure 135/85 11/22/16 10:00 O2 Sat by Pulse Oximetry (%) 95 11/21/16 22:35 Constitutional: Yes: Calm Eyes: Yes: Conjunctiva Clear HENT: Yes: Atraumatic Cardiovascular: Yes: S1, S2 Respiratory: Yes: CTA Bilaterally Gastrointestinal: Yes: Abdomen, Obese Genitourinary: Yes: WNL Musculoskeletal: Yes: Muscle Weakness Edema: Yes Neurological: Yes: Oriented Psychiatric: Yes: Oriented Labs: CBC, BMP 11/22/16 06:45 11/22/16 06:45 INR, PTT INR 1.54 (0.82-1.09) H 11/13/16 06:15 Problem List - Problems (1) Perforated appendicitis Code(s): K35.2 - ACUTE APPENDICITIS WITH GENERALIZED PERITONITIS (2) Hyponatremia Code(s): E87.1 - HYPO-OSMOLALITY AND HYPONATREMIA (3) Malnutrition Code(s): E46 - UNSPECIFIED PROTEIN-CALORIE MALNUTRITION Assessment/Plan Current Medications Generic Name Dose Route Start Last Admin Trade Name Freq PRN Reason Stop Dose Admin Amlodipine Besylate 10 mg 11/18/16 10:00 11/22/16 10:07 Norvasc - PO 10 mg DAILY [facility] Administration Benzocaine/Menthol 1 each 11/14/16 18:38 11/19/16 21:54 Cepacol Lozenge - MM 1 each Q4H PRN Administration SORE THROAT Heparin Sodium (Porcine) 5,000 unit 11/13/16 22:00 11/22/16 06:29 Heparin - SQ 5,000 unit TID [facility] Administration IV Flush 8 ml 11/21/16 13:40 Picc Line Flush IVPUSH PRN PRN Protocol Amino Acids 1,000 mls @ 84 mls/hr 11/20/16 07:45 11/21/16 12:55 Clinimix - IV 84 mls/hr Q12H [facility] Administration Piperacillin Sod/Tazobactam Sod 50 mls @ 100 mls/hr 11/21/16 18:00 11/22/16 10: 07 Zosyn 3.375gm Ivpb (Pre-Docked) IVPB 100 mls/hr Q8H-IV [facility] Administration Protocol Labetalol HCl 200 mg 11/17/16 10:06 11/22/16 10:07 Normodyne - PO 200 mg BID [facility] Administration Lisinopril 40 mg 11/17/16 10:00 11/22/16 10:07 Prinivil PO 40 mg DAILY [facility] Administration Nystatin 500,000 units 11/13/16 18:00 11/22/16 12:40 Nystatin Oral Suspension - PO Not Given Q6HPO [facility] Ondansetron HCl 4 mg 11/13/16 13:51 11/22/16 12:56 Zofran Injection IVPUSH 4 mg Q6H PRN Administration NAUSEA Pantoprazole Sodium 40 mg 11/16/16 14:15 11/22/16 10:07 Protonix - PO 40 mg DAILY [facility] Administration Pramipexole Dihydrochloride 0.25 mg 11/17/16 09:00 11/22/16 10:08 Mirapex - PO 0.25 mg BIDPC [facility] Administration Impression 1. complicated appendicitis 2. malnutrition 3. hyponatremia 4. obesity 5. HTN 6. anemia Plan - TPN orders written and will start today - discussed at length with graphics programmer - cont to try PO intake - will monitor labs - check lipids - check mag and phos - monitor sodium levels - will follow Dr Mondragon
[2016-11-22 13:31] LABS: BILIRUBIN,TOTAL 0.5 mg/dL (0.2-1.0); TOT PROT 8.1 g/dl (6.4-8.2)
--- NOTE | 2016-11-22 14:19 | PN ---
Physical Exam: SUBJECTIVE: Patient seen and examined OBJECTIVE: Vital Signs Period Temp Pulse Resp BP Sys/Peoples Pulse Ox Last 24 Hr 97.6 F-98.5 F 68-83 18-20 118-143/69-85 95-95 GENERAL: The patient is awake, alert, and fully oriented HEAD: Normal with no signs of trauma. EYES: PERRLA EOMI NECK: Trachea midline, full range of motion, supple. LUNGS: Breath sounds equal, clear to auscultation bilaterally, no wheezes, no crackles, no accessory muscle use. HEART: Regular rate and rhythm, S1, S2 without murmur, rub or gallop. ABDOMEN: Soft, morbidly obese, tender to palpation RLQ and RUQ RIVERA drain in place with minimal serous output NEUROLOGICAL: Cranial nerves II through XII intact. no facial droop or weakness and sensation is intact in the face Normal speech. Sensation > on left upper and lower extremities vs right upper and lower extremities. Right arm 2/5 strength right leg 1/5 strength- overall neuro exam unchanged Laboratory Results - last 24 hr 11/21/16 11/21/16 11/22/16 20:30 20:30 06:45 WBC 10.3 H RBC 4.02 Hgb 11.4 L Hct 34.4 L MCV 85.6 MCHC 33.1 RDW 17.9 H Plt Count 399 MPV 7.2 L Sodium Potassium Chloride Carbon Dioxide Anion Gap BUN Creatinine Creat Clearance w eGFR Random Glucose Serum Osmolality Calcium Phosphorus Magnesium Total Bilirubin Direct Bilirubin AST ALT Alkaline Phosphatase Total Protein Albumin Triglycerides Serum Folate Urine Osmolality 697 Ur Random Sodium 57 Ur Random Potassium 35.7 Ur Random Chloride 40 11/22/16 11/22/16 11/22/16 06:45 06:45 12:40 WBC RBC Hgb Hct MCV MCHC RDW Plt Count MPV Sodium 133 L Potassium 4.0 Chloride 98 Carbon Dioxide 22 Anion Gap 13 BUN 12 Creatinine 0.7 Creat Clearance w eGFR > 60 Random Glucose 97 Serum Osmolality 279 Calcium 9.1 Phosphorus 3.0 Magnesium 1.9 Total Bilirubin 0.6 0.5 Direct Bilirubin 0.2 AST 66 H 66 H ALT 143 H 128 H Alkaline Phosphatase 80 76 Total Protein 8.6 H 8.1 Albumin 3.0 L 2.9 L Triglycerides 146 Serum Folate 6 Urine Osmolality Ur Random Sodium Ur Random Potassium Ur Random Chloride Active Medications Generic Name Dose Route Start Last Admin Trade Name Freq PRN Reason Stop Dose Admin Amlodipine Besylate 10 mg 11/18/16 10:00 11/22/16 10:07 Norvasc - PO 10 mg DAILY [facility] Administration Benzocaine/Menthol 1 each 11/14/16 18:38 11/19/16 21:54 Cepacol Lozenge - MM 1 each Q4H PRN Administration SORE THROAT Heparin Sodium (Porcine) 5,000 unit 11/13/16 22:00 11/22/16 06:29 Heparin - SQ 5,000 unit TID EUSE[place] Administration IV Flush 8 ml 11/21/16 13:40 Picc Line Flush IVPUSH PRN PRN Protocol Amino Acids 1,000 mls @ 84 mls/hr 11/20/16 07:45 11/21/16 12:55 Clinimix - IV 84 mls/hr Q12H [facility] Administration Piperacillin Sod/Tazobactam Sod 50 mls @ 100 mls/hr 11/21/16 18:00 11/22/16 10: 07 Zosyn 3.375gm Ivpb (Pre-Docked) IVPB 100 mls/hr Q8H-IV [facility] Administration Protocol Labetalol HCl 200 mg 11/17/16 10:06 11/22/16 10:07 Normodyne - PO 200 mg BID [facility] Administration Lisinopril 40 mg 11/17/16 10:00 11/22/16 10:07 Prinivil PO 40 mg DAILY [place] Administration Nystatin 500,000 units 11/13/16 18:00 11/22/16 12:40 Nystatin Oral Suspension - PO Not Given Q6HPO [facility] Ondansetron HCl 4 mg 11/13/16 13:51 11/22/16 12:56 Zofran Injection IVPUSH 4 mg Q6H PRN Administration NAUSEA Pantoprazole Sodium 40 mg 11/16/16 14:15 11/22/16 10:07 Protonix - PO 40 mg DAILY [place] Administration Pramipexole Dihydrochloride 0.25 mg 11/17/16 09:00 11/22/16 10:08 Mirapex - PO 0.25 mg BIDPC [place] Administration ASSESSMENT/PLAN: 31M with a PMH of morbid obesity presents to the hospital with abdominal pain found to have a perforated appendicitis in the OR. Sepsis secondary to Perforated appendicitis: CT scan initially read as perforated appendicitis the read changed to non perforated appendicitis. Taken to the OR for attempted Laparoscopic appendectomy found to be perforated. Appendix was not able to be visualized as a result was not resected. Patient s/ p laparoscopic drainage and washout of fabi-appendiceal abscess POD #9. CT scan did not show any worsening pathology abscess moved more medial appendix not visualized ID consult appreciated- HIV test negative surgery consult appreciated recommendations noted will continue IV ABx with Zosyn day 11 unable to tolerate diet continue to monitor drainage of RIVERA Drain f/u cultures-negative final pain control repeat RUQ US show cholelithiasis without cholecystitis and diffuse fatty infiltration of liver nephrology consult appreciated will start TPN today S/P PICC by IR CT scan number 3 done this AM reviewed no significant changes will hold off on surgery for now transaminitis: likely secondary to diffuse fatty liver infiltration Right sided numbness and weakness: Head CT negative patient can not fit in MRI machine neurology consult appreciated likely from restless leg syndrome-on mirapex after he was started on mirapex he states his right leg has more function now states had EMG as outpatient does not know results this is the second time on this admission that patient states his "knees buckled " on him. likely he is very deconditioned from a combination of Class 3 severe super morbid obesity and lack of movement will continue PT consult nurses made aware that they should not ambulate patient without adequate health support specialist and he should always have a chair behind him open MRI as outpatient Leukocytosis: resolved but trending upwards continue with antibiotics - zosyn diflucan stopped Essential Hypertension: no previous diagnosis per patient but he has been hypertensive in the hospital although pain may be a contributing factor he likely has underlying hypertension Better controlled on this regimen: continue lisinopril 40mg po daily continue norvasc 10mg po daily continue PO labetalol to 200 BID Oral Thrush: Continue nystatin Swish and Swallow continue for few more days diflucan stopped HIV negative Morbid Obesity: s/p sleeve gastrectomy follow up outpatient PPx: HSQ protonix PT consult FEN: stop IVF no electrolyte issues on soft diet but not tolerating started on clinimix. nephrology consult placed for TPN-s/p PICC - TPN to be started today Visit type - Emergency Visit Emergency Visit: Yes ED Registration Date: 11/11/16 Care time: The patient presented to the Emergency Department on the above date and was hospitalized for further evaluation of their emergent condition. - New Patient This patient is new to me today: No - Critical Care Critical Care patient: No - Discharge Referral Referred to [facility] Med [facility] No
[2016-11-22] MEDS: WATER FOR INJ STERILE IV SCH (15:55)
[2016-11-22] MEDS: [UNRECOGNIZED DRUG - OTHER] IV SCH (15:55)
[2016-11-22] MEDS: MULTIVIT IV SCH (15:55)
--- NOTE | 2016-11-22 17:49 | PN ---
Progress Note, Physician History of Present Illness: continues to vomit now on tpn - Current Medication List Current Medications: Active Medications Amlodipine Besylate (Norvasc -) 10 mg PO DAILY [facility] Last Admin: 11/22/16 10:07 Dose: 10 mg Benzocaine/Menthol (Cepacol Lozenge -) 1 each MM Q4H PRN PRN Reason: SORE THROAT Last Admin: 11/19/16 21:54 Dose: 1 each Heparin Sodium (Porcine) (Heparin -) 5,000 unit SQ TID [facility] Last Admin: 11/22/16 14:24 Dose: 5,000 unit IV Flush (Picc Line Flush) 8 ml IVPUSH PRN PRN PRN Reason: Protocol Piperacillin Sod/Tazobactam Sod (Zosyn 3.375gm Ivpb (Pre-Docked)) 50 mls @ 100 mls/hr IVPB Q8H-IV [place] PRN Reason: Protocol Last Admin: 11/22/16 17:26 Dose: 100 mls/hr Multivitamins/Minerals 10 ml/Sterile Water/ Amino Acids/Dextrose 1,000 mls @ 41.667 mls/hr IV DAILY@1600 [facility] Last Admin: 11/22/16 15:55 Dose: 41.667 mls/hr Fat Emulsion Intravenous (Intralipid -) 250 mls @ 20.833 mls/hr IV DAILY@2200 [facility] Labetalol HCl (Normodyne -) 200 mg PO BID [facility] Last Admin: 11/22/16 10:07 Dose: 200 mg Lisinopril (Prinivil) 40 mg PO DAILY [facility] Last Admin: 11/22/16 10:07 Dose: 40 mg Nystatin (Nystatin Oral Suspension -) 500,000 units PO Q6HPO [facility] Last Admin: 11/22/16 17:15 Dose: Not Given Ondansetron HCl (Zofran Injection) 4 mg IVPUSH Q6H PRN PRN Reason: NAUSEA Last Admin: 11/22/16 12:56 Dose: 4 mg Pantoprazole Sodium (Protonix -) 40 mg PO DAILY [facility] Last Admin: 11/22/16 10:07 Dose: 40 mg Pramipexole Dihydrochloride (Mirapex -) 0.25 mg PO BIDPC [facility] Last Admin: 11/22/16 10:08 Dose: 0.25 mg - Objective Vital Signs: Vital Signs Temperature 99.3 F 11/22/16 14:44 Pulse Rate 71 11/22/16 14:44 Respiratory Rate 18 11/22/16 14:44 Blood Pressure 137/60 11/22/16 14:44 O2 Sat by Pulse Oximetry (%) 95 11/22/16 09:00 Constitutional: Yes: Calm, Mild Distress, Obese (morbidly) Cardiovascular: Yes: Regular Rate and Rhythm Respiratory: Yes: Regular, CTA Bilaterally Gastrointestinal: Yes: Abdomen, Obese, Hypoactive Bowel Sounds Musculoskeletal: Yes: WNL Extremities: Yes: WNL Neurological: Yes: Alert, Oriented Psychiatric: Yes: Alert Labs: CBC, BMP 11/22/16 06:45 11/22/16 06:45 INR, PTT INR 1.54 (0.82-1.09) H 11/13/16 06:15 Assessment/Plan ac appendicitis morbid obesity oral thrush abd abscess nausea vomiting wbc increasing plan continue abx will see how the wbc behaves continue nutrition continue hydration might deescalate abx soon
--- NOTE | 2016-11-22 18:48 | PN ---
Teaching Attending Note Name of Resident: Ramon Reynoso ATTENDING PHYSICIAN STATEMENT I saw and evaluated the patient. I reviewed the resident's note and discussed the case with the resident. I agree with the resident's findings and plan as documented. SUBJECTIVE: nausea, poor po intake. no flatus at time of evaluation OBJECTIVE: NAD , awake and alert CV : RRR Lungs : CTAB ext : no rodo Abd : morbidly obese, RIVERA drain in . TTP in RLQ and RUQ. no rebound tenderness , NL BS. NEuro : Awake and alert , oriented. no facial droop, . round equal pupils Strength : RUE : shoulder abduction 4/5 , Biceps 4/5 , triceps 4/5 , hand stock worker 4/5 LUE : shoulder abduction 5/5 , Biceps 5/5 , triceps 5/5 , hand stock worker 5/5 RLE : hip flexion 2/5, knee flexion 4/5, knee extension 4/5 , Ankle dorsiflecxion 2/5, ankle plantar flexion 5/5 LLE: hip flexion 5/5, knee flexion 5/5, knee extension 5/5 , Ankle dorsiflecxion 3/5, ankle plantar flexion 5/5 Reflexes: 2+ L knee jerk, 1+ R knee jerk . Sensation: decreased to light touch in R upper and Lower ext. ASSESSMENT AND PLAN: 31 y/o male with h/o Morbid obesity, s/p gastric sleeve sx in Aug 2016 who presented with Abd pain and was found to have ruptured appendix. 1- Complicated Appendicitis with rupture and fabi-appendicial abscess. s/p laparoscopic RIVERA drainage of the abscess on 11/13 - Cont zosyn , monitor WBC closely - Start TPN - check KUB in am 2- R upper and lower ext weakness and numbness: still present. possible stroke . stable neuro exam - could not fit in MRI - control BP - hold off Asa now due to possible intervention - hold off statin due to elevated LFTS 3- HTN: cont BP meds 4- oral thrush: cont antifungal Dispo : HLOC
[2016-11-22] MEDS: FAT EMULSIONS 250 ML IV SCH (22:33)
[2016-11-23] MEDS: NYSTATIN 500,000 UNITS/5 ML SUSPENSION PO SCH ×3 (01:55→17:32)
[2016-11-23] MEDS: PIPERACILLIN/TAZOB 3.375 GM 50 ML IVPB SCH ×3 (01:56→17:33)
[2016-11-23] MEDS: HEPARIN NA (PORCINE) 5,000 UNITS/ML 1ML VIAL SQ SCH ×3 (06:17→22:19)
[2016-11-23 08:23] LABS: BASOPHIL 0.7 % (0-2.0); EOSINOPHIL 1.5 % (0-4.5); MCH 28.2 pg (25.7-33.7); MEAN CELL VOLUME 85.6 fl (80-96); MEAN PLT VOLUME 7.5 fl (7.5-11.1); NEUTROPHILS 63.9 % (42.8-82.8); PLATELET COUNT 384 K/MM3 (134-434); RDW 18.1 % (11.9-15.9); WHITE BLOOD COUNT 9.3 K/mm3 (4.0-10.0)
[2016-11-23 08:53] LABS: ALBUMIN 3.1 g/dl (3.4-5.0); ANION GAP 10 (8-16); CO2 26 mmol/L (21-32); MAGNESIUM 2.2 mg/dL (1.8-2.4)
[2016-11-23 08:58] LABS: ALK PHOS 81 U/L (45-117); BILIRUBIN,TOTAL 0.5 mg/dL (0.2-1.0); CALCIUM 8.9 mg/dL (8.5-10.1); CREATININE 0.9 mg/dL (0.7-1.3); GLUCOSE,RANDOM 80 mg/dL (74-106); PHOSPHOROUS 4.5 mg/dL (2.5-4.9); SGOT/AST 53 U/L (15-37); SGPT/ALT 121 U/L (12-78); TOT PROT 8.3 g/dl (6.4-8.2)
[2016-11-23] MEDS: PRAMIPEXOLE DIHYDROCHLORIDE 0.25 MG TABLET PO SCH (11:56)
[2016-11-23] MEDS: amLODIPine BESYLATE 10 MG TABLET (FP) PO SCH (11:57)
[2016-11-23] MEDS: LABETALOL HCL 200 MG TABLET (FP) PO SCH ×2 (11:57→22:17)
[2016-11-23] MEDS: LISINOPRIL 20 MG TABLET (FP) PO SCH (11:57)
[2016-11-23] MEDS: PANTOPRAZOLE 40 MG TABLET (FP) PO SCH (12:12)
--- NOTE | 2016-11-23 12:22 | PN ---
Progress Note, Physician Chief Complaint: still with N/V History of Present Illness: rosio some milk yesterday. HIDA done, results pending. no pain. - Current Medication List Current Medications: Active Medications Amlodipine Besylate (Norvasc -) 10 mg PO DAILY [facility] Last Admin: 11/23/16 11:57 Dose: Not Given Benzocaine/Menthol (Cepacol Lozenge -) 1 each MM Q4H PRN PRN Reason: SORE THROAT Last Admin: 11/19/16 21:54 Dose: 1 each Heparin Sodium (Porcine) (Heparin -) 5,000 unit SQ TID [facility] Last Admin: 11/23/16 06:17 Dose: 5,000 unit IV Flush (Picc Line Flush) 8 ml IVPUSH PRN PRN PRN Reason: Protocol Piperacillin Sod/Tazobactam Sod (Zosyn 3.375gm Ivpb (Pre-Docked)) 50 mls @ 100 mls/hr IVPB Q8H-IV [place] PRN Reason: Protocol Last Admin: 11/23/16 12:08 Dose: 100 mls/hr Multivitamins/Minerals 10 ml/Sterile Water/ Amino Acids/Dextrose 1,000 mls @ 41.667 mls/hr IV DAILY@1600 [facility] Last Admin: 11/22/16 15:55 Dose: 41.667 mls/hr Fat Emulsion Intravenous (Intralipid -) 250 mls @ 20.833 mls/hr IV DAILY@2200 [facility] Last Admin: 11/22/16 22:33 Dose: 20.833 mls/hr Labetalol HCl (Normodyne -) 200 mg PO BID [facility] Last Admin: 11/23/16 11:57 Dose: Not Given Lisinopril (Prinivil) 40 mg PO DAILY [facility] Last Admin: 11/23/16 11:57 Dose: Not Given Nystatin (Nystatin Oral Suspension -) 500,000 units PO Q6HPO [facility] Last Admin: 11/23/16 11:56 Dose: Not Given Ondansetron HCl (Zofran Injection) 4 mg IVPUSH Q6H PRN PRN Reason: NAUSEA Last Admin: 11/22/16 12:56 Dose: 4 mg Pantoprazole Sodium (Protonix -) 40 mg PO DAILY [facility] Last Admin: 11/23/16 12:12 Dose: Not Given Pramipexole Dihydrochloride (Mirapex -) 0.25 mg PO BIDPC [facility] Last Admin: 11/23/16 11:56 Dose: Not Given - Objective Vital Signs: Vital Signs Temperature 98.4 F 11/23/16 05:50 Pulse Rate 78 11/23/16 05:50 Respiratory Rate 20 11/23/16 05:50 Blood Pressure 121/86 11/23/16 05:50 O2 Sat by Pulse Oximetry (%) 95 11/22/16 21:00 Constitutional: Yes: No Distress, Calm Eyes: Yes: Conjunctiva Clear, EOM Intact HENT: Yes: Atraumatic, Normocephalic Neck: Yes: Supple, Trachea Midline Cardiovascular: Yes: Regular Rate and Rhythm Respiratory: Yes: Regular, CTA Bilaterally Gastrointestinal: Yes: Soft. No: Distention, Tenderness ...Rectal Exam: Yes: Deferred Genitourinary: No: CVA Tenderness - Left, CVA Tenderness - Right Musculoskeletal: No: Joint Stiffness, Joint Swelling Extremities: No: Calf Tenderness, Erythema Integumentary: No: Erythema, Rash Wound/Incision: Yes: Clean/Dry, Well Approximated Neurological: Yes: Alert, Oriented Psychiatric: Yes: Alert, Oriented Labs: CBC, BMP 11/23/16 06:30 11/23/16 06:30 INR, PTT INR 1.54 (0.82-1.09) H 11/13/16 06:15 Problem List - Problems (1) Perforated appendicitis Assessment/Plan: f/u HIDA results cont TPN reg diet as tolerated cont abx Code(s): K35.2 - ACUTE APPENDICITIS WITH GENERALIZED PERITONITIS
[2016-11-23] MEDS ORDERED: morphine CARPU-JECT 4 MG/1 ML DISP.SYRIN IVPUSH ONE (14:06)
--- NOTE | 2016-11-23 14:10 | PN ---
Addendum entered and electronically signed by Ramon Reynoso, NICA 11/23/16 14:12: patient's knees bucked again as he was walking evaluated by attending has right knee pain-will do stat XRAY also PICC pulled out will place IV and get another PICC placed Original Note: Physical Exam: SUBJECTIVE: Patient seen and examined at bedside at 9AM feels better this morning hungry has appetite now passing flatus no BM OBJECTIVE: Vital Signs Period Temp Pulse Resp BP Sys/Peoples Pulse Ox Last 24 Hr 97.3 F-99.3 F 71-78 18-20 113-137/58-86 95 GENERAL: The patient is awake, alert, and fully oriented HEAD: Normal with no signs of trauma. EYES: PERRLA EOMI NECK: Trachea midline, full range of motion, supple. LUNGS: Breath sounds equal, clear to auscultation bilaterally, no wheezes, no crackles, no accessory muscle use. HEART: Regular rate and rhythm, S1, S2 without murmur, rub or gallop. ABDOMEN: Soft, morbidly obese, tender to palpation RLQ and RUQ RIVERA drain in place with minimal serous output NEUROLOGICAL: Cranial nerves II through XII intact. no facial droop or weakness and sensation is intact in the face Normal speech. Sensation > on left upper and lower extremities vs right upper and lower extremities. Right arm 3/5 strength right leg 3/5 strength- overall neuro exam improved on right Laboratory Results - last 24 hr 11/23/16 11/23/16 06:30 06:30 WBC 9.3 RBC 3.94 L Hgb 11.1 L Hct 33.7 L MCV 85.6 MCHC 33.0 RDW 18.1 H Plt Count 384 MPV 7.5 Neutrophils % 63.9 Lymphocytes % 25.3 Monocytes % 8.6 Eosinophils % 1.5 Basophils % 0.7 Sodium 134 L Potassium 3.9 Chloride 98 Carbon Dioxide 26 Anion Gap 10 BUN 22 H D Creatinine 0.9 D Creat Clearance w eGFR > 60 Random Glucose 80 Calcium 8.9 Phosphorus 4.5 D Magnesium 2.2 Total Bilirubin 0.5 AST 53 H ALT 121 H Alkaline Phosphatase 81 Total Protein 8.3 H Albumin 3.1 L Active Medications Generic Name Dose Route Start Last Admin Trade Name Freq PRN Reason Stop Dose Admin Amlodipine Besylate 10 mg 11/18/16 10:00 11/23/16 11:57 Norvasc - PO Not Given DAILY [facility] Benzocaine/Menthol 1 each 11/14/16 18:38 11/19/16 21:54 Cepacol Lozenge - MM 1 each Q4H PRN Administration SORE THROAT Heparin Sodium (Porcine) 5,000 unit 11/13/16 22:00 11/23/16 06:17 Heparin - SQ 5,000 unit TID [place] Administration IV Flush 8 ml 11/21/16 13:40 Picc Line Flush IVPUSH PRN PRN Protocol IV Flush 8 ml 11/23/16 13:43 Picc Line Flush IVPUSH PRN PRN Protocol Piperacillin Sod/Tazobactam Sod 50 mls @ 100 mls/hr 11/21/16 18:00 11/23/16 12: 08 Zosyn 3.375gm Ivpb (Pre-Docked) IVPB 100 mls/hr Q8H-IV [place] Administration Protocol Multivitamins/Minerals 10 ml/ 1,000 mls @ 41.667 mls/hr 11/22/16 16:00 15:55 Sterile Water/ Amino Acids/ IV 41.667 mls/hr Dextrose DAILY@1600 [place] Administration Fat Emulsion Intravenous 250 mls @ 20.833 mls/hr 11/22/16 22:00 11/22/16 22:33 Intralipid - IV 20.833 mls/hr DAILY@2200 [place] Administration Labetalol HCl 200 mg 11/17/16 10:06 11/23/16 11:57 Normodyne - PO Not Given BID [facility] Lisinopril 40 mg 11/17/16 10:00 11/23/16 11:57 Prinivil PO Not Given DAILY [facility] Nystatin 500,000 units 11/13/16 18:00 11/23/16 11:56 Nystatin Oral Suspension - PO Not Given Q6HPO [facility] Ondansetron HCl 4 mg 11/13/16 13:51 11/22/16 12:56 Zofran Injection IVPUSH 4 mg Q6H PRN Administration NAUSEA Pantoprazole Sodium 40 mg 11/16/16 14:15 11/23/16 12:12 Protonix - PO Not Given DAILY [facility] Pramipexole Dihydrochloride 0.25 mg 11/17/16 09:00 03/23/17 11:56 Mirapex - PO Not Given [facility] ASSESSMENT/PLAN: 31M with a PMH of morbid obesity presents to the hospital with abdominal pain found to have a perforated appendicitis in the OR. Sepsis secondary to Perforated appendicitis: CT scan initially read as perforated appendicitis the read changed to non perforated appendicitis. Taken to the OR for attempted Laparoscopic appendectomy found to be perforated. Appendix was not able to be visualized as a result was not resected. Patient s/ p laparoscopic drainage and washout of fabi-appendiceal abscess POD #10. CT scan did not show any worsening pathology abscess moved more medial appendix not visualized ID consult appreciated- HIV test negative surgery consult appreciated recommendations noted will continue IV ABx with Zosyn day 12 unable to tolerate diet continue to monitor drainage of RIVERA Drain-minimal f/u cultures-negative final pain control repeat RUQ US show cholelithiasis without cholecystitis and diffuse fatty infiltration of liver nephrology consult appreciated will start TPN today S/P PICC by IR CT scan number 3 done this AM reviewed no significant changes will hold off on surgery for now f/u KAYLA scan done today transaminitis: likely secondary to diffuse fatty liver infiltration Right sided numbness and weakness: Head CT negative patient can not fit in MRI machine neurology consult appreciated likely from restless leg syndrome-on mirapex after he was started on mirapex he states his right leg has more function now states had EMG as outpatient does not know results this is the second time on this admission that patient states his "knees buckled " on him. likely he is very deconditioned from a combination of Class 3 severe super morbid obesity and lack of movement will continue PT consult nurses made aware that they should not ambulate patient without adequate aircraft life support fitter and he should always have a chair behind him open MRI as outpatient Leukocytosis: resolved but trending upwards continue with antibiotics - zosyn diflucan stopped Essential Hypertension: no previous diagnosis per patient but he has been hypertensive in the hospital although pain may be a contributing factor he likely has underlying hypertension Better controlled on this regimen: continue lisinopril 40mg po daily continue norvasc 10mg po daily continue PO labetalol to 200 BID Oral Thrush: Continue nystatin Swish and Swallow continue for few more days diflucan stopped HIV negative Morbid Obesity: s/p sleeve gastrectomy follow up outpatient PPx: HSQ protonix PT consult FEN: no IVF no electrolyte issues VIT D and Zinc level pending tpn Visit type - Emergency Visit Emergency Visit: Yes ED Registration Date: 11/11/16 Care time: The patient presented to the Emergency Department on the above date and was hospitalized for further evaluation of their emergent condition. - New Patient This patient is new to me today: No - Critical Care Critical Care patient: No
--- NOTE | 2016-11-23 14:25 | PN ---
Progress Note, Physician History of Present Illness: Pt seen and examined at bedside. He is awake and alert. He is sitting up in bed. He still is not tolerating food and only had a few bites of breakfast. - Current Medication List Current Medications: Active Medications Amlodipine Besylate (Norvasc -) 10 mg PO DAILY [facility] Last Admin: 11/23/16 11:57 Dose: Not Given Benzocaine/Menthol (Cepacol Lozenge -) 1 each MM Q4H PRN PRN Reason: SORE THROAT Last Admin: 11/19/16 21:54 Dose: 1 each Heparin Sodium (Porcine) (Heparin -) 5,000 unit SQ TID [facility] Last Admin: 11/23/16 06:17 Dose: 5,000 unit IV Flush (Picc Line Flush) 8 ml IVPUSH PRN PRN PRN Reason: Protocol IV Flush (Picc Line Flush) 8 ml IVPUSH PRN PRN PRN Reason: Protocol Piperacillin Sod/Tazobactam Sod (Zosyn 3.375gm Ivpb (Pre-Docked)) 50 mls @ 100 mls/hr IVPB Q8H-IV [place] PRN Reason: Protocol Last Admin: 11/23/16 12:08 Dose: 100 mls/hr Multivitamins/Minerals 10 ml/Sterile Water/ Amino Acids/Dextrose 1,000 mls @ 41.667 mls/hr IV DAILY@1600 [place] Last Admin: 11/22/16 15:55 Dose: 41.667 mls/hr Fat Emulsion Intravenous (Intralipid -) 250 mls @ 20.833 mls/hr IV DAILY@2200 [facility] Last Admin: 11/22/16 22:33 Dose: 20.833 mls/hr Labetalol HCl (Normodyne -) 200 mg PO BID [facility] Last Admin: 11/23/16 11:57 Dose: Not Given Lisinopril (Prinivil) 40 mg PO DAILY [facility] Last Admin: 11/23/16 11:57 Dose: Not Given Nystatin (Nystatin Oral Suspension -) 500,000 units PO Q6HPO [facility] Last Admin: 11/23/16 11:56 Dose: Not Given Ondansetron HCl (Zofran Injection) 4 mg IVPUSH Q6H PRN PRN Reason: NAUSEA Last Admin: 11/22/16 12:56 Dose: 4 mg Pantoprazole Sodium (Protonix -) 40 mg PO DAILY [facility] Last Admin: 11/23/16 12:12 Dose: Not Given Pramipexole Dihydrochloride (Mirapex -) 0.25 mg PO BIDPC [facility] Last Admin: 11/23/16 11:56 Dose: Not Given - Objective Vital Signs: Vital Signs Temperature 98.4 F 11/23/16 05:50 Pulse Rate 78 11/23/16 05:50 Respiratory Rate 20 11/23/16 05:50 Blood Pressure 121/86 11/23/16 05:50 O2 Sat by Pulse Oximetry (%) 95 11/22/16 21:00 Constitutional: Yes: Calm Eyes: Yes: Conjunctiva Clear HENT: Yes: Atraumatic Neck: Yes: Supple Cardiovascular: Yes: S1, S2 Respiratory: Yes: CTA Bilaterally Gastrointestinal: Yes: Soft, Abdomen, Obese Genitourinary: Yes: WNL Musculoskeletal: Yes: WNL Edema: Yes Neurological: Yes: Oriented Psychiatric: Yes: Oriented Labs: CBC, BMP 11/23/16 06:30 11/23/16 06:30 INR, PTT INR 1.54 (0.82-1.09) H 11/13/16 06:15 Problem List - Problems (1) Perforated appendicitis Code(s): K35.2 - ACUTE APPENDICITIS WITH GENERALIZED PERITONITIS (2) Hyponatremia Code(s): E87.1 - HYPO-OSMOLALITY AND HYPONATREMIA (3) Malnutrition Code(s): E46 - UNSPECIFIED PROTEIN-CALORIE MALNUTRITION Assessment/Plan Current Medications Generic Name Dose Route Start Last Admin Trade Name Griffinq PRN Reason Stop Dose Admin Amlodipine Besylate 10 mg 11/18/16 10:00 11/23/16 11:57 Norvasc - PO Not Given DAILY [facility] Benzocaine/Menthol 1 each 11/14/16 18:38 11/19/16 21:54 Cepacol Lozenge - MM 1 each Q4H PRN Administration SORE THROAT Heparin Sodium (Porcine) 5,000 unit 11/13/16 22:00 11/23/16 14:17 Heparin - SQ Not Given TID [place] IV Flush 8 ml 11/21/16 13:40 Picc Line Flush IVPUSH PRN PRN Protocol IV Flush 8 ml 11/23/16 13:43 Picc Line Flush IVPUSH PRN PRN Protocol Piperacillin Sod/Tazobactam Sod 50 mls @ 100 mls/hr 11/21/16 18:00 11/23/16 12: 08 Zosyn 3.375gm Ivpb (Pre-Docked) IVPB 100 mls/hr Q8H-IV [place] Administration Protocol Multivitamins/Minerals 10 ml/ 1,000 mls @ 41.667 mls/hr 11/22/16 16:00 15:55 Sterile Water/ Amino Acids/ IV 41.667 mls/hr Dextrose DAILY@1600 [place] Administration Fat Emulsion Intravenous 250 mls @ 20.833 mls/hr 11/22/16 22:00 11/22/16 22:33 Intralipid - IV 20.833 mls/hr DAILY@2200 [place] Administration Labetalol HCl 200 mg 11/17/16 10:06 11/23/16 11:57 Normodyne - PO Not Given BID [facility] Lisinopril 40 mg 11/17/16 10:00 11/23/16 11:57 Prinivil PO Not Given DAILY [facility] Nystatin 500,000 units 11/13/16 18:00 11/23/16 11:56 Nystatin Oral Suspension - PO Not Given Q6HPO [facility] Ondansetron HCl 4 mg 11/13/16 13:51 11/22/16 12:56 Zofran Injection IVPUSH 4 mg Q6H PRN Administration NAUSEA Pantoprazole Sodium 40 mg 11/16/16 14:15 11/23/16 12:12 Protonix - PO Not Given DAILY [facility] Pramipexole Dihydrochloride 0.25 mg 11/17/16 09:00 11/23/16 11:56 Mirapex - PO Not Given BIDPC [facility] Laboratory Tests 11/22/16 11/23/16 11/23/16 12:40 06:00 06:30 Albumin 3.1 L Vitamin D 25-Hydroxy Pending Serum Folate 6 Laboratory Tests 11/20/16 07:00 Phosphorus 3.2 Magnesium 2.0 Impression 1. complicated appendicitis 2. malnutrition 3. hyponatremia 4. obesity 5. HTN 6. anemia Plan - cont current TPN - encourage PO intake - will increase volume tomorrow - surgery input appreciated - discussed plan with nurse - will follow Dr Mondragon
--- NOTE | 2016-11-23 14:27 | PN ---
Teaching Attending Note Name of Resident: Ramon Reynoso ATTENDING PHYSICIAN STATEMENT I saw and evaluated the patient. I reviewed the resident's note and discussed the case with the resident. I agree with the resident's findings and plan as documented. SUBJECTIVE: No fever or chills , no abd pain today . Ate cereal and tolerated breakfast. passed gas but no BM yet . he tried to get his urinal this am , and his R knee gave out . he went down on his knees and now has R knee pain. He was put back to bed with help OBJECTIVE: Awake and alert , mild distress due to R knee pain Ext : no rodo . R knee with limited range of motion . no erythema or effusion detected Abd : morbidly obese, RIVERA drain in. TTP in RLQ and RUQ. no rebound tenderness , NL BS. PICC came out . ASSESSMENT AND PLAN: 31 y/o male with h/o Morbid obesity, s/p gastric sleeve sx in Aug 2016 who presented with Abd pain and was found to have ruptured appendix. 1- Complicated Appendicitis with rupture and fabi-appendicial abscess. s/p laparoscopic RIVERA drainage of the abscess on 11/13 - Cont zosyn , WBC improved - re-place PICC to resume TPN - KUB with no signs of obstruction , but stool impaction in rectum, will give suppository or enema 2- R upper and lower ext weakness and numbness: unable to assess neuro exam today - control BP - will start ASA ( OK with Dr. Chowdhury ) - hold off statin due to elevated LFTS 3- HTN: cont BP meds 4- Oral thrush: cont antifungal Dispo : HLOC
[2016-11-23] MEDS ORDERED: BISACODYL 10 MG SUPP.RECT RC ONE ×2 (14:59→17:55)
[2016-11-23] MEDS ORDERED: SODIUM PHOSPHATE/NA BIPHOS 133 ML ENEMA PR ONE (14:59)
[2016-11-23] MEDS: MULTIVIT IV SCH (17:33)
[2016-11-23] MEDS: [UNRECOGNIZED DRUG - OTHER] IV SCH (17:33)
[2016-11-23] MEDS: WATER FOR INJ STERILE IV SCH (17:33)
[2016-11-23] MEDS: FAT EMULSIONS 250 ML IV SCH (22:18)
[2016-11-24] MEDS: NYSTATIN 500,000 UNITS/5 ML SUSPENSION PO SCH ×5 (00:42→17:37)
[2016-11-24] MEDS: PIPERACILLIN/TAZOB 3.375 GM 50 ML IVPB SCH ×2 (01:58→09:56)
[2016-11-24] MEDS: HEPARIN NA (PORCINE) 5,000 UNITS/ML 1ML VIAL SQ SCH ×3 (06:43→21:38)
[2016-11-24] MEDS: PRAMIPEXOLE DIHYDROCHLORIDE 0.25 MG TABLET PO SCH ×3 (08:12→17:37)
[2016-11-24 08:51] LABS: BASOPHIL 0.5 % (0-2.0); EOSINOPHIL 1.3 % (0-4.5); MCHC 32.9 g/dl (32.0-35.9); MEAN CELL VOLUME 85.1 fl (80-96); MEAN PLT VOLUME 7.5 fl (7.5-11.1); NEUTROPHILS 61.3 % (42.8-82.8); PLATELET COUNT 380 K/MM3 (134-434); RDW 18.3 % (11.9-15.9); WHITE BLOOD COUNT 8.9 K/mm3 (4.0-10.0)
[2016-11-24 09:19] LABS: ANION GAP 13 (8-16); CALCIUM 9.1 mg/dL (8.5-10.1); CO2 25 mmol/L (21-32); GLUCOSE,RANDOM 93 mg/dL (74-106)
[2016-11-24 09:23] LABS: ALK PHOS 80 U/L (45-117); BILIRUBIN,TOTAL 0.6 mg/dL (0.2-1.0); CREATININE 1.2 mg/dL (0.7-1.3); SGOT/AST 39 U/L (15-37); SGPT/ALT 101 U/L (12-78); TOT PROT 8.1 g/dl (6.4-8.2)
--- NOTE | 2016-11-24 09:44 | PN ---
Progress Note, Physician History of Present Illness: Pt seen and examined at bedside. He says he still is unable to eat anything. He vomits whenever he tries to have any food. - Current Medication List Current Medications: Active Medications Amlodipine Besylate (Norvasc -) 10 mg PO DAILY [facility] Last Admin: 11/23/16 11:57 Dose: Not Given Aspirin (Ecotrin -) 81 mg PO DAILY [facility] Benzocaine/Menthol (Cepacol Lozenge -) 1 each MM Q4H PRN PRN Reason: SORE THROAT Last Admin: 11/19/16 21:54 Dose: 1 each Heparin Sodium (Porcine) (Heparin -) 5,000 unit SQ TID [facility] Last Admin: 11/24/16 06:43 Dose: 5,000 unit IV Flush (Picc Line Flush) 8 ml IVPUSH PRN PRN PRN Reason: Protocol IV Flush (Picc Line Flush) 8 ml IVPUSH PRN PRN PRN Reason: Protocol Piperacillin Sod/Tazobactam Sod (Zosyn 3.375gm Ivpb (Pre-Docked)) 50 mls @ 100 mls/hr IVPB Q8H-IV [place] PRN Reason: Protocol Last Admin: 11/24/16 01:58 Dose: 100 mls/hr Multivitamins/Minerals 10 ml/Sterile Water/ Amino Acids/Dextrose 1,000 mls @ 41.667 mls/hr IV DAILY@1600 [facility] Last Admin: 11/23/16 17:33 Dose: 41.667 mls/hr Fat Emulsion Intravenous (Intralipid -) 250 mls @ 20.833 mls/hr IV DAILY@2200 [facility] Last Admin: 11/23/16 22:18 Dose: Not Given Labetalol HCl (Normodyne -) 200 mg PO BID [facility] Last Admin: 11/23/16 22:17 Dose: 200 mg Lisinopril (Prinivil) 40 mg PO DAILY [facility] Last Admin: 11/23/16 11:57 Dose: Not Given Nystatin (Nystatin Oral Suspension -) 500,000 units PO Q6HPO [facility] Last Admin: 11/24/16 08:12 Dose: Not Given Ondansetron HCl (Zofran Injection) 4 mg IVPUSH Q6H PRN PRN Reason: NAUSEA Last Admin: 11/22/16 12:56 Dose: 4 mg Pantoprazole Sodium (Protonix -) 40 mg PO DAILY [facility] Last Admin: 11/23/16 12:12 Dose: Not Given Pramipexole Dihydrochloride (Mirapex -) 0.25 mg PO BIDPC [facility] Last Admin: 11/24/16 08:12 Dose: Not Given - Objective Vital Signs: Vital Signs Temperature 97.7 F 11/24/16 06:00 Pulse Rate 69 11/24/16 06:00 Respiratory Rate 18 11/24/16 06:00 Blood Pressure 122/59 11/24/16 06:00 O2 Sat by Pulse Oximetry (%) 95 11/23/16 09:00 Constitutional: Yes: Calm Eyes: Yes: Conjunctiva Clear HENT: Yes: Atraumatic Neck: Yes: Supple Cardiovascular: Yes: S1, S2 Respiratory: Yes: CTA Bilaterally Gastrointestinal: Yes: Soft, Abdomen, Obese Genitourinary: Yes: WNL Musculoskeletal: Yes: Muscle Weakness Edema: Yes Edema: LLE: Trace, RLE: Trace Neurological: Yes: Oriented Psychiatric: Yes: Oriented Labs: CBC, BMP 11/24/16 06:30 11/24/16 06:30 INR, PTT INR 1.54 (0.82-1.09) H 11/13/16 06:15 Problem List - Problems (1) Perforated appendicitis Code(s): K35.2 - ACUTE APPENDICITIS WITH GENERALIZED PERITONITIS (2) Hyponatremia Code(s): E87.1 - HYPO-OSMOLALITY AND HYPONATREMIA (3) Malnutrition Code(s): E46 - UNSPECIFIED PROTEIN-CALORIE MALNUTRITION Assessment/Plan Current Medications Generic Name Dose Route Start Last Admin Trade Name Griffinq PRN Reason Stop Dose Admin Amlodipine Besylate 10 mg 11/18/16 10:00 11/23/16 11:57 Norvasc - PO Not Given DAILY [facility] Aspirin 81 mg 11/24/16 10:00 Ecotrin - PO DAILY [facility] Benzocaine/Menthol 1 each 11/14/16 18:38 11/19/16 21:54 Cepacol Lozenge - MM 1 each Q4H PRN Administration SORE THROAT Heparin Sodium (Porcine) 5,000 unit 11/13/16 22:00 11/24/16 06:43 Heparin - SQ 5,000 unit TID [place] Administration IV Flush 8 ml 11/21/16 13:40 Picc Line Flush IVPUSH PRN PRN Protocol IV Flush 8 ml 11/23/16 13:43 Picc Line Flush IVPUSH PRN PRN Protocol Piperacillin Sod/Tazobactam Sod 50 mls @ 100 mls/hr 11/21/16 18:00 11/24/16 01: 58 Zosyn 3.375gm Ivpb (Pre-Docked) IVPB 100 mls/hr Q8H-IV [place] Administration Protocol Multivitamins/Minerals 10 ml/ 1,000 mls @ 41.667 mls/hr 11/22/16 16:00 17:33 Sterile Water/ Amino Acids/ IV 41.667 mls/hr Dextrose DAILY@1600 [place] Administration Fat Emulsion Intravenous 250 mls @ 20.833 mls/hr 11/22/16 22:00 11/23/16 22:18 Intralipid - IV Not Given DAILY@2200 [facility] Labetalol HCl 200 mg 11/17/16 10:06 11/23/16 22:17 Normodyne - PO 200 mg BID [facility] Administration Lisinopril 40 mg 11/17/16 10:00 11/23/16 11:57 Prinivil PO Not Given DAILY [facility] Nystatin 500,000 units 11/13/16 18:00 11/24/16 08:12 Nystatin Oral Suspension - PO Not Given Q6HPO [facility] Ondansetron HCl 4 mg 11/13/16 13:51 11/22/16 12:56 Zofran Injection IVPUSH 4 mg Q6H PRN Administration NAUSEA Pantoprazole Sodium 40 mg 11/16/16 14:15 11/23/16 12:12 Protonix - PO Not Given DAILY [facility] Pramipexole Dihydrochloride 0.25 mg 11/17/16 09:00 11/24/16 08:12 [facility] Impression 1. complicated appendicitis 2. malnutrition 3. hyponatremia 4. obesity 5. HTN 6. anemia Plan - cont tpn - will decrease amount of protein today - BUN is rising - repeat labs in am - encourage PO intake - spoke to pharmacy about orders - will follow Dr Mondragon
[2016-11-24] MEDS ORDERED: PT OWN MED DRAWER 7, Y5N ONE ×3 (09:49→17:29)
[2016-11-24] MEDS: PANTOPRAZOLE 40 MG TABLET (FP) PO SCH (09:55)
[2016-11-24] MEDS: LISINOPRIL 20 MG TABLET (FP) PO SCH (09:56)
[2016-11-24] MEDS: LABETALOL HCL 200 MG TABLET (FP) PO SCH ×3 (09:56→22:29)
[2016-11-24] MEDS: ASPIRIN COATED 81 MG TABLET.EC PO SCH (09:56)
[2016-11-24] MEDS: amLODIPine BESYLATE 10 MG TABLET (FP) PO SCH (09:56)
--- NOTE | 2016-11-24 10:38 | PN ---
Progress Note, Physician Chief Complaint: none History of Present Illness: eating more. no pain. HIDA negative. - Current Medication List Current Medications: Active Medications Amlodipine Besylate (Norvasc -) 10 mg PO DAILY [facility] Last Admin: 11/24/16 09:56 Dose: 10 mg Aspirin (Ecotrin -) 81 mg PO DAILY [facility] Last Admin: 11/24/16 09:56 Dose: 81 mg Benzocaine/Menthol (Cepacol Lozenge -) 1 each MM Q4H PRN PRN Reason: SORE THROAT Last Admin: 11/19/16 21:54 Dose: 1 each Heparin Sodium (Porcine) (Heparin -) 5,000 unit SQ TID [facility] Last Admin: 11/24/16 06:43 Dose: 5,000 unit IV Flush (Picc Line Flush) 8 ml IVPUSH PRN PRN PRN Reason: Protocol IV Flush (Picc Line Flush) 8 ml IVPUSH PRN PRN PRN Reason: Protocol Piperacillin Sod/Tazobactam Sod (Zosyn 3.375gm Ivpb (Pre-Docked)) 50 mls @ 100 mls/hr IVPB Q8H-IV [place] PRN Reason: Protocol Last Admin: 11/24/16 09:56 Dose: 100 mls/hr Multivitamins/Minerals 10 ml/Sterile Water/ Amino Acids/Dextrose 1,000 mls @ 41.667 mls/hr IV DAILY@1600 [facility] Last Admin: 11/23/16 17:33 Dose: 41.667 mls/hr Fat Emulsion Intravenous (Intralipid -) 250 mls @ 20.833 mls/hr IV DAILY@2200 [facility] Last Admin: 11/23/16 22:18 Dose: Not Given Labetalol HCl (Normodyne -) 200 mg PO BID [facility] Last Admin: 11/24/16 09:56 Dose: 200 mg Lisinopril (Prinivil) 40 mg PO DAILY [facility] Last Admin: 11/24/16 09:56 Dose: 40 mg Nystatin (Nystatin Oral Suspension -) 500,000 units PO Q6HPO [facility] Last Admin: 11/24/16 08:12 Dose: Not Given Ondansetron HCl (Zofran Injection) 4 mg IVPUSH Q6H PRN PRN Reason: NAUSEA Last Admin: 11/22/16 12:56 Dose: 4 mg Pantoprazole Sodium (Protonix -) 40 mg PO DAILY [facility] Last Admin: 11/24/16 09:55 Dose: 40 mg Pramipexole Dihydrochloride (Mirapex -) 0.25 mg PO BIDPC [facility] Last Admin: 11/24/16 09:55 Dose: 0.25 mg - Objective Vital Signs: Vital Signs Temperature 97.7 F 11/24/16 06:00 Pulse Rate 69 11/24/16 06:00 Respiratory Rate 18 11/24/16 06:00 Blood Pressure 122/59 11/24/16 06:00 O2 Sat by Pulse Oximetry (%) 95 11/23/16 09:00 Constitutional: Yes: No Distress, Calm Eyes: Yes: Conjunctiva Clear, EOM Intact HENT: Yes: Atraumatic, Normocephalic Neck: Yes: Supple, Trachea Midline Cardiovascular: Yes: Regular Rate and Rhythm Respiratory: Yes: Regular, CTA Bilaterally Gastrointestinal: Yes: Soft. No: Distention, Tenderness ...Rectal Exam: Yes: Deferred Genitourinary: No: CVA Tenderness - Left, CVA Tenderness - Right Musculoskeletal: No: Joint Stiffness, Joint Swelling Extremities: No: Calf Tenderness, Erythema Integumentary: No: Erythema, Rash Wound/Incision: Yes: Clean/Dry, Well Approximated Neurological: Yes: Alert, Oriented Psychiatric: Yes: Alert, Oriented Labs: CBC, BMP 11/24/16 06:30 11/24/16 06:30 INR, PTT INR 1.54 (0.82-1.09) H 11/13/16 06:15 Problem List - Problems (1) Perforated appendicitis Assessment/Plan: i removed drain cont TPN cont IV abx patient eating more. cont to monitor his oral intake finally appears to be moving in right direction. Code(s): K35.2 - ACUTE APPENDICITIS WITH GENERALIZED PERITONITIS
--- NOTE | 2016-11-24 14:41 | PN ---
Progress Note, Physician History of Present Illness: patient stable still not able to take anything by mouth still bloated - Current Medication List Current Medications: Active Medications Amlodipine Besylate (Norvasc -) 10 mg PO DAILY [facility] Last Admin: 11/24/16 09:56 Dose: 10 mg Aspirin (Ecotrin -) 81 mg PO DAILY [facility] Last Admin: 11/24/16 09:56 Dose: 81 mg Benzocaine/Menthol (Cepacol Lozenge -) 1 each MM Q4H PRN PRN Reason: SORE THROAT Last Admin: 11/19/16 21:54 Dose: 1 each Heparin Sodium (Porcine) (Heparin -) 5,000 unit SQ TID [facility] Last Admin: 11/24/16 14:04 Dose: 5,000 unit IV Flush (Picc Line Flush) 8 ml IVPUSH PRN PRN PRN Reason: Protocol IV Flush (Picc Line Flush) 8 ml IVPUSH PRN PRN PRN Reason: Protocol Multivitamins/Minerals 10 ml/Sterile Water/ Amino Acids/Dextrose 1,000 mls @ 41.667 mls/hr IV DAILY@1600 [facility] Last Admin: 11/23/16 17:33 Dose: 41.667 mls/hr Fat Emulsion Intravenous (Intralipid -) 250 mls @ 20.833 mls/hr IV DAILY@2200 [facility] Last Admin: 11/23/16 22:18 Dose: Not Given Labetalol HCl (Normodyne -) 200 mg PO BID [facility] Last Admin: 11/24/16 09:56 Dose: 200 mg Lisinopril (Prinivil) 40 mg PO DAILY [facility] Last Admin: 11/24/16 09:56 Dose: 40 mg Nystatin (Nystatin Oral Suspension -) 500,000 units PO Q6HPO [facility] Last Admin: 11/24/16 12:09 Dose: 500,000 units Ondansetron HCl (Zofran Injection) 4 mg IVPUSH Q6H PRN PRN Reason: NAUSEA Last Admin: 11/22/16 12:56 Dose: 4 mg Pantoprazole Sodium (Protonix -) 40 mg PO DAILY [facility] Last Admin: 11/24/16 09:55 Dose: 40 mg Pramipexole [facility]hydrochloride ([facility] -) [facility] Last Admin: 11/24/16 09:55 Dose: 0.25 mg - Objective Vital Signs: Vital Signs Temperature 98.2 F 11/24/16 08:00 Pulse Rate 71 11/24/16 08:00 Respiratory Rate 18 11/24/16 08:00 Blood Pressure 132/65 11/24/16 08:00 O2 Sat by Pulse Oximetry (%) 98 11/24/16 09:00 Constitutional: Yes: Calm, Mild Distress, Obese Cardiovascular: Yes: Regular Rate and Rhythm Respiratory: Yes: Regular, CTA Bilaterally Gastrointestinal: Yes: Soft, Other Musculoskeletal: Yes: WNL Extremities: Yes: WNL Neurological: Yes: Alert, Oriented Psychiatric: Yes: Alert, Oriented Labs: CBC, BMP 11/24/16 06:30 11/24/16 06:30 INR, PTT INR 1.54 (0.82-1.09) H 11/13/16 06:15 Assessment/Plan ac appendicitis morbid obesity oral thrush abd abscess nausea vomiting wbc increasing plan continue abx will see how the wbc behaves continue nutrition continue hydration if wbc improves will stop abx tomorrow
--- NOTE | 2016-11-24 14:43 | PN ---
Progress Note, Physician History of Present Illness: patient doing well no other issues patient tolerating some diet says he is much better today - Current Medication List Current Medications: Active Medications Amlodipine Besylate (Norvasc -) 10 mg PO DAILY [facility] Last Admin: 11/24/16 09:56 Dose: 10 mg Aspirin (Ecotrin -) 81 mg PO DAILY [facility] Last Admin: 11/24/16 09:56 Dose: 81 mg Benzocaine/Menthol (Cepacol Lozenge -) 1 each MM Q4H PRN PRN Reason: SORE THROAT Last Admin: 11/19/16 21:54 Dose: 1 each Heparin Sodium (Porcine) (Heparin -) 5,000 unit SQ TID [facility] Last Admin: 11/24/16 14:04 Dose: 5,000 unit IV Flush (Picc Line Flush) 8 ml IVPUSH PRN PRN PRN Reason: Protocol IV Flush (Picc Line Flush) 8 ml IVPUSH PRN PRN PRN Reason: Protocol Multivitamins/Minerals 10 ml/Sterile Water/ Amino Acids/Dextrose 1,000 mls @ 41.667 mls/hr IV DAILY@1600 [facility] Last Admin: 11/23/16 17:33 Dose: 41.667 mls/hr Fat Emulsion Intravenous (Intralipid -) 250 mls @ 20.833 mls/hr IV DAILY@2200 [facility] Last Admin: 11/23/16 22:18 Dose: Not Given Labetalol HCl (Normodyne -) 200 mg PO BID [facility] Last Admin: 11/24/16 09:56 Dose: 200 mg Lisinopril (Prinivil) 40 mg PO DAILY [facility] Last Admin: 11/24/16 09:56 Dose: 40 mg Nystatin (Nystatin Oral Suspension -) 500,000 units PO Q6HPO [facility] Last Admin: 11/24/16 12:09 Dose: 500,000 units Ondansetron HCl (Zofran Injection) 4 mg IVPUSH Q6H PRN PRN Reason: NAUSEA Last Admin: 11/22/16 12:56 Dose: 4 mg Pantoprazole Sodium (Protonix -) 40 mg PO DAILY [facility] Last Admin: 11/24/16 09:55 Dose: 40 mg Pramipexole Dihydrochloride (Mirapex -) [facility] Last Admin: 11/24/16 09:55 Dose: 0.25 mg - Objective Vital Signs: Vital Signs Temperature 98.2 F 11/24/16 08:00 Pulse Rate 71 11/24/16 08:00 Respiratory Rate 18 11/24/16 08:00 Blood Pressure 132/65 11/24/16 08:00 O2 Sat by Pulse Oximetry (%) 98 11/24/16 09:00 Constitutional: Yes: No Distress, Calm, Obese Cardiovascular: Yes: Regular Rate and Rhythm Respiratory: Yes: Regular, CTA Bilaterally Gastrointestinal: Yes: Normal Bowel Sounds, Soft, Other (patient passing flatus) Musculoskeletal: Yes: WNL Extremities: Yes: WNL Neurological: Yes: Alert, Oriented Psychiatric: Yes: Alert, Oriented Labs: CBC, BMP 11/24/16 06:30 11/24/16 06:30 INR, PTT INR 1.54 (0.82-1.09) H 11/13/16 06:15 Assessment/Plan ac appendicitis morbid obesity oral thrush abd abscess nausea vomiting wbc increasing plan stopped abx will monitor how patient does continue nutrition rest as per primary/surgery
[2016-11-24] MEDS ORDERED: ERGOCALCIFEROL (VITAMIN D2) 50,000 UNIT CAPSULE (FP) PO SCH (15:30)
--- NOTE | 2016-11-24 15:38 | PN ---
Addendum entered and electronically signed by Ramon Reynoso RES 11/24/16 16:41: right calf and thigh tenderness will do ultrasound to rule out DVT Original Note: Physical Exam: SUBJECTIVE: Patient seen and examined at bedside feels better overall tolerating diet more today appetite increased OBJECTIVE: Vital Signs Period Temp Pulse Resp BP Sys/Peoples Pulse Ox Last 24 Hr 97.3 F-98.2 F 60-80 18-18 117-136/59-78 98 GENERAL: The patient is awake, alert, and fully oriented HEAD: Normal with no signs of trauma. EYES: PERRLA EOMI NECK: Trachea midline, full range of motion, supple. LUNGS: Breath sounds equal, clear to auscultation bilaterally, no wheezes, no crackles, no accessory muscle use. HEART: Regular rate and rhythm, S1, S2 without murmur, rub or gallop. ABDOMEN: Soft, morbidly obese, tender to palpation in the RUQ but improved RIVERA drain in place with minimal serous output NEUROLOGICAL: Cranial nerves II through XII intact. no facial droop or weakness and sensation is intact in the face Normal speech. Sensation of bilateral upper extremities is now intact and equal per patient on exam. Upper extremities strength is improved on the right and is now equal with the left upper extremity. Right lower extremity is still weaker than the left but improved overall. sensation is greater on the left lower extremity when compared to the right. knee jerk and biceps jerk 2+ bilaterally. Laboratory Results - last 24 hr 11/22/16 11/23/16 11/24/16 12:45 06:00 06:30 WBC 8.9 RBC 3.85 L Hgb 10.8 L Hct 32.8 L MCV 85.1 MCHC 32.9 RDW 18.3 H Plt Count 380 MPV 7.5 Neutrophils % 61.3 Lymphocytes % 28.4 Monocytes % 8.5 Eosinophils % 1.3 Basophils % 0.5 Sodium Potassium Chloride Carbon Dioxide Anion Gap BUN Creatinine Creat Clearance w eGFR Random Glucose Calcium Total Bilirubin AST ALT Alkaline Phosphatase Total Protein Albumin Vitamin D 25-Hydroxy 9.3 L Zinc 78 11/24/16 06:30 WBC RBC Hgb Hct MCV MCHC RDW Plt Count MPV Neutrophils % Lymphocytes % Monocytes % Eosinophils % Basophils % Sodium 136 Potassium 3.9 Chloride 98 Carbon Dioxide 25 Anion Gap 13 BUN 35 H D Creatinine 1.2 D Creat Clearance w eGFR > 60 Random Glucose 93 Calcium 9.1 Total Bilirubin 0.6 AST 39 H D ALT 101 H Alkaline Phosphatase 80 Total Protein 8.1 Albumin 3.0 L Vitamin D 25-Hydroxy Zinc Active Medications Generic Name Dose Route Start Last Admin Trade Name Freq PRN Reason Stop Dose Admin Amlodipine Besylate 10 mg 11/18/16 10:00 11/24/16 09:56 Norvasc - PO 10 mg DAILY [facility] Administration Aspirin 81 mg 11/24/16 10:00 11/24/16 09:56 Ecotrin - PO 81 mg DAILY [facility] Administration Benzocaine/Menthol 1 each 11/14/16 18:38 11/19/16 21:54 Cepacol Lozenge - MM 1 each Q4H PRN Administration SORE THROAT Ergocalciferol 50,000 unit 11/24/16 15:30 Drisdol - PO Q7D@1000 [facility] Heparin Sodium (Porcine) 5,000 unit 11/13/16 22:00 11/24/16 14:04 Heparin - SQ 5,000 unit TID [facility] Administration IV Flush 8 ml 11/21/16 13:40 Picc Line Flush IVPUSH PRN PRN Protocol IV Flush 8 ml 11/23/16 13:43 Picc Line Flush IVPUSH PRN PRN Protocol Multivitamins/Minerals 10 ml/ 1,000 mls @ 41.667 mls/hr 11/22/16 16:00 17:33 Sterile Water/ Amino Acids/ IV 41.667 mls/hr Dextrose DAILY@1600 [facility] Administration Fat Emulsion Intravenous 250 mls @ 20.833 mls/hr 11/22/16 22:00 11/23/16 22:18 Intralipid - IV Not Given DAILY@2200 [facility] Labetalol HCl 200 mg 11/17/16 10:06 11/24/16 09:56 Normodyne - PO 200 mg BID [place] Administration Lisinopril 40 mg 11/17/16 10:00 11/24/16 09:56 Prinivil PO 40 mg DAILY [place] Administration Nystatin 500,000 units 11/13/16 18:00 11/24/16 12:09 Nystatin Oral Suspension - PO 500,000 units Q6HPO [facility] Administration Ondansetron HCl 4 mg 11/13/16 13:51 11/22/16 12:56 Zofran Injection IVPUSH 4 mg Q6H PRN Administration NAUSEA Pantoprazole Sodium 40 mg 11/16/16 14:15 11/24/16 09:55 Protonix - PO 40 mg DAILY [place] Administration Pramipexole Dihydrochloride 0.25 mg 11/17/16 09:00 11/24/16 09:55 Mirapex - PO 0.25 mg BIDPC [place] Administration ASSESSMENT/PLAN: 31M with a PMH of morbid obesity presents to the hospital with abdominal pain found to have a perforated appendicitis in the OR. Sepsis secondary to Perforated appendicitis: CT scan initially read as perforated appendicitis the read changed to non perforated appendicitis. Taken to the OR for attempted Laparoscopic appendectomy found to be perforated. Appendix was not able to be visualized as a result was not resected. Patient s/ p laparoscopic drainage and washout of fabi-appendiceal abscess POD #11. CT scan did not show any worsening pathology abscess moved more medial appendix not visualized ID consult appreciated- HIV test negative surgery consult appreciated recommendations noted stop Zosyn today on day 13 able to tolerate diet more today RIVERA drain d/c'ed by Surgery cultures-negative final pain control repeat RUQ US show cholelithiasis without cholecystitis and diffuse fatty infiltration of liver nephrology consult appreciated - on TPN to be increased today per nephrology S/P PICC by IR will hold off on surgery for now f/u HIDA scan-negative Vitamin D deficiency: will start Vit D 50,000 units Q7Days Transaminitis: improving likely secondary to diffuse fatty liver infiltration Right sided numbness and weakness: Head CT negative patient can not fit in MRI machine neurology consult appreciated likely from restless leg syndrome-on mirapex after he was started on mirapex he states his right leg has more function now states had EMG as outpatient does not know results this is the third time on this admission that patient states his "knees buckled " on him. likely he is very deconditioned from a combination of Class 3 severe super morbid obesity and lack of movement will continue PT consult nurses made aware that they should not ambulate patient without adequate desktop support manager and he should always have a chair behind him open MRI as outpatient Leukocytosis: resolved but trending upwards continue with antibiotics - zosyn diflucan stopped Essential Hypertension: no previous diagnosis per patient but he has been hypertensive in the hospital although pain may be a contributing factor he likely has underlying hypertension Well controlled on this regimen: continue lisinopril 40mg po daily continue norvasc 10mg po daily continue PO labetalol to 200 BID Oral Thrush: Continue nystatin Swish and Swallow continue for 2 more days diflucan stopped HIV negative Morbid Obesity: s/p sleeve gastrectomy follow up outpatient PPx: HSQ protonix working with PT FEN: no IVF no electrolyte issues- Zinc WNL tpn and regular diet as tolerated Patient is significantly improving Will give patient a lab holiday tomorrow Will need subacute rehab facility on discharge Visit type - Emergency Visit Emergency Visit: Yes ED Registration Date: 11/11/16 Care time: The patient presented to the Emergency Department on the above date and was hospitalized for further evaluation of their emergent condition. - New Patient This patient is new to me today: No - Critical Care Critical Care patient: No - Discharge Referral Referred to [facility] Med P.C.: No
[2016-11-24] MEDS: MULTIVIT IV SCH ×2 (17:39→18:20)
[2016-11-24] MEDS: [UNRECOGNIZED DRUG - OTHER] IV SCH (17:39)
[2016-11-24] MEDS: oxyCODONE HCL 5 MG TABLET PO PRN (17:54)
[2016-11-24] MEDS: WATER FOR INJ STERILE IV SCH (18:20)
[2016-11-24] MEDS: [UNRECOGNIZED DRUG - OTHER] IV SCH (18:20)
--- NOTE | 2016-11-24 18:26 | PN ---
Teaching Attending Note Name of Resident: Ramon Reynoso ATTENDING PHYSICIAN STATEMENT I saw and evaluated the patient. I reviewed the resident's note and discussed the case with the resident. I agree with the resident's findings and plan as documented. SUBJECTIVE: no fever or chills , no abd pain , has appetite today . R knee with less pain today . OBJECTIVE: een before the removal of RIVERA drain in am Awake and alert , mild distress due to R knee pain Ext : no edema . R knee with limited range of motion . no erythema or effusion detected Abd : morbidly obese, RIVERA drain in. TTP in RLQ and RUQ. no rebound tenderness , NL BS. neuro : strength 5/5 in upper ext prox and dist. sensation to light touch NL in upper ext. and slightly decreased in R Lower ext. strength exam was limited in RLE due to pain in knee . L LE strength 5/5 in hip and knee, 3/5 dorsiflexion and 5/5 plantar flexion. R dorsiflexion 2/5, plantar flexion 5/5 TTP onR calf ASSESSMENT AND PLAN: 31 y/o male with h/o Morbid obesity, s/p gastric sleeve sx in Aug 2016 who presented with Abd pain and was found to have ruptured appendix. 1- Complicated Appendicitis with rupture and fabi-appendicial abscess. s/p laparoscopic RIVERA drainage of the abscess on 11/13 - dc abx - RIVERA drain removed, dusty removed - cont TPN . - encourage po intake 2- R upper and lower ext weakness and numbness: neuro exam improved as above - control BP - cont ASA - hold off statin due to elevated LFTS 3- HTN: cont BP meds 4- Oral thrush: cont antifungal 5- check US to r/o dvt due to calf tenderness Dispo : HLOC ASSESSMENT AND PLAN:
[2016-11-24] MEDS: FAT EMULSIONS 250 ML IV SCH (21:37)
[2016-11-25] MEDS: NYSTATIN 500,000 UNITS/5 ML SUSPENSION PO SCH ×5 (00:04→23:20)
[2016-11-25] MEDS: HEPARIN NA (PORCINE) 5,000 UNITS/ML 1ML VIAL SQ SCH ×3 (06:05→21:44)
[2016-11-25 08:50] LABS: ALBUMIN 3.3 g/dl (3.4-5.0); ANION GAP 11 (8-16); BILIRUBIN,TOTAL 0.5 mg/dL (0.2-1.0); CALCIUM 9.3 mg/dL (8.5-10.1); CO2 24 mmol/L (21-32); CREATININE 0.9 mg/dL (0.7-1.3); GLUCOSE,RANDOM 85 mg/dL (74-106); MAGNESIUM 2.4 mg/dL (1.8-2.4); PHOSPHOROUS 3.9 mg/dL (2.5-4.9); SGOT/AST 39 U/L (15-37); SGPT/ALT 93 U/L (12-78)
[2016-11-25 08:51] LABS: ALK PHOS 94 U/L (45-117)
--- NOTE | 2016-11-25 10:26 | PN ---
Progress Note (short form) - Note Progress Note: RENAL Pt is awake and alert comfortable says he started eating but does not eat much he has been on ppn Last Vital Signs Temp Pulse Resp BP Pulse Ox 97.9 F 67 20 136/71 96 11/25/16 05:44 11/25/16 05:44 11/25/16 05:44 11/25/16 05:44 11/24/16 21:00 obese man lying in bed comfortably cvs s1s2 rr abd soft, has surgical dressings which are intact ext no edema Current Medications Generic Name Dose Route Start Last Admin Trade Name Freq PRN Reason Stop Dose Admin Amlodipine Besylate 10 mg 11/18/16 10:00 11/24/16 09:56 Norvasc - PO 10 mg DAILY [place] Administration Aspirin 81 mg 11/24/16 10:00 11/24/16 09:56 Ecotrin - PO 81 mg DAILY [place] Administration Benzocaine/Menthol 1 each 11/14/16 18:38 11/19/16 21:54 Cepacol Lozenge - MM 1 each Q4H PRN Administration SORE THROAT Ergocalciferol 50,000 unit 11/24/16 15:30 11/24/16 18:03 Drisdol - PO 50,000 unit Q7D@1000 [place] Administration Heparin Sodium (Porcine) 5,000 unit 11/13/16 22:00 11/25/16 06:05 Heparin - SQ 5,000 unit TID [place] Administration IV Flush 8 ml 11/21/16 13:40 Picc Line Flush IVPUSH PRN PRN Protocol IV Flush 8 ml 11/23/16 13:43 Picc Line Flush IVPUSH PRN PRN Protocol Fat Emulsion Intravenous 250 mls @ 20.833 mls/hr 11/22/16 22:00 11/24/16 21:37 Intralipid - IV 20.833 mls/hr DAILY@2200 [place] Administration Multivitamins/Minerals 10 ml/ 1,200 mls @ 50 mls/hr 11/24/16 16:00 11/24/16 17: 39 Trace Metals 10 ml/ Sterile IV 50 mls/hr Water/ Amino Acids/ Dextrose DAILY@1600 [place] Administration Labetalol HCl 200 mg 11/17/16 10:06 11/24/16 22:29 Normodyne - PO Not Given BID [place] Lisinopril 40 mg 11/17/16 10:00 11/24/16 09:56 Prinivil PO 40 mg DAILY [place] Administration Nystatin 500,000 units 11/13/16 18:00 11/25/16 06:04 Nystatin Oral Suspension - PO Not Given Q6HPO [place] Ondansetron HCl 4 mg 11/13/16 13:51 11/22/16 12:56 Zofran Injection IVPUSH 4 mg Q6H PRN Administration NAUSEA Oxycodone HCl 5 mg 11/24/16 17:19 11/24/16 17:54 Roxicodone - PO 5 mg Q6H PRN Administration PAIN Pantoprazole Sodium 40 mg 11/16/16 14:15 11/24/16 09:55 Protonix - PO 40 mg DAILY [place] Administration Pramipexole Dihydrochloride 0.25 mg 11/17/16 09:00 11/24/16 17:37 Mirapex - PO 0.25 mg BIDPC [place] Administration CBC, BMP 11/24/16 06:30 11/25/16 06:00 Impression 1. complicated appendicitis 2. malnutrition 3. hyponatremia 4. obesity 5. HTN 6. anemia Plan -will write tpn orders for day - lft's improved. continue to monitor while on ppn -continue lipids but repeat triglyceride level MV
[2016-11-25] MEDS ORDERED: PT OWN MED DRAWER 7, Y5N ONE ×3 (10:33→23:51)
[2016-11-25] MEDS: PRAMIPEXOLE DIHYDROCHLORIDE 0.25 MG TABLET PO SCH ×2 (10:34→17:36)
[2016-11-25] MEDS: LISINOPRIL 20 MG TABLET (FP) PO SCH (10:34)
[2016-11-25] MEDS: PANTOPRAZOLE 40 MG TABLET (FP) PO SCH (10:35)
[2016-11-25] MEDS: LABETALOL HCL 200 MG TABLET (FP) PO SCH ×2 (10:35→21:44)
[2016-11-25] MEDS: ASPIRIN COATED 81 MG TABLET.EC PO SCH (10:35)
[2016-11-25] MEDS: amLODIPine BESYLATE 10 MG TABLET (FP) PO SCH (10:35)
--- NOTE | 2016-11-25 11:07 | PN ---
Progress Note (short form) - Note Progress Note: Surgery- Dr. Chowdhury/Dr. Francois Patient seen and examined. Patient states he is having no abdominal pain and is now able to eat and tolerate his diet with a somewhat limited appetite. He is urinating without issue and states he had a BM yesterday. He states he has not been OOB due to some leg/knee pain/weakness. Last Vital Signs Temp Pulse Resp BP Pulse Ox 97.9 F 67 20 136/71 96 11/25/16 05:44 11/25/16 05:44 11/25/16 05:44 11/25/16 05:44 11/24/16 21:00 CBC, BMP 11/24/16 06:30 11/25/16 06:00 Exam: Gen: NAD Abd: obese, soft, nontender Problem List - Problems (1) Perforated appendicitis Assessment/Plan: s/p laparoscopic drainage of retroperitoneal periappendicial abscess Patient's oral intake improving, patient discussed with Dr. Francois, tpn , advance diet as tolerated, monitor oral intake DVT prophylaxis Code(s): K35.2 - ACUTE APPENDICITIS WITH GENERALIZED PERITONITIS
--- NOTE | 2016-11-25 11:34 | PN ---
Progress Note, Physician History of Present Illness: patient tolerating little food improving still not able to take full - Current Medication List Current Medications: Active Medications Amlodipine Besylate (Norvasc -) 10 mg PO DAILY [facility] Last Admin: 11/25/16 10:35 Dose: 10 mg Aspirin (Ecotrin -) 81 mg PO DAILY [facility] Last Admin: 11/25/16 10:35 Dose: 81 mg Benzocaine/Menthol (Cepacol Lozenge -) 1 each MM Q4H PRN PRN Reason: SORE THROAT Last Admin: 11/19/16 21:54 Dose: 1 each Ergocalciferol (Drisdol -) 50,000 unit PO Q7D@1000 [facility] Last Admin: 11/24/16 18:03 Dose: 50,000 unit Heparin Sodium (Porcine) (Heparin -) 5,000 unit SQ TID [facility] Last Admin: 11/25/16 06:05 Dose: 5,000 unit IV Flush (Picc Line Flush) 8 ml IVPUSH PRN PRN PRN Reason: Protocol IV Flush (Picc Line Flush) 8 ml IVPUSH PRN PRN PRN Reason: Protocol Fat Emulsion Intravenous (Intralipid -) 250 mls @ 20.833 mls/hr IV DAILY@2200 [facility] Last Admin: 11/24/16 21:37 Dose: 20.833 mls/hr Multivitamins/Minerals 10 ml/Trace Metals 10 ml/ Sterile Water/ Amino Acids/ Dextrose 1,200 mls @ 50 mls/hr IV DAILY@1600 [facility] Last Admin: 11/24/16 17:39 Dose: 50 mls/hr Labetalol HCl (Normodyne -) 200 mg PO BID [facility] Last Admin: 11/25/16 10:35 Dose: 200 mg Lisinopril (Prinivil) 40 mg PO DAILY [facility] Last Admin: 11/25/16 10:34 Dose: 40 mg Nystatin (Nystatin Oral Suspension -) 500,000 units PO Q6HPO [facility] Last Admin: 11/25/16 06:04 Dose: Not Given Ondansetron HCl (Zofran Injection) 4 mg IVPUSH Q6H PRN PRN Reason: NAUSEA Last Admin: 11/22/16 12:56 Dose: 4 mg Oxycodone HCl (Roxicodone -) 5 mg PO Q6H PRN PRN Reason: PAIN Last Admin: 11/24/16 17:54 Dose: 5 mg Pantoprazole Sodium (Protonix -) 40 mg PO DAILY [facility] Last Admin: 11/25/16 10:35 Dose: 40 mg Pramipexole Dihydrochloride (Mirapex -) 0.25 mg PO BIDPC [facility] Last Admin: 11/25/16 10:34 Dose: 0.25 mg - Objective Vital Signs: Vital Signs Temperature 97.9 F 11/25/16 05:44 Pulse Rate 67 11/25/16 05:44 Respiratory Rate 20 11/25/16 05:44 Blood Pressure 136/71 11/25/16 05:44 O2 Sat by Pulse Oximetry (%) 96 11/24/16 21:00 Constitutional: Yes: No Distress, Calm, Obese (morbid) Cardiovascular: Yes: Regular Rate and Rhythm Respiratory: Yes: Regular, CTA Bilaterally Gastrointestinal: Yes: Normal Bowel Sounds, Soft Musculoskeletal: Yes: WNL Extremities: Yes: WNL Integumentary: Yes: WNL Neurological: Yes: Alert, Oriented Psychiatric: Yes: Alert, Oriented Labs: CBC, BMP 11/24/16 06:30 11/25/16 06:00 INR, PTT INR 1.54 (0.82-1.09) H 11/13/16 06:15 Assessment/Plan ac appendicitis morbid obesity oral thrush abd abscess nausea vomiting wbc increasing plan stable off of abx continue to monitor await for return of full gi function patient should be made to walk
--- NOTE | 2016-11-25 12:06 | PN ---
Progress Note (short form) - Note Progress Note: Subjective: complains of not being anle to use his hands appropriately, ( R right after surgery , L yesterday ) . he feels strength in proximal R upepr ext is better . no abd pain , no fever or chills, no KATZ , no facial numbenss or weakness. Objective: Vital Signs: Last Vital Signs Temp Pulse Resp BP Pulse Ox 97.9 F 67 20 136/71 96 11/25/16 05:44 11/25/16 05:44 11/25/16 05:44 11/25/16 05:44 11/24/16 21:00 Labs : Laboratory Results - last 24 hr 11/25/16 06:00 Sodium 136 Potassium 3.8 Chloride 101 Carbon Dioxide 24 Anion Gap 11 BUN 37 H Creatinine 0.9 D Creat Clearance w eGFR > 60 Random Glucose 85 Calcium 9.3 Phosphorus 3.9 Magnesium 2.4 Total Bilirubin 0.5 AST 39 H ALT 93 H Alkaline Phosphatase 94 Total Protein 9.0 H Albumin 3.3 L Physical Exam: NAD , lying in bed CV : RRR Lungs : CTAB ext : no edema Abd : morbidly obese, NL BS , no TTP today NEuro : Awake and alert , oriented. no facial droop, . round equal pupils , reactive to light . nl facial sensation Strength: RUE : shoulder abduction 5/5 , Biceps 5/5 , triceps 5/5 , hand is architect 4/5, R wrist drop, wrist flexion 4/5 , wrist extension 1/5 , flexion of 3rd and 4th fingers LUE : shoulder abduction 5/5 , Biceps 5/5 , triceps 5/5 , hand is architect 4/5, L wrist drop, wrist flexion 4/5 , wrist extension 1/5 ,flexion of 3rd and 4th fingers RLE : hip flexion 3/5, knee flexion 4/5, knee extension 4/5 , Ankle dorsiflecxion 2/5, ankle plantar flexion 5/5 LLE: hip flexion 5/5, knee flexion 5/5, knee extension 5/5 , Ankle dorsiflecxion 3/5, ankle plantar flexion 5/5 Reflexes: 1+ L knee jerk, 1+ R knee jerk . Sensation: decreased to light touch in R upper and Lower ext. Assessment and plan: 31 y/o male with h/o Morbid obesity, s/p gastric sleeve sx in Aug 2016 who presented with Abd pain and was found to have ruptured appendix. 1- Complicated Appendicitis with rupture and fabi-appendicial abscess. s/p laparoscopic RIVERA drainage of the abscess on 11/13 - oral intake improved - cont TPN . 2- neurological findings of R upper and lower ext weakness and numbness: on repeat exam today there is improvement in proximal RUE strenght , but he has new finding of b/l wrist drop. He continue to have proximal R lower extremity weakness - I am still not clear of the etiology. - will check CT of c spine to evaluate for cervical radiculopathy. - unfortunately can't fit in MRI . - cont ASA 3- HTN: cont BP meds 4- Oral thrush: cont antifungal Dispo : HLOC Visit type - Emergency Visit Emergency Visit: Yes ED Registration Date: 11/11/16 Care time: The patient presented to the Emergency Department on the above date and was hospitalized for further evaluation of their emergent condition. - New Patient This patient is new to me today: No - Critical Care Critical Care patient: No
[2016-11-25] MEDS: oxyCODONE HCL 5 MG TABLET PO PRN (14:00)
--- NOTE | 2016-11-25 15:44 | PN ---
Progress Note (short form) - Note Progress Note: NEUROLOGY FOLLOW-UP: Events reviewed and discussed with Dr. Goldberg. Pt denies headaches since admission. Notes no change in nocturnal paresthesiae and cramps on low-dose pramipexole. S/P Appendectomy 11/13/16. Pt notes that since that time he has been unable to use both hands normally due to weakness and has not been able to ambulate due to leg weakness (R>L). Still notes "numbness" in legs but claims sensation on the bottom of his feet is normal. CT Scans of the brain and C-spine just completed, not reported. Brain appears normal. No obvious cervical canal stenosis. EDGAR: Obese. Pic-line right triceps region. NEURO: MS/speech: Normal CN's II-XII normal. No facial weakness or asymmetry. Gag normal Motor: Arms normal strength proximally (Delts, biceps, triceps) but weak distally Sharif in radial distribution. Left leg resists gravity, Right side does not. B/L ankle dorsiflexion 2/5. AREFLEXIC (had normal reflexes on admission). Plantars silent. Coord: No dystaxia Sensory: Essentially normal IMP: Diffuse weakness (distal> proximal) with loss of reflexes and preservation of sensation. Cannot exclude supervening Radial Mononeuropathies. Diff Dx includes inflammatory neuropathy (Guillaine-Victoria), motor neuropathy and Neuromyopathy of acute disease (ICU neuromyopathy). SUGGEST: Check CK, TSH, B12 PM&R consultation and EMG/NCS If neuropathy is confirmed may need LP under fluroscopic guidance for CSF protein determination. Mobilize with bedside PT. OO Bed to chair MARIA LUISA. Thank you very much, Nii Up MD
[2016-11-25] MEDS: [UNRECOGNIZED DRUG - OTHER] IV SCH (18:45)
[2016-11-25] MEDS: MULTIVIT IV SCH (18:45)
[2016-11-25] MEDS: FAT EMULSIONS 250 ML IV SCH ×2 (21:45→22:35)
[2016-11-26] MEDS: NYSTATIN 500,000 UNITS/5 ML SUSPENSION PO SCH ×4 (06:17→23:45)
[2016-11-26] MEDS: HEPARIN NA (PORCINE) 5,000 UNITS/ML 1ML VIAL SQ SCH ×3 (06:22→21:16)
[2016-11-26 08:48] LABS: ALBUMIN 3.1 g/dl (3.4-5.0); ANION GAP 13 (8-16); CALCIUM 9.1 mg/dL (8.5-10.1); CO2 23 mmol/L (21-32); CREATININE 0.9 mg/dL (0.7-1.3); GLUCOSE,RANDOM 89 mg/dL (74-106); MAGNESIUM 2.3 mg/dL (1.8-2.4); PHOSPHOROUS 4.4 mg/dL (2.5-4.9); SGOT/AST 32 U/L (15-37); SGPT/ALT 74 U/L (12-78)
[2016-11-26 08:59] LABS: ALK PHOS 100 U/L (45-117); BILIRUBIN,TOTAL 0.6 mg/dL (0.2-1.0); THYROID STIMULATING HORMONE 3.43 uIU/ml (0.358-3.74); TOT PROT 8.7 g/dl (6.4-8.2)
[2016-11-26] MEDS: PRAMIPEXOLE DIHYDROCHLORIDE 0.25 MG TABLET PO SCH ×2 (10:45→19:16)
[2016-11-26] MEDS: PANTOPRAZOLE 40 MG TABLET (FP) PO SCH (10:45)
[2016-11-26] MEDS: ASPIRIN COATED 81 MG TABLET.EC PO SCH (10:45)
[2016-11-26] MEDS: LISINOPRIL 20 MG TABLET (FP) PO SCH (10:45)
[2016-11-26] MEDS: PICC LINE 8 ML FLUSH PROTOCOL IVPUSH PRN (10:46)
[2016-11-26] MEDS: amLODIPine BESYLATE 10 MG TABLET (FP) PO SCH (10:46)
[2016-11-26] MEDS: LABETALOL HCL 200 MG TABLET (FP) PO SCH ×2 (10:46→21:15)
--- NOTE | 2016-11-26 11:22 | PN ---
Progress Note (short form) - Note Progress Note: RENAL Pt is awake and alert comfortable says he started eating but does not eat much he has been on ppn Last Vital Signs Temp Pulse Resp BP Pulse Ox 98.8 F 74 20 130/71 96 11/26/16 06:00 11/26/16 06:00 11/26/16 06:00 11/26/16 06:00 11/25/16 21:00 obese man lying in bed comfortably cvs s1s2 rr abd soft, has surgical dressings which are intact ext no edema neuro moves all extremities though is weak on right Current Medications Generic Name Dose Route Start Last Admin Trade Name Freq PRN Reason Stop Dose Admin Amlodipine Besylate 10 mg 11/18/16 10:00 11/26/16 10:46 Norvasc - PO 10 mg DAILY [place] Administration Aspirin 81 mg 11/24/16 10:00 11/26/16 10:45 Ecotrin - PO 81 mg DAILY [place] Administration Benzocaine/Menthol 1 each 11/14/16 18:38 11/19/16 21:54 Cepacol Lozenge - MM 1 each Q4H PRN Administration SORE THROAT Ergocalciferol 50,000 unit 11/24/16 15:30 11/24/16 18:03 Drisdol - PO 50,000 unit Q7D@1000 [place] Administration IV Flush 8 ml 11/23/16 13:43 11/26/16 10:46 Picc Line Flush IVPUSH 8 ml PRN PRN Administration Protocol Fat Emulsion Intravenous 250 mls @ 20.833 mls/hr 11/22/16 22:00 11/25/16 22:35 Intralipid - IV 20.833 mls/hr DAILY@2200 [place] Administration Multivitamins/Minerals 10 ml/ 1,200 mls @ 50 mls/hr 11/24/16 16:00 11/25/16 18: 45 Trace Metals 10 ml/ Sterile IV 50 mls/hr Water/ Amino Acids/ Dextrose DAILY@1600 [place] Administration Labetalol HCl 200 mg 11/17/16 10:06 11/26/16 10:46 Normodyne - PO 200 mg BID [place] Administration Lisinopril 40 mg 11/17/16 10:00 11/26/16 10:45 Prinivil PO 40 mg DAILY [place] Administration Nystatin 500,000 units 11/13/16 18:00 11/26/16 06:17 Nystatin Oral Suspension - PO Not Given Q6HPO [facility] Ondansetron HCl 4 mg 11/13/16 13:51 11/22/16 12:56 Zofran Injection IVPUSH 4 mg Q6H PRN Administration NAUSEA Oxycodone HCl 5 mg 11/24/16 17:19 11/25/16 14:00 Roxicodone - PO 5 mg Q6H PRN Administration PAIN Pantoprazole Sodium 40 mg 11/16/16 14:15 11/26/16 10:45 Protonix - PO 40 mg DAILY [place] Administration Pramipexole Dihydrochloride 0.25 mg 11/17/16 09:00 11/26/16 10:45 Mirapex - PO 0.25 mg BIDPC [place] Administration CBC, BMP 11/24/16 06:30 11/26/16 06:30 Impression 1. complicated appendicitis 2. malnutrition 3. hyponatremia 4. obesity 5. HTN 6. anemia Plan - continue current ppn and encourage oral intake - lft's improved. continue to monitor while on ppn - triglycerides are high but not dangerous, continue current ppn MV
--- NOTE | 2016-11-26 12:16 | PN ---
Progress Note (short form) - Note Progress Note: Surgery-Dr. Chowdhury/Dr. Francois Patient seen and examined. Patient states he is feeling better. He states he did not eat much yesterday, but is hungry this morning and will eat. He denies fever, chills, nausea, vomiting. Last Vital Signs Temp Pulse Resp BP Pulse Ox 98.8 F 74 20 130/71 96 11/26/16 06:00 11/26/16 06:00 11/26/16 06:00 11/26/16 06:00 11/25/16 21:00 Exam: Gen: NAD Abd: OBese, soft, nontender, incisions c/d/i Problem List - Problems (1) Perforated appendicitis Assessment/Plan: s/p laparoscopic drainage of retroperitoneal periappendicial abscess patient discussed with Dr. Francois, would like to decrease lipids and ppn, and see improvement in appetite,, continue to encourage oral intake, advance diet as tolerateds Code(s): K35.2 - ACUTE APPENDICITIS WITH GENERALIZED PERITONITIS
--- NOTE | 2016-11-26 12:52 | PN ---
Progress Note, Physician History of Present Illness: patient stable says doing better neurology on the case events noted weakness improving foot drop suspected - Current Medication List Current Medications: Active Medications Amlodipine Besylate (Norvasc -) 10 mg PO DAILY [facility] Last Admin: 11/26/16 10:46 Dose: 10 mg Aspirin (Ecotrin -) 81 mg PO DAILY [facility] Last Admin: 11/26/16 10:45 Dose: 81 mg Benzocaine/Menthol (Cepacol Lozenge -) 1 each MM Q4H PRN PRN Reason: SORE THROAT Last Admin: 11/19/16 21:54 Dose: 1 each Ergocalciferol (Drisdol -) 50,000 unit PO Q7D@1000 [facility] Last Admin: 11/24/16 18:03 Dose: 50,000 unit IV Flush (Picc Line Flush) 8 ml IVPUSH PRN PRN PRN Reason: Protocol Last Admin: 11/26/16 10:46 Dose: 8 ml Fat Emulsion Intravenous (Intralipid -) 250 mls @ 20.833 mls/hr IV DAILY@2200 [facility] Last Admin: 11/25/16 22:35 Dose: 20.833 mls/hr Multivitamins/Minerals 10 ml/Trace Metals 10 ml/ Sterile Water/ Amino Acids/ Dextrose 1,200 mls @ 50 mls/hr IV DAILY@1600 [facility] Last Admin: 11/25/16 18:45 Dose: 50 mls/hr Labetalol HCl (Normodyne -) 200 mg PO BID [facility] Last Admin: 11/26/16 10:46 Dose: 200 mg Lisinopril (Prinivil) 40 mg PO DAILY [facility] Last Admin: 11/26/16 10:45 Dose: 40 mg Nystatin (Nystatin Oral Suspension -) 500,000 units PO Q6HPO [facility] Last Admin: 11/26/16 11:20 Dose: 500,000 units Ondansetron HCl (Zofran Injection) 4 mg IVPUSH Q6H PRN PRN Reason: NAUSEA Last Admin: 11/22/16 12:56 Dose: 4 mg Oxycodone HCl (Roxicodone -) 5 mg PO Q6H PRN PRN Reason: PAIN Last Admin: 11/25/16 14:00 Dose: 5 mg Pantoprazole Sodium (Protonix -) 40 mg PO DAILY [facility] Last Admin: 11/26/16 10:45 Dose: 40 mg Pramipexole Dihydrochloride ([facility] -) [facility] Last Admin: 11/26/16 10:45 Dose: 0.25 mg - Objective Vital Signs: Vital Signs Temperature 98.8 F 11/26/16 06:00 Pulse Rate 74 11/26/16 06:00 Respiratory Rate 20 11/26/16 06:00 Blood Pressure 130/71 11/26/16 06:00 O2 Sat by Pulse Oximetry (%) 96 11/25/16 21:00 Constitutional: Yes: No Distress, Calm, Obese Cardiovascular: Yes: Regular Rate and Rhythm Respiratory: Yes: Regular, CTA Bilaterally Gastrointestinal: Yes: Normal Bowel Sounds, Soft Musculoskeletal: Yes: WNL Extremities: Yes: WNL Neurological: Yes: Alert, Oriented Psychiatric: Yes: Alert Labs: CBC, BMP 11/24/16 06:30 11/26/16 06:30 INR, PTT INR 1.54 (0.82-1.09) H 11/13/16 06:15 - ....Imaging Cat Scan: Report Reviewed, Image Reviewed Assessment/Plan ac appendicitis morbid obesity oral thrush abd abscess nausea vomiting wbc increasing plan stable off of abx continue to monitor continue as per neurology
--- NOTE | 2016-11-26 13:24 | PN ---
Progress Note (short form) - Note Progress Note: Subjective: no appetite yesterday for lunch and dinner. denies abd pain or SOB . cont to have weakness in his hands and feet Objective: Vital Signs: Last Vital Signs Temp Pulse Resp BP Pulse Ox 98.8 F 74 20 130/71 96 11/26/16 06:00 11/26/16 06:00 11/26/16 06:00 11/26/16 06:00 11/25/16 21:00 Labs : Laboratory Results - last 24 hr 11/26/16 11/26/16 11/26/16 06:30 06:30 06:30 Sodium 137 Potassium 3.9 Chloride 101 Carbon Dioxide 23 Anion Gap 13 BUN 39 H Creatinine 0.9 Creat Clearance w eGFR > 60 Random Glucose 89 Calcium 9.1 Phosphorus 4.4 Magnesium 2.3 Total Bilirubin 0.6 AST 32 ALT 74 D Alkaline Phosphatase 100 Creatine Kinase 135 CK-MB (CK-2) < 1 Cancelled Total Protein 8.7 H Albumin 3.1 L Triglycerides 210 H D Vitamin B12 709 TSH 3.43 Physical Exam: NAD , lying in bed CV : RRR Lungs : CTAB ext : no edema Abd : morbidly obese, NL BS , no TTP NEuro : Awake and alert , oriented. no facial droop, . round equal pupils , reactive to light . nl facial sensation Strength: RUE : shoulder abduction 5/5 , Biceps 5/5 , triceps 5/5 , hand tool room attendant 4/5, R wrist drop, wrist flexion 4/5 , wrist extension 0/5 , flexion of 3rd and 4th fingers LUE : shoulder abduction 5/5 , Biceps 5/5 , triceps 5/5 , hand tool room attendant 4/5, L wrist drop, wrist flexion 4/5 , wrist extension 0/5 ,flexion of 3rd and 4th fingers RLE : hip flexion 3/5, knee flexion 4/5, knee extension 4/5 , Ankle dorsiflecxion 1/5, ankle plantar flexion 5/5 LLE: hip flexion 5/5, knee flexion 5/5, knee extension 5/5 , Ankle dorsiflecxion 1/5, ankle plantar flexion 5/5 Reflexes: 1+ L knee jerk, 1+ R knee jerk . biceps 0 b/l Sensation: decreased to light touch in R upper and Lower ext. Assessment and plan: 31 y/o male with h/o Morbid obesity, s/p gastric sleeve sx in Aug 2016 who presented with Abd pain and was found to have ruptured appendix. 1- Complicated Appendicitis with rupture and fabi-appendicial abscess. s/p laparoscopic RIVERA drainage of the abscess on 11/13 - encourage po intake - cont TPN . 2- Neurological findings of R upper and lower ext weakness and numbness: progressing weakness of L and upper extremities , without affecting resp muscles . 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 - cont ASA 3- HTN: cont BP meds 5- Vit D deficiency: cont Vit D weekly 4- Oral thrush: cont antifungal Dispo : HLOC Visit type - Emergency Visit Emergency Visit: Yes ED Registration Date: 11/11/16 Care time: The patient presented to the Emergency Department on the above date and was hospitalized for further evaluation of their emergent condition. - New Patient This patient is new to me today: No - Critical Care Critical Care patient: No
[2016-11-26] MEDS ORDERED: PT OWN MED DRAWER 7, Y5N ONE (17:41)
[2016-11-26] MEDS: MULTIVIT IV SCH (17:46)
[2016-11-26] MEDS: [UNRECOGNIZED DRUG - OTHER] IV SCH (17:46)
[2016-11-26] MEDS: FAT EMULSIONS 250 ML IV SCH (21:15)
[2016-11-27] MEDS: HEPARIN NA (PORCINE) 5,000 UNITS/ML 1ML VIAL SQ SCH ×3 (06:21→21:17)
[2016-11-27] MEDS: NYSTATIN 500,000 UNITS/5 ML SUSPENSION PO SCH ×2 (06:22→13:10)
[2016-11-27 08:32] LABS: ALBUMIN 3.3 g/dl (3.4-5.0); ANION GAP 12 (8-16); CALCIUM 9.3 mg/dL (8.5-10.1); CO2 25 mmol/L (21-32); GLUCOSE,RANDOM 91 mg/dL (74-106); MAGNESIUM 2.4 mg/dL (1.8-2.4)
[2016-11-27 08:35] LABS: ALK PHOS 105 U/L (45-117); BILIRUBIN,TOTAL 0.6 mg/dL (0.2-1.0); CREATININE 1.3 mg/dL (0.7-1.3); PHOSPHOROUS 4.8 mg/dL (2.5-4.9); SGOT/AST 31 U/L (15-37); SGPT/ALT 63 U/L (12-78); TOT PROT 8.5 g/dl (6.4-8.2)
[2016-11-27] MEDS: LISINOPRIL 20 MG TABLET (FP) PO SCH (09:24)
[2016-11-27] MEDS: LABETALOL HCL 200 MG TABLET (FP) PO SCH ×2 (09:25→21:17)
[2016-11-27] MEDS: PANTOPRAZOLE 40 MG TABLET (FP) PO SCH (09:25)
[2016-11-27] MEDS: ASPIRIN COATED 81 MG TABLET.EC PO SCH (09:25)
[2016-11-27] MEDS: amLODIPine BESYLATE 10 MG TABLET (FP) PO SCH (09:25)
[2016-11-27] MEDS: PRAMIPEXOLE DIHYDROCHLORIDE 0.25 MG TABLET PO SCH ×2 (09:25→17:42)
[2016-11-27] MEDS: PICC LINE 8 ML FLUSH PROTOCOL IVPUSH PRN (09:26)
--- NOTE | 2016-11-27 10:44 | PN ---
Progress Note, Physician Chief Complaint: appetite better History of Present Illness: appetite close to post sleeve diet. still c/o weakness. - Current Medication List Current Medications: Active Medications Amlodipine Besylate (Norvasc -) 10 mg PO DAILY [facility] Last Admin: 11/27/16 09:25 Dose: 10 mg Aspirin (Ecotrin -) 81 mg PO DAILY [facility] Last Admin: 11/27/16 09:25 Dose: 81 mg Benzocaine/Menthol (Cepacol Lozenge -) 1 each MM Q4H PRN PRN Reason: SORE THROAT Last Admin: 11/19/16 21:54 Dose: 1 each Ergocalciferol (Drisdol -) 50,000 unit PO Q7D@1000 [facility] Last Admin: 11/24/16 18:03 Dose: 50,000 unit Heparin Sodium (Porcine) (Heparin -) 5,000 unit SQ TID [facility] Last Admin: 11/27/16 06:21 Dose: 5,000 unit IV Flush (Picc Line Flush) 8 ml IVPUSH PRN PRN PRN Reason: Protocol Last Admin: 11/27/16 09:26 Dose: 8 ml Fat Emulsion Intravenous (Intralipid -) 250 mls @ 20.833 mls/hr IV DAILY@2200 [facility] Last Admin: 11/26/16 21:15 Dose: 20.833 mls/hr Multivitamins/Minerals 10 ml/Trace Metals 10 ml/ Sterile Water/ Amino Acids/ Dextrose 1,200 mls @ 50 mls/hr IV DAILY@1600 [facility] Last Admin: 11/26/16 17:46 Dose: 50 mls/hr Labetalol HCl (Normodyne -) 200 mg PO BID [facility] Last Admin: 11/27/16 09:25 Dose: 200 mg Lisinopril (Prinivil) 40 mg PO DAILY [facility] Last Admin: 11/27/16 09:24 Dose: 40 mg Nystatin (Nystatin Oral Suspension -) 500,000 units PO Q6HPO [facility] Last Admin: 11/27/16 06:22 Dose: 500,000 units Ondansetron HCl (Zofran Injection) 4 mg IVPUSH Q6H PRN PRN Reason: NAUSEA Last Admin: 11/22/16 12:56 Dose: 4 mg Oxycodone HCl (Roxicodone -) 5 mg PO Q6H PRN PRN Reason: PAIN Last Admin: 11/25/16 14:00 Dose: 5 mg Pantoprazole Sodium (Protonix -) 40 mg PO DAILY [facility] Last Admin: 11/27/16 09:25 Dose: 40 mg Pramipexole Dihydrochloride (Mirapex -) 0.25 mg PO BIDPC [facility] Last Admin: 11/27/16 09:25 Dose: 0.25 mg - Objective Vital Signs: Vital Signs Temperature 98.5 F 11/27/16 06:05 Pulse Rate 70 11/27/16 06:05 Respiratory Rate 20 11/27/16 06:05 Blood Pressure 112/54 11/27/16 06:05 O2 Sat by Pulse Oximetry (%) 97 11/26/16 21:00 Constitutional: Yes: No Distress, Calm Eyes: Yes: Conjunctiva Clear, EOM Intact HENT: Yes: Atraumatic, Normocephalic Neck: Yes: Supple, Trachea Midline Cardiovascular: Yes: Regular Rate and Rhythm Respiratory: Yes: Regular, CTA Bilaterally Gastrointestinal: Yes: Soft, Other (wound dusty out, small sinus draining inferiorly.). No: Distention, Tenderness ...Rectal Exam: Yes: Deferred Genitourinary: No: CVA Tenderness - Left, CVA Tenderness - Right Breast(s): No: Dimpling, Nipple Inversion Musculoskeletal: No: Joint Stiffness, Joint Swelling Extremities: No: Calf Tenderness, Erythema Integumentary: No: Erythema, Rash Wound/Incision: Yes: Draining Neurological: Yes: Alert, Oriented Psychiatric: Yes: Alert, Oriented Labs: CBC, BMP 11/24/16 06:30 11/27/16 06:30 INR, PTT INR 1.54 (0.82-1.09) H 11/13/16 06:15 Problem List - Problems (1) Perforated appendicitis Assessment/Plan: cont soft diet d/c TPN can wean off fluids. abx as per ID neuro workup biggest issue now Code(s): K35.2 - ACUTE APPENDICITIS WITH GENERALIZED PERITONITIS
[2016-11-27] MEDS ORDERED: SODIUM CHLORIDE 0.45% 1,000 ML IV SCH (11:45)
--- NOTE | 2016-11-27 12:29 | PN ---
Progress Note, Physician History of Present Illness: continues to have right sided weakness from gi point of view much better tolerating orally - Current Medication List Current Medications: Active Medications Amlodipine Besylate (Norvasc -) 10 mg PO DAILY [facility] Last Admin: 11/27/16 09:25 Dose: 10 mg Aspirin (Ecotrin -) 81 mg PO DAILY [facility] Last Admin: 11/27/16 09:25 Dose: 81 mg Benzocaine/Menthol (Cepacol Lozenge -) 1 each MM Q4H PRN PRN Reason: SORE THROAT Last Admin: 11/19/16 21:54 Dose: 1 each Ergocalciferol (Drisdol -) 50,000 unit PO Q7D@1000 [facility] Last Admin: 11/24/16 18:03 Dose: 50,000 unit Heparin Sodium (Porcine) (Heparin -) 5,000 unit SQ TID [facility] Last Admin: 11/27/16 06:21 Dose: 5,000 unit IV Flush (Picc Line Flush) 8 ml IVPUSH PRN PRN PRN Reason: Protocol Last Admin: 11/27/16 09:26 Dose: 8 ml Fat Emulsion Intravenous (Intralipid -) 250 mls @ 20.833 mls/hr IV DAILY@2200 [facility] Last Admin: 11/26/16 21:15 Dose: 20.833 mls/hr Multivitamins/Minerals 10 ml/Trace Metals 10 ml/ Sterile Water/ Amino Acids/ Dextrose 1,200 mls @ 50 mls/hr IV DAILY@1600 [facility] Last Admin: 11/26/16 17:46 Dose: 50 mls/hr Sodium Chloride (1/2 Normal Saline) 1,000 mls @ 75 mls/hr IV ASDIR [facility] Labetalol HCl (Normodyne -) 200 mg PO BID [facility] Last Admin: 11/27/16 09:25 Dose: 200 mg Lisinopril (Prinivil) 40 mg PO DAILY [facility] Last Admin: 11/27/16 09:24 Dose: 40 mg Nystatin (Nystatin Oral Suspension -) 500,000 units PO Q6HPO [facility] Last Admin: 11/27/16 06:22 Dose: 500,000 units Ondansetron HCl (Zofran Injection) 4 mg IVPUSH Q6H PRN PRN Reason: NAUSEA Last Admin: 11/22/16 12:56 Dose: 4 mg Oxycodone HCl (Roxicodone -) 5 mg PO Q6H PRN PRN Reason: PAIN Last Admin: 11/25/16 14:00 Dose: 5 mg Pantoprazole Sodium (Protonix -) 40 mg PO DAILY [facility] Last Admin: 11/27/16 09:25 Dose: 40 mg Pramipexole Dihydrochloride (Mirapex -) 0.25 mg PO BIDPC [facility] Last Admin: 11/27/16 09:25 Dose: 0.25 mg - Objective Vital Signs: Vital Signs Temperature 98.5 F 11/27/16 06:05 Pulse Rate 70 11/27/16 06:05 Respiratory Rate 20 11/27/16 06:05 Blood Pressure 112/54 11/27/16 06:05 O2 Sat by Pulse Oximetry (%) 97 11/26/16 21:00 Constitutional: Yes: No Distress, Calm, Obese Cardiovascular: Yes: Regular Rate and Rhythm Respiratory: Yes: Regular, CTA Bilaterally Gastrointestinal: Yes: Normal Bowel Sounds, Soft Musculoskeletal: Yes: Other Extremities: Yes: Other Wound/Incision: Yes: Clean/Dry Neurological: Yes: Unsteady Gait, Weakness (rt sided) Psychiatric: Yes: Alert, Oriented Labs: CBC, BMP 11/24/16 06:30 11/27/16 06:30 INR, PTT INR 1.54 (0.82-1.09) H 11/13/16 06:15 Assessment/Plan ac appendicitis morbid obesity oral thrush abd abscess nausea vomiting wbc increasing plan stable off of abx continue to monitor continue as per neurology continue to monitor for weakness
--- NOTE | 2016-11-27 12:38 | PN ---
Teaching Attending Note Name of Resident: Ramon Reynoso ATTENDING PHYSICIAN STATEMENT I saw and evaluated the patient. I reviewed the resident's note and discussed the case with the resident. I agree with the resident's findings and plan as documented. SUBJECTIVE: no fever or chills , no abd pain still has decreased appetite. OBJECTIVE: NAD , lying in bed CV : RRR Lungs : CTAB ext : no edema Abd : morbidly obese, NL BS , no TTP , mid line abd surgical scar with very small open area ( 1 cm ) with no discharge or surrounding erythema NEuro : Awake and alert , oriented. no facial droop, . round equal pupils , reactive to light . nl facial sensation Strength: RUE : shoulder abduction 5/5 , Biceps 5/5 , triceps 5/5 , hand small parts assembler 4/5, R wrist drop, wrist flexion 4/5 , wrist extension 2/5 , flexion of 3rd and 4th fingers LUE : shoulder abduction 5/5 , Biceps 5/5 , triceps 5/5 , hand small parts assembler 4/5, L wrist drop, wrist flexion 4/5 , wrist extension 2/5 ,flexion of 3rd and 4th fingers RLE : hip flexion 3/5, knee flexion 4/5, knee extension 4/5 , Ankle dorsiflecxion 1/5, ankle plantar flexion 5/5 LLE: hip flexion 5/5, knee flexion 5/5, knee extension 5/5 , Ankle dorsiflecxion 1/5, ankle plantar flexion 5/5 Reflexes: 1+ L knee jerk, 1+ R knee jerk . biceps 0 b/l Sensation: decreased to light touch in R upper and Lower ext. Assessment and plan: 31 y/o male with h/o Morbid obesity, s/p gastric sleeve sx in Aug 2016 who presented with Abd pain and was found to have ruptured appendix. 1- Complicated Appendicitis with rupture and fabi-appendicial abscess. s/p laparoscopic RIVERA drainage of the abscess on 11/13 - encourage po intake - start IVF due to signs of volume depletion ( dark urine, elevated BUN/CR) - cont TPN . 2- Neurological findings of R upper and lower ext weakness and numbness: progressing weakness of L and upper extremities , without affecting resp muscles . 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 Neuro exam slightly improved today ( improved wrist extension ) - EMG/NCd . - Unfortunately can't fit in MRI . - cont ASA 3- HTN: cont BP meds 5- Vit D deficiency: cont Vit D weekly 4- Oral thrush: resooved, has been o n nystatin since 11/13 , will ti Dispo : OC
--- NOTE | 2016-11-27 13:36 | PN ---
Physical Exam: SUBJECTIVE: Patient seen and examined at bedside states his appetite is improved and he has been waking up hungry last couple of days OBJECTIVE: Vital Signs Period Temp Pulse Resp BP Sys/Peoples Pulse Ox Last 24 Hr 98.4 F-98.9 F 68-74 16-20 101-133/51-85 97 GENERAL: The patient is awake, alert, and fully oriented HEAD: Normal with no signs of trauma. EYES: PERRLA EOMI NECK: Trachea midline, full range of motion, supple. LUNGS: Breath sounds equal, clear to auscultation bilaterally, no wheezes, no crackles, no accessory muscle use. HEART: Regular rate and rhythm, S1, S2 without murmur, rub or gallop. ABDOMEN: Soft, morbidly obese, non tender non distended Midline incision with small 1cm opening no drainage NEUROLOGICAL: Cranial nerves II through XII intact. no facial droop or weakness and sensation is intact in the face Normal speech. Sensation of bilateral upper extremities is intact but R>L per patient on exam. RUE: Shoulder abduction, Biceps, and triceps 5/5. right wrist drop noticed on exam. right wrist flexion 4/5 extension 2/5-improved LUE: Shoulder abduction, Biceps, and triceps 5/5. Left wrist drop noticed on exam. left wrist flexion 4/5 extension 2/5 RLE: knee flexion and extension 4/5 hip flexion 3/5. dorsiflexion of ankle 1/5 plantar flexion 5/5 LLE: 5/5 at all joints except ankle dorsiflexion which is 1/5 Sensation slightly decreased in RUE and RLE when compared to LUE and LLE. Biceps reflex not appreciated knee jerk 1+ bilaterally Right calf tenderness: negative for DVT on Duplex US Laboratory Results - last 24 hr 11/27/16 06:30 Sodium 137 Potassium 4.0 Chloride 100 Carbon Dioxide 25 Anion Gap 12 BUN 49 H D Creatinine 1.3 D Creat Clearance w eGFR > 60 Random Glucose 91 Calcium 9.3 Phosphorus 4.8 Magnesium 2.4 Total Bilirubin 0.6 AST 31 ALT 63 Alkaline Phosphatase 105 Total Protein 8.5 H Albumin 3.3 L Triglycerides 138 D Active Medications Generic Name Dose Route Start Last Admin Trade Name Freq PRN Reason Stop Dose Admin Amlodipine Besylate 10 mg 11/18/16 10:00 11/27/16 09:25 Norvasc - PO 10 mg DAILY [facility] Administration Aspirin 81 mg 11/24/16 10:00 11/27/16 09:25 Ecotrin - PO 81 mg DAILY [facility] Administration Benzocaine/Menthol 1 each 11/14/16 18:38 11/19/16 21:54 Cepacol Lozenge - MM 1 each Q4H PRN Administration SORE THROAT Ergocalciferol 50,000 unit 11/24/16 15:30 11/24/16 18:03 Drisdol - PO 50,000 unit Q7D@1000 [facility] Administration Heparin Sodium (Porcine) 5,000 unit 11/26/16 14:15 11/27/16 06:21 Heparin - SQ 5,000 unit TID [facility] Administration IV Flush 8 ml 11/23/16 13:43 11/27/16 09:26 Picc Line Flush IVPUSH 8 ml PRN PRN Administration Protocol Fat Emulsion Intravenous 250 mls @ 20.833 mls/hr 11/22/16 22:00 11/26/16 21:15 Intralipid - IV 20.833 mls/hr DAILY@2200 [facility] Administration Multivitamins/Minerals 10 ml/ 1,200 mls @ 50 mls/hr 11/24/16 16:00 11/26/16 17: 46 Trace Metals 10 ml/ Sterile IV 50 mls/hr Water/ Amino Acids/ Dextrose DAILY@1600 [facility] Administration Sodium Chloride 1,000 mls @ 75 mls/hr 11/27/16 12:45 Normal Saline - IV ASDIR [facility] Labetalol HCl 200 mg 11/17/16 10:06 11/27/16 09:25 Normodyne - PO 200 mg BID [facility] Administration Lisinopril 40 mg 11/17/16 10:00 11/27/16 09:24 Prinivil PO 40 mg DAILY [facility] Administration Ondansetron HCl 4 mg 11/13/16 13:51 11/22/16 12:56 Zofran Injection IVPUSH 4 mg Q6H PRN Administration NAUSEA Oxycodone HCl 5 mg 11/24/16 17:19 11/25/16 14:00 Roxicodone - PO 5 mg Q6H PRN Administration PAIN Pantoprazole Sodium 40 mg 11/16/16 14:15 11/27/16 09:25 Protonix - PO 40 mg DAILY [facility] Administration Pramipexole Dihydrochloride 0.25 mg 11/17/16 09:00 11/27/16 09:25 Mirapex - PO 0.25 mg BIDPC [facility] Administration ASSESSMENT/PLAN: 31M with a PMH of morbid obesity presents to the hospital with abdominal pain found to have a perforated appendicitis in the OR. Sepsis secondary to Perforated appendicitis: CT scan initially read as perforated appendicitis the read changed to non perforated appendicitis. Taken to the OR for attempted Laparoscopic appendectomy found to be perforated. Appendix was not able to be visualized as a result was not resected. Patient s/ p laparoscopic drainage and washout of fabi-appendiceal abscess POD #14. CT scan did not show any worsening pathology abscess moved more medial appendix not visualized ID consult appreciated- HIV test negative surgery consult appreciated recommendations noted stopped Zosyn on day 13 able to tolerate diet more today RIVERA drain d/c'ed by Surgery cultures-negative final pain control repeat RUQ US show cholelithiasis without cholecystitis and diffuse fatty infiltration of liver nephrology consult appreciated - on TPN will stop tomorrow S/P PICC by IR will hold off on surgery for now f/u HIDA scan-negative Protein calorie malnutrition: Dietary/junior php developer consult appreciated will give IVF for dehydration will contineu TPN for today until he is meeting his caloric intake requirements Vitamin D deficiency: will start Vit D 50,000 units Q7Days Transaminitis: improving likely secondary to diffuse fatty liver infiltration Dehydration: as indicated by BUN/Cr start IVF Right sided numbness and weakness: polyneuropathy. possible demyelinating disorder: Guillain-Guilford syndrome vs chronic inflammatory demyelinating polyneuropathy vs progressive inflammatory neuropathy vs multifocal motor neuropathy Head CT negative patient can not fit in MRI machine neurology consult appreciated. WIll get PM&R consult for EMG/NCS will then possibly need an LP under fluroscopy by IR for CSF analysis. may possibly need IVIG states had EMG as outpatient does not know results-called Dr. Hickman's office and he was seen by one of his colleuges had distant history of polyneuropathy had EMG done which was not impressive this is the third time on this admission that patient states his "knees buckled " on him. likely he is very deconditioned from a combination of Class 3 severe super morbid obesity and lack of movement will continue PT consult nurses made aware that they should not ambulate patient without adequate cryptologic support specialist and he should always have a chair behind him open MRI as outpatient Leukocytosis: resolved off Abx Essential Hypertension: no previous diagnosis per patient but he has been hypertensive in the hospital although pain may be a contributing factor he likely has underlying hypertension Well controlled on this regimen: continue lisinopril 40mg po daily continue norvasc 10mg po daily continue PO labetalol to 200 BID Oral Thrush: stop nystatin swish and swallow diflucan stopped HIV negative Morbid Obesity: s/p sleeve gastrectomy follow up outpatient PPx: HSQ protonix working with PT FEN: start NS @ 75ml/hr to meet daily fluid requirement no electrolyte issues- Zinc WNL tpn and regular diet as tolerated Will need subacute rehab facility on discharge Visit type - Emergency Visit Emergency Visit: Yes ED Registration Date: 11/11/16 Care time: The patient presented to the Emergency Department on the above date and was hospitalized for further evaluation of their emergent condition. - New Patient This patient is new to me today: No - Critical Care Critical Care patient: No - Discharge Referral [facility]erred to [facility] Med P.C.: No
--- NOTE | 2016-11-27 14:57 | PN ---
Progress Note, Physician History of Present Illness: Pt seen and examined at bedside. He feels that his appetite is starting to improve. He still cant tolerate much food. - Current Medication List Current Medications: Active Medications Amlodipine Besylate (Norvasc -) 10 mg PO DAILY [facility] Last Admin: 11/27/16 09:25 Dose: 10 mg Aspirin (Ecotrin -) 81 mg PO DAILY [facility] Last Admin: 11/27/16 09:25 Dose: 81 mg Benzocaine/Menthol (Cepacol Lozenge -) 1 each MM Q4H PRN PRN Reason: SORE THROAT Last Admin: 11/19/16 21:54 Dose: 1 each Ergocalciferol (Drisdol -) 50,000 unit PO Q7D@1000 [facility] Last Admin: 11/24/16 18:03 Dose: 50,000 unit Heparin Sodium (Porcine) (Heparin -) 5,000 unit SQ TID [facility] Last Admin: 11/27/16 14:33 Dose: 5,000 unit IV Flush (Picc Line Flush) 8 ml IVPUSH PRN PRN PRN Reason: Protocol Last Admin: 11/27/16 09:26 Dose: 8 ml Fat Emulsion Intravenous (Intralipid -) 250 mls @ 20.833 mls/hr IV DAILY@2200 [facility] Last Admin: 11/26/16 21:15 Dose: 20.833 mls/hr Multivitamins/Minerals 10 ml/Trace Metals 10 ml/ Sterile Water/ Amino Acids/ Dextrose 1,200 mls @ 50 mls/hr IV DAILY@1600 [facility] Last Admin: 11/26/16 17:46 Dose: 50 mls/hr Sodium Chloride (Normal Saline -) 1,000 mls @ 75 mls/hr IV ASDIR [facility] Labetalol HCl (Normodyne -) 200 mg PO BID [facility] Last Admin: 11/27/16 09:25 Dose: 200 mg Lisinopril (Prinivil) 40 mg PO DAILY [facility] Last Admin: 11/27/16 09:24 Dose: 40 mg Ondansetron HCl (Zofran Injection) 4 mg IVPUSH Q6H PRN PRN Reason: NAUSEA Last Admin: 11/22/16 12:56 Dose: 4 mg Oxycodone HCl (Roxicodone -) 5 mg PO Q6H PRN PRN Reason: PAIN Last Admin: 11/25/16 14:00 Dose: 5 mg Pantoprazole Sodium (Protonix -) 40 mg PO DAILY [facility] Last Admin: 11/27/16 09:25 Dose: 40 mg Pramipexole Dihydrochloride (Mirapex -) 0.25 mg PO BIDPC [facility] Last Admin: 11/27/16 09:25 Dose: 0.25 mg - Objective Vital Signs: Vital Signs Temperature 98.4 F 11/27/16 14:11 Pulse Rate 73 11/27/16 14:11 Respiratory Rate 16 11/27/16 14:11 Blood Pressure 106/57 11/27/16 14:11 O2 Sat by Pulse Oximetry (%) 97 11/26/16 21:00 Constitutional: Yes: Calm Eyes: Yes: Conjunctiva Clear HENT: Yes: Atraumatic Neck: Yes: Supple Cardiovascular: Yes: S1, S2 Respiratory: Yes: CTA Bilaterally Gastrointestinal: Yes: Soft, Abdomen, Obese Genitourinary: Yes: WNL Musculoskeletal: Yes: Muscle Weakness Edema: Yes Edema: LLE: Trace, RLE: Trace Neurological: Yes: Oriented Psychiatric: Yes: Oriented Labs: CBC, BMP 11/24/16 06:30 11/27/16 06:30 INR, PTT INR 1.54 (0.82-1.09) H 11/13/16 06:15 Problem List - Problems (1) Perforated appendicitis Code(s): K35.2 - ACUTE APPENDICITIS WITH GENERALIZED PERITONITIS (2) Hyponatremia Code(s): E87.1 - HYPO-OSMOLALITY AND HYPONATREMIA (3) Malnutrition Code(s): E46 - UNSPECIFIED PROTEIN-CALORIE MALNUTRITION Assessment/Plan Current Medications Generic Name Dose Route Start Last Admin Trade Name Freq PRN Reason Stop Dose Admin Amlodipine Besylate 10 mg 11/18/16 10:00 11/27/16 09:25 Norvasc - PO 10 mg DAILY [facility] Administration Aspirin 81 mg 11/24/16 10:00 11/27/16 09:25 Ecotrin - PO 81 mg DAILY [facility] Administration Benzocaine/Menthol 1 each 11/14/16 18:38 11/19/16 21:54 Cepacol Lozenge - MM 1 each Q4H PRN Administration SORE THROAT Ergocalciferol 50,000 unit 11/24/16 15:30 11/24/16 18:03 Drisdol - PO 50,000 unit Q7D@1000 [facility] Administration Heparin Sodium (Porcine) 5,000 unit 11/26/16 14:15 11/27/16 14:33 Heparin - SQ 5,000 unit TID [facility] Administration IV Flush 8 ml 11/23/16 13:43 11/27/16 09:26 Picc Line Flush IVPUSH 8 ml PRN PRN Administration Protocol Fat Emulsion Intravenous 250 mls @ 20.833 mls/hr 11/22/16 22:00 11/26/16 21:15 Intralipid - IV 20.833 mls/hr DAILY@2200 [facility] Administration Multivitamins/Minerals 10 ml/ 1,200 mls @ 50 mls/hr 11/24/16 16:00 11/26/16 17: 46 Trace Metals 10 ml/ Sterile IV 50 mls/hr Water/ Amino Acids/ Dextrose DAILY@1600 [facility] Administration Sodium Chloride 1,000 mls @ 75 mls/hr 11/27/16 12:45 Normal Saline - IV ASDIR [facility] Labetalol HCl 200 mg 11/17/16 10:06 11/27/16 09:25 Normodyne - PO 200 mg BID [facility] Administration Lisinopril 40 mg 11/17/16 10:00 11/27/16 09:24 Prinivil PO 40 mg DAILY [facility] Administration Ondansetron HCl 4 mg 11/13/16 13:51 11/22/16 12:56 Zofran Injection IVPUSH 4 mg Q6H PRN Administration NAUSEA Oxycodone HCl 5 mg 11/24/16 17:19 11/25/16 14:00 Roxicodone - PO 5 mg Q6H PRN Administration PAIN Pantoprazole Sodium 40 mg 11/16/16 14:15 11/27/16 09:25 Protonix - PO 40 mg DAILY [facility] Administration Pramipexole Dihydrochloride 0.25 mg 11/17/16 09:00 11/27/16 09:25 Mirapex - PO 0.25 mg BIDPC [facility] Administration Impression 1. complicated appendicitis 2. malnutrition 3. hyponatremia 4. obesity 5. HTN 6. anemia Plan - pt is on last bag of TPN - repeat labs in am - will asses pt on PO diet after this bag is finished - encourage PO intake, recommend for patient to take his time while eating - cont pt/rehab - discussed with medical secretary - discussed with attending - will follow Dr Mondragon
[2016-11-27] MEDS: [UNRECOGNIZED DRUG - OTHER] IV SCH (17:41)
[2016-11-27] MEDS: MULTIVIT IV SCH (17:41)
[2016-11-27] MEDS: SODIUM CHLORIDE 1,000 ML IV SCH (18:09)
[2016-11-28] MEDS: HEPARIN NA (PORCINE) 5,000 UNITS/ML 1ML VIAL SQ SCH ×3 (05:57→21:52)
[2016-11-28 09:44] LABS: ALBUMIN 3.1 g/dl (3.4-5.0); ALK PHOS 108 U/L (45-117); BILIRUBIN,TOTAL 0.6 mg/dL (0.2-1.0); CALCIUM 9.3 mg/dL (8.5-10.1); CREATININE 0.7 mg/dL (0.7-1.3); GLUCOSE,RANDOM 95 mg/dL (74-106); MAGNESIUM 2.2 mg/dL (1.8-2.4); PHOSPHOROUS 4.2 mg/dL (2.5-4.9); SGOT/AST 33 U/L (15-37); SGPT/ALT 57 U/L (12-78); TOT PROT 8.1 g/dl (6.4-8.2)
[2016-11-28 09:59] LABS: ANION GAP 14 (8-16); CO2 22 mmol/L (21-32)
[2016-11-28] MEDS: ASPIRIN COATED 81 MG TABLET.EC PO SCH (10:34)
[2016-11-28] MEDS: LABETALOL HCL 200 MG TABLET (FP) PO SCH ×2 (10:34→21:52)
[2016-11-28] MEDS: LISINOPRIL 20 MG TABLET (FP) PO SCH (10:34)
[2016-11-28] MEDS: PRAMIPEXOLE DIHYDROCHLORIDE 0.25 MG TABLET PO SCH ×2 (10:35→18:11)
[2016-11-28] MEDS: amLODIPine BESYLATE 10 MG TABLET (FP) PO SCH (10:35)
[2016-11-28] MEDS: PICC LINE 8 ML FLUSH PROTOCOL IVPUSH PRN (10:35)
[2016-11-28] MEDS: PANTOPRAZOLE 40 MG TABLET (FP) PO SCH (10:35)
--- NOTE | 2016-11-28 13:49 | PN ---
Physical Exam: SUBJECTIVE: Patient seen and examined at bedside Appetite continue to improve OBJECTIVE: Vital Signs Period Temp Pulse Resp BP Sys/Peoples Pulse Ox Last 24 Hr 97.8 F-99.3 F 62-88 16-20 98-125/50-66 99-99 GENERAL: The patient is awake, alert, and fully oriented HEAD: Normal with no signs of trauma. EYES: PERRLA EOMI NECK: Trachea midline, full range of motion, supple. LUNGS: Breath sounds equal, clear to auscultation bilaterally, no wheezes, no crackles, no accessory muscle use. HEART: Regular rate and rhythm, S1, S2 without murmur, rub or gallop. ABDOMEN: Soft, morbidly obese, non tender non distended Midline incision with small 1cm opening no drainage NEUROLOGICAL: Cranial nerves II through XII intact. no facial droop or weakness and sensation is intact in the face Normal speech. Sensation of bilateral upper extremities is intact but R>L per patient on exam. RUE: Shoulder abduction, Biceps, and triceps 5/5. right wrist drop noticed on exam. right wrist flexion 4/5 extension 2/5-improved LUE: Shoulder abduction, Biceps, and triceps 5/5. Left wrist drop noticed on exam. left wrist flexion 4/5 extension 2/5 RLE: knee flexion and extension 4/5 hip flexion 4/5. dorsiflexion of ankle 1/5, plantar flexion 4/5 LLE: 5/5 at all joints except ankle dorsiflexion which is 1/5 Sensation slightly decreased in RUE and RLE when compared to LUE and LLE. Biceps reflex not appreciated knee jerk 1+ bilaterally Right calf tenderness: negative for DVT on Duplex US Laboratory Results - last 24 hr 11/28/16 06:30 Sodium 139 Potassium 3.9 Chloride 103 Carbon Dioxide 22 Anion Gap 14 BUN 36 H D Creatinine 0.7 D Creat Clearance w eGFR > 60 Random Glucose 95 Calcium 9.3 Phosphorus 4.2 Magnesium 2.2 Total Bilirubin 0.6 AST 33 ALT 57 Alkaline Phosphatase 108 Total Protein 8.1 Albumin 3.1 L Active Medications Generic Name Dose Route Start Last Admin Trade Name Freq PRN Reason Stop Dose Admin Amlodipine Besylate 10 mg 11/18/16 10:00 11/28/16 10:35 Norvasc - PO 10 mg DAILY [facility] Administration Aspirin 81 mg 11/24/16 10:00 11/28/16 10:34 Ecotrin - PO 81 mg DAILY [facility] Administration Benzocaine/Menthol 1 each 11/14/16 18:38 11/19/16 21:54 Cepacol Lozenge - MM 1 each Q4H PRN Administration SORE THROAT Ergocalciferol 50,000 unit 11/24/16 15:30 11/24/16 18:03 Drisdol - PO 50,000 unit Q7D@1000 [facility] Administration Heparin Sodium (Porcine) 5,000 unit 11/26/16 14:15 11/28/16 05:57 Heparin - SQ 5,000 unit TID [facility] Administration IV Flush 8 ml 11/23/16 13:43 11/28/16 10:35 Picc Line Flush IVPUSH 8 ml PRN PRN Administration Protocol Sodium Chloride 1,000 mls @ 75 mls/hr 11/27/16 12:45 11/27/16 18:09 Normal Saline - IV 75 mls/hr ASDIR [facility] Administration Labetalol HCl 200 mg 11/17/16 10:06 11/28/16 10:34 Normodyne - PO 200 mg BID [facility] Administration Lisinopril 40 mg 11/17/16 10:00 11/28/16 10:34 Prinivil PO 40 mg DAILY [facility] Administration Ondansetron HCl 4 mg 11/13/16 13:51 11/22/16 12:56 Zofran Injection IVPUSH 4 mg Q6H PRN Administration NAUSEA Oxycodone HCl 5 mg 11/24/16 17:19 11/25/16 14:00 Roxicodone - PO 5 mg Q6H PRN Administration PAIN Pantoprazole Sodium 40 mg 11/16/16 14:15 11/28/16 10:35 Protonix - PO 40 mg DAILY [facility] Administration Pramipexole Dihydrochloride 0.25 mg 11/17/16 09:00 11/28/16 10:35 Mirapex - PO 0.25 mg BIDPC [facility] Administration ASSESSMENT/PLAN: 31M with a PMH of morbid obesity presents to the hospital with abdominal pain found to have a perforated appendicitis in the OR. Sepsis secondary to Perforated appendicitis: CT scan initially read as perforated appendicitis the read changed to non perforated appendicitis. Taken to the OR for attempted Laparoscopic appendectomy found to be perforated. Appendix was not able to be visualized as a result was not resected. Patient s/ p laparoscopic drainage and washout of fabi-appendiceal abscess POD #15. 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 possible demyelinating disorder: Guillain-[place] syndrome vs chronic inflammatory demyelinating polyneuropathy vs progressive inflammatory neuropathy vs multifocal motor neuropathy Patient had EMG done today read as diffuse severe axonal sensorimotor polyneuropathy, superimposed severe radial neuropathy, no definite myopathy, fasciculations, or demyelinating process. Will present patient in neurology rounds with Dr. Up today and discuss patient in detail and figure out what is the best next step. Possible LP perhaps Head CT negative patient can not fit in MRI machine states had EMG as outpatient does not know results-called Dr. Hickman's office and he was seen by one of his colleuges had distant history of polyneuropathy had EMG done which showe axonal polyneuropathy unsure how severe it was. "knees buckled" on him 3 times he is very deconditioned from a combination of Class 3 severe super morbid obesity and lack of movement will continue PT consult nurses made aware that they should not ambulate patient without adequate account support rep and he should always have a chair behind him open MRI as outpatient Leukocytosis: resolved off Abx Essential Hypertension: no previous diagnosis per patient but he has been hypertensive in the hospital although pain may be a contributing factor he likely has underlying hypertension Well controlled on this regimen: continue lisinopril 40mg po daily continue norvasc 10mg po daily continue PO labetalol to 200 BID Oral Thrush: stop nystatin swish and swallow diflucan stopped HIV negative Morbid Obesity: s/p sleeve gastrectomy follow up outpatient PPx: HSQ protonix working with PT FEN: NS @ 75ml/hr to meet daily fluid requirement no electrolyte issues- Zinc WNL tpn and regular diet as tolerated Will need subacute rehab facility on discharge Visit type - Emergency Visit Emergency Visit: Yes ED Registration Date: 11/11/16 Care time: The patient presented to the Emergency Department on the above date and was hospitalized for further evaluation of their emergent condition. - New Patient This patient is new to me today: No - Critical Care Critical Care patient: No
--- NOTE | 2016-11-28 13:59 | CONS ---
DATE OF CONSULTATION: 11/28/2016 The patient is a 31-year-old man with past medical history of gastric sleeve performed in August 2016 with more than 100 pounds weight loss, who was originally admitted with abdominal pain, nausea, vomiting. In discussing with the patient, he apparently was having numbness or paresthesias in the distal lower extremities and underwent electric diagnostic studies sometime in early October, or early November prior to admission at a [facility] facility. He was scheduled for follow up, but never did follow up when he developed the above symptoms. He subsequently underwent surgery for rupture of his appendix and drainage of an abscess on November 13 and November 16. He was treated with antibiotics, but he started to notice progressive weakness. He underwent x-ray of his knee, which showed some calcification in the lateral distal femur. Ultrasound of the lower extremities returned negative. He has undergone multiple CAT scans, including a CAT scan of the head on November 14, which was repeated on November 25, both negative. CAT scan of the cervical spine also done November 25 was negative. Patient's blood work has been followed. He has a normal B12 of 709, BUN 49, creatinine 1.3. On the latest blood work, his CBC has remained fairly stable. Initially, on November 11, he had elevated WBCs 11.7, but the last blood work normalized to 8.9. He has a low albumin, but elevated total protein level. Patient does report slight improvement in his weakness, but he was noted by Dr. Up to have bilateral foot drop, as well as reflexes, which were apparently present previously, but had become areflexic and he has bilateral wrist drops. Dr. Up suspected diffuse process, but also noted probable radial neuropathies bilaterally. Patient himself states he was able to extend his leg and this was not present previously and overall he does feel improvement. REVIEW OF PAST MEDICAL AND SURGICAL HISTORY: As above, gastric sleeve surgery with quite a bit of weight loss in the last few months, hypertension. 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 Premobidly, he states he was starting to lose his balance somewhat prior to admission. REVIEW OF SYSTEMS: No current lightheadedness, dizziness, blurry vision, double vision, nausea, vomiting, difficulty swallowing, difficulty chewing. No chest pain or shortness of breath. Did have some abdominal pain, but none currently. No current bowel/bladder incontinence or change. Again he has numbness more in his feet than his hands, weakness diffusely, but much more distally in his wrist and bilateral feet. PHYSICAL EXAMINATION: General: Obese man lying in bed. He was awake, cooperative, friendly and seems to be a fairly good historian. HEENT: Normocephalic, atraumatic. His speech is fluent. Cranial nerves II to XII are grossly intact. He has good strength in the proximal upper extremities, but weakness distally, especially in finger extensors and wrist extensors. Better thenar strength, but still weak in thenar and hypothenar. Patient also has bilateral foot drop, but he is able to elevate his legs off the bed. He has diminished sensation distally in the lower extremities to pinprick, cold temperature, vibration, absent reflexes. Results of EMG/NCS. Please refer to report for details. OVERALL IMPRESSION: 1. Limited study due to the patient's body habitus and multiple peripherally inserted central catheter lines, as well as difficulty with certain position, which affect nerve conduction studies much more than electromyography. 2. Diffuse severe axonal sensory motor polyneuropathy affecting more than sensory. 3. Superimposed radial neuropathy and possibly superimposed peroneal neuropathy. 4. No definite myopathy, no fasciculation seen and no definite demyelinating process. 5. Gait disorder. 6. Ruptured appendix, status post surgery and drainage. 7. Status post gastric sleeve with more than 100 pound weight loss, rule out nutritional deficiency. 8. Hypoalbuminemia. PLAN/SUGGESTION: 1. Would suggest cockup splints for both hands. 2. Neurologic follow up. 3. Continue physical therapy. 4. Search for possible vitamin deficiency. 5. DVT prophylaxis. 6. May benefit from ankle foot orthosis placed in plantar flexion to stabilize his knees. 7. Skin precaution. 8. Bowel precaution. 9. Patient will require inpatient rehabilitation once medically stabilized. 10. Will discuss with Dr. Up from Neurology. Thank you for this referral. PHILOMENA GARRETT M.D. 1 [id number]
[2016-11-28] MEDS: SODIUM CHLORIDE 1,000 ML IV SCH (14:15)
--- NOTE | 2016-11-28 14:32 | PN ---
Progress Note, Physician History of Present Illness: still with left side weakness still not able to open all the fingers - Current Medication List Current Medications: Active Medications Amlodipine Besylate (Norvasc -) 10 mg PO DAILY [facility] Last Admin: 11/28/16 10:35 Dose: 10 mg Aspirin (Ecotrin -) 81 mg PO DAILY [facility] Last Admin: 11/28/16 10:34 Dose: 81 mg Benzocaine/Menthol (Cepacol Lozenge -) 1 each MM Q4H PRN PRN Reason: SORE THROAT Last Admin: 11/19/16 21:54 Dose: 1 each Ergocalciferol (Drisdol -) 50,000 unit PO Q7D@1000 [facility] Last Admin: 11/24/16 18:03 Dose: 50,000 unit Heparin Sodium (Porcine) (Heparin -) 5,000 unit SQ TID [facility] Last Admin: 11/28/16 14:15 Dose: 5,000 unit IV Flush (Picc Line Flush) 8 ml IVPUSH PRN PRN PRN Reason: Protocol Last Admin: 11/28/16 10:35 Dose: 8 ml Sodium Chloride (Normal Saline -) 1,000 mls @ 75 mls/hr IV ASDIR [facility] Last Admin: 11/28/16 14:15 Dose: 75 mls/hr Labetalol HCl (Normodyne -) 200 mg PO BID [facility] Last Admin: 11/28/16 10:34 Dose: 200 mg Lisinopril (Prinivil) 40 mg PO DAILY [facility] Last Admin: 11/28/16 10:34 Dose: 40 mg Ondansetron HCl (Zofran Injection) 4 mg IVPUSH Q6H PRN PRN Reason: NAUSEA Last Admin: 11/22/16 12:56 Dose: 4 mg Oxycodone HCl (Roxicodone -) 5 mg PO Q6H PRN PRN Reason: PAIN Last Admin: 11/25/16 14:00 Dose: 5 mg Pantoprazole Sodium (Protonix -) 40 mg PO DAILY [facility] Last Admin: 11/28/16 10:35 Dose: 40 mg [facility]amipexole [facility] Last Admin: 11/28/16 10:35 Dose: 0.25 mg - Objective Vital Signs: Vital Signs Temperature 98.2 F 11/28/16 13:58 Pulse Rate 68 11/28/16 13:58 Respiratory Rate 16 11/28/16 13:58 Blood Pressure 96/46 11/28/16 13:58 O2 Sat by Pulse Oximetry (%) 99 11/28/16 11:00 Constitutional: Yes: No Distress, Calm Cardiovascular: Yes: Regular Rate and Rhythm Respiratory: Yes: Regular, CTA Bilaterally Gastrointestinal: Yes: Normal Bowel Sounds, Soft Musculoskeletal: Yes: WNL Extremities: Yes: WNL Neurological: Yes: Alert, Oriented, Other (left sided weakness) Labs: CBC, BMP 11/24/16 06:30 11/28/16 06:30 INR, PTT INR 1.54 (0.82-1.09) H 11/13/16 06:15 Assessment/Plan ac appendicitis morbid obesity oral thrush abd abscess nausea vomiting wbc increasing plan stable off of abx continue to monitor continue as per neurology continue to monitor for weakness
--- NOTE | 2016-11-28 14:43 | PN ---
Progress Note, Physician History of Present Illness: Pt seen and examined at bedside. He is says that he is starting to tolerate food a little more. - Current Medication List Current Medications: Active Medications Amlodipine Besylate (Norvasc -) 10 mg PO DAILY [facility] Last Admin: 11/28/16 10:35 Dose: 10 mg Aspirin (Ecotrin -) 81 mg PO DAILY [facility] Last Admin: 11/28/16 10:34 Dose: 81 mg Benzocaine/Menthol (Cepacol Lozenge -) 1 each MM Q4H PRN PRN Reason: SORE THROAT Last Admin: 11/19/16 21:54 Dose: 1 each Ergocalciferol (Drisdol -) 50,000 unit PO Q7D@1000 [facility] Last Admin: 11/24/16 18:03 Dose: 50,000 unit Heparin Sodium (Porcine) (Heparin -) 5,000 unit SQ TID [facility] Last Admin: 11/28/16 14:15 Dose: 5,000 unit IV Flush (Picc Line Flush) 8 ml IVPUSH PRN PRN PRN Reason: Protocol Last Admin: 11/28/16 10:35 Dose: 8 ml Sodium Chloride (Normal Saline -) 1,000 mls @ 75 mls/hr IV ASDIR [facility] Last Admin: 11/28/16 14:15 Dose: 75 mls/hr Labetalol HCl (Normodyne -) 200 mg PO BID [facility] Last Admin: 11/28/16 10:34 Dose: 200 mg Lisinopril (Prinivil) 40 mg PO DAILY [facility] Last Admin: 11/28/16 10:34 Dose: 40 mg Ondansetron HCl (Zofran Injection) 4 mg IVPUSH Q6H PRN PRN Reason: NAUSEA Last Admin: 11/22/16 12:56 Dose: 4 mg Oxycodone HCl (Roxicodone -) 5 mg PO Q6H PRN PRN Reason: PAIN Last Admin: 11/25/16 14:00 Dose: 5 mg Pantoprazole Sodium (Protonix -) 40 mg PO DAILY [facility] Last Admin: 11/28/16 10:35 Dose: 40 mg Pramipexole Dihydrochloride ([facility] -) [facility] Last Admin: 11/28/16 10:35 Dose: 0.25 mg - Objective Vital Signs: Vital Signs Temperature 98.2 F 11/28/16 13:58 Pulse Rate 68 11/28/16 13:58 Respiratory Rate 16 11/28/16 13:58 Blood Pressure 96/46 11/28/16 13:58 O2 Sat by Pulse Oximetry (%) 99 11/28/16 11:00 Constitutional: Yes: Calm Eyes: Yes: Conjunctiva Clear Cardiovascular: Yes: S1, S2 Respiratory: Yes: CTA Bilaterally Gastrointestinal: Yes: Soft, Abdomen, Obese Genitourinary: Yes: WNL Musculoskeletal: Yes: WNL Edema: Yes Edema: LLE: Trace, RLE: Trace Neurological: Yes: Oriented Psychiatric: Yes: Oriented Labs: CBC, BMP 11/24/16 06:30 11/28/16 06:30 INR, PTT INR 1.54 (0.82-1.09) H 11/13/16 06:15 Problem List - Problems (1) Perforated appendicitis Code(s): K35.2 - ACUTE APPENDICITIS WITH GENERALIZED PERITONITIS (2) Hyponatremia Code(s): E87.1 - HYPO-OSMOLALITY AND HYPONATREMIA (3) Malnutrition Code(s): E46 - UNSPECIFIED PROTEIN-CALORIE MALNUTRITION Assessment/Plan Current Medications Generic Name Dose Route Start Last Admin Trade Name Freq PRN Reason Stop Dose Admin Amlodipine Besylate 10 mg 11/18/16 10:00 11/28/16 10:35 Norvasc - PO 10 mg DAILY [facility] Administration Aspirin 81 mg 11/24/16 10:00 11/28/16 10:34 Ecotrin - PO 81 mg DAILY [facility] Administration Benzocaine/Menthol 1 each 11/14/16 18:38 11/19/16 21:54 Cepacol Lozenge - MM 1 each Q4H PRN Administration SORE THROAT Ergocalciferol 50,000 unit 11/24/16 15:30 11/24/16 18:03 Drisdol - PO 50,000 unit Q7D@1000 [facility] Administration Heparin Sodium (Porcine) 5,000 unit 11/26/16 14:15 11/28/16 14:15 Heparin - SQ 5,000 unit TID [facility] Administration IV Flush 8 ml 11/23/16 13:43 11/28/16 10:35 Picc Line Flush IVPUSH 8 ml PRN PRN Administration Protocol Sodium Chloride 1,000 mls @ 75 mls/hr 11/27/16 12:45 11/28/16 14:15 Normal Saline - IV 75 mls/hr ASDIR [facility] Administration Labetalol HCl 200 mg 11/17/16 10:06 11/28/16 10:34 Normodyne - PO 200 mg BID [facility] Administration Lisinopril 40 mg 11/17/16 10:00 11/28/16 10:34 Prinivil PO 40 mg DAILY [facility] Administration Ondansetron HCl 4 mg 11/13/16 13:51 11/22/16 12:56 Zofran Injection IVPUSH 4 mg Q6H PRN Administration NAUSEA Oxycodone HCl 5 mg 11/24/16 17:19 11/25/16 14:00 Roxicodone - PO 5 mg Q6H PRN Administration PAIN Pantoprazole Sodium 40 mg 11/16/16 14:15 11/28/16 10:35 Protonix - PO 40 mg DAILY [facility] Administration Pramipexole Dihydrochloride 0.25 mg 11/17/16 09:00 11/28/16 10:35 Mirapex - PO 0.25 mg BIDPC [facility] Administration Impression 1. complicated appendicitis 2. malnutrition 3. hyponatremia 4. obesity 5. HTN 6. anemia Plan - pt is starting to tolerated PO intake - will stop TPN for now - if PO intake worsens then will restart PO - consider clinimix instead of normal saline - monitory lytes - will follow PRN Dr Mondragon
[2016-11-28] MEDS: MULTIVITAMINS THER W-MINERALS COMBO TABLET (FP) PO SCH (19:17)
--- NOTE | 2016-11-28 19:35 | PN ---
Teaching Attending Note Name of Resident: Ramon Reynoso ATTENDING PHYSICIAN STATEMENT I saw and evaluated the patient. I reviewed the resident's note and discussed the case with the resident. I agree with the resident's findings and plan as documented. SUBJECTIVE: no fever or chills. OBJECTIVE: NAD , lying in bed, AAOX3 CV : RRR Lungs : CTAB ext : no edema Abd : morbidly obese, NL BS , no TTP , mid line abd surgical scar with very small open area ( 1 cm ) with no discharge or surrounding erythema NEuro : Awake and alert , oriented. no facial droop, . round equal pupils , reactive to light . nl facial sensation Strength: RUE : shoulder abduction 5/5 , Biceps 5/5 , triceps 5/5 , hand assistant distribution manager 4/5, R wrist drop, wrist flexion 4/5 , wrist extension 3/5 , flexion of 3rd and 4th fingers LUE : shoulder abduction 5/5 , Biceps 5/5 , triceps 5/5 , hand assistant distribution manager 4/5, L wrist drop, wrist flexion 4/5 , wrist extension 3/5 ,flexion of 3rd and 4th fingers RLE : hip flexion 3/5, knee flexion 5/5, knee extension 5/5 , Ankle dorsiflecxion 1/5, ankle plantar flexion 5/5 LLE: hip flexion 5/5, knee flexion 5/5, knee extension 5/5 , Ankle dorsiflecxion 1/5, ankle plantar flexion 5/5 Reflexes: 1+ L knee jerk, 0 R knee jerk . biceps 0 b/l Sensation: decreased to light touch in R upper and Lower ext. Assessment and plan: 31 y/o male with h/o Morbid obesity, s/p gastric sleeve sx in Aug 2016 who presented with Abd pain and was found to have ruptured appendix. 1- Complicated Appendicitis with rupture and fabi-appendicial abscess. s/p laparoscopic RIVERA drainage of the abscess on 11/13 - Encourage po intake - Cont IVF. probably dc tomorrow - cont TPN . 2- Peripheral neuropathy ( motor and sensory ) . with resultant distal weakness. Case was d/w Dr. Up in details.High suspicion for nutrition deficiency after gastric sleeve surgery . unlikely [facility] or [facility] - Recs to continue TPN as much as possible even after dc to Rehab - will place order to IR for LP - dc aspirin - check selenium level 3- HTN: cont BP meds 5- Vit D deficiency: cont Vit D weekly Dispo : [facility]
[2016-11-28] MEDS ORDERED: MULTIVIT INJECTION ADULT 10 ML in AMINO ACIDS 4.25%/D5W 1,000 ML IV SCH (19:45)
--- NOTE | 2016-11-28 20:48 | PN ---
Progress Note (short form) - Note Progress Note: As per Dr. Goldberg's recommendation, stopped Aspirin 81 mg PO.
[2016-11-28] MEDS: AMINO ACIDS 4.25%/D5W 1,000 ML IV SCH (22:50)
[2016-11-29] MEDS: SODIUM CHLORIDE 1,000 ML IV SCH ×2 (05:30→15:17)
[2016-11-29 06:06] LABS: IgG P18 Present (.); IgG P23 Absent (.); IgG P28 Absent (.); IgG P30 Absent (.); IgG P39 Absent (.); IgG P41 Present (.); IgG P45 Present (.); IgG P58 Absent (.); IgG P66 Present (.); IgG P93 Absent (.); IgM P23 Present (.); IgM P39 Absent (.); IgM P41 Absent (.); LYME IGM WB INTERPRE Negative (.)
[2016-11-29] MEDS: HEPARIN NA (PORCINE) 5,000 UNITS/ML 1ML VIAL SQ SCH ×3 (06:26→21:46)
[2016-11-29 08:19] LABS: MCH 28.5 pg (25.7-33.7); MEAN CELL VOLUME 86.4 fl (80-96); MEAN PLT VOLUME 7.3 fl (7.5-11.1); PLATELET COUNT 369 K/MM3 (134-434); RDW 18.5 % (11.9-15.9); WHITE BLOOD COUNT 6.1 K/mm3 (4.0-10.0)
[2016-11-29 08:31] LABS: ALBUMIN 2.9 g/dl (3.4-5.0); ANION GAP 11 (8-16); BILIRUBIN,DIRECT 0.3 mg/dL (0.0-0.2); CO2 24 mmol/L (21-32); CREATININE 0.6 mg/dL (0.7-1.3); GLUCOSE,RANDOM 90 mg/dL (74-106); MAGNESIUM 1.9 mg/dL (1.8-2.4); SGOT/AST 34 U/L (15-37); SGPT/ALT 59 U/L (12-78)
[2016-11-29 08:34] LABS: ALK PHOS 110 U/L (45-117); BILIRUBIN,TOTAL 0.6 mg/dL (0.2-1.0); TOT PROT 7.6 g/dl (6.4-8.2)
[2016-11-29 08:35] LABS: C-REACTIVE PROTEIN 4.6 MG/DL (0.00-0.3)
[2016-11-29] MEDS ORDERED: PT OWN MED DRAWER 7, Y5N ONE ×2 (10:14→19:08)
[2016-11-29] MEDS: amLODIPine BESYLATE 10 MG TABLET (FP) PO SCH (10:18)
[2016-11-29] MEDS: AMINO ACIDS 4.25%/D5W 1,000 ML IV SCH (10:18)
[2016-11-29] MEDS: MULTIVITAMINS THER W-MINERALS COMBO TABLET (FP) PO SCH (10:18)
[2016-11-29] MEDS: LISINOPRIL 20 MG TABLET (FP) PO SCH (10:18)
[2016-11-29] MEDS: LABETALOL HCL 200 MG TABLET (FP) PO SCH ×2 (10:18→21:46)
[2016-11-29] MEDS: PRAMIPEXOLE DIHYDROCHLORIDE 0.25 MG TABLET PO SCH ×2 (10:18→19:14)
[2016-11-29] MEDS: PANTOPRAZOLE 40 MG TABLET (FP) PO SCH (10:18)
[2016-11-29] MEDS: MULTIVIT INJ. ADULT COMBO WITH VIT K 1 COMBO 10 ML VIAL IV SCH ×2 (10:19→11:44)
[2016-11-29] MEDS: oxyCODONE HCL 5 MG TABLET PO PRN (10:28)
--- NOTE | 2016-11-29 11:04 | PN ---
Progress Note, Physician History of Present Illness: Pt seen and examined at bedside. He is awake and alert. He says he walked about 20 steps today. I was called by the medical team to restart TPN yesterday. He is not tolerating all of his meals. - Current Medication List Current Medications: Active Medications Amlodipine Besylate (Norvasc -) 10 mg PO DAILY [facility] Last Admin: 11/29/16 10:18 Dose: 10 mg Benzocaine/Menthol (Cepacol Lozenge -) 1 each MM Q4H PRN PRN Reason: SORE THROAT Last Admin: 11/19/16 21:54 Dose: 1 each Ergocalciferol (Drisdol -) 50,000 unit PO Q7D@1000 [facility] Last Admin: 11/24/16 18:03 Dose: 50,000 unit Heparin Sodium (Porcine) (Heparin -) 5,000 unit SQ TID [facility] Last Admin: 11/29/16 06:26 Dose: 5,000 unit IV Flush (Picc Line Flush) 8 ml IVPUSH PRN PRN PRN Reason: Protocol Last Admin: 11/28/16 10:35 Dose: 8 ml Sodium Chloride (Normal Saline -) 1,000 mls @ 75 mls/hr IV ASDIR [facility] Last Admin: 11/29/16 05:30 Dose: 75 mls/hr Amino Acids (Clinimix -) 1,000 mls @ 84 mls/hr IV Q12H [facility] Last Admin: 11/29/16 10:18 Dose: 84 mls/hr Labetalol HCl (Normodyne -) 200 mg PO BID [facility] Last Admin: 11/29/16 10:18 Dose: 200 mg Lisinopril (Prinivil) 40 mg PO DAILY [facility] Last Admin: 11/29/16 10:18 Dose: 40 mg Multivitamins/Minerals (Theragran-M) 1 each PO DAILY [facility] Last Admin: 11/29/16 10:18 Dose: 1 each Multivitamins/Minerals (Infuvite Adult -) 10 ml IV DAILY [facility] Ondansetron HCl (Zofran Injection) 4 mg IVPUSH Q6H PRN PRN Reason: NAUSEA Last Admin: 11/22/16 12:56 Dose: 4 mg Oxycodone HCl (Roxicodone -) 5 mg PO Q6H PRN PRN Reason: PAIN Last Admin: 11/29/16 10:28 Dose: 5 mg Pantoprazole Sodium (Protonix -) 40 mg PO DAILY [facility] Last Admin: 11/29/16 10:18 Dose: 40 mg Pramipexole Dihydrochloride (Mirapex -) 0.25 mg PO BIDPC [facility] Last Admin: 11/29/16 10:18 Dose: 0.25 mg - Objective Vital Signs: Vital Signs Temperature 98.7 F 11/29/16 07:35 Pulse Rate 67 11/29/16 10:22 Respiratory Rate 20 11/29/16 07:35 Blood Pressure 122/48 11/29/16 07:35 O2 Sat by Pulse Oximetry (%) 98 11/29/16 10:22 Constitutional: Yes: Calm Eyes: Yes: Conjunctiva Clear HENT: Yes: Atraumatic Neck: Yes: Supple Cardiovascular: Yes: S1, S2 Respiratory: Yes: CTA Bilaterally Gastrointestinal: Yes: Soft, Abdomen, Obese Genitourinary: Yes: WNL Musculoskeletal: Yes: Muscle Weakness Edema: Yes Edema: LLE: Trace, RLE: Trace Neurological: Yes: Oriented Psychiatric: Yes: Oriented Labs: CBC, BMP 11/29/16 06:00 11/29/16 06:00 INR, PTT INR 1.54 (0.82-1.09) H 11/13/16 06:15 Problem List - Problems (1) Perforated appendicitis Code(s): K35.2 - ACUTE APPENDICITIS WITH GENERALIZED PERITONITIS (2) Hyponatremia Code(s): E87.1 - HYPO-OSMOLALITY AND HYPONATREMIA (3) Malnutrition Code(s): E46 - UNSPECIFIED PROTEIN-CALORIE MALNUTRITION Assessment/Plan Current Medications Generic Name Dose Route Start Last Admin Trade Name Freq PRN Reason Stop Dose Admin Amlodipine Besylate 10 mg 11/18/16 10:00 11/29/16 10:18 Norvasc - PO 10 mg DAILY [facility] Administration Benzocaine/Menthol 1 each 11/14/16 18:38 11/19/16 21:54 Cepacol Lozenge - MM 1 each Q4H PRN Administration SORE THROAT Ergocalciferol 50,000 unit 11/24/16 15:30 11/24/16 18:03 Drisdol - PO 50,000 unit Q7D@1000 [facility] Administration Heparin Sodium (Porcine) 5,000 unit 11/26/16 14:15 11/29/16 06:26 Heparin - SQ 5,000 unit TID [facility] Administration IV Flush 8 ml 11/23/16 13:43 11/28/16 10:35 Picc Line Flush IVPUSH 8 ml PRN PRN Administration Protocol Sodium Chloride 1,000 mls @ 75 mls/hr 11/27/16 12:45 11/29/16 05:30 Normal Saline - IV 75 mls/hr ASDIR [facility] Administration Amino Acids 1,000 mls @ 84 mls/hr 11/28/16 22:00 11/29/16 10:18 Clinimix - IV 84 mls/hr Q12H [facility] Administration Labetalol HCl 200 mg 11/17/16 10:06 11/29/16 10:18 Normodyne - PO 200 mg BID [facility] Administration Lisinopril 40 mg 11/17/16 10:00 11/29/16 10:18 Prinivil PO 40 mg DAILY [facility] Administration Multivitamins/Minerals 1 each 11/28/16 18:45 11/29/16 10:18 Theragran-M PO 1 each DAILY [facility] Administration Multivitamins/Minerals 10 ml 11/29/16 10:00 Infuvite Adult - IV DAILY [facility] Ondansetron HCl 4 mg 11/13/16 13:51 11/22/16 12:56 Zofran Injection IVPUSH 4 mg Q6H PRN Administration NAUSEA Oxycodone HCl 5 mg 11/24/16 17:19 11/29/16 10:28 Roxicodone - PO 5 mg Q6H PRN Administration PAIN Pantoprazole Sodium 40 mg 11/16/16 14:15 11/29/16 10:18 Protonix - PO 40 mg DAILY [facility] Administration Pramipexole Dihydrochloride 0.25 mg 11/17/16 09:00 11/29/16 10:18 Mirapex - PO 0.25 mg BIDPC [place] Administration Laboratory Tests 11/22/16 11/29/16 11/29/16 12:45 06:00 06:00 Serum Copper Pending Selenium Pending Zinc 78 HANNAH Screen Pending Double Strand DNA Ab Pending Impression 1. complicated appendicitis 2. malnutrition 3. hyponatremia 4. obesity 5. HTN 6. anemia Plan - will restart TPN - discussed with medical team - neuro workup in progress, possible neuropathy from malnutrition - cont MVI - follow up copper and selenium levels - pt feels that he is getting stronger - can stop saline - jerry Mondragon
--- NOTE | 2016-11-29 11:31 | PN ---
Progress Note (short form) - Note Progress Note: NEUROLOGY FOLLOW-UP: Patient discussed in detail and examined in Neurology [place] yesterday evening with Dr. Goldberg in attendance. EMG/NVS data reviewed and discussed with Dr. Jesus. Patent now on TPN and notes some improvement in Right proximal leg strength and use of his hands. Exam shows marked distal weakness (all groups 2-3/5 except plantarflexion 4/5) Proximal strength is normal in all groups except R hip and knee extension (3/5). Trace biceps reflexes otherwise areflexic. Decreased vibration in feet and sharp to distal calf. EMG/NCS confirms the presence of a severe, predominant motor, peripheral neuropathy with axonal, not demyelinating, features. IMP: The presentation and electrophysiology are most consistent with the presumably nutritional subacute neuropathy seen after bariatric surgery. Less likely would be a (rare) axonal form of GBS. 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 The causes of this are predominantly vasculitic/CVD. Suggest: Consider LP under radiographic guidance for CSF protein, IgG, etc. Check Copper levels, B12, ESR, CRP, HANNAH, RF, SS-A, SS-B, SPEP, IPEP and quantitative immunoglobulins. Continue TPN !! Agressive PT for mobilization and Rehab placement DVT prophylaxis. Thank you very much, Nii Up MD
--- NOTE | 2016-11-29 14:03 | PN ---
Progress Note, Physician Chief Complaint: weakness History of Present Illness: tolerating 80% post sleeve gastrectomy diet. tolerating liquids better. no abd pain. - Current Medication List Current Medications: Active Medications Amlodipine Besylate (Norvasc -) 10 mg PO DAILY [facility] Last Admin: 11/29/16 10:18 Dose: 10 mg Benzocaine/Menthol (Cepacol Lozenge -) 1 each MM Q4H PRN PRN Reason: SORE THROAT Last Admin: 11/19/16 21:54 Dose: 1 each Ergocalciferol (Drisdol -) 50,000 unit PO Q7D@1000 [facility] Last Admin: 11/24/16 18:03 Dose: 50,000 unit Heparin Sodium (Porcine) (Heparin -) 5,000 unit SQ TID [facility] Last Admin: 11/29/16 06:26 Dose: 5,000 unit IV Flush (Picc Line Flush) 8 ml IVPUSH PRN PRN PRN Reason: Protocol Last Admin: 11/28/16 10:35 Dose: 8 ml Sodium Chloride (Normal Saline -) 1,000 mls @ 75 mls/hr IV ASDIR [facility] Last Admin: 11/29/16 05:30 Dose: 75 mls/hr Amino Acids (Clinimix -) 1,000 mls @ 84 mls/hr IV Q12H [facility] Last Admin: 11/29/16 10:18 Dose: 84 mls/hr Labetalol HCl (Normodyne -) 200 mg PO BID [facility] Last Admin: 11/29/16 10:18 Dose: 200 mg Lisinopril (Prinivil) 40 mg PO DAILY [facility] Last Admin: 11/29/16 10:18 Dose: 40 mg Multivitamins/Minerals (Theragran-M) 1 each PO DAILY [facility] Last Admin: 11/29/16 10:18 Dose: 1 each Multivitamins/Minerals (Infuvite Adult -) 10 ml IV DAILY [facility] Last Admin: 11/29/16 11:44 Dose: 10 ml Ondansetron HCl (Zofran Injection) 4 mg IVPUSH Q6H PRN PRN Reason: NAUSEA Last Admin: 11/22/16 12:56 Dose: 4 mg Oxycodone HCl (Roxicodone -) 5 mg PO Q6H PRN PRN Reason: PAIN Last Admin: 11/29/16 10:28 Dose: 5 mg Pantoprazole Sodium (Protonix -) 40 mg PO DAILY [facility] Last Admin: 11/29/16 10:18 Dose: 40 mg Pramipexole Dihydrochloride (Mirapex -) 0.25 mg PO BIDPC [facility] Last Admin: 11/29/16 10:18 Dose: 0.25 mg - Objective Vital Signs: Vital Signs Temperature 98.7 F 11/29/16 07:35 Pulse Rate 67 11/29/16 10:22 Respiratory Rate 20 11/29/16 07:35 Blood Pressure 122/48 11/29/16 07:35 O2 Sat by Pulse Oximetry (%) 98 11/29/16 10:22 Constitutional: Yes: No Distress, Calm Eyes: Yes: Conjunctiva Clear, EOM Intact HENT: Yes: Atraumatic, Normocephalic Neck: Yes: Supple, Trachea Midline Cardiovascular: Yes: Regular Rate and Rhythm Respiratory: Yes: Regular, CTA Bilaterally Gastrointestinal: Yes: Soft. No: Distention, Tenderness ...Rectal Exam: Yes: Deferred Genitourinary: No: CVA Tenderness - Left, CVA Tenderness - Right Breast(s): No: Nipple Inversion, Skin Changes Musculoskeletal: No: Joint Stiffness, Joint Swelling Extremities: No: Calf Tenderness, Erythema Integumentary: No: Erythema, Rash Neurological: Yes: Alert, Oriented Psychiatric: Yes: Alert, Oriented Labs: CBC, BMP 11/29/16 06:00 11/29/16 06:00 INR, PTT INR 1.54 (0.82-1.09) H 11/13/16 06:15 Problem List - Problems (1) Perforated appendicitis Assessment/Plan: s/p lap drainage abscess PO intake improved can wean off TPN from general surgery standpoint but defer to neurology for now maybe he can get oral supplementation of trace materials/nutrients? patient had a restrictive surgical procedure and not a malabsorbtive one so I think we can try his gut to replace his nutrients if patient can tolerate Code(s): K35.2 - ACUTE APPENDICITIS WITH GENERALIZED PERITONITIS
[2016-11-29] MEDS: MULTIVIT IV SCH (15:17)
[2016-11-29] MEDS: [UNRECOGNIZED DRUG - OTHER] IV SCH (15:17)
[2016-11-29] MEDS: WATER FOR INJ STERILE IV SCH (15:17)
--- NOTE | 2016-11-29 15:32 | PN ---
Progress Note, Physician History of Present Illness: patient stable able to tolerate by mouth a bit better left sided weakness improving still fingers of left hand contracted - Current Medication List Current Medications: Active Medications Amlodipine Besylate (Norvasc -) 10 mg PO DAILY [facility] Last Admin: 11/29/16 10:18 Dose: 10 mg Benzocaine/Menthol (Cepacol Lozenge -) 1 each MM Q4H PRN PRN Reason: SORE THROAT Last Admin: 11/19/16 21:54 Dose: 1 each Ergocalciferol (Drisdol -) 50,000 unit PO Q7D@1000 [facility] Last Admin: 11/24/16 18:03 Dose: 50,000 unit Heparin Sodium (Porcine) (Heparin -) 5,000 unit SQ TID [facility] Last Admin: 11/29/16 15:16 Dose: 5,000 unit IV Flush (Picc Line Flush) 8 ml IVPUSH PRN PRN PRN Reason: Protocol Last Admin: 11/28/16 10:35 Dose: 8 ml Multivitamins/Minerals 10 ml/Sterile Water/ Amino Acids/Dextrose 1,200 mls @ 50 mls/hr IV DAILY@1600 [facility] Last Admin: 11/29/16 15:17 Dose: 50 mls/hr Fat Emulsion Intravenous (Intralipid -) 250 mls @ 20.833 mls/hr IV DAILY@2200 [facility] Sodium Chloride (Normal Saline -) 1,000 mls @ 50 mls/hr IV ASDIR [facility] Last Admin: 11/29/16 15:17 Dose: 50 mls/hr Labetalol HCl (Normodyne -) 200 mg PO BID [facility] Last Admin: 11/29/16 10:18 Dose: 200 mg Lisinopril (Prinivil) 40 mg PO DAILY [facility] Last Admin: 11/29/16 10:18 Dose: 40 mg Multivitamins/Minerals (Theragran-M) 1 each PO DAILY [facility] Last Admin: 11/29/16 10:18 Dose: 1 each Ondansetron HCl (Zofran Injection) 4 mg IVPUSH Q6H PRN PRN Reason: NAUSEA Last Admin: 11/22/16 12:56 Dose: 4 mg Oxycodone HCl (Roxicodone -) 5 mg PO Q6H PRN PRN Reason: PAIN Last Admin: 11/29/16 10:28 Dose: 5 mg Pantoprazole Sodium (Protonix -) 40 mg PO DAILY [facility] Last Admin: 11/29/16 10:18 Dose: 40 mg Pramipexole Dihydrochloride (Mirapex -) 0.25 mg PO BIDPC [facility] Last Admin: 11/29/16 10:18 Dose: 0.25 mg - Objective Vital Signs: Vital Signs Temperature 98.4 F 11/29/16 14:32 Pulse Rate 70 11/29/16 14:32 Respiratory Rate 16 11/29/16 14:32 Blood Pressure 110/53 11/29/16 14:32 O2 Sat by Pulse Oximetry (%) 98 11/29/16 10:22 Constitutional: Yes: No Distress, Calm, Obese Cardiovascular: Yes: Regular Rate and Rhythm Respiratory: Yes: Regular, CTA Bilaterally Gastrointestinal: Yes: Normal Bowel Sounds, Soft Musculoskeletal: Yes: Other Extremities: Yes: Other Neurological: Yes: Alert, Oriented Psychiatric: Yes: Alert, Oriented Labs: CBC, BMP 11/29/16 06:00 11/29/16 06:00 INR, PTT INR 1.54 (0.82-1.09) H 11/13/16 06:15 Assessment/Plan ac appendicitis morbid obesity oral thrush abd abscess nausea vomiting wbc increasing plan stable off of abx continue to monitor continue as per neurology continue to monitor for weakness continue tpn
--- NOTE | 2016-11-29 16:04 | PN ---
Physical Exam: SUBJECTIVE: Patient seen and examined at bedside feels stronger today patient discussed in setail at neurology grand rounds see Dr. Up's note from 11/29/16 with grand rounds explanation OBJECTIVE: Vital Signs Period Temp Pulse Resp BP Sys/Peoples Pulse Ox Last 24 Hr 98.4 F-99.4 F 66-72 16-20 98-122/48-61 98-99 GENERAL: The patient is awake, alert, and fully oriented HEAD: Normal with no signs of trauma. EYES: PERRLA EOMI NECK: Trachea midline, full range of motion, supple. LUNGS: Breath sounds equal, clear to auscultation bilaterally, no wheezes, no crackles, no accessory muscle use. HEART: Regular rate and rhythm, S1, S2 without murmur, rub or gallop. ABDOMEN: Soft, morbidly obese, non tender non distended Midline incision with small 1cm opening no drainage NEUROLOGICAL: Cranial nerves II through XII intact. no facial droop or weakness and sensation is intact in the face Normal speech. Sensation of bilateral upper extremities is intact but R>L per patient on exam. RUE: Shoulder abduction, Biceps, and triceps 5/5. right wrist drop noticed on exam. right wrist flexion 4/5 extension 3/5- LUE: Shoulder abduction, Biceps, and triceps 5/5. Left wrist drop noticed on exam. left wrist flexion 4/5 extension 3/5 RLE: knee flexion and extension 4/5 hip flexion 4/5. dorsiflexion of ankle 1/5, plantar flexion 4/5 LLE: 5/5 at all joints except ankle dorsiflexion which is 1/5 Sensation slightly decreased in RUE and RLE when compared to LUE and LLE. Biceps reflex not appreciated knee jerk 0 bilaterally Right calf tenderness: negative for DVT on Duplex US Laboratory Results - last 24 hr 11/26/16 11/29/16 11/29/16 06:30 06:00 06:00 WBC 6.1 D RBC 3.41 L Hgb 9.7 L D Hct 29.5 L MCV 86.4 MCHC 33.0 RDW 18.5 H Plt Count 369 MPV 7.3 L ESR Sodium 139 Potassium 3.9 Chloride 104 Carbon Dioxide 24 Anion Gap 11 BUN 27 H D Creatinine 0.6 L Creat Clearance w eGFR > 60 Random Glucose 90 Calcium 9.0 Phosphorus 4.0 Magnesium 1.9 Total Bilirubin 0.6 Direct Bilirubin 0.3 H D AST 34 ALT 59 Alkaline Phosphatase 110 C-Reactive Protein Total Protein 7.6 Albumin 2.9 L Triglycerides 163 H Rheumatoid Factor Lyme Screen IgG & IgM 1.47 H Lyme IgM (Western Blot) Negative 11/29/16 11/29/16 06:00 06:00 WBC RBC Hgb Hct MCV MCHC RDW Plt Count MPV ESR 100 H Sodium Potassium Chloride Carbon Dioxide Anion Gap BUN Creatinine Creat Clearance w eGFR Random Glucose Calcium Phosphorus Magnesium Total Bilirubin Direct Bilirubin AST ALT Alkaline Phosphatase C-Reactive Protein 4.6 H Total Protein Albumin Triglycerides Rheumatoid Factor < 10.0 Lyme Screen IgG & IgM Lyme IgM (Western Blot) Active Medications Generic Name Dose Route Start Last Admin Trade Name Freq PRN Reason Stop Dose Admin Amlodipine Besylate 10 mg 11/18/16 10:00 11/29/16 10:18 Norvasc - PO 10 mg DAILY [facility] Administration Benzocaine/Menthol 1 each 11/14/16 18:38 11/19/16 21:54 Cepacol Lozenge - MM 1 each Q4H PRN Administration SORE THROAT Ergocalciferol 50,000 unit 11/24/16 15:30 11/24/16 18:03 Drisdol - PO 50,000 unit Q7D@1000 [facility] Administration Heparin Sodium (Porcine) 5,000 unit 11/26/16 14:15 11/29/16 15:16 Heparin - SQ 5,000 unit TID [facility] Administration IV Flush 8 ml 11/23/16 13:43 11/28/16 10:35 Picc Line Flush IVPUSH 8 ml PRN PRN Administration Protocol Multivitamins/Minerals 10 ml/ 1,200 mls @ 50 mls/hr 11/29/16 16:00 11/29/16 15: 17 Sterile Water/ Amino Acids/ IV 50 mls/hr Dextrose DAILY@1600 [facility] Administration Fat Emulsion Intravenous 250 mls @ 20.833 mls/hr 11/29/16 22:00 Intralipid - IV DAILY@2200 [facility] Sodium Chloride 1,000 mls @ 50 mls/hr 11/29/16 15:00 11/29/16 15:17 Normal Saline - IV 50 mls/hr ASDIR [facility] Administration Labetalol HCl 200 mg 11/17/16 10:06 11/29/16 10:18 Normodyne - PO 200 mg BID [facility] Administration Lisinopril 40 mg 11/17/16 10:00 11/29/16 10:18 Prinivil PO 40 mg DAILY [facility] Administration Multivitamins/Minerals 1 each 11/28/16 18:45 11/29/16 10:18 Theragran-M PO 1 each DAILY [facility] Administration Ondansetron HCl 4 mg 11/13/16 13:51 11/22/16 12:56 Zofran Injection IVPUSH 4 mg Q6H PRN Administration NAUSEA Oxycodone HCl 5 mg 11/24/16 17:19 11/29/16 10:28 Roxicodone - PO 5 mg Q6H PRN Administration PAIN Pantoprazole Sodium 40 mg 11/16/16 14:15 11/29/16 10:18 Protonix - PO 40 mg DAILY [facility] Administration Pramipexole Dihydrochloride 0.25 mg 11/17/16 09:00 11/29/16 10:18 Mirapex - PO 0.25 mg BIDPC [place] Administration ASSESSMENT/PLAN: 31M with a PMH of morbid obesity presents to the hospital with abdominal pain found to have a perforated appendicitis in the OR. Sepsis secondary to Perforated appendicitis: CT scan initially read as perforated appendicitis the read changed to non perforated appendicitis. Taken to the OR for attempted Laparoscopic appendectomy found to be perforated. Appendix was not able to be visualized as a result was not resected. Patient s/ p laparoscopic drainage and washout of fabi-appendiceal abscess POD #16. CT scan did not show any worsening pathology abscess moved more medial appendix not visualized ID consult appreciated- HIV test negative surgery consult appreciated recommendations noted stopped Zosyn on day 13 able to tolerate diet more today- about 80% of post gastrectomy diet per surgery RIVERA drain d/c'ed by Surgery cultures-negative final pain control repeat RUQ US show cholelithiasis without cholecystitis and diffuse fatty infiltration of liver nephrology consult appreciated - on TPN will continue S/P PICC by IR will hold off on surgery for now f/u HIDA scan-negative Protein calorie malnutrition: Dietary/fur repairer consult appreciated will give IVF for dehydration will continue TPN for now Vitamin D deficiency: continue Vit D 50,000 units Q7Days Transaminitis: resolved likely secondary to diffuse fatty liver infiltration Dehydration: as was indicated by BUN/Cr continue IVF at current rate for now Right sided numbness and weakness: polyneuropathy. possible demyelinating disorder: Guillain-Shasta syndrome vs chronic inflammatory demyelinating polyneuropathy vs progressive inflammatory neuropathy vs multifocal motor neuropathy Patient had EMG done read as diffuse severe axonal sensorimotor polyneuropathy, superimposed severe radial neuropathy, no definite myopathy, fasciculations, or demyelinating process. s/p presentation of this patient in neurology grand rounds last night discussed in dewtail please see Dr. Up's note dated 11/29/[address] negative patient can not fit in MRI machine states had EMG as outpatient does not know results-called Dr. Hickman's office and he was seen by one of his colleuges had distant history of polyneuropathy had EMG done which showe axonal polyneuropathy unsure how severe it was.-will get report "knees buckled" on him 3 times he is very deconditioned from a combination of Class 3 severe super morbid obesity and lack of movement will continue PT consult nurses made aware that they should not ambulate patient without adequate technical support internship and he should always have a chair behind him open MRI as outpatient It is thought patient has severe diffuse axonal sensorimotor polyneuropathy from nutritional/mineral and heavy metal deficiency which may explain why he started to do better once on TPN. grand rounds discussion discussed with patient at length once it was over, including findings and progrnosis and further plans Will schedule LP with IR-needs INR corrected first Will Check Copper levels, B12, ESR, CRP, HANNAH, RF, SS-A, SS-B, SPEP, and immunoglobulins-drawn and sent this morning Leukocytosis: resolved off Abx Essential Hypertension: no previous diagnosis per patient but he has been hypertensive in the hospital although pain may be a contributing factor he likely has underlying hypertension Well controlled on this regimen: continue lisinopril 40mg po daily continue norvasc 10mg po daily continue PO labetalol to 200 BID Oral Thrush: stop nystatin swish and swallow diflucan stopped HIV negative Morbid Obesity: s/p sleeve gastrectomy follow up outpatient PPx: HSQ protonix working with PT FEN: NS @ 50ml/hr to meet daily fluid requirement no electrolyte issues tpn and regular diet as tolerated Will need subacute rehab facility on discharge Visit type - Emergency Visit Emergency Visit: Yes ED Registration Date: 11/11/16 Care time: The patient presented to the Emergency Department on the above date and was hospitalized for further evaluation of their emergent condition. - New Patient This patient is new to me today: No - Critical Care Critical Care patient: No
[2016-11-29 16:41] LABS: INR 1.32 (0.82-1.09); PROTHROMBIN TIME (PATIENT) 14.6 SEC (9.98-11.88)
--- NOTE | 2016-11-29 17:53 | PN ---
Teaching Attending Note Name of Resident: Ramon Reynoso ATTENDING PHYSICIAN STATEMENT I saw and evaluated the patient. I reviewed the resident's note and discussed the case with the resident. I agree with the resident's findings and plan as documented. Patient is feeling better with no acute distress. No fever or chills, eating without any complications, no nausea or vomiting. Vital Signs Temperature 98.4 F 11/29/16 17:17 Pulse Rate 70 11/29/16 17:17 Respiratory Rate 20 11/29/16 17:17 Blood Pressure 134/70 11/29/16 17:17 O2 Sat by Pulse Oximetry (%) 98 11/29/16 10:22 CBCD WBC 6.1 K/mm3 (4.0-10.0) D 11/29/16 06:00 RBC 3.41 M/mm3 (4.00-5.60) L 11/29/16 06:00 Hgb 9.7 GM/dL (11.7-16.9) L D 11/29/16 06:00 Hct 29.5 % (35.4-49) L 11/29/16 06:00 MCV 86.4 fl (80-96) 11/29/16 06:00 MCHC 33.0 g/dl (32.0-35.9) 11/29/16 06:00 RDW 18.5 % (11.9-15.9) H 11/29/16 06:00 Plt Count 369 K/MM3 (134-434) 11/29/16 06:00 MPV 7.3 fl (7.5-11.1) L 11/29/16 06:00 CMP Sodium 139 mmol/L (136-145) 11/29/16 06:00 Potassium 3.9 mmol/L (3.5-5.1) 11/29/16 06:00 Chloride 104 mmol/L (98-107) 11/29/16 06:00 Carbon Dioxide 24 mmol/L (21-32) 11/29/16 06:00 Anion Gap 11 (8-16) 11/29/16 06:00 BUN 27 mg/dL (7-18) H D 11/29/16 06:00 Creatinine 0.6 mg/dL (0.7-1.3) L 11/29/16 06:00 Creat Clearance w eGFR > 60 (>60) 11/29/16 06:00 Random Glucose 90 mg/dL (74-106) 11/29/16 06:00 Calcium 9.0 mg/dL (8.5-10.1) 11/29/16 06:00 Total Bilirubin 0.6 mg/dL (0.2-1.0) 11/29/16 06:00 AST 34 U/L (15-37) 11/29/16 06:00 ALT 59 U/L (12-78) 11/29/16 06:00 Alkaline Phosphatase 110 U/L (45-117) 11/29/16 06:00 Total Protein 7.6 g/dl (6.4-8.2) 11/29/16 06:00 Albumin 2.9 g/dl (3.4-5.0) L 11/29/16 06:00 CARDIAC ENZYMES Creatine Kinase 135 IU/L (39-308) 11/26/16 06:30 Troponin I < 0.02 ng/ml (0.00-0.05) 11/11/16 16:55 Current Medications Generic Name Dose Route Start Last Admin Trade Name Freq PRN Reason Stop Dose Admin Amlodipine Besylate 10 mg 11/18/16 10:00 11/29/16 10:18 Norvasc - PO 10 mg DAILY [facility] Administration Benzocaine/Menthol 1 each 11/14/16 18:38 11/19/16 21:54 Cepacol Lozenge - MM 1 each Q4H PRN Administration SORE THROAT Ergocalciferol 50,000 unit 11/24/16 15:30 11/24/16 18:03 Drisdol - PO 50,000 unit Q7D@1000 [facility] Administration Heparin Sodium (Porcine) 5,000 unit 11/26/16 14:15 11/29/16 15:16 Heparin - SQ 5,000 unit TID [facility] Administration IV Flush 8 ml 11/23/16 13:43 11/28/16 10:35 Picc Line Flush IVPUSH 8 ml PRN PRN Administration Protocol Multivitamins/Minerals 10 ml/ 1,200 mls @ 50 mls/hr 11/29/16 16:00 11/29/16 15: 17 Sterile Water/ Amino Acids/ IV 50 mls/hr Dextrose DAILY@1600 [facility] Administration Fat Emulsion Intravenous 250 mls @ 20.833 mls/hr 11/29/16 22:00 Intralipid - IV DAILY@2200 [facility] Sodium Chloride 1,000 mls @ 50 mls/hr 11/29/16 15:00 11/29/16 15:17 Normal Saline - IV 50 mls/hr ASDIR [facility] Administration Labetalol HCl 200 mg 11/17/16 10:06 11/29/16 10:18 Normodyne - PO 200 mg BID [place] Administration Lisinopril 40 mg 11/17/16 10:00 11/29/16 10:18 Prinivil PO 40 mg DAILY [facility] Administration Multivitamins/Minerals 1 each 11/28/16 18:45 11/29/16 10:18 Theragran-M PO 1 each DAILY [place] Administration Ondansetron HCl 4 mg 11/13/16 13:51 11/22/16 12:56 Zofran Injection IVPUSH 4 mg Q6H PRN Administration NAUSEA Oxycodone HCl 5 mg 11/24/16 17:19 11/29/16 10:28 Roxicodone - PO 5 mg Q6H PRN Administration PAIN Pantoprazole Sodium 40 mg 11/16/16 14:15 11/29/16 10:18 Protonix - PO 40 mg DAILY [place] Administration Pramipexole Dihydrochloride 0.25 mg 11/17/16 09:00 11/29/16 10:18 Mirapex - PO 0.25 mg BIDPC [place] Administration Home Medications Medication Instructions Recorded NK [No Known Home Medication] 10/06/16 ASSESSMENT AND PLAN: Patient ia a 31 y/o male with h/o Morbid obesity, s/p gastric sleeve sx in Aug 2016 who presented with Abdominal pain and was found to have ruptured appendix. # Acute Peripheral neuropathy ( motor and sensory ) . with distal weakness. As per this could be due to nutrition deficiency after rapid weight loss s/p gastric sleeve surgery . If patient is walking, no need for LP as per discussed in details since patient was able to walk 22 steps today , will reavaluate the patient in am again. possible need for LP to r/o [facility] [place] or [facility] if patient doesn't ambulate . will hold ASpirin for now day #2 . Platelets is 369K , On TPN adarsh continue for now and replacement of deficiencies orally. Will need Acute Rehab. ordered Selenium level and other nutrition levels will give the patient Vit D3 5000Units/day until vitamin D level is back, will weight for the level that's pending. # Complicated Appendicitis with rupture with fabi-appendicial abscess. s/p laparoscopic RIVERA drainage of the abscess on 11/13, RIVERA is removed now, no further abdominal pain, No further drainage. Patient is tolerating diet well. #HTN: cont BP meds #Vit D deficiency: Vit.D3 daily 5000Units for now.Level is pending. DVT Px: SCds, Heparin 5000u tid
[2016-11-29] MEDS: CHOLECALCIFEROL (VITAMIN D3) 1,000 UNIT TABLET (FP) PO SCH (19:10)
[2016-11-29] MEDS ORDERED: POLYETHYLENE GLYCOL 3350 119 GM BTL PO PRN (20:05)
[2016-11-29] MEDS ORDERED: FAT EMULSIONS 250 ML IV SCH (22:00)
[2016-11-30] MEDS: HEPARIN NA (PORCINE) 5,000 UNITS/ML 1ML VIAL SQ SCH ×3 (06:34→21:38)
[2016-11-30 08:43] LABS: INR 1.28 (0.82-1.09); PROTHROMBIN TIME (PATIENT) 14.2 SEC (9.98-11.88)
[2016-11-30 09:01] LABS: ALK PHOS 110 U/L (45-117); ANION GAP 11 (8-16); BILIRUBIN,TOTAL 0.5 mg/dL (0.2-1.0); CALCIUM 8.8 mg/dL (8.5-10.1); CO2 23 mmol/L (21-32); CREATININE 0.6 mg/dL (0.7-1.3); GLUCOSE,RANDOM 82 mg/dL (74-106); MAGNESIUM 1.7 mg/dL (1.8-2.4); PHOSPHOROUS 3.3 mg/dL (2.5-4.9); SGOT/AST 32 U/L (15-37); SGPT/ALT 57 U/L (12-78); TOT PROT 7.8 g/dl (6.4-8.2)
[2016-11-30] MEDS ORDERED: PT OWN MED DRAWER 7, Y5N ONE (09:10)
[2016-11-30] MEDS: PRAMIPEXOLE DIHYDROCHLORIDE 0.25 MG TABLET PO SCH ×2 (09:30→18:00)
[2016-11-30] MEDS: MULTIVITAMINS THER W-MINERALS COMBO TABLET (FP) PO SCH (09:31)
[2016-11-30] MEDS: LABETALOL HCL 200 MG TABLET (FP) PO SCH ×2 (09:31→21:38)
[2016-11-30] MEDS: CHOLECALCIFEROL (VITAMIN D3) 1,000 UNIT TABLET (FP) PO SCH ×2 (09:31→17:57)
[2016-11-30] MEDS: LISINOPRIL 20 MG TABLET (FP) PO SCH (09:31)
[2016-11-30] MEDS: PANTOPRAZOLE 40 MG TABLET (FP) PO SCH (09:31)
[2016-11-30] MEDS: amLODIPine BESYLATE 10 MG TABLET (FP) PO SCH (09:31)
--- NOTE | 2016-11-30 12:02 | PN ---
Progress Note, Physician Chief Complaint: left hand weakness History of Present Illness: pt tolerating oral diet. no abd pain. off abx. just neuro complaints. - Current Medication List Current Medications: Active Medications Amlodipine Besylate (Norvasc -) 10 mg PO DAILY [facility] Last Admin: 11/30/16 09:31 Dose: 10 mg Benzocaine/Menthol (Cepacol Lozenge -) 1 each MM Q4H PRN PRN Reason: SORE THROAT Last Admin: 11/19/16 21:54 Dose: 1 each Cholecalciferol (Vitamin D3 -) 5,000 unit PO DAILY [facility] Last Admin: 11/30/16 09:31 Dose: 5,000 unit Heparin Sodium (Porcine) (Heparin -) 5,000 unit SQ TID [facility] Last Admin: 11/30/16 06:34 Dose: 5,000 unit IV Flush (Picc Line Flush) 8 ml IVPUSH PRN PRN PRN Reason: Protocol Last Admin: 11/28/16 10:35 Dose: 8 ml Multivitamins/Minerals 10 ml/Sterile Water/ Amino Acids/Dextrose 1,200 mls @ 50 mls/hr IV DAILY@1600 [facility] Last Admin: 11/29/16 15:17 Dose: 50 mls/hr Sodium Chloride (Normal Saline -) 1,000 mls @ 50 mls/hr IV ASDIR [facility] Last Admin: 11/29/16 15:17 Dose: 50 mls/hr Labetalol HCl (Normodyne -) 200 mg PO BID [facility] Last Admin: 11/30/16 09:31 Dose: 200 mg Lisinopril (Prinivil) 40 mg PO DAILY [facility] Last Admin: 11/30/16 09:31 Dose: 40 mg Multivitamins/Minerals (Theragran-M) 1 each PO DAILY [facility] Last Admin: 11/30/16 09:31 Dose: 1 each Ondansetron HCl (Zofran Injection) 4 mg IVPUSH Q6H PRN PRN Reason: NAUSEA Last Admin: 11/22/16 12:56 Dose: 4 mg Pantoprazole Sodium (Protonix -) 40 mg PO DAILY [facility] Last Admin: 11/30/16 09:31 Dose: 40 mg Polyethylene Glycol (Miralax (For Daily Use) -) 17 gm PO DAILY PRN PRN Reason: CONSTIPATION Pramipexole Dihydrochloride (Mirapex -) 0.25 mg PO BIDPC [facility] Last Admin: 11/30/16 09:30 Dose: 0.25 mg - Objective Vital Signs: Vital Signs Temperature 98.7 F 11/30/16 05:43 Pulse Rate 68 11/30/16 05:43 Respiratory Rate 20 11/30/16 05:43 Blood Pressure 106/60 11/30/16 05:43 O2 Sat by Pulse Oximetry (%) 98 11/30/16 09:00 Constitutional: Yes: No Distress, Calm, Poor Hygeine Eyes: Yes: EOM Intact HENT: Yes: Atraumatic, Normocephalic Neck: Yes: Supple, Trachea Midline Cardiovascular: Yes: Regular Rate and Rhythm Respiratory: Yes: Regular, CTA Bilaterally Gastrointestinal: Yes: Soft, Other (wound sinus healing). No: Distention, Tenderness ...Rectal Exam: Yes: Deferred Genitourinary: No: CVA Tenderness - Left, CVA Tenderness - Right Musculoskeletal: No: Joint Stiffness, Joint Swelling Extremities: No: Calf Tenderness, Erythema Integumentary: No: Erythema, Rash Wound/Incision: Yes: Draining Neurological: Yes: Alert, Oriented Psychiatric: Yes: Alert, Oriented Labs: CBC, BMP 11/29/16 06:00 11/30/16 06:30 INR, PTT INR 1.28 (0.82-1.09) H 11/30/16 06:30 Problem List - Problems (1) Perforated appendicitis Assessment/Plan: appendicitis s/p lap drainage of abscess he is eating at amounts consistent with his post sleeve diet. could not identify appendix but appears to be doing well off antibiotics consider interval appendectomy in 3 months pending resolution neuro issues will sign off. please reconsult prn Code(s): K35.2 - ACUTE APPENDICITIS WITH GENERALIZED PERITONITIS
--- NOTE | 2016-11-30 14:06 | PN ---
Progress Note, Physician History of Present Illness: patient now c/o of more weakness specially in the hands diet yoder improving no other issues most pronounced neurological changes in the hands - Current Medication List Current Medications: Active Medications Amlodipine Besylate (Norvasc -) 10 mg PO DAILY [facility] Last Admin: 11/30/16 09:31 Dose: 10 mg Benzocaine/Menthol (Cepacol Lozenge -) 1 each MM Q4H PRN PRN Reason: SORE THROAT Last Admin: 11/19/16 21:54 Dose: 1 each Cholecalciferol (Vitamin D3 -) 5,000 unit PO DAILY [facility] Last Admin: 11/30/16 09:31 Dose: 5,000 unit Heparin Sodium (Porcine) (Heparin -) 5,000 unit SQ TID [facility] Last Admin: 11/30/16 06:34 Dose: 5,000 unit IV Flush (Picc Line Flush) 8 ml IVPUSH PRN PRN PRN Reason: Protocol Last Admin: 11/28/16 10:35 Dose: 8 ml Multivitamins/Minerals 10 ml/Sterile Water/ Amino Acids/Dextrose 1,200 mls @ 50 mls/hr IV DAILY@1600 [facility] Last Admin: 11/29/16 15:17 Dose: 50 mls/hr Sodium Chloride (Normal Saline -) 1,000 mls @ 50 mls/hr IV ASDIR [facility] Last Admin: 11/29/16 15:17 Dose: 50 mls/hr Labetalol HCl (Normodyne -) 200 mg PO BID [facility] Last Admin: 11/30/16 09:31 Dose: 200 mg Lisinopril (Prinivil) 40 mg PO DAILY [facility] Last Admin: 11/30/16 09:31 Dose: 40 mg Magnesium Oxide (Mag-Ox -) 400 mg PO BID [facility] Stop: 11/30/16 22:01 Multivitamins/Minerals (Theragran-M) 1 each PO DAILY [facility] Last Admin: 11/30/16 09:31 Dose: 1 each Ondansetron HCl (Zofran Injection) 4 mg IVPUSH Q6H PRN PRN Reason: NAUSEA Last Admin: 11/22/16 12:56 Dose: 4 mg Pantoprazole Sodium (Protonix -) 40 mg PO DAILY [facility] Last Admin: 11/30/16 09:31 Dose: 40 mg Polyethylene Glycol (Miralax (For Daily Use) -) 17 gm PO DAILY PRN PRN Reason: CONSTIPATION Pramipexole Dihydrochloride (Mirapex -) 0.25 mg PO BIDPC [facility] Last Admin: 11/30/16 09:30 Dose: 0.25 mg - Objective Vital Signs: Vital Signs Temperature 97.8 F 11/30/16 10:00 Pulse Rate 72 11/30/16 10:00 Respiratory Rate 18 11/30/16 10:00 Blood Pressure 130/66 11/30/16 10:00 O2 Sat by Pulse Oximetry (%) 98 11/30/16 09:00 Constitutional: Yes: No Distress, Calm, Obese Cardiovascular: Yes: Regular Rate and Rhythm Respiratory: Yes: Regular, CTA Bilaterally Gastrointestinal: Yes: Normal Bowel Sounds, Soft Musculoskeletal: Yes: Other Extremities: Yes: Other Integumentary: Yes: WNL Neurological: Yes: Tingling, Other (contracture in the ext and fingers of the hands,foot drop) Psychiatric: Yes: Alert, Oriented Labs: CBC, BMP 11/29/16 06:00 11/30/16 06:30 INR, PTT INR 1.28 (0.82-1.09) H 11/30/16 06:30 Assessment/Plan ac appendicitis morbid obesity oral thrush abd abscess nausea vomiting wbc increasing plan stable off of abx continue to monitor continue as per neurology continue to monitor for weakness continue tpn physiotherapy
[2016-11-30] MEDS: MAGNESIUM OXIDE 400 MG TABLET (FP) PO SCH ×2 (14:20→21:38)
--- NOTE | 2016-11-30 14:53 | PN ---
Teaching Attending Note Name of Resident: Ramon Reynoso ATTENDING PHYSICIAN STATEMENT I saw and evaluated the patient. I reviewed the resident's note and discussed the case with the resident. I agree with the resident's findings and plan as documented. Patient was not able to take any steps and was unable to walk again . Otherwise eating without any difficulty. Vital Signs Temperature 97.8 F 11/30/16 10:00 Pulse Rate 72 11/30/16 10:00 Respiratory Rate 18 11/30/16 10:00 Blood Pressure 130/66 11/30/16 10:00 O2 Sat by Pulse Oximetry (%) 98 11/30/16 09:00 CBCD WBC 6.1 K/mm3 (4.0-10.0) D 11/29/16 06:00 RBC 3.41 M/mm3 (4.00-5.60) L 11/29/16 06:00 Hgb 9.7 GM/dL (11.7-16.9) L D 11/29/16 06:00 Hct 29.5 % (35.4-49) L 11/29/16 06:00 MCV 86.4 fl (80-96) 11/29/16 06:00 MCHC 33.0 g/dl (32.0-35.9) 11/29/16 06:00 RDW 18.5 % (11.9-15.9) H 11/29/16 06:00 Plt Count 369 K/MM3 (134-434) 11/29/16 06:00 MPV 7.3 fl (7.5-11.1) L 11/29/16 06:00 CMP Sodium 138 mmol/L (136-145) 11/30/16 06:30 Potassium 3.8 mmol/L (3.5-5.1) 11/30/16 06:30 Chloride 104 mmol/L (98-107) 11/30/16 06:30 Carbon Dioxide 23 mmol/L (21-32) 11/30/16 06:30 Anion Gap 11 (8-16) 11/30/16 06:30 BUN 19 mg/dL (7-18) H D 11/30/16 06:30 Creatinine 0.6 mg/dL (0.7-1.3) L 11/30/16 06:30 Creat Clearance w eGFR > 60 (>60) 11/30/16 06:30 Random Glucose 82 mg/dL (74-106) 11/30/16 06:30 Calcium 8.8 mg/dL (8.5-10.1) 11/30/16 06:30 Total Bilirubin 0.5 mg/dL (0.2-1.0) 11/30/16 06:30 AST 32 U/L (15-37) 11/30/16 06:30 ALT 57 U/L (12-78) 11/30/16 06:30 Alkaline Phosphatase 110 U/L (45-117) 11/30/16 06:30 Total Protein 7.8 g/dl (6.4-8.2) 11/30/16 06:30 Albumin 3.0 g/dl (3.4-5.0) L 11/30/16 06:30 CARDIAC ENZYMES Creatine Kinase 135 IU/L (39-308) 11/26/16 06:30 Troponin I < 0.02 ng/ml (0.00-0.05) 11/11/16 16:55 CBCD WBC 6.1 K/mm3 (4.0-10.0) D 11/29/16 06:00 RBC 3.41 M/mm3 (4.00-5.60) L 11/29/16 06:00 Hgb 9.7 GM/dL (11.7-16.9) L D 11/29/16 06:00 Hct 29.5 % (35.4-49) L 11/29/16 06:00 MCV 86.4 fl (80-96) 11/29/16 06:00 MCHC 33.0 g/dl (32.0-35.9) 11/29/16 06:00 RDW 18.5 % (11.9-15.9) H 11/29/16 06:00 Plt Count 369 K/MM3 (134-434) 11/29/16 06:00 MPV 7.3 fl (7.5-11.1) L 11/29/16 06:00 CMP Sodium 138 mmol/L (136-145) 11/30/16 06:30 Potassium 3.8 mmol/L (3.5-5.1) 11/30/16 06:30 Chloride 104 mmol/L (98-107) 11/30/16 06:30 Carbon Dioxide 23 mmol/L (21-32) 11/30/16 06:30 Anion Gap 11 (8-16) 11/30/16 06:30 BUN 19 mg/dL (7-18) H D 11/30/16 06:30 Creatinine 0.6 mg/dL (0.7-1.3) L 11/30/16 06:30 Creat Clearance w eGFR > 60 (>60) 11/30/16 06:30 Random Glucose 82 mg/dL (74-106) 11/30/16 06:30 Calcium 8.8 mg/dL (8.5-10.1) 11/30/16 06:30 Total Bilirubin 0.5 mg/dL (0.2-1.0) 11/30/16 06:30 AST 32 U/L (15-37) 11/30/16 06:30 ALT 57 U/L (12-78) 11/30/16 06:30 Alkaline Phosphatase 110 U/L (45-117) 11/30/16 06:30 Total Protein 7.8 g/dl (6.4-8.2) 11/30/16 06:30 Albumin 3.0 g/dl (3.4-5.0) L 11/30/16 06:30 CARDIAC ENZYMES Creatine Kinase 135 IU/L (39-308) 11/26/16 06:30 Troponin I < 0.02 ng/ml (0.00-0.05) 11/11/16 16:55 Current Medications Generic Name Dose Route Start Last Admin Trade Name Freq PRN Reason Stop Dose Admin Amlodipine Besylate 10 mg 11/18/16 10:00 11/30/16 09:31 Norvasc - PO 10 mg DAILY [place] Administration Benzocaine/Menthol 1 each 11/14/16 18:38 11/19/16 21:54 Cepacol Lozenge - MM 1 each Q4H PRN Administration SORE THROAT Cholecalciferol 10,000 unit 11/30/16 14:35 Vitamin D3 - PO DAILY [place] Heparin Sodium (Porcine) 5,000 unit 11/29/16 22:00 11/30/16 14:19 Heparin - SQ 5,000 unit TID [place] Administration IV Flush 8 ml 11/23/16 13:43 11/28/16 10:35 Picc Line Flush IVPUSH 8 ml PRN PRN Administration Protocol Multivitamins/Minerals 10 ml/ 1,200 mls @ 50 mls/hr 11/29/16 16:00 11/29/16 15: 17 Sterile Water/ Amino Acids/ IV 50 mls/hr Dextrose DAILY@1600 [place] Administration Sodium Chloride 1,000 mls @ 50 mls/hr 11/29/16 15:00 11/29/16 15:17 Normal Saline - IV 50 mls/hr ASDIR [place] Administration Labetalol HCl 200 mg 11/17/16 10:06 11/30/16 09:31 Normodyne - PO 200 mg BID [place] Administration Lisinopril 40 mg 11/17/16 10:00 11/30/16 09:31 Prinivil PO 40 mg DAILY [place] Administration Magnesium Oxide 400 mg 11/30/16 13:15 11/30/16 14:20 Mag-Ox - PO 11/30/16 22:01 400 mg BID [place] Administration Multivitamins/Minerals 1 each 11/28/16 18:45 11/30/16 09:31 Theragran-M PO 1 each DAILY [place] Administration Ondansetron HCl 4 mg 11/13/16 13:51 11/22/16 12:56 Zofran Injection IVPUSH 4 mg Q6H PRN Administration NAUSEA Pantoprazole Sodium 40 mg 11/16/16 14:15 11/30/16 09:31 Protonix - PO 40 mg DAILY [place] Administration Polyethylene Glycol 17 gm 11/29/16 20:05 Miralax (For Daily Use) - PO DAILY PRN CONSTIPATION Pramipexole Dihydrochloride 0.25 mg 11/17/16 09:00 11/30/16 09:30 Mirapex - PO 0.25 mg BIDPC [place] Administration Home Medications Medication Instructions Recorded NK [No Known Home Medication] 10/06/16 ASSESSMENT AND PLAN: Patient ia a 31 y/o male with h/o Morbid obesity, s/p gastric sleeve sx in Aug 2016 who presented with Abdominal pain and was found to have ruptured appendix. # Acute severe Diffuse axonal sensorimotor polyneuropathy : continues .As per this could be due to nutrition deficiency after rapid weight loss post gastric sleeve surgery . Will continue TPN added MAg, 8.25% AA and !0% Dextrose. s/p gastric sleeve surgery . Will continue to hold Aspirin day #2 , since Patient is not able to walk again we need to r/o GB , so will order LP for Sunday morning since will be off aspirin x 5 days # Superimposed severe Radial Neuropathy , daily physical therapy continues. will continue TPN per nephro daily Lyme titer positive will send for Western Blot for lyme, daily electrolytes ; will check the Lead level on the patient since he also has anemia. will add B-complex tab.daily , patient is on MVI IV, Minerals # Normocytic anemia will check lead level , copper level is pending # Severe VIT.D Deficincy( level is 9) will give 10,000 Unit daily # Complicated Appendicitis with rupture with fabi-appendicial abscess. s/p laparoscopic RIVERA drainage of the abscess on 11/13, RIVERA is removed now, no further abdominal pain, No further drainage. Patient is tolerating diet well. #HTN: cont BP meds DVT Px: SCds, Heparin 5000u tid
--- NOTE | 2016-11-30 14:56 | PN ---
Physical Exam: SUBJECTIVE: Patient seen and examined at bedside eating more now at baseline feels weaker today OBJECTIVE: Vital Signs Period Temp Pulse Resp BP Sys/Peoples Pulse Ox Last 24 Hr 97.8 F-98.7 F 68-72 18-20 106-134/60-70 98-98 GENERAL: The patient is awake, alert, and fully oriented HEAD: Normal with no signs of trauma. EYES: PERRLA EOMI NECK: Trachea midline, full range of motion, supple. LUNGS: Breath sounds equal, clear to auscultation bilaterally, no wheezes, no crackles, no accessory muscle use. HEART: Regular rate and rhythm, S1, S2 without murmur, rub or gallop. ABDOMEN: Soft, morbidly obese, non tender non distended Midline incision with small 1cm opening no drainage NEUROLOGICAL: Cranial nerves II through XII intact. no facial droop or weakness and sensation is intact in the face Normal speech. Sensation of bilateral upper extremities is intact but R>L per patient on exam. RUE: Shoulder abduction, Biceps, and triceps 5/5. right wrist drop noticed on exam. right wrist flexion 4/5 extension 2/5 LUE: Shoulder abduction, Biceps, and triceps 5/5. Left wrist drop noticed on exam. left wrist flexion 4/5 extension 2/5 RLE: knee flexion and extension 4/5 hip flexion 2/5. dorsiflexion of ankle 1/5, plantar flexion 4/5 LLE: 5/5 at all joints except ankle dorsiflexion which is 1/5 Sensation slightly decreased in RUE and RLE when compared to LUE and LLE. Biceps reflex not appreciated knee jerk 0 bilaterally Right calf tenderness: negative for DVT on Duplex US Laboratory Results - last 24 hr 11/29/16 11/29/16 11/29/16 06:00 15:30 17:55 INR 1.32 H Sodium Potassium Chloride Carbon Dioxide Anion Gap BUN Creatinine Creat Clearance w eGFR Random Glucose Calcium Phosphorus Magnesium Total Bilirubin AST ALT Alkaline Phosphatase Total Protein Albumin Double Strand DNA Ab <1 Blood Type B POSITIVE Antibody Screen Negative 11/30/16 11/30/16 06:30 06:30 INR 1.28 H Sodium 138 Potassium 3.8 Chloride 104 Carbon Dioxide 23 Anion Gap 11 BUN 19 H D Creatinine 0.6 L Creat Clearance w eGFR > 60 Random Glucose 82 Calcium 8.8 Phosphorus 3.3 Magnesium 1.7 L Total Bilirubin 0.5 AST 32 ALT 57 Alkaline Phosphatase 110 Total Protein 7.8 Albumin 3.0 L Double Strand DNA Ab Blood Type Antibody Screen Active Medications Generic Name Dose Route Start Last Admin Trade Name Freq PRN Reason Stop Dose Admin Amlodipine Besylate 10 mg 11/18/16 10:00 11/30/16 09:31 Norvasc - PO 10 mg DAILY [place] Administration Benzocaine/Menthol 1 each 11/14/16 18:38 11/19/16 21:54 Cepacol Lozenge - MM 1 each Q4H PRN Administration SORE THROAT Cholecalciferol 10,000 unit 11/30/16 14:35 Vitamin D3 - PO DAILY [place] Heparin Sodium (Porcine) 5,000 unit 11/29/16 22:00 11/30/16 14:19 Heparin - SQ 5,000 unit TID [place] Administration IV Flush 8 ml 11/23/16 13:43 11/28/16 10:35 Picc Line Flush IVPUSH 8 ml PRN PRN Administration Protocol Multivitamins/Minerals 10 ml/ 1,200 mls @ 50 mls/hr 11/29/16 16:00 11/29/16 15: 17 Sterile Water/ Amino Acids/ IV 50 mls/hr Dextrose DAILY@1600 [place] Administration Sodium Chloride 1,000 mls @ 50 mls/hr 11/29/16 15:00 11/29/16 15:17 Normal Saline - IV 50 mls/hr ASDIR [place] Administration Labetalol HCl 200 mg 11/17/16 10:06 11/30/16 09:31 Normodyne - PO 200 mg BID [place] Administration Lisinopril 40 mg 11/17/16 10:00 11/30/16 09:31 Prinivil PO 40 mg DAILY [place] Administration Magnesium Oxide 400 mg 11/30/16 13:15 11/30/16 14:20 Mag-Ox - PO 11/30/16 22:01 400 mg BID [place] Administration Multivitamins/Minerals 1 each 11/28/16 18:45 11/30/16 09:31 Theragran-M PO 1 each DAILY [place] Administration Ondansetron HCl 4 mg 11/13/16 13:51 11/22/16 12:56 Zofran Injection IVPUSH 4 mg Q6H PRN Administration NAUSEA Pantoprazole Sodium 40 mg 11/16/16 14:15 11/30/16 09:31 Protonix - PO 40 mg DAILY [place] Administration Polyethylene Glycol 17 gm 11/29/16 20:05 Miralax (For Daily Use) - PO DAILY PRN CONSTIPATION Pramipexole Dihydrochloride 0.25 mg 11/17/16 09:00 11/30/16 09:30 Mirapex - PO 0.25 mg BIDPC [place] Administration ASSESSMENT/PLAN: 31M with a PMH of morbid obesity presents to the hospital with abdominal pain found to have a perforated appendicitis in the OR. Sepsis secondary to Perforated appendicitis: CT scan initially read as perforated appendicitis the read changed to non perforated appendicitis. Taken to the OR for attempted Laparoscopic appendectomy found to be perforated. Appendix was not able to be visualized as a result was not resected. Patient s/ p laparoscopic drainage and washout of fabi-appendiceal abscess POD #17. 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 possible demyelinating disorder: Guillain-Somis syndrome vs chronic inflammatory demyelinating polyneuropathy vs progressive inflammatory neuropathy vs multifocal motor neuropathy Patient had EMG done read as diffuse severe axonal sensorimotor polyneuropathy, superimposed severe radial neuropathy, no definite myopathy, fasciculations, or demyelinating process. s/p presentation of this patient in neurology grand rounds last night discussed in detail please see Dr. Up's note dated 11/29/[address] negative patient can not fit in MRI machine states had EMG as outpatient does not know results-called Dr. Hickman's office and he was seen by one of his colleuges had distant history of polyneuropathy had EMG done which showed axonal polyneuropathy unsure how severe it was.-will get report "knees buckled" on him 3 times he is very deconditioned from a combination of Class 3 severe super morbid obesity and lack of movement will continue PT consult nurses made aware that they should not ambulate patient without adequate support services coordinator and he should always have a chair behind him open MRI as outpatient It is thought patient has severe diffuse axonal sensorimotor polyneuropathy from nutritional/mineral and heavy metal deficiency which may explain why he started to do better once on TPN. grand rounds discussion discussed with patient at length once it was over, including findings and progrnosis and further plans Will schedule LP with IR-needs INR corrected first Will Check Copper levels-pending, Selenium-Pending Zinc-WNL B12-WNL, ESR-100, CRP-4.6, HANNAH, RF, SS-A, SS-B, SPEP, and immunoglobulins-pending Will send Fat soluble vitamined A E K vitamin D done and very low at 9, Will send lead level will send lyme PCR and western blot as mixed IgG and IgM is positive Leukocytosis: resolved off Abx continue multivitamins with minerals Start B complex Essential Hypertension: no previous diagnosis per patient but he has been hypertensive in the hospital although pain may be a contributing factor he likely has underlying hypertension Well controlled on this regimen: continue lisinopril 40mg po daily continue norvasc 10mg po daily continue PO labetalol to 200 BID Oral Thrush: stop nystatin swish and swallow diflucan stopped HIV negative Morbid Obesity: s/p sleeve gastrectomy follow up outpatient PPx: HSQ protonix working with PT FEN: stop IVF replete magnesium tpn and regular diet as tolerated- walked 22 feet yesterday did not walk much today Will need acute rehab facility on discharge Visit type - Emergency Visit Emergency Visit: Yes ED Registration Date: 11/11/16 Care time: The patient presented to the Emergency Department on the above date and was hospitalized for further evaluation of their emergent condition. - New Patient This patient is new to me today: No - Critical Care Critical Care patient: No - Discharge Referral Referred to [facility] No
--- NOTE | 2016-11-30 16:44 | PN ---
Progress Note, Physician History of Present Illness: Pt seen and examined at bedside. He is awake and alert. He is tolerating diet so far but complains of weakness. - Current Medication List Current Medications: Active Medications Amlodipine Besylate (Norvasc -) 10 mg PO DAILY [facility] Last Admin: 11/30/16 09:31 Dose: 10 mg Benzocaine/Menthol (Cepacol Lozenge -) 1 each MM Q4H PRN PRN Reason: SORE THROAT Last Admin: 11/19/16 21:54 Dose: 1 each Cholecalciferol (Vitamin D3 -) 10,000 unit PO DAILY [facility] Heparin Sodium (Porcine) (Heparin -) 5,000 unit SQ TID [facility] Last Admin: 11/30/16 14:19 Dose: 5,000 unit IV Flush (Picc Line Flush) 8 ml IVPUSH PRN PRN PRN Reason: Protocol Last Admin: 11/28/16 10:35 Dose: 8 ml Multivitamins/Minerals 10 ml/Sterile Water/ Amino Acids/Dextrose 1,200 mls @ 50 mls/hr IV DAILY@1600 [facility] Last Admin: 11/29/16 15:17 Dose: 50 mls/hr Sodium Chloride (Normal Saline -) 1,000 mls @ 50 mls/hr IV ASDIR [facility] Last Admin: 11/29/16 15:17 Dose: 50 mls/hr Labetalol HCl (Normodyne -) 200 mg PO BID [facility] Last Admin: 11/30/16 09:31 Dose: 200 mg Lisinopril (Prinivil) 40 mg PO DAILY [facility] Last Admin: 11/30/16 09:31 Dose: 40 mg Magnesium Oxide (Mag-Ox -) 400 mg PO BID [facility] Stop: 11/30/16 22:01 Last Admin: 11/30/16 14:20 Dose: 400 mg Multivitamins (Total B With C -) 1 each PO DAILY [facility] Multivitamins/Minerals (Theragran-M) 1 each PO DAILY [facility] Last Admin: 11/30/16 09:31 Dose: 1 each Ondansetron HCl (Zofran Injection) 4 mg IVPUSH Q6H PRN PRN Reason: NAUSEA Last Admin: 11/22/16 12:56 Dose: 4 mg Pantoprazole Sodium (Protonix -) 40 mg PO DAILY [facility] Last Admin: 11/30/16 09:31 Dose: 40 mg Polyethylene Glycol (Miralax (For Daily Use) -) 17 gm PO DAILY PRN PRN Reason: CONSTIPATION Pramipexole Dihydrochloride (Mirapex -) 0.25 mg PO BIDPC [place] Last Admin: 11/30/16 09:30 Dose: 0.25 mg - Objective Vital Signs: Vital Signs Temperature 99.4 F 11/30/16 15:46 Pulse Rate 67 11/30/16 15:46 Respiratory Rate 18 11/30/16 15:46 Blood Pressure 118/58 11/30/16 15:46 O2 Sat by Pulse Oximetry (%) 98 11/30/16 09:00 Constitutional: Yes: Calm Eyes: Yes: Conjunctiva Clear HENT: Yes: Atraumatic Neck: Yes: Supple Cardiovascular: Yes: S1, S2 Respiratory: Yes: CTA Bilaterally Gastrointestinal: Yes: Soft, Abdomen, Obese Genitourinary: Yes: WNL Musculoskeletal: Yes: Muscle Weakness Edema: Yes Edema: LLE: Trace, RLE: Trace Neurological: Yes: Oriented Psychiatric: Yes: Oriented Labs: CBC, BMP 11/29/16 06:00 11/30/16 06:30 INR, PTT INR 1.28 (0.82-1.09) H 11/30/16 06:30 Problem List - Problems (1) Perforated appendicitis Code(s): K35.2 - ACUTE APPENDICITIS WITH GENERALIZED PERITONITIS (2) Hyponatremia Code(s): E87.1 - HYPO-OSMOLALITY AND HYPONATREMIA (3) Malnutrition Code(s): E46 - UNSPECIFIED PROTEIN-CALORIE MALNUTRITION Assessment/Plan Current Medications Generic Name Dose Route Start Last Admin Trade Name Griffinq PRN Reason Stop Dose Admin Amlodipine Besylate 10 mg 11/18/16 10:00 11/30/16 09:31 Norvasc - PO 10 mg DAILY [place] Administration Benzocaine/Menthol 1 each 11/14/16 18:38 11/19/16 21:54 Cepacol Lozenge - MM 1 each Q4H PRN Administration SORE THROAT Cholecalciferol 10,000 unit 11/30/16 15:00 Vitamin D3 - PO DAILY [place] Heparin Sodium (Porcine) 5,000 unit 11/29/16 22:00 11/30/16 14:19 Heparin - SQ 5,000 unit TID [place] Administration IV Flush 8 ml 11/23/16 13:43 11/28/16 10:35 Picc Line Flush IVPUSH 8 ml PRN PRN Administration Protocol Multivitamins/Minerals 10 ml/ 1,200 mls @ 50 mls/hr 11/29/16 16:00 11/29/16 15: 17 Sterile Water/ Amino Acids/ IV 50 mls/hr Dextrose DAILY@1600 [place] Administration Sodium Chloride 1,000 mls @ 50 mls/hr 11/29/16 15:00 11/29/16 15:17 Normal Saline - IV 50 mls/hr ASDIR [place] Administration Labetalol HCl 200 mg 11/17/16 10:06 11/30/16 09:31 Normodyne - PO 200 mg BID [place] Administration Lisinopril 40 mg 11/17/16 10:00 11/30/16 09:31 Prinivil PO 40 mg DAILY [place] Administration Magnesium Oxide 400 mg 11/30/16 13:15 11/30/16 14:20 Mag-Ox - PO 11/30/16 22:01 400 mg BID [place] Administration Multivitamins 1 each 11/30/16 15:15 Total B With C - PO DAILY [facility] Multivitamins/Minerals 1 each 11/28/16 18:45 11/30/16 09:31 Theragran-M PO 1 each DAILY [place] Administration Ondansetron HCl 4 mg 11/13/16 13:51 11/22/16 12:56 Zofran Injection IVPUSH 4 mg Q6H PRN Administration NAUSEA Pantoprazole Sodium 40 mg 11/16/16 14:15 11/30/16 09:31 Protonix - PO 40 mg DAILY [place] Administration Polyethylene Glycol 17 gm 11/29/16 20:05 Miralax (For Daily Use) - PO DAILY PRN CONSTIPATION Pramipexole Dihydrochloride 0.25 mg 11/17/16 09:00 11/30/16 09:30 Mirapex - PO 0.25 mg BIDPC [place] Administration Laboratory Tests 11/22/16 11/29/16 11/29/16 12:45 06:00 06:00 Folate Pending Serum Copper Pending Selenium Pending Zinc 78 Impression 1. complicated appendicitis 2. malnutrition 3. hyponatremia 4. obesity 5. HTN 6. anemia Plan - will continue with TPN, discussed with medical team - encourage PO intake - nuerology follow up - cont pt/rehab as tolerated - follow up copper and selenium levels - jerry Mondragon
[2016-11-30] MEDS: [UNRECOGNIZED DRUG - OTHER] IV SCH (17:59)
[2016-11-30] MEDS: WATER FOR INJ STERILE IV SCH (17:59)
[2016-11-30] MEDS: SODIUM CHLORIDE 1,000 ML IV SCH (17:59)
[2016-11-30] MEDS: VITAMIN B COMPLEX W/C COMBO TABLET (FP) PO SCH (17:59)
[2016-11-30] MEDS: MULTIVIT IV SCH (17:59)
[2016-12-01 00:10] LABS: ANTI-DNAse B <78 U/mL (0-120)
[2016-12-01 06:06] LABS: HEMATOCRIT 29.3 % (37.5-51.0)
[2016-12-01] MEDS: HEPARIN NA (PORCINE) 5,000 UNITS/ML 1ML VIAL SQ SCH ×3 (06:25→21:31)
[2016-12-01 08:36] LABS: MCH 28.9 pg (25.7-33.7); MCHC 33.4 g/dl (32.0-35.9); MEAN CELL VOLUME 86.6 fl (80-96); MEAN PLT VOLUME 7.6 fl (7.5-11.1); PLATELET COUNT 346 K/MM3 (134-434); WHITE BLOOD COUNT 5.6 K/mm3 (4.0-10.0)
[2016-12-01 08:48] LABS: CALCIUM 8.5 mg/dL (8.5-10.1); CREATININE 0.5 mg/dL (0.7-1.3); MAGNESIUM 1.7 mg/dL (1.8-2.4); PHOSPHOROUS 3.9 mg/dL (2.5-4.9)
[2016-12-01] MEDS: LISINOPRIL 20 MG TABLET (FP) PO SCH (10:35)
[2016-12-01] MEDS: LABETALOL HCL 200 MG TABLET (FP) PO SCH ×2 (10:36→21:31)
[2016-12-01] MEDS: PANTOPRAZOLE 40 MG TABLET (FP) PO SCH (10:36)
[2016-12-01] MEDS: amLODIPine BESYLATE 10 MG TABLET (FP) PO SCH (10:36)
[2016-12-01] MEDS: CHOLECALCIFEROL (VITAMIN D3) 1,000 UNIT TABLET (FP) PO SCH (10:41)
[2016-12-01] MEDS: MULTIVITAMINS THER W-MINERALS COMBO TABLET (FP) PO SCH (10:42)
[2016-12-01] MEDS ORDERED: PT OWN MED DRAWER 7, Y5N ONE ×2 (10:52→18:02)
[2016-12-01] MEDS: VITAMIN B COMPLEX W/C COMBO TABLET (FP) PO SCH (10:54)
[2016-12-01] MEDS: PRAMIPEXOLE DIHYDROCHLORIDE 0.25 MG TABLET PO SCH ×2 (10:54→18:07)
--- NOTE | 2016-12-01 13:33 | PN ---
Physical Exam: SUBJECTIVE: Patient seen and examined at bedside no events overnight able to ambulate about 95 feet today with physical therapy acute inpatient rehab OBJECTIVE: Vital Signs Period Temp Pulse Resp BP Sys/Peoples Pulse Ox Last 24 Hr 97.5 F-99.4 F 63-68 18-20 95-145/44-73 98-98 GENERAL: The patient is awake, alert, and fully oriented HEAD: Normal with no signs of trauma. EYES: PERRLA EOMI NECK: Trachea midline, full range of motion, supple. LUNGS: Breath sounds equal, clear to auscultation bilaterally, no wheezes, no crackles, no accessory muscle use. HEART: Regular rate and rhythm, S1, S2 without murmur, rub or gallop. ABDOMEN: Soft, morbidly obese, non tender non distended Midline incision with small 1cm opening no drainage NEUROLOGICAL: Cranial nerves II through XII intact. no facial droop or weakness and sensation is intact in the face Normal speech. Sensation of bilateral upper extremities is intact but R>L per patient on exam. RUE: Shoulder abduction, Biceps, and triceps 5/5. right wrist drop noticed on exam. right wrist flexion 4/5 extension 2/5 LUE: Shoulder abduction, Biceps, and triceps 5/5. Left wrist drop noticed on exam. left wrist flexion 4/5 extension 2/5 RLE: knee flexion and extension 5/5 hip flexion 4/5. dorsiflexion of ankle 1/5, plantar flexion 4/5 LLE: 5/5 at all joints except ankle dorsiflexion which is 1/5 Sensation slightly decreased in RUE and RLE when compared to LUE and LLE. Biceps reflex not appreciated knee jerk 0 bilaterally Right calf tenderness: negative for DVT on Duplex US Laboratory Results - last 24 hr 11/29/16 11/29/16 11/29/16 06:00 06:00 06:00 WBC RBC Hgb Hct 29.3 L MCV MCHC RDW Plt Count MPV Sodium Potassium Chloride Carbon Dioxide Anion Gap BUN Creatinine Random Glucose Calcium Phosphorus Magnesium Triglycerides Folate 835 Folate Hemolysate 244.8 Serum Copper 134 HANNAH Screen Negative Double Strand DNA Ab <1 Anti-DNase B (Strep) <78 12/01/16 12/01/16 06:05 06:05 WBC 5.6 RBC 3.39 L Hgb 9.8 L Hct 29.3 L MCV 86.6 MCHC 33.4 RDW 18.0 H Plt Count 346 MPV 7.6 Sodium 139 Potassium 3.9 Chloride 104 Carbon Dioxide 26 Anion Gap 9 BUN 14 D Creatinine 0.5 L Random Glucose 87 Calcium 8.5 Phosphorus 3.9 Magnesium 1.7 L Triglycerides 136 Folate Folate Hemolysate Serum Copper HANNAH Screen Double Strand DNA Ab Anti-DNase B (Strep) Active Medications Generic Name Dose Route Start Last Admin Trade Name Freq PRN Reason Stop Dose Admin Amlodipine Besylate 10 mg 11/18/16 10:00 12/01/16 10:36 Norvasc - PO 10 mg DAILY [place] Administration Benzocaine/Menthol 1 each 11/14/16 18:38 11/19/16 21:54 Cepacol Lozenge - MM 1 each Q4H PRN Administration SORE THROAT Cholecalciferol 10,000 unit 11/30/16 15:00 12/01/16 10:41 Vitamin D3 - PO 10,000 unit DAILY [place] Administration Heparin Sodium (Porcine) 5,000 unit 11/29/16 22:00 12/01/16 06:25 Heparin - SQ 5,000 unit TID [place] Administration IV Flush 8 ml 11/23/16 13:43 11/28/16 10:35 Picc Line Flush IVPUSH 8 ml PRN PRN Administration Protocol Multivitamins/Minerals 10 ml/ 1,200 mls @ 50 mls/hr 11/29/16 16:00 11/30/16 17: 59 Sterile Water/ Amino Acids/ IV 50 mls/hr Dextrose DAILY@1600 [place] Administration Labetalol HCl 200 mg 11/17/16 10:06 12/01/16 10:36 Normodyne - PO 200 mg BID [place] Administration Lisinopril 40 mg 11/17/16 10:00 12/01/16 10:35 Prinivil PO 40 mg DAILY [place] Administration Multivitamins 1 each 11/30/16 15:15 12/01/16 10:54 Total B With C - PO 1 each DAILY [place] Administration Multivitamins/Minerals 1 each 11/28/16 18:45 12/01/16 10:42 Theragran-M PO 1 each DAILY [place] Administration Ondansetron HCl 4 mg 11/13/16 13:51 11/22/16 12:56 Zofran Injection IVPUSH 4 mg Q6H PRN Administration NAUSEA Pantoprazole Sodium 40 mg 11/16/16 14:15 12/01/16 10:36 Protonix - PO 40 mg DAILY [place] Administration Polyethylene Glycol 17 gm 11/29/16 20:05 Miralax (For Daily Use) - PO DAILY PRN CONSTIPATION Pramipexole Dihydrochloride 0.25 mg 11/17/16 09:00 12/01/16 10:54 Mirapex - PO 0.25 mg BIDPC [place] Administration ASSESSMENT/PLAN: 31M with a PMH of morbid obesity presents to the hospital with abdominal pain found to have a perforated appendicitis in the OR. Sepsis secondary to Perforated appendicitis: CT scan initially read as perforated appendicitis the read changed to non perforated appendicitis. Taken to the OR for attempted Laparoscopic appendectomy found to be perforated. Appendix was not able to be visualized as a result was not resected. Patient s/ p laparoscopic drainage and washout of fabi-appendiceal abscess POD #18. CT scan did not show any worsening pathology abscess moved more medial appendix not visualized ID consult appreciated- HIV test negative surgery consult appreciated recommendations noted stopped Zosyn on day 13 able to tolerate diet more today-at post gastrectomy baseline RIVERA drain d/c'ed by Surgery cultures-negative final pain control repeat RUQ US show cholelithiasis without cholecystitis and diffuse fatty infiltration of liver nephrology consult appreciated - on TPN will continue S/P PICC by IR surgery signed off f/u HIDA scan-negative Protein calorie malnutrition: Dietary/court specialist consult appreciated stop IVF will continue TPN for now Tolerating more PO at this time Vitamin D deficiency: continue Vit D 10,000 units daily Transaminitis: resolved likely secondary to diffuse fatty liver infiltration Dehydration: as was indicated by BUN/Cr resolved stopped IVF Right sided numbness and weakness: polyneuropathy. possible demyelinating disorder: Guillain-Dover syndrome vs chronic inflammatory demyelinating polyneuropathy vs progressive inflammatory neuropathy vs multifocal motor neuropathy Patient had EMG done read as diffuse severe axonal sensorimotor polyneuropathy, superimposed severe radial neuropathy, no definite myopathy, fasciculations, or demyelinating process. s/p presentation of this patient in neurology grand rounds last night discussed in detail please see Dr. Up's note dated 11/29/[address] negative patient can not fit in MRI machine states had EMG as outpatient does not know results-called Dr. Hickman's office and he was seen by one of his colleuges had distant history of polyneuropathy had EMG done which showed axonal polyneuropathy unsure how severe it was.-will get report "knees buckled" on him 3 times he is very deconditioned from a combination of Class 3 severe super morbid obesity and lack of movement will continue PT consult nurses made aware that they should not ambulate patient without adequate learning support services director and he should always have a chair behind him open MRI as outpatient It is thought patient has severe diffuse axonal sensorimotor polyneuropathy from nutritional/mineral and heavy metal deficiency which may explain why he started to do better once on TPN. grand rounds discussion discussed with patient at length once it was over, including findings and progrnosis and further plans Will schedule LP with IR-needs INR corrected first Will Check Copper [id number], Selenium-Pending Zinc-WNL B12-WNL, ESR-100, CRP-4.6, HANNAH screen -WNL, RF-negative, [id number] AntiDNASE-negative , SPEP , and immunoglobulins-pending Fat soluble vitamins A E K-pending vitamin D done and very low at 9, lyme PCR and western blot-pending sent lyme PCR because mixed IgG and IgM is positive Leukocytosis: resolved off Abx continue multivitamins with minerals continue B complex Continue high dose vitamins Neuro exam especially the RLE has significantly improved patient ambulating more Essential Hypertension: no previous diagnosis per patient but he has been hypertensive in the hospital although pain may be a contributing factor he likely has underlying hypertension Well controlled on this regimen: continue lisinopril 40mg po daily continue norvasc 10mg po daily continue PO labetalol to 200 BID Oral Thrush: stop nystatin swish and swallow diflucan stopped HIV negative Morbid Obesity: s/p sleeve gastrectomy follow up outpatient PPx: HSQ protonix working with PT-improved FEN: stop IVF replete magnesium tpn and regular diet as tolerated- Will need acute rehab facility on discharge Visit type - Emergency Visit Emergency Visit: Yes ED Registration Date: 11/11/16 Care time: The patient presented to the Emergency Department on the above date and was hospitalized for further evaluation of their emergent condition. - New Patient This patient is new to me today: No - Critical Care Critical Care patient: No - Discharge Referral Referred to [facility] Med [facility] No
[2016-12-01] MEDS ORDERED: MAGNESIUM OXIDE 400 MG TABLET (FP) PO SCH (13:45)
--- NOTE | 2016-12-01 14:16 | PN ---
Teaching Attending Note Name of Resident: Ramon Reynoso ATTENDING PHYSICIAN STATEMENT I saw and evaluated the patient. I reviewed the resident's note and discussed the case with the resident. I agree with the resident's findings and plan as documented. Patient is feeling better, took around 72 steps today. Vital Signs Temperature 98.2 F 12/01/16 08:30 Pulse Rate 68 12/01/16 08:30 Respiratory Rate 18 12/01/16 08:30 Blood Pressure 117/73 12/01/16 08:30 O2 Sat by Pulse Oximetry (%) 98 12/01/16 09:00 CBCD WBC 5.6 K/mm3 (4.0-10.0) 12/01/16 06:05 RBC 3.39 M/mm3 (4.00-5.60) L 12/01/16 06:05 Hgb 9.8 GM/dL (11.7-16.9) L 12/01/16 06:05 Hct 29.3 % (35.4-49) L 12/01/16 06:05 MCV 86.6 fl (80-96) 12/01/16 06:05 MCHC 33.4 g/dl (32.0-35.9) 12/01/16 06:05 RDW 18.0 % (11.9-15.9) H 12/01/16 06:05 Plt Count 346 K/MM3 (134-434) 12/01/16 06:05 MPV 7.6 fl (7.5-11.1) 12/01/16 06:05 CMP Sodium 139 mmol/L (136-145) 12/01/16 06:05 Potassium 3.9 mmol/L (3.5-5.1) 12/01/16 06:05 Chloride 104 mmol/L (98-107) 12/01/16 06:05 Carbon Dioxide 26 mmol/L (21-32) 12/01/16 06:05 Anion Gap 9 (8-16) 12/01/16 06:05 BUN 14 mg/dL (7-18) D 12/01/16 06:05 Creatinine 0.5 mg/dL (0.7-1.3) L 12/01/16 06:05 Creat Clearance w eGFR > 60 (>60) 11/30/16 06:30 Random Glucose 87 mg/dL (74-106) 12/01/16 06:05 Calcium 8.5 mg/dL (8.5-10.1) 12/01/16 06:05 Total Bilirubin 0.5 mg/dL (0.2-1.0) 11/30/16 06:30 AST 32 U/L (15-37) 11/30/16 06:30 ALT 57 U/L (12-78) 11/30/16 06:30 Alkaline Phosphatase 110 U/L (45-117) 11/30/16 06:30 Total Protein 7.8 g/dl (6.4-8.2) 11/30/16 06:30 Albumin 3.0 g/dl (3.4-5.0) L 11/30/16 06:30 CARDIAC ENZYMES Creatine Kinase 135 IU/L (39-308) 11/26/16 06:30 Troponin I < 0.02 ng/ml (0.00-0.05) 11/11/16 16:55 Current Medications Generic Name Dose Route Start Last Admin Trade Name Griffinq PRN Reason Stop Dose Admin Amlodipine Besylate 10 mg 11/18/16 10:00 12/01/16 10:36 Norvasc - PO 10 mg DAILY [place] Administration Benzocaine/Menthol 1 each 11/14/16 18:38 11/19/16 21:54 Cepacol Lozenge - MM 1 each Q4H PRN Administration SORE THROAT Cholecalciferol 10,000 unit 11/30/16 15:00 12/01/16 10:41 Vitamin D3 - PO 10,000 unit DAILY [place] Administration Heparin Sodium (Porcine) 5,000 unit 11/29/16 22:00 12/01/16 14:24 Heparin - SQ 5,000 unit TID [place] Administration IV Flush 8 ml 11/23/16 13:43 11/28/16 10:35 Picc Line Flush IVPUSH 8 ml PRN PRN Administration Protocol Multivitamins/Minerals 10 ml/ 1,200 mls @ 50 mls/hr 11/29/16 16:00 11/30/16 17: 59 Sterile Water/ Amino Acids/ IV 50 mls/hr Dextrose DAILY@1600 [place] Administration Labetalol HCl 200 mg 11/17/16 10:06 12/01/16 10:36 Normodyne - PO 200 mg BID [place] Administration Lisinopril 40 mg 11/17/16 10:00 12/01/16 10:35 Prinivil PO 40 mg DAILY [place] Administration Multivitamins 1 each 11/30/16 15:15 12/01/16 10:54 Total B With C - PO 1 each DAILY [place] Administration Multivitamins/Minerals 1 each 11/28/16 18:45 12/01/16 10:42 Theragran-M PO 1 each DAILY [place] Administration Ondansetron HCl 4 mg 11/13/16 13:51 11/22/16 12:56 Zofran Injection IVPUSH 4 mg Q6H PRN Administration NAUSEA Pantoprazole Sodium 40 mg 11/16/16 14:15 12/01/16 10:36 Protonix - PO 40 mg DAILY [place] Administration Polyethylene Glycol 17 gm 11/29/16 20:05 Miralax (For Daily Use) - PO DAILY PRN CONSTIPATION Pramipexole Dihydrochloride 0.25 mg 11/17/16 09:00 12/01/16 10:54 Mirapex - PO 0.25 mg BIDPC [place] Administration Home Medications Medication Instructions Recorded NK [No Known Home Medication] 10/06/16 Laboratory Tests 11/16/16 11/22/16 11/26/16 06:20 12:45 06:30 ESR CSF Lyme IgM Ab Interp Serum Copper Selenium Zinc 78 Rheumatoid Factor Double Strand DNA Ab Anti-ss DNA IgG Ab Lyme Screen IgG & IgM 1.47 H Lyme IgM (Western Blot) Negative HIV 1&2 Antibody Screen Negative HIV P24 Antigen Negative Anti-DNase B (Strep) 11/29/16 11/29/16 11/29/16 06:00 06:00 06:00 ESR 100 H CSF Lyme IgM Ab Interp Serum Copper 134 Selenium 143 Zinc Rheumatoid Factor < 10.0 Double Strand DNA Ab Anti-ss DNA IgG Ab Lyme Screen IgG & IgM Lyme IgM (Western Blot) HIV 1&2 Antibody Screen HIV P24 Antigen Anti-DNase B (Strep) 11/29/16 12/01/16 06:00 06:00 ESR CSF Lyme IgM Ab Interp Pending Serum Copper Selenium Zinc Rheumatoid Factor Double Strand DNA Ab <1 Anti-ss DNA IgG Ab <20 Lyme Screen IgG & IgM Lyme IgM (Western Blot) HIV 1&2 Antibody Screen HIV P24 Antigen Anti-DNase B (Strep) <78 NEURO: AAOx3, CN2-12 grossly intact. Power Lower extremities 4/5, Upper extremities4/5, continues to have wrist drops but improving. ASSESSMENT AND PLAN: Patient ia a 31 y/o male with h/o Morbid obesity, s/p gastric sleeve sx in Aug 2016 who presented with Abdominal pain and was found to have ruptured appendix. Patient is feeling better , was able to take around 72 steps, his lower and upper extremity power improving. # Acute severe Diffuse axonal sensorimotor polyneuropathy : continues .As per this could be due to nutrition deficiency after rapid weight loss post gastric sleeve surgery . Will continue TPN added MAg, 8.25% AA and !0% Dextrose. s/p gastric sleeve surgery . Will continue to hold Aspirin day #2 , since Patient is not able to walk again we need to r/o GB , so will order LP for Sunday morning since will be off aspirin x 5 days # Superimposed severe Radial Neuropathy , daily physical therapy continues. will continue TPN per nephro daily Lyme titer positive will send for Western Blot for lyme, daily electrolytes ; will check the Lead level on the patient since he also has anemia. will add B-complex tab.daily , patient is on MVI IV, Minerals # Normocytic anemia will check lead, copper level is pending. 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 Recheck the level in 3 months # Complicated Appendicitis with rupture with fabi-appendicial abscess. s/p laparoscopic RIVERA drainage of the abscess on 11/13, RIVERA is removed now, no further abdominal pain, No further drainage. Patient is tolerating diet well. #HTN: cont BP meds DVT Px: SCds, Heparin 5000u tid will order B2,B6, vitamin C level.
--- NOTE | 2016-12-01 14:18 | PN ---
Progress Note, Physician History of Present Illness: still with neurological issues still on tpn otherwise stable - Current Medication List Current Medications: Active Medications Amlodipine Besylate (Norvasc -) 10 mg PO DAILY [facility] Last Admin: 12/01/16 10:36 Dose: 10 mg Benzocaine/Menthol (Cepacol Lozenge -) 1 each MM Q4H PRN PRN Reason: SORE THROAT Last Admin: 11/19/16 21:54 Dose: 1 each Cholecalciferol (Vitamin D3 -) 10,000 unit PO DAILY [facility] Last Admin: 12/01/16 10:41 Dose: 10,000 unit Heparin Sodium (Porcine) (Heparin -) 5,000 unit SQ TID [facility] Last Admin: 12/01/16 06:25 Dose: 5,000 unit IV Flush (Picc Line Flush) 8 ml IVPUSH PRN PRN PRN Reason: Protocol Last Admin: 11/28/16 10:35 Dose: 8 ml Multivitamins/Minerals 10 ml/Sterile Water/ Amino Acids/Dextrose 1,200 mls @ 50 mls/hr IV DAILY@1600 [facility] Last Admin: 11/30/16 17:59 Dose: 50 mls/hr Labetalol HCl (Normodyne -) 200 mg PO BID [facility] Last Admin: 12/01/16 10:36 Dose: 200 mg Lisinopril (Prinivil) 40 mg PO DAILY [facility] Last Admin: 12/01/16 10:35 Dose: 40 mg Multivitamins (Total B With C -) 1 each PO DAILY [facility] Last Admin: 12/01/16 10:54 Dose: 1 each Multivitamins/Minerals (Theragran-M) 1 each PO DAILY [facility] Last Admin: 12/01/16 10:42 Dose: 1 each Ondansetron HCl (Zofran Injection) 4 mg IVPUSH Q6H PRN PRN Reason: NAUSEA Last Admin: 11/22/16 12:56 Dose: 4 mg Pantoprazole Sodium (Protonix -) 40 mg PO DAILY [facility] Last Admin: 12/01/16 10:36 Dose: 40 mg Polyethylene Glycol (Miralax (For Daily Use) -) 17 gm PO DAILY PRN PRN Reason: CONSTIPATION Pramipexole Dihydrochloride (Mirapex -) 0.25 mg PO BIDPC [facility] Last Admin: 12/01/16 10:54 Dose: 0.25 mg - Objective Vital Signs: Vital Signs Temperature 98.2 F 12/01/16 08:30 Pulse Rate 68 12/01/16 08:30 Respiratory Rate 18 12/01/16 08:30 Blood Pressure 117/73 12/01/16 08:30 O2 Sat by Pulse Oximetry (%) 98 12/01/16 09:00 Constitutional: Yes: No Distress, Calm, Obese Cardiovascular: Yes: Regular Rate and Rhythm Respiratory: Yes: Regular, CTA Bilaterally Gastrointestinal: Yes: Normal Bowel Sounds, Soft Musculoskeletal: Yes: WNL Extremities: Yes: Other Wound/Incision: Yes: Clean/Dry Neurological: Yes: Other (foot drop fingers of both hand contracted still) Psychiatric: Yes: Alert, Oriented Labs: CBC, BMP 12/01/16 06:05 12/01/16 06:05 INR, PTT INR 1.28 (0.82-1.09) H 11/30/16 06:30 Assessment/Plan ac appendicitis morbid obesity oral thrush abd abscess nausea vomiting wbc increasing plan continue current mgmt physio
[2016-12-01 14:19] LABS: DNA AB-SINGLE STRANDED IG-G QN <20 EU (0-19); SELENIUM 143 ug/L (79-326)
[2016-12-01] MEDS ORDERED: MULTIVITAMIN IV SCH (16:00)
[2016-12-01] MEDS ORDERED: [UNRECOGNIZED DRUG - OTHER] IV SCH (16:00)
[2016-12-01] MEDS ORDERED: TRACE ELEMENTS IV SCH (16:00)
[2016-12-01] MEDS ORDERED: POTASSIUM CHLORIDE IV SCH (16:00)
--- NOTE | 2016-12-01 17:04 | PN ---
Progress Note, Physician History of Present Illness: Pt seen and examined at bedside. He says he feels full after eating one or two bites. He was able to walk about 70 steps today. - Current Medication List Current Medications: Active Medications Amlodipine Besylate (Norvasc -) 10 mg PO DAILY [facility] Last Admin: 12/01/16 10:36 Dose: 10 mg Benzocaine/Menthol (Cepacol Lozenge -) 1 each MM Q4H PRN PRN Reason: SORE THROAT Last Admin: 11/19/16 21:54 Dose: 1 each Cholecalciferol (Vitamin D3 -) 10,000 unit PO DAILY [facility] Last Admin: 12/01/16 10:41 Dose: 10,000 unit Heparin Sodium (Porcine) (Heparin -) 5,000 unit SQ TID [facility] Last Admin: 12/01/16 14:24 Dose: 5,000 unit IV Flush (Picc Line Flush) 8 ml IVPUSH PRN PRN PRN Reason: Protocol Last Admin: 11/28/16 10:35 Dose: 8 ml Multivitamins/Minerals 10 ml/Trace Metals 1 ml/ Potassium Chloride 20 meq/ Magnesium Sulfate 1.96 gm/ Sterile Water / Amino Acids/ Dextrose 1,200 mls @ 50 mls/hr IV DAILY@1600 [facility] Labetalol HCl (Normodyne -) 200 mg PO BID [facility] Last Admin: 12/01/16 10:36 Dose: 200 mg Lisinopril (Prinivil) 40 mg PO DAILY [facility] Last Admin: 12/01/16 10:35 Dose: 40 mg Multivitamins (Total B With C -) 1 each PO DAILY [facility] Last Admin: 12/01/16 10:54 Dose: 1 each Multivitamins/Minerals (Theragran-M) 1 each PO DAILY [facility] Last Admin: 12/01/16 10:42 Dose: 1 each Ondansetron HCl (Zofran Injection) 4 mg IVPUSH Q6H PRN PRN Reason: NAUSEA Last Admin: 11/22/16 12:56 Dose: 4 mg Pantoprazole Sodium (Protonix -) 40 mg PO DAILY [facility] Last Admin: 12/01/16 10:36 Dose: 40 mg Polyethylene Glycol (Miralax (For Daily Use) -) 17 gm PO DAILY PRN PRN Reason: CONSTIPATION Pramipexole Dihydrochloride (Mirapex -) 0.25 mg PO BIDPC [place] Last Admin: 12/01/16 10:54 Dose: 0.25 mg - Objective Vital Signs: Vital Signs Temperature 98.2 F 12/01/16 15:38 Pulse Rate 69 12/01/16 15:38 Respiratory Rate 18 12/01/16 15:38 Blood Pressure 126/68 12/01/16 15:38 O2 Sat by Pulse Oximetry (%) 98 12/01/16 09:00 Constitutional: Yes: Calm Eyes: Yes: Conjunctiva Clear HENT: Yes: Atraumatic Neck: Yes: Supple Cardiovascular: Yes: S1, S2 Respiratory: Yes: CTA Bilaterally Gastrointestinal: Yes: Soft, Abdomen, Obese Genitourinary: Yes: WNL Musculoskeletal: Yes: Muscle Weakness Edema: Yes Edema: LLE: Trace, RLE: Trace Neurological: Yes: Oriented Psychiatric: Yes: Oriented Labs: CBC, BMP 12/01/16 06:05 12/01/16 06:05 INR, PTT INR 1.28 (0.82-1.09) H 11/30/16 06:30 Problem List - Problems (1) Perforated appendicitis Code(s): K35.2 - ACUTE APPENDICITIS WITH GENERALIZED PERITONITIS (2) Hyponatremia Code(s): E87.1 - HYPO-OSMOLALITY AND HYPONATREMIA (3) Malnutrition Code(s): E46 - UNSPECIFIED PROTEIN-CALORIE MALNUTRITION Assessment/Plan Current Med Current Medications Generic Name Dose Route Start Last Admin Trade Name Freq PRN Reason Stop Dose Admin Amlodipine Besylate 10 mg 11/18/16 10:00 12/01/16 10:36 Norvasc - PO 10 mg DAILY [place] Administration Benzocaine/Menthol 1 each 11/14/16 18:38 11/19/16 21:54 Cepacol Lozenge - MM 1 each Q4H PRN Administration SORE THROAT Cholecalciferol 10,000 unit 11/30/16 15:00 12/01/16 10:41 Vitamin D3 - PO 10,000 unit DAILY [place] Administration Heparin Sodium (Porcine) 5,000 unit 11/29/16 22:00 12/01/16 14:24 Heparin - SQ 5,000 unit TID [place] Administration IV Flush 8 ml 11/23/16 13:43 11/28/16 10:35 Picc Line Flush IVPUSH 8 ml PRN PRN Administration Protocol Multivitamins/Minerals 10 ml/ 1,200 mls @ 50 mls/hr 12/01/16 16:00 Trace Metals 1 ml/ Potassium IV Chloride 20 meq/ Magnesium DAILY@1600 [place] Sulfate 1.96 gm/ Sterile Water / Amino Acids/ Dextrose Labetalol HCl 200 mg 11/17/16 10:06 12/01/16 10:36 Normodyne - PO 200 mg BID [place] Administration Lisinopril 40 mg 11/17/16 10:00 12/01/16 10:35 Prinivil PO 40 mg DAILY [place] Administration Multivitamins 1 each 11/30/16 15:15 12/01/16 10:54 Total B With C - PO 1 each DAILY [place] Administration Multivitamins/Minerals 1 each 11/28/16 18:45 12/01/16 10:42 Theragran-M PO 1 each DAILY [place] Administration Ondansetron HCl 4 mg 11/13/16 13:51 11/22/16 12:56 Zofran Injection IVPUSH 4 mg Q6H PRN Administration NAUSEA Pantoprazole Sodium 40 mg 11/16/16 14:15 12/01/16 10:36 Protonix - PO 40 mg DAILY [place] Administration Polyethylene Glycol 17 gm 11/29/16 20:05 Miralax (For Daily Use) - PO DAILY PRN CONSTIPATION Pramipexole Dihydrochloride 0.25 mg 11/17/16 09:00 12/01/16 10:54 Mirapex - PO 0.25 mg BIDPC [place] Administration Laboratory Tests 11/22/16 11/29/16 12:45 06:00 Serum Copper 134 Selenium 143 Zinc 78 Impression 1. complicated appendicitis 2. malnutrition 3. hyponatremia 4. obesity 5. HTN 6. anemia Plan - labs reviewed - will continue with TPN - pt appears to be improving as he can walk further - neurology follow up - cont pt/rehab as tolerated - nutrition follow up - jerry Mondragon
[2016-12-01] MEDS ORDERED: MAGNESIUM SULF 50% (8.12 MEQ/2 ML-1 GM VIAL) IVPB ONE (17:05)
[2016-12-01] MEDS ORDERED: MAGNESIUM SULF 50% (8.12 MEQ/2 ML-1 GM VIAL) ONE (18:11)
[2016-12-02 00:06] LABS: A/G RATIO 0.7 (0.7-1.7); GLOBULIN, TOTAL 4.3 g/dL (2.2-3.9); M-SPIKE Not Observed g/dL (Not Observed); TOTAL PROTEIN 7.3 g/dL (6.0-8.5)
[2016-12-02] MEDS: HEPARIN NA (PORCINE) 5,000 UNITS/ML 1ML VIAL SQ SCH ×3 (06:07→22:31)
[2016-12-02] MEDS: LABETALOL HCL 200 MG TABLET (FP) PO SCH ×2 (09:58→22:31)
[2016-12-02] MEDS: LISINOPRIL 20 MG TABLET (FP) PO SCH (09:58)
[2016-12-02] MEDS: amLODIPine BESYLATE 10 MG TABLET (FP) PO SCH (09:58)
[2016-12-02] MEDS: VITAMIN B COMPLEX W/C COMBO TABLET (FP) PO SCH (09:59)
[2016-12-02] MEDS: MULTIVITAMINS THER W-MINERALS COMBO TABLET (FP) PO SCH (09:59)
[2016-12-02] MEDS: CHOLECALCIFEROL (VITAMIN D3) 1,000 UNIT TABLET (FP) PO SCH (09:59)
[2016-12-02] MEDS: PANTOPRAZOLE 40 MG TABLET (FP) PO SCH (09:59)
[2016-12-02] MEDS: PRAMIPEXOLE DIHYDROCHLORIDE 0.25 MG TABLET PO SCH ×2 (10:00→17:31)
[2016-12-02 10:01] LABS: ALBUMIN 3.3 g/dl (3.4-5.0); ANION GAP 11 (8-16); CALCIUM 9.1 mg/dL (8.5-10.1); CO2 25 mmol/L (21-32); GLUCOSE,RANDOM 84 mg/dL (74-106); MAGNESIUM 2.1 mg/dL (1.8-2.4)
[2016-12-02 10:04] LABS: ALK PHOS 119 U/L (45-117); BILIRUBIN,TOTAL 0.5 mg/dL (0.2-1.0); CREATININE 0.6 mg/dL (0.7-1.3); PHOSPHOROUS 3.6 mg/dL (2.5-4.9); SGOT/AST 32 U/L (15-37); SGPT/ALT 60 U/L (12-78); TOT PROT 8.5 g/dl (6.4-8.2)
--- NOTE | 2016-12-02 11:20 | PN ---
Progress Note (short form) - Note Progress Note: Patient is feeling better, with no acute distress, Lower extremities are improving able to move without any difficulty , but states that upper extremities improving slowly. Temperature 98.5 F 12/02/16 07:28 Pulse Rate 76 12/02/16 07:28 Respiratory Rate 20 12/02/16 07:28 Blood Pressure 134/74 12/02/16 07:28 O2 Sat by Pulse Oximetry (%) 100 12/01/16 21:00 GENERAL: The patient is awake, alert, and fully oriented HEAD: Normal with no signs of trauma. EYES: PERRLA EOMI NECK: Trachea midline, full range of motion, supple. LUNGS: Breath sounds equal, clear to auscultation bilaterally, no wheezes, no crackles, no accessory muscle use. HEART: Regular rate and rhythm, S1, S2 without murmur, rub or gallop. ABDOMEN: Soft, morbidly obese, non tender non distended Midline incision with small 1cm opening no drainage NEUROLOGICAL: Cranial nerves II through XII intact. no facial droop or weakness and sensation is intact in the face Normal speech. Sensation of bilateral upper extremities is intact but R>L per patient on exam. RUE: Shoulder abduction, Biceps, and triceps 5/5. right wrist drop noticed on exam. right wrist flexion 4/5 extension 2/5 LUE: Shoulder abduction, Biceps, and triceps 5/5. Left wrist drop noticed on exam. left wrist flexion 4/5 extension 2/5 RLE: knee flexion and extension 5/5 hip flexion 4/5. dorsiflexion of ankle 2/5, plantar flexion 4/5 LLE: 5/5 at all joints except ankle dorsiflexion which is 2/5 Sensation slightly decreased in RUE and RLE when compared to LUE and LLE. Biceps reflex not appreciated knee jerk 0 bilaterally NEURO: AAOx3, CN2-12 grossly intact. continues to have wrist drops but improving. CBCD WBC 5.6 K/mm3 (4.0-10.0) 12/01/16 06:05 RBC 3.39 M/mm3 (4.00-5.60) L 12/01/16 06:05 Hgb 9.8 GM/dL (11.7-16.9) L 12/01/16 06:05 Hct 29.3 % (35.4-49) L 12/01/16 06:05 MCV 86.6 fl (80-96) 12/01/16 06:05 MCHC 33.4 g/dl (32.0-35.9) 12/01/16 06:05 RDW 18.0 % (11.9-15.9) H 12/01/16 06:05 Plt Count 346 K/MM3 (134-434) 12/01/16 06:05 MPV 7.6 fl (7.5-11.1) 12/01/16 06:05 CMP Sodium 140 mmol/L (136-145) 12/02/16 09:00 Potassium 4.2 mmol/L (3.5-5.1) 12/02/16 09:00 Chloride 104 mmol/L (98-107) 12/02/16 09:00 Carbon Dioxide 25 mmol/L (21-32) 12/02/16 09:00 Anion Gap 11 (8-16) 12/02/16 09:00 BUN 13 mg/dL (7-18) 12/02/16 09:00 Creatinine 0.6 mg/dL (0.7-1.3) L 12/02/16 09:00 Creat Clearance w eGFR > 60 (>60) 12/02/16 09:00 Random Glucose 84 mg/dL (74-106) 12/02/16 09:00 Calcium 9.1 mg/dL (8.5-10.1) 12/02/16 09:00 Total Bilirubin 0.5 mg/dL (0.2-1.0) 12/02/16 09:00 AST 32 U/L (15-37) 12/02/16 09:00 ALT 60 U/L (12-78) 12/02/16 09:00 Alkaline Phosphatase 119 U/L (45-117) H 12/02/16 09:00 Total Protein 8.5 g/dl (6.4-8.2) H 12/02/16 09:00 Albumin 3.3 g/dl (3.4-5.0) L 12/02/16 09:00 CARDIAC ENZYMES Creatine Kinase 135 IU/L (39-308) 11/26/16 06:30 Troponin I < 0.02 ng/ml (0.00-0.05) 11/11/16 16:55 Current Medications Generic Name Dose Route Start Last Admin Trade Name Sydney PRN Reason Stop Dose Admin Amlodipine Besylate 10 mg 11/18/16 10:00 12/02/16 09:58 Norvasc - PO 10 mg DAILY [place]SE[place] Administration Benzocaine/Menthol 1 each 11/14/16 18:38 11/19/16 21:54 Cepacol Lozenge - MM 1 each Q4H PRN Administration SORE THROAT Cholecalciferol 10,000 unit 11/30/16 15:00 12/02/16 09:59 Vitamin D3 - PO 10,000 unit DAILY [place] Administration Heparin Sodium (Porcine) 5,000 unit 11/29/16 22:00 12/02/16 06:07 Heparin - SQ 5,000 unit TID [place] Administration IV Flush 8 ml 11/23/16 13:43 11/28/16 10:35 Picc Line Flush IVPUSH 8 ml PRN PRN Administration Protocol Multivitamins/Minerals 10 ml/ 1,200 mls @ 50 mls/hr 12/01/16 16:00 12/01/16 18: 29 Trace Metals 1 ml/ Potassium IV 50 mls/hr Chloride 20 meq/ Magnesium DAILY@1600 [place] Administration Sulfate 1.96 gm/ Sterile Water / Amino Acids/ Dextrose Labetalol HCl 200 mg 11/17/16 10:06 12/02/16 09:58 Normodyne - PO 200 mg BID EUSBEIA Administration Lisinopril 40 mg 11/17/16 10:00 12/02/16 09:58 Prinivil PO 40 mg DAILY [place] Administration Multivitamins 1 each 11/30/16 15:15 12/02/16 09:59 Total B With C - PO 1 each DAILY [place] Administration Multivitamins/Minerals 1 each 11/28/16 18:45 12/02/16 09:59 Theragran-M PO 1 each DAILY [place] Administration Ondansetron HCl 4 mg 11/13/16 13:51 11/22/16 12:56 Zofran Injection IVPUSH 4 mg Q6H PRN Administration NAUSEA Pantoprazole Sodium 40 mg 11/16/16 14:15 12/02/16 09:59 Protonix - PO 40 mg DAILY [place] Administration Polyethylene Glycol 17 gm 11/29/16 20:05 Miralax (For Daily Use) - PO DAILY PRN CONSTIPATION Pramipexole Dihydrochloride 0.25 mg 11/17/16 09:00 12/02/16 10:00 Mirapex - PO 0.25 mg BIDPC [place] Administration Home Medications Medication Instructions Recorded NK [No Known Home Medication] 10/06/16 Laboratory Tests 11/16/16 11/22/16 11/26/16 06:20 12:45 06:30 ESR Total Protein Albumin Globulin Albumin/Globulin Ratio Oodoy-6-Bndhqogkz Yzeqw-9-Hrwoznagp Beta Globulins Gamma Globulins CSF Lyme IgM Ab Interp Serum Copper Selenium Zinc 78 Rheumatoid Factor Double Strand DNA Ab Anti-ss DNA IgG Ab Lyme Screen IgG & IgM 1.47 H Lyme IgM (Western Blot) Negative HIV 1&2 Antibody Screen Negative HIV P24 Antigen Negative Anti-DNase B (Strep) 11/29/16 11/29/16 11/29/16 06:00 06:00 06:00 ESR 100 H Total Protein Albumin Globulin Albumin/Globulin Ratio Hdhmx-6-Jyqxtapwr Ndnrk-0-Jlfaglphg Beta Globulins Gamma Globulins CSF Lyme IgM Ab Interp Serum Copper 134 Selenium 143 Zinc Rheumatoid Factor < 10.0 Double Strand DNA Ab Anti-ss DNA IgG Ab Lyme Screen IgG & IgM Lyme IgM (Western Blot) HIV 1&2 Antibody Screen HIV P24 Antigen Anti-DNase B (Strep) 11/29/16 11/30/16 12/01/16 06:00 06:30 06:00 ESR Total Protein 7.8 Albumin 3.0 Globulin 4.3 H Albumin/Globulin Ratio 0.7 Holgd-5-Qqovpfnhx 0.3 Fgrgl-7-Ivmbfdeyq 0.9 Beta Globulins 1.2 Gamma Globulins 1.9 H CSF Lyme IgM Ab Interp Pending Serum Copper Selenium Zinc Rheumatoid Factor Double Strand DNA Ab <1 Anti-ss DNA IgG Ab <20 Lyme Screen IgG & IgM Lyme IgM (Western Blot) HIV 1&2 Antibody Screen HIV P24 Antigen Anti-DNase B (Strep) <78 12/02/16 09:00 ESR Total Protein 8.5 H Albumin 3.3 L Globulin Albumin/Globulin Ratio Gleyd-7-Rqyaemeff Ewpcx-5-Jkmjnvebh Beta Globulins Gamma Globulins CSF Lyme IgM Ab Interp Serum Copper Selenium Zinc Rheumatoid Factor Double Strand DNA Ab Anti-ss DNA IgG Ab Lyme Screen IgG & IgM Lyme IgM (Western Blot) HIV 1&2 Antibody Screen HIV P24 Antigen Anti-DNase B (Strep) ASSESSMENT AND PLAN: Patient ia a 31 y/o male with h/o Morbid obesity, s/p gastric sleeve sx in Aug 2016 who presented with Abdominal pain and was found to have ruptured appendix. Patient is feeling better , was able to take around 72 steps, his lower and upper extremity power improving. # Acute severe Diffuse axonal sensorimotor polyneuropathy : continues but improving on IV TPN order per Nephro.As per this could be due to nutrition deficiency after rapid weight loss post gastric sleeve surgery. Will continue to hold Aspirin day #3 , for Sunday morning since will be off aspirin x 5 days # Superimposed severe Radial Neuropathy , daily physical therapy continues. will continue TPN per nephro daily Lyme titer positive will send for Western Blot for lyme, daily electrolytes ; will check the Lead level on the patient since he also has anemia. added B- complex tab.daily , patient is on MVI IV, Minerals # Normocytic anemia will check lead, copper level is pending. 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 Recheck the level in 3 months, will continue # Complicated Appendicitis with rupture with fabi-appendicial abscess. s/p laparoscopic RIVERA drainage of the abscess on 11/13, RIVERA is removed now, no further abdominal pain, No further drainage. Patient is tolerating diet well. #HTN: cont BP meds DVT Px: SCds, Heparin 5000u tid Visit type - Emergency Visit Emergency Visit: Yes ED Registration Date: 11/11/16 Care time: The patient presented to the Emergency Department on the above date and was hospitalized for further evaluation of their emergent condition. - New Patient This patient is new to me today: No - Critical Care Critical Care patient: No
--- NOTE | 2016-12-02 12:25 | PN ---
Progress Note, Physician History of Present Illness: Renal f/u Pt without N/V or diarrhea Oral intake is poor Hypomagnesemia on parenteral nutrition - Current Medication List Current Medications: Active Medications Amlodipine Besylate (Norvasc -) 10 mg PO DAILY [facility] Last Admin: 12/02/16 09:58 Dose: 10 mg Benzocaine/Menthol (Cepacol Lozenge -) 1 each MM Q4H PRN PRN Reason: SORE THROAT Last Admin: 11/19/16 21:54 Dose: 1 each Cholecalciferol (Vitamin D3 -) 10,000 unit PO DAILY [facility] Last Admin: 12/02/16 09:59 Dose: 10,000 unit Heparin Sodium (Porcine) (Heparin -) 5,000 unit SQ TID [facility] Last Admin: 12/02/16 06:07 Dose: 5,000 unit IV Flush (Picc Line Flush) 8 ml IVPUSH PRN PRN PRN Reason: Protocol Last Admin: 11/28/16 10:35 Dose: 8 ml Multivitamins/Minerals 10 ml/Trace Metals 1 ml/ Potassium Chloride 20 meq/ Magnesium Sulfate 1.96 gm/ Sterile Water / Amino Acids/ Dextrose 1,200 mls @ 50 mls/hr IV DAILY@1600 [facility] Last Admin: 12/01/16 18:29 Dose: 50 mls/hr Labetalol HCl (Normodyne -) 200 mg PO BID [facility] Last Admin: 12/02/16 09:58 Dose: 200 mg Lisinopril (Prinivil) 40 mg PO DAILY [facility] Last Admin: 12/02/16 09:58 Dose: 40 mg Multivitamins (Total B With C -) 1 each PO DAILY [facility] Last Admin: 12/02/16 09:59 Dose: 1 each Multivitamins/Minerals (Theragran-M) 1 each PO DAILY [facility] Last Admin: 12/02/16 09:59 Dose: 1 each Ondansetron HCl (Zofran Injection) 4 mg IVPUSH Q6H PRN PRN Reason: NAUSEA Last Admin: 11/22/16 12:56 Dose: 4 mg Pantoprazole Sodium (Protonix -) 40 mg PO DAILY [facility] Last Admin: 12/02/16 09:59 Dose: 40 mg Polyethylene Glycol (Miralax (For Daily Use) -) 17 gm PO DAILY PRN PRN Reason: CONSTIPATION Pramipexole Dihydrochloride (Mirapex -) 0.25 mg PO BIDPC [facility] Last Admin: 12/02/16 10:00 Dose: 0.25 mg - Objective Vital Signs: Vital Signs Temperature 98.5 F 12/02/16 07:28 Pulse Rate 76 12/02/16 07:28 Respiratory Rate 20 12/02/16 07:28 Blood Pressure 134/74 12/02/16 07:28 O2 Sat by Pulse Oximetry (%) 100 12/01/16 21:00 Constitutional: Yes: No Distress Cardiovascular: Yes: S1, S2. No: JVD Respiratory: Yes: CTA Bilaterally Gastrointestinal: Yes: Soft. No: Tenderness, Rebound Edema: No Labs: CBC, BMP 12/01/16 06:05 12/02/16 09:00 INR, PTT INR 1.28 (0.82-1.09) H 11/30/16 06:30 Laboratory Tests 12/02/16 09:00 Magnesium 2.1 D Assessment/Plan Impression 1. complicated appendicitis Malnutrition S/P hypomagnesemia Obesity HTN Anemia Plan TPN reordered Rpt Labs in am Dr Pickard
[2016-12-02] MEDS ORDERED: POTASSIUM CHLORIDE IV SCH (16:00)
[2016-12-02] MEDS ORDERED: MULTIVIT IV SCH (16:00)
[2016-12-02] MEDS ORDERED: [UNRECOGNIZED DRUG - OTHER] IV SCH (16:00)
--- NOTE | 2016-12-02 16:03 | PN ---
Progress Note, Physician History of Present Illness: stable except neurological issues tolerating diet - Current Medication List Current Medications: Active Medications Amlodipine Besylate (Norvasc -) 10 mg PO DAILY [facility] Last Admin: 12/02/16 09:58 Dose: 10 mg Benzocaine/Menthol (Cepacol Lozenge -) 1 each MM Q4H PRN PRN Reason: SORE THROAT Last Admin: 11/19/16 21:54 Dose: 1 each Cholecalciferol (Vitamin D3 -) 10,000 unit PO DAILY [facility] Last Admin: 12/02/16 09:59 Dose: 10,000 unit Heparin Sodium (Porcine) (Heparin -) 5,000 unit SQ TID [facility] Last Admin: 12/02/16 13:58 Dose: 5,000 unit IV Flush (Picc Line Flush) 8 ml IVPUSH PRN PRN PRN Reason: Protocol Last Admin: 11/28/16 10:35 Dose: 8 ml Multivitamins/Minerals 10 ml/Potassium Chloride 20 meq/Magnesium Sulfate 1.97 gm /Sterile Water/ Amino Acids/Dextrose 1,200 mls @ 50 mls/hr IV DAILY@1600 [facility] Labetalol HCl (Normodyne -) 200 mg PO BID [facility] Last Admin: 12/02/16 09:58 Dose: 200 mg Lisinopril (Prinivil) 40 mg PO DAILY [facility] Last Admin: 12/02/16 09:58 Dose: 40 mg Multivitamins (Total B With C -) 1 each PO DAILY [facility] Last Admin: 12/02/16 09:59 Dose: 1 each Multivitamins/Minerals (Theragran-M) 1 each PO DAILY [facility] Last Admin: 12/02/16 09:59 Dose: 1 each Ondansetron HCl (Zofran Injection) 4 mg IVPUSH Q6H PRN PRN Reason: NAUSEA Last Admin: 11/22/16 12:56 Dose: 4 mg Pantoprazole Sodium (Protonix -) 40 mg PO DAILY [facility] Last Admin: 12/02/16 09:59 Dose: 40 mg Polyethylene Glycol (Miralax (For Daily Use) -) 17 gm PO DAILY PRN PRN Reason: CONSTIPATION Pramipexole [facility] Last Admin: 12/02/16 10:00 Dose: 0.25 mg - Objective Vital Signs: Vital Signs Temperature 98.3 F 12/02/16 14:22 Pulse Rate 68 12/02/16 14:22 Respiratory Rate 18 12/02/16 14:22 Blood Pressure 120/63 12/02/16 14:22 O2 Sat by Pulse Oximetry (%) 96 12/02/16 09:00 Constitutional: Yes: No Distress, Calm Cardiovascular: Yes: Regular Rate and Rhythm Respiratory: Yes: Regular, CTA Bilaterally Gastrointestinal: Yes: Normal Bowel Sounds, Soft Musculoskeletal: Yes: WNL Extremities: Yes: WNL Neurological: Yes: Alert, Oriented Psychiatric: Yes: Alert, Oriented Labs: CBC, BMP 12/01/16 06:05 12/02/16 09:00 INR, PTT INR 1.28 (0.82-1.09) H 11/30/16 06:30 Assessment/Plan ac appendicitis morbid obesity oral thrush abd abscess nausea vomiting wbc increasing plan continue current mgmt physio
[2016-12-03] MEDS: HEPARIN NA (PORCINE) 5,000 UNITS/ML 1ML VIAL SQ SCH ×2 (06:22→14:13)
[2016-12-03 07:42] LABS: BASOPHIL 0.8 % (0-2.0); EOSINOPHIL 3.3 % (0-4.5); MCH 29.1 pg (25.7-33.7); MCHC 33.1 g/dl (32.0-35.9); MEAN PLT VOLUME 7.4 fl (7.5-11.1); NEUTROPHILS 55.4 % (42.8-82.8); PLATELET COUNT 333 K/MM3 (134-434); WHITE BLOOD COUNT 7.1 K/mm3 (4.0-10.0)
[2016-12-03 07:59] LABS: CALCIUM 8.6 mg/dL (8.5-10.1); CREATININE 0.6 mg/dL (0.7-1.3); MAGNESIUM 2.2 mg/dL (1.8-2.4); PHOSPHOROUS 3.9 mg/dL (2.5-4.9)
[2016-12-03] MEDS ORDERED: PT OWN MED DRAWER 7, Y5N ONE ×3 (09:31→22:29)
[2016-12-03] MEDS: PANTOPRAZOLE 40 MG TABLET (FP) PO SCH (09:51)
[2016-12-03] MEDS: LABETALOL HCL 200 MG TABLET (FP) PO SCH ×2 (09:51→21:23)
[2016-12-03] MEDS: MULTIVITAMINS THER W-MINERALS COMBO TABLET (FP) PO SCH (09:51)
[2016-12-03] MEDS: amLODIPine BESYLATE 10 MG TABLET (FP) PO SCH (09:51)
[2016-12-03] MEDS: PRAMIPEXOLE DIHYDROCHLORIDE 0.25 MG TABLET PO SCH ×2 (09:52→17:54)
[2016-12-03] MEDS: VITAMIN B COMPLEX W/C COMBO TABLET (FP) PO SCH (09:52)
[2016-12-03] MEDS: LISINOPRIL 20 MG TABLET (FP) PO SCH (09:52)
--- NOTE | 2016-12-03 12:32 | PN ---
Progress Note, Physician History of Present Illness: Renal f/u Still has a poor oral intake is poor Pt without N/V or diarrhea - Current Medication List Current Medications: Active Medications Amlodipine Besylate (Norvasc -) 10 mg PO DAILY [facility] Last Admin: 12/03/16 09:51 Dose: 10 mg Benzocaine/Menthol (Cepacol Lozenge -) 1 each MM Q4H PRN PRN Reason: SORE THROAT Last Admin: 11/19/16 21:54 Dose: 1 each Cholecalciferol (Vitamin D3 -) 10,000 unit PO DAILY [facility] Last Admin: 12/02/16 09:59 Dose: 10,000 unit Heparin Sodium (Porcine) (Heparin -) 5,000 unit SQ TID [facility] Last Admin: 12/03/16 06:22 Dose: 5,000 unit IV Flush (Picc Line Flush) 8 ml IVPUSH PRN PRN PRN Reason: Protocol Last Admin: 11/28/16 10:35 Dose: 8 ml Multivitamins/Minerals 10 ml/Potassium Chloride 20 meq/Magnesium Sulfate 1.97 gm /Sterile Water/ Amino Acids/Dextrose 1,200 mls @ 50 mls/hr IV DAILY@1600 [facility] Last Admin: 12/02/16 17:28 Dose: 50 mls/hr Labetalol HCl (Normodyne -) 200 mg PO BID [facility] Last Admin: 12/03/16 09:51 Dose: 200 mg Lisinopril (Prinivil) 40 mg PO DAILY [facility] Last Admin: 12/03/16 09:52 Dose: 40 mg Multivitamins (Total B With C -) 1 each PO DAILY [facility] Last Admin: 12/03/16 09:52 Dose: 1 each Multivitamins/Minerals (Theragran-M) 1 each PO DAILY [facility] Last Admin: 12/03/16 09:51 Dose: 1 each Ondansetron HCl (Zofran Injection) 4 mg IVPUSH Q6H PRN PRN Reason: NAUSEA Last Admin: 11/22/16 12:56 Dose: 4 mg Pantoprazole Sodium (Protonix -) 40 mg PO DAILY [facility] Last Admin: 12/03/16 09:51 Dose: 40 mg Polyethylene Glycol (Miralax (For Daily Use) -) 17 gm PO DAILY PRN PRN Reason: CONSTIPATION Pramipexole Dihydrochloride (Mirapex -) 0.25 mg PO BIDPC [facility] Last Admin: 12/03/16 09:52 Dose: 0.25 mg - Objective Vital Signs: Vital Signs Temperature 98.5 F 12/03/16 06:37 Pulse Rate 69 12/03/16 06:37 Respiratory Rate 20 12/03/16 06:37 Blood Pressure 138/84 12/03/16 06:37 O2 Sat by Pulse Oximetry (%) 96 12/02/16 09:00 Constitutional: Yes: No Distress Cardiovascular: Yes: S1, S2 Respiratory: Yes: CTA Bilaterally Gastrointestinal: Yes: Soft. No: Tenderness, Rebound Edema: No Labs: CBC, BMP 12/03/16 06:00 12/03/16 06:00 INR, PTT INR 1.28 (0.82-1.09) H 11/30/16 06:30 Laboratory Tests 12/03/16 06:00 Random Glucose 84 Calcium 8.6 Phosphorus 3.9 Magnesium 2.2 Assessment/Plan Impression Complicated appendicitis and gastric sleeve Malnutrition S/P hypomagnesemia Obesity HTN Anemia Plan TPN reordered discussed with Pharmacist Rpt Labs in am including PO4 and Magnesium Dr Pickard
[2016-12-03 14:07] LABS: VITAMIN E (ALPHA) 10.5 mg/L (5.3-17.5)
[2016-12-03] MEDS: CHOLECALCIFEROL (VITAMIN D3) 1,000 UNIT TABLET (FP) PO SCH (14:12)
--- NOTE | 2016-12-03 15:11 | PN ---
Progress Note (short form) - Note Progress Note: Patient states that his legs are way more stronger than his arms, doing bedside hand exercises. Temperature 98.4 F 12/03/16 14:16 Pulse Rate 84 12/03/16 14:16 Respiratory Rate 16 12/03/16 14:16 Blood Pressure 110/63 12/03/16 14:16 O2 Sat by Pulse Oximetry (%) 96 12/03/16 09:00 GENERAL: The patient is awake, alert, and fully oriented HEAD: Normal with no signs of trauma. EYES: PERRLA EOMI NECK: Trachea midline, full range of motion, supple. LUNGS: Breath sounds equal, clear to auscultation bilaterally, no wheezes, no crackles, no accessory muscle use. HEART: Regular rate and rhythm, S1, S2 without murmur, rub or gallop. ABDOMEN: Soft, morbidly obese, non tender non distended Midline incision with small 1cm opening no drainage NEUROLOGICAL: Cranial nerves II through XII intact. Wrist drop improving R>L, also LE improving power 5/5 bl, uE 4/5 CBCD WBC 7.1 K/mm3 (4.0-10.0) 12/03/16 06:00 RBC 3.55 M/mm3 (4.00-5.60) L 12/03/16 06:00 Hgb 10.3 GM/dL (11.7-16.9) L 12/03/16 06:00 Hct 31.2 % (35.4-49) L 12/03/16 06:00 MCV 88.0 fl (80-96) 12/03/16 06:00 MCHC 33.1 g/dl (32.0-35.9) 12/03/16 06:00 RDW 18.0 % (11.9-15.9) H 12/03/16 06:00 Plt Count 333 K/MM3 (134-434) 12/03/16 06:00 MPV 7.4 fl (7.5-11.1) L 12/03/16 06:00 CMP Sodium 138 mmol/L (136-145) 12/03/16 06:00 Potassium 4.1 mmol/L (3.5-5.1) 12/03/16 06:00 Chloride 102 mmol/L (98-107) 12/03/16 06:00 Carbon Dioxide 25 mmol/L (21-32) 12/03/16 06:00 Anion Gap 11 (8-16) 12/03/16 06:00 BUN 14 mg/dL (7-18) 12/03/16 06:00 Creatinine 0.6 mg/dL (0.7-1.3) L 12/03/16 06:00 Creat Clearance w eGFR > 60 (>60) 12/02/16 09:00 Random Glucose 84 mg/dL (74-106) 12/03/16 06:00 Calcium 8.6 mg/dL (8.5-10.1) 12/03/16 06:00 Total Bilirubin 0.5 mg/dL (0.2-1.0) 12/02/16 09:00 AST 32 U/L (15-37) 12/02/16 09:00 ALT 60 U/L (12-78) 12/02/16 09:00 Alkaline Phosphatase 119 U/L (45-117) H 12/02/16 09:00 Total Protein 8.5 g/dl (6.4-8.2) H 12/02/16 09:00 Albumin 3.3 g/dl (3.4-5.0) L 12/02/16 09:00 CARDIAC ENZYMES Creatine Kinase 135 IU/L (39-308) 11/26/16 06:30 Troponin I < 0.02 ng/ml (0.00-0.05) 11/11/16 16:55 Current Medications Generic Name Dose Route Start Last Admin Trade Name Freq PRN Reason Stop Dose Admin Amlodipine Besylate 10 mg 11/18/16 10:00 12/03/16 09:51 Norvasc - PO 10 mg DAILY [place] Administration Benzocaine/Menthol 1 each 11/14/16 18:38 11/19/16 21:54 Cepacol Lozenge - MM 1 each Q4H PRN Administration SORE THROAT Cholecalciferol 10,000 unit 11/30/16 15:00 12/03/16 14:12 Vitamin D3 - PO 10,000 unit DAILY [place] Administration Heparin Sodium (Porcine) 5,000 unit 11/29/16 22:00 12/03/16 14:13 Heparin - SQ 5,000 unit TID [place] Administration IV Flush 8 ml 11/23/16 13:43 11/28/16 10:35 Picc Line Flush IVPUSH 8 ml PRN PRN Administration Protocol Multivitamins/Minerals 5 ml/ 600 mls @ 50 mls/hr 12/03/16 16:00 Potassium Chloride 10 meq/ IV Magnesium Sulfate 0.98 gm/ BID@0400,1600 [place] Sterile Water/ Amino Acids/ Dextrose Labetalol HCl 200 mg 11/17/16 10:06 12/03/16 09:51 Normodyne - PO 200 mg BID [place] Administration Lisinopril 40 mg 11/17/16 10:00 12/03/16 09:52 Prinivil PO 40 mg DAILY [place] Administration Multivitamins 1 each 11/30/16 15:15 12/03/16 09:52 Total B With C - PO 1 each DAILY [place] Administration Multivitamins/Minerals 1 each 11/28/16 18:45 12/03/16 09:51 Theragran-M PO 1 each DAILY [place] Administration Ondansetron HCl 4 mg 11/13/16 13:51 11/22/16 12:56 Zofran Injection IVPUSH 4 mg Q6H PRN Administration NAUSEA Pantoprazole Sodium 40 mg 11/16/16 14:15 12/03/16 09:51 Protonix - PO 40 mg DAILY [place] Administration Polyethylene Glycol 17 gm 11/29/16 20:05 Miralax (For Daily Use) - PO DAILY PRN CONSTIPATION Pramipexole Dihydrochloride 0.25 mg 11/17/16 09:00 12/03/16 09:52 Mirapex - PO 0.25 mg BIDPC [place] Administration Home Medications Medication Instructions Recorded NK [No Known Home Medication] 10/06/16 A/P: Patient ia a 31 y/o male with h/o Morbid obesity, s/p gastric sleeve sx in Aug 2016 who presented with Abdominal pain and was found to have ruptured appendix. Patient is feeling better , was able to take around 72 steps, his lower and upper extremity power improving. 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 Will continue to hold Aspirin day #4 , to LP by IR in am. # Superimposed severe Radial Neuropathy , daily physical therapy continues. will continue TPN per nephro daily Lyme titer positive will send for Western Blot for lyme, daily electrolytes ; Lead level pending , added B-complex tab.daily , patient is on MVI IV, and Minerals # Normocytic anemia , lead is pending, copper is nl level. 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 Recheck the level in 3 months, will continue # Complicated Appendicitis with rupture with fabi-appendicial abscess. s/p laparoscopic RIVERA drainage of the abscess on 11/13, RIVERA is removed now, no further abdominal pain, No further drainage. Patient is tolerating diet well. #HTN: cont BP meds DVT Px: SCds, Heparin 5000u tid Visit type - Emergency Visit Emergency Visit: Yes ED Registration Date: 11/11/16 Care time: The patient presented to the Emergency Department on the above date and was hospitalized for further evaluation of their emergent condition. - New Patient This patient is new to me today: No - Critical Care Critical Care patient: No
[2016-12-03] MEDS: MULTIVIT IV SCH (16:19)
[2016-12-03] MEDS: MAGNESIUM SULFATE IV SCH (16:19)
[2016-12-03] MEDS: POTASSIUM CHLORIDE IV SCH (16:19)
[2016-12-03] MEDS: [UNRECOGNIZED DRUG - OTHER] IV SCH (16:19)
--- NOTE | 2016-12-03 16:54 | PN ---
Progress Note, Physician History of Present Illness: patient doing well no gi issues neurological issues improving continues to be on tpn - Current Medication List Current Medications: Active Medications Amlodipine Besylate (Norvasc -) 10 mg PO DAILY [facility] Last Admin: 12/03/16 09:51 Dose: 10 mg Benzocaine/Menthol (Cepacol Lozenge -) 1 each MM Q4H PRN PRN Reason: SORE THROAT Last Admin: 11/19/16 21:54 Dose: 1 each Cholecalciferol (Vitamin D3 -) 10,000 unit PO DAILY [facility] Last Admin: 12/03/16 14:12 Dose: 10,000 unit Heparin Sodium (Porcine) (Heparin -) 5,000 unit SQ TID [facility] Last Admin: 12/03/16 14:13 Dose: 5,000 unit IV Flush (Picc Line Flush) 8 ml IVPUSH PRN PRN PRN Reason: Protocol Last Admin: 11/28/16 10:35 Dose: 8 ml Multivitamins/Minerals 5 ml/Potassium Chloride 10 meq/Magnesium Sulfate 0.98 gm/ Sterile Water/ Amino Acids/Dextrose 600 mls @ 50 mls/hr IV BID@0400,1600 [facility] Last Admin: 12/03/16 16:19 Dose: 50 mls/hr Labetalol HCl (Normodyne -) 200 mg PO BID [facility] Last Admin: 12/03/16 09:51 Dose: 200 mg Lisinopril (Prinivil) 40 mg PO DAILY [facility] Last Admin: 12/03/16 09:52 Dose: 40 mg Multivitamins (Total B With C -) 1 each PO DAILY [facility] Last Admin: 12/03/16 09:52 Dose: 1 each Multivitamins/Minerals (Theragran-M) 1 each PO DAILY [facility] Last Admin: 12/03/16 09:51 Dose: 1 each Ondansetron HCl (Zofran Injection) 4 mg IVPUSH Q6H PRN PRN Reason: NAUSEA Last Admin: 11/22/16 12:56 Dose: 4 mg Pantoprazole Sodium (Protonix -) 40 mg PO DAILY [facility] Last Admin: 12/03/16 09:51 Dose: 40 mg Polyethylene Glycol (Miralax (For Daily Use) -) 17 gm PO DAILY PRN PRN Reason: CONSTIPATION [facility]am[facility] Admin: 12/03/16 09:52 Dose: 0.25 mg - Objective Vital Signs: Vital Signs Temperature 98.4 F 12/03/16 14:16 Pulse Rate 84 12/03/16 14:16 Respiratory Rate 16 12/03/16 14:16 Blood Pressure 110/63 12/03/16 14:16 O2 Sat by Pulse Oximetry (%) 96 12/03/16 09:00 Constitutional: Yes: No Distress, Calm, Obese Neck: Yes: Supple Cardiovascular: Yes: Regular Rate and Rhythm Respiratory: Yes: Regular, CTA Bilaterally Gastrointestinal: Yes: Normal Bowel Sounds, Soft Musculoskeletal: Yes: WNL Extremities: Yes: Other Integumentary: Yes: WNL Wound/Incision: Yes: Clean/Dry Neurological: Yes: Alert, Oriented Psychiatric: Yes: Alert, Oriented Labs: CBC, BMP 12/03/16 06:00 12/03/16 06:00 INR, PTT INR 1.28 (0.82-1.09) H 11/30/16 06:30 Assessment/Plan ac appendicitis morbid obesity oral thrush abd abscess nausea vomiting wbc increasing plan continue current mgmt physio
[2016-12-04] MEDS: [UNRECOGNIZED DRUG - OTHER] IV SCH ×2 (04:40→18:29)
[2016-12-04] MEDS: MULTIVIT IV SCH ×2 (04:40→18:29)
[2016-12-04] MEDS: MAGNESIUM SULFATE IV SCH ×2 (04:40→18:29)
[2016-12-04] MEDS: POTASSIUM CHLORIDE IV SCH ×2 (04:40→18:29)
[2016-12-04] MEDS ORDERED: PT OWN MED DRAWER 7, Y5N ONE ×4 (07:48→18:31)
[2016-12-04 08:25] LABS: MEAN CELL VOLUME 87.7 fl (80-96); MEAN PLT VOLUME 7.6 fl (7.5-11.1); NEUTROPHILS 58.2 % (42.8-82.8); PLATELET COUNT 308 K/MM3 (134-434); RDW 17.9 % (11.9-15.9); WHITE BLOOD COUNT 6.6 K/mm3 (4.0-10.0)
[2016-12-04 08:36] LABS: ALBUMIN 3.2 g/dl (3.4-5.0); ANION GAP 10 (8-16); CALCIUM 8.9 mg/dL (8.5-10.1); CO2 25 mmol/L (21-32); GLUCOSE,RANDOM 86 mg/dL (74-106); MAGNESIUM 2.1 mg/dL (1.8-2.4)
[2016-12-04 08:40] LABS: ALK PHOS 113 U/L (45-117); BILIRUBIN,TOTAL 0.5 mg/dL (0.2-1.0); CREATININE 0.6 mg/dL (0.7-1.3); PHOSPHOROUS 4.1 mg/dL (2.5-4.9); SGOT/AST 29 U/L (15-37); SGPT/ALT 54 U/L (12-78)
[2016-12-04] MEDS: PRAMIPEXOLE DIHYDROCHLORIDE 0.25 MG TABLET PO SCH ×2 (11:39→18:32)
[2016-12-04] MEDS: amLODIPine BESYLATE 10 MG TABLET (FP) PO SCH (11:41)
[2016-12-04] MEDS: LISINOPRIL 20 MG TABLET (FP) PO SCH (11:41)
[2016-12-04] MEDS: VITAMIN B COMPLEX W/C COMBO TABLET (FP) PO SCH (11:41)
[2016-12-04] MEDS: PANTOPRAZOLE 40 MG TABLET (FP) PO SCH (11:41)
[2016-12-04] MEDS: MULTIVITAMINS THER W-MINERALS COMBO TABLET (FP) PO SCH (11:41)
[2016-12-04] MEDS: LABETALOL HCL 200 MG TABLET (FP) PO SCH ×2 (11:41→22:48)
[2016-12-04] MEDS: CHOLECALCIFEROL (VITAMIN D3) 1,000 UNIT TABLET (FP) PO SCH (11:42)
[2016-12-04] MEDS ORDERED: traMADol HCL 50 MG TABLET PO ONE (12:46)
[2016-12-04] MEDS ORDERED: ACETAMINOPHEN 325 MG TABLET (FP) PO ONE (12:47)
--- NOTE | 2016-12-04 13:36 | PN ---
Progress Note, Physician History of Present Illness: stable no new issues - Current Medication List Current Medications: Active Medications Amlodipine Besylate (Norvasc -) 10 mg PO DAILY [facility] Last Admin: 12/04/16 11:41 Dose: 10 mg Benzocaine/Menthol (Cepacol Lozenge -) 1 each MM Q4H PRN PRN Reason: SORE THROAT Last Admin: 11/19/16 21:54 Dose: 1 each Cholecalciferol (Vitamin D3 -) 10,000 unit PO DAILY [facility] Last Admin: 12/04/16 11:42 Dose: 10,000 unit Heparin Sodium (Porcine) (Heparin -) 5,000 unit SQ TID [facility] Last Admin: 12/03/16 14:13 Dose: 5,000 unit IV Flush (Picc Line Flush) 8 ml IVPUSH PRN PRN PRN Reason: Protocol Last Admin: 11/28/16 10:35 Dose: 8 ml Multivitamins/Minerals 5 ml/Potassium Chloride 10 meq/Magnesium Sulfate 0.98 gm/ Sterile Water/ Amino Acids/Dextrose 600 mls @ 50 mls/hr IV BID@0400,1600 [facility] Last Admin: 12/04/16 04:40 Dose: 50 mls/hr Labetalol HCl (Normodyne -) 200 mg PO BID [facility] Last Admin: 12/04/16 11:41 Dose: 200 mg Lisinopril (Prinivil) 40 mg PO DAILY [facility] Last Admin: 12/04/16 11:41 Dose: 40 mg Multivitamins (Total B With C -) 1 each PO DAILY [facility] Last Admin: 12/04/16 11:41 Dose: 1 each Multivitamins/Minerals (Theragran-M) 1 each PO DAILY [facility] Last Admin: 12/04/16 11:41 Dose: 1 each Ondansetron HCl (Zofran Injection) 4 mg IVPUSH Q6H PRN PRN Reason: NAUSEA Last Admin: 11/22/16 12:56 Dose: 4 mg Pantoprazole Sodium (Protonix -) 40 mg PO DAILY [facility] Last Admin: 12/04/16 11:41 Dose: 40 mg Polyethylene Glycol (Miralax (For Daily Use) -) 17 gm PO DAILY PRN PRN Reason: CONSTIPATION [facility]amipexole [facility]chlor[facility] Last Admin: 12/04/16 11:39 Dose: 0.25 mg - Objective Vital Signs: Vital Signs Temperature 99.1 F 12/04/16 06:00 Pulse Rate 69 12/04/16 06:00 Respiratory Rate 20 12/04/16 06:00 Blood Pressure 138/72 12/04/16 06:00 O2 Sat by Pulse Oximetry (%) 96 12/03/16 21:00 Constitutional: Yes: No Distress, Calm Cardiovascular: Yes: Regular Rate and Rhythm Respiratory: Yes: Regular, CTA Bilaterally Gastrointestinal: Yes: Normal Bowel Sounds, Soft Musculoskeletal: Yes: WNL Extremities: Yes: WNL Wound/Incision: Yes: Clean/Dry Neurological: Yes: Alert, Oriented Psychiatric: Yes: Alert, Oriented Labs: CBC, BMP 12/04/16 06:00 12/04/16 06:00 INR, PTT INR 1.28 (0.82-1.09) H 11/30/16 06:30 Assessment/Plan ac appendicitis morbid obesity oral thrush abd abscess nausea vomiting wbc increasing plan continue current mgmt physio still on tpn monitor electrolytes
--- NOTE | 2016-12-04 14:16 | PN ---
Progress Note, Physician History of Present Illness: Pt seen and examined at bedside. He says he feels much stronger. He is able to lift up his legs on his own. He denies shortness of breath. - Current Medication List Current Medications: Active Medications Amlodipine Besylate (Norvasc -) 10 mg PO DAILY [facility] Last Admin: 12/04/16 11:41 Dose: 10 mg Benzocaine/Menthol (Cepacol Lozenge -) 1 each MM Q4H PRN PRN Reason: SORE THROAT Last Admin: 11/19/16 21:54 Dose: 1 each Cholecalciferol (Vitamin D3 -) 10,000 unit PO DAILY [facility] Last Admin: 12/04/16 11:42 Dose: 10,000 unit Heparin Sodium (Porcine) (Heparin -) 5,000 unit SQ TID [facility] Last Admin: 12/03/16 14:13 Dose: 5,000 unit IV Flush (Picc Line Flush) 8 ml IVPUSH PRN PRN PRN Reason: Protocol Last Admin: 11/28/16 10:35 Dose: 8 ml Multivitamins/Minerals 5 ml/Potassium Chloride 10 meq/Magnesium Sulfate 0.98 gm/ Sterile Water/ Amino Acids/Dextrose 600 mls @ 50 mls/hr IV BID@0400,1600 [facility] Last Admin: 12/04/16 04:40 Dose: 50 mls/hr Labetalol HCl (Normodyne -) 200 mg PO BID [facility] Last Admin: 12/04/16 11:41 Dose: 200 mg Lisinopril (Prinivil) 40 mg PO DAILY [facility] Last Admin: 12/04/16 11:41 Dose: 40 mg Multivitamins (Total B With C -) 1 each PO DAILY [facility] Last Admin: 12/04/16 11:41 Dose: 1 each Multivitamins/Minerals (Theragran-M) 1 each PO DAILY [facility] Last Admin: 12/04/16 11:41 Dose: 1 each Ondansetron HCl (Zofran Injection) 4 mg IVPUSH Q6H PRN PRN Reason: NAUSEA Last Admin: 11/22/16 12:56 Dose: 4 mg Pantoprazole Sodium (Protonix -) 40 mg PO DAILY [facility] Last Admin: 12/04/16 11:41 Dose: 40 mg Polyethylene Glycol (Miralax (For Daily Use) -) 17 gm PO DAILY PRN PRN Reason: CONSTIPATION Pramipexole Dihydrochloride (Mirapex -) 0.25 mg PO BID[facility] Last Admin: 12/04/16 11:39 Dose: 0.25 mg - Objective Vital Signs: Vital Signs Temperature 99.1 F 12/04/16 06:00 Pulse Rate 69 12/04/16 06:00 Respiratory Rate 20 12/04/16 06:00 Blood Pressure 138/72 12/04/16 06:00 O2 Sat by Pulse Oximetry (%) 96 12/03/16 21:00 Constitutional: Yes: Calm Eyes: Yes: Conjunctiva Clear HENT: Yes: Atraumatic Neck: Yes: Supple Cardiovascular: Yes: S1, S2 Respiratory: Yes: CTA Bilaterally Gastrointestinal: Yes: Soft, Abdomen, Obese Genitourinary: Yes: WNL Musculoskeletal: Yes: Muscle Weakness Edema: Yes Edema: LLE: Trace, RLE: Trace Neurological: Yes: Oriented Psychiatric: Yes: Oriented Labs: CBC, BMP 12/04/16 06:00 12/04/16 06:00 INR, PTT INR 1.28 (0.82-1.09) H 11/30/16 06:30 Problem List - Problems (1) Perforated appendicitis Code(s): K35.2 - ACUTE APPENDICITIS WITH GENERALIZED PERITONITIS (2) Hyponatremia Code(s): E87.1 - HYPO-OSMOLALITY AND HYPONATREMIA (3) Malnutrition Code(s): E46 - UNSPECIFIED PROTEIN-CALORIE MALNUTRITION Assessment/Plan Current Medications Generic Name Dose Route Start Last Admin Trade Name Freq PRN Reason Stop Dose Admin Amlodipine Besylate 10 mg 11/18/16 10:00 12/04/16 11:41 Norvasc - PO 10 mg DAILY [facility] Administration Benzocaine/Menthol 1 each 11/14/16 18:38 11/19/16 21:54 Cepacol Lozenge - MM 1 each Q4H PRN Administration SORE THROAT Cholecalciferol 10,000 unit 11/30/16 15:00 12/04/16 11:42 Vitamin D3 - PO 10,000 unit DAILY [facility] Administration Heparin Sodium (Porcine) 5,000 unit 11/29/16 22:00 12/03/16 14:13 Heparin - SQ 5,000 unit TID [facility] Administration IV Flush 8 ml 11/23/16 13:43 11/28/16 10:35 Picc Line Flush IVPUSH 8 ml PRN PRN Administration Protocol Multivitamins/Minerals 5 ml/ 600 mls @ 50 mls/hr 12/03/16 16:00 12/04/16 04:40 Potassium Chloride 10 meq/ IV 50 mls/hr Magnesium Sulfate 0.98 gm/ BID@0400,1600 [facility] Administration Sterile Water/ Amino Acids/ Dextrose Labetalol HCl 200 mg 11/17/16 10:06 12/04/16 11:41 Normodyne - PO 200 mg BID [facility] Administration Lisinopril 40 mg 11/17/16 10:00 12/04/16 11:41 Prinivil PO 40 mg DAILY [facility] Administration Multivitamins 1 each 11/30/16 15:15 12/04/16 11:41 Total B With C - PO 1 each DAILY [facility] Administration Multivitamins/Minerals 1 each 11/28/16 18:45 12/04/16 11:41 Theragran-M PO 1 each DAILY [facility] Administration Ondansetron HCl 4 mg 11/13/16 13:51 11/22/16 12:56 Zofran Injection IVPUSH 4 mg Q6H PRN Administration NAUSEA Pantoprazole Sodium 40 mg 11/16/16 14:15 12/04/16 11:41 Protonix - PO 40 mg DAILY [facility] Administration Polyethylene Glycol 17 gm 11/29/16 20:05 Miralax (For Daily Use) - PO DAILY PRN CONSTIPATION Pramipexole Dihydrochloride 0.25 mg 11/17/16 09:00 12/04/16 11:39 Mirapex - PO 0.25 mg BIDPC [facility] Administration Laboratory Tests 12/04/16 06:00 BUN 16 Creatinine 0.6 L Calcium 8.9 Phosphorus 4.1 Magnesium 2.1 Impression 1. complicated appendicitis 2. malnutrition 3. hyponatremia 4. obesity 5. HTN 6. anemia Plan - will cont IV nutrition - pt is starting to tolerate PO intake but is unable to finish his meals - neurology follow up - cont pt/rehab as tolerated, he last walked over 70 steps - nutrition follow up - monitory [place] daily Dr Mondragon
[2016-12-04] MEDS ORDERED: diazePAM 5 MG TABLET PO ONE (16:04)
--- NOTE | 2016-12-04 16:17 | PN ---
Physical Exam: SUBJECTIVE: Patient seen and examined at bedside for LP today tolerating more of his oral intake worked with Physical therapy-muscle strength improving but his ability to ambulate waxes and wanes OBJECTIVE: Vital Signs Period Temp Pulse Resp BP Sys/Peoples Pulse Ox Last 24 Hr 98.2 F-99.1 F 66-74 18-20 117-138/56-80 96 GENERAL: The patient is awake, alert, and fully oriented HEAD: Normal with no signs of trauma. EYES: PERRLA EOMI NECK: Trachea midline, full range of motion, supple. LUNGS: Breath sounds equal, clear to auscultation bilaterally, no wheezes, no crackles, no accessory muscle use. HEART: Regular rate and rhythm, S1, S2 without murmur, rub or gallop. ABDOMEN: Soft, morbidly obese, non tender non distended Midline incision with small 1cm opening no drainage NEUROLOGICAL: Cranial nerves II through XII intact. no facial droop or weakness and sensation is intact in the face Normal speech. Sensation of bilateral upper extremities is intact but R>L per patient on exam. RUE: Shoulder abduction, Biceps, and triceps 5/5. right wrist drop noticed on exam. right wrist flexion 4/5 extension 2/5 LUE: Shoulder abduction, Biceps, and triceps 5/5. Left wrist drop noticed on exam. left wrist flexion 4/5 extension 2/5 RLE: knee flexion and extension 5/5 hip flexion 5/5. dorsiflexion of ankle 1/5, plantar flexion 4/5 LLE: 5/5 at all joints except ankle dorsiflexion which is 1/5 Sensation slightly decreased in RUE and RLE when compared to LUE and LLE. Biceps reflex not appreciated knee jerk 0 bilaterally Right calf tenderness: negative for DVT on Duplex US Laboratory Results - last 24 hr 12/04/16 12/04/16 06:00 06:00 WBC 6.6 RBC 3.64 L Hgb 10.6 L Hct 32.0 L MCV 87.7 MCHC 33.0 RDW 17.9 H Plt Count 308 MPV 7.6 Neutrophils % 58.2 Lymphocytes % 30.4 Monocytes % 7.4 Eosinophils % 3.0 Basophils % 1.0 Sodium 137 Potassium 4.2 Chloride 102 Carbon Dioxide 25 Anion Gap 10 BUN 16 Creatinine 0.6 L Creat Clearance w eGFR > 60 Random Glucose 86 Calcium 8.9 Phosphorus 4.1 Magnesium 2.1 Total Bilirubin 0.5 AST 29 ALT 54 Alkaline Phosphatase 113 Total Protein 8.0 Albumin 3.2 L Active Medications Generic Name Dose Route Start Last Admin Trade Name Freq PRN Reason Stop Dose Admin Amlodipine Besylate 10 mg 11/18/16 10:00 12/04/16 11:41 Norvasc - PO 10 mg DAILY [facility] Administration Benzocaine/Menthol 1 each 11/14/16 18:38 11/19/16 21:54 Cepacol Lozenge - MM 1 each Q4H PRN Administration SORE THROAT Cholecalciferol 10,000 unit 11/30/16 15:00 12/04/16 11:42 Vitamin D3 - PO 10,000 unit DAILY [facility] Administration Diazepam 5 mg 12/05/16 09:00 Valium - PO 12/05/16 09:01 ONCE ONE Heparin Sodium (Porcine) 5,000 unit 11/29/16 22:00 12/03/16 14:13 Heparin - SQ 5,000 unit TID [facility] Administration IV Flush 8 ml 11/23/16 13:43 11/28/16 10:35 Picc Line Flush IVPUSH 8 ml PRN PRN Administration Protocol Multivitamins/Minerals 5 ml/ 600 mls @ 50 mls/hr 12/03/16 16:00 12/04/16 04:40 Potassium Chloride 10 meq/ IV 50 mls/hr Magnesium Sulfate 0.98 gm/ BID@0400,1600 [facility] Administration Sterile Water/ Amino Acids/ Dextrose Labetalol HCl 200 mg 11/17/16 10:06 12/04/16 11:41 Normodyne - PO 200 mg BID [facility] Administration Lisinopril 40 mg 11/17/16 10:00 12/04/16 11:41 Prinivil PO 40 mg DAILY [facility] Administration Multivitamins 1 each 11/30/16 15:15 12/04/16 11:41 Total B With C - PO 1 each DAILY [facility] Administration Multivitamins/Minerals 1 each 11/28/16 18:45 12/04/16 11:41 Theragran-M PO 1 each DAILY [facility] Administration Ondansetron HCl 4 mg 11/13/16 13:51 11/22/16 12:56 Zofran Injection IVPUSH 4 mg Q6H PRN Administration NAUSEA Pantoprazole Sodium 40 mg 11/16/16 14:15 12/04/16 11:41 Protonix - PO 40 mg DAILY [facility] Administration Polyethylene Glycol 17 gm 11/29/16 20:05 Miralax (For Daily Use) - PO DAILY PRN CONSTIP[facility] Pramipexole Dihydrochloride 0.25 mg 11/17/16 09:00 12/04/16 11:39 Mirapex - PO 0.25 mg BIDPC [facility] Administration ASSESSMENT/PLAN: 31M with a PMH of morbid obesity presents to the hospital with abdominal pain found to have a perforated appendicitis in the OR. Sepsis secondary to Perforated appendicitis: CT scan initially read as perforated appendicitis the read changed to non perforated appendicitis. Taken to the OR for attempted Laparoscopic appendectomy found to be perforated. Appendix was not able to be visualized as a result was not resected. Patient s/ p laparoscopic drainage and washout of fabi-appendiceal abscess POD #21. CT scan did not show any worsening pathology abscess moved more medial appendix not visualized ID consult appreciated- HIV test negative surgery consult appreciated recommendations noted stopped Zosyn on day 13 able to tolerate diet more -at post gastrectomy baseline RIVERA drain d/c'ed by Surgery cultures-negative final pain control repeat RUQ US show cholelithiasis without cholecystitis and diffuse fatty infiltration of liver nephrology consult appreciated - on TPN will continue until discharge S/P PICC by IR surgery signed off HIDA scan negative Protein calorie malnutrition: Dietary/case hardener consult appreciated stop IVF will continue TPN for now until discharge Tolerating more PO at this time Vitamin D deficiency: continue Vit D 10,000 units daily Transaminitis: resolved likely secondary to diffuse fatty liver infiltration Dehydration: as was indicated by BUN/Cr resolved stopped IVF Right sided numbness and weakness: polyneuropathy. possible demyelinating disorder: Guillain-Kirkman syndrome vs chronic inflammatory demyelinating polyneuropathy vs progressive inflammatory neuropathy vs multifocal motor neuropathy Patient had EMG done read as diffuse severe axonal sensorimotor polyneuropathy, superimposed severe radial neuropathy, no definite myopathy, fasciculations, or demyelinating process. s/p presentation of this patient in neurology grand rounds last night discussed in detail please see Dr. Up's note dated 11/29/[address] negative patient can not fit in MRI machine states had EMG as outpatient does not know results-called Dr. 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 grand rounds discussion discussed with patient at length once it was over, including findings and progrnosis and further plans Will schedule LP with IR had an attempt today which was unsuccessful but they will reattempt under sedation Will Check Copper [id number], Selenium-WNL Zinc-WNL B12-WNL, ESR-100, CRP- 4.6, HANNAH screen -WNL, RF-negative, [id number] AntiDNASE-negative , SPEP, and immunoglobulins-pending Fat soluble vitamins A E K-pending vitamin D done and very low at 9, lyme PCR and western blot-pending sent lyme PCR because mixed IgG and IgM is positive Leukocytosis: resolved off Abx continue multivitamins with minerals continue B complex Continue high dose vitamins Neuro exam especially the RLE has significantly improved patient ambulating more Will send [facility] for oligoclonal bands protein routine studies lyme VDRL and immunoglobulins Essential Hypertension: no previous diagnosis per patient but he has been hypertensive in the hospital although pain may be a contributing factor he likely has underlying hypertension Well controlled on this regimen: continue lisinopril 40mg po daily continue norvasc 10mg po daily continue PO labetalol to 200 BID Oral Thrush: stop nystatin swish and swallow diflucan stopped HIV negative Morbid Obesity: s/p sleeve gastrectomy follow up outpatient PPx: HSQ protonix working with PT-improved FEN: stop IVF replete magnesium tpn and regular diet as tolerated- patient accepted to [facility] pending bed. will likely be discharged tomorrow Visit type - Emergency Visit Emergency Visit: Yes ED Registration Date: 11/11/16 Care time: The patient presented to the Emergency Department on the above date and was hospitalized for further evaluation of their emergent condition. - New Patient This patient is new to me today: No - Critical Care Critical Care patient: No
[2016-12-04] MEDS: PICC LINE 8 ML FLUSH PROTOCOL IVPUSH PRN (18:31)
--- NOTE | 2016-12-04 21:48 | PN ---
Teaching Attending Note Name of Resident: Ramon Reynoso ATTENDING PHYSICIAN STATEMENT I saw and evaluated the patient. I reviewed the resident's note and discussed the case with the resident. I agree with the resident's findings and plan as documented. Patient is feeling better improving. Still having wrist drop but better. Vital Signs Temperature 98.9 F 12/04/16 16:10 Pulse Rate 69 12/04/16 16:10 Respiratory Rate 20 12/04/16 16:10 Blood Pressure 138/80 12/04/16 16:10 O2 Sat by Pulse Oximetry (%) 96 12/03/16 21:00 CBCD WBC 6.6 K/mm3 (4.0-10.0) 12/04/16 06:00 RBC 3.64 M/mm3 (4.00-5.60) L 12/04/16 06:00 Hgb 10.6 GM/dL (11.7-16.9) L 12/04/16 06:00 Hct 32.0 % (35.4-49) L 12/04/16 06:00 MCV 87.7 fl (80-96) 12/04/16 06:00 MCHC 33.0 g/dl (32.0-35.9) 12/04/16 06:00 RDW 17.9 % (11.9-15.9) H 12/04/16 06:00 Plt Count 308 K/MM3 (134-434) 12/04/16 06:00 MPV 7.6 fl (7.5-11.1) 12/04/16 06:00 CMP Sodium 137 mmol/L (136-145) 12/04/16 06:00 Potassium 4.2 mmol/L (3.5-5.1) 12/04/16 06:00 Chloride 102 mmol/L (98-107) 12/04/16 06:00 Carbon Dioxide 25 mmol/L (21-32) 12/04/16 06:00 Anion Gap 10 (8-16) 12/04/16 06:00 BUN 16 mg/dL (7-18) 12/04/16 06:00 Creatinine 0.6 mg/dL (0.7-1.3) L 12/04/16 06:00 Creat Clearance w eGFR > 60 (>60) 12/04/16 06:00 Random Glucose 86 mg/dL (74-106) 12/04/16 06:00 Calcium 8.9 mg/dL (8.5-10.1) 12/04/16 06:00 Total Bilirubin 0.5 mg/dL (0.2-1.0) 12/04/16 06:00 AST 29 U/L (15-37) 12/04/16 06:00 ALT 54 U/L (12-78) 12/04/16 06:00 Alkaline Phosphatase 113 U/L (45-117) 12/04/16 06:00 Total Protein 8.0 g/dl (6.4-8.2) 12/04/16 06:00 Albumin 3.2 g/dl (3.4-5.0) L 12/04/16 06:00 CARDIAC ENZYMES Creatine Kinase 135 IU/L (39-308) 11/26/16 06:30 Troponin I < 0.02 ng/ml (0.00-0.05) 11/11/16 16:55 Current Medications Generic Name Dose Route Start Last Admin Trade Name Griffinq PRN Reason Stop Dose Admin Amlodipine Besylate 10 mg 11/18/16 10:00 12/04/16 11:41 Norvasc - PO 10 mg DAILY [facility] Administration Benzocaine/Menthol 1 each 11/14/16 18:38 11/19/16 21:54 Cepacol Lozenge - MM 1 each Q4H PRN Administration SORE THROAT Cholecalciferol 10,000 unit 11/30/16 15:00 12/04/16 11:42 Vitamin D3 - PO 10,000 unit DAILY [facility] Administration Diazepam 5 mg 12/05/16 09:00 Valium - PO 12/05/16 09:01 ONCE ONE Heparin Sodium (Porcine) 5,000 unit 11/29/16 22:00 12/03/16 14:13 Heparin - SQ 5,000 unit TID [facility] Administration IV Flush 8 ml 11/23/16 13:43 12/04/16 18:31 Picc Line Flush IVPUSH 8 ml PRN PRN Administration Protocol Multivitamins/Minerals 5 ml/ 600 mls @ 50 mls/hr 12/03/16 16:00 12/04/16 18:29 Potassium Chloride 10 meq/ IV 50 mls/hr Magnesium Sulfate 0.98 gm/ BID@0400,1600 [facility] Administration Sterile Water/ Amino Acids/ Dextrose Labetalol HCl 200 mg 11/17/16 10:06 12/04/16 11:41 Normodyne - PO 200 mg BID [facility] Administration Lisinopril 40 mg 11/17/16 10:00 12/04/16 11:41 Prinivil PO 40 mg DAILY [facility] Administration Multivitamins 1 each 11/30/16 15:15 12/04/16 11:41 Total B With C - PO 1 each DAILY [facility] Administration Multivitamins/Minerals 1 each 11/28/16 18:45 12/04/16 11:41 Theragran-M PO 1 each DAILY [facility] Administration Ondansetron HCl 4 mg 11/13/16 13:51 11/22/16 12:56 Zofran Injection IVPUSH 4 mg Q6H PRN Administration NAUSEA Pantoprazole Sodium 40 mg 11/16/16 14:15 12/04/16 11:41 Protonix - PO 40 mg DAILY [facility] Administration Polyethylene Glycol 17 gm 11/29/16 20:05 Miralax (For Daily Use) - PO DAILY PRN CONSTIPATION Pramipexole Dihydrochloride 0.25 mg 11/17/16 09:00 12/04/16 18:32 Mirapex - PO 0.25 mg BIDPC [facility] Administration Home Medications Medication Instructions Recorded NK [No Known Home Medication] 10/06/16 ASSESSMENT AND PLAN: Patient ia a 31 y/o male with h/o Morbid obesity, s/p gastric sleeve sx in Aug 2016 who presented with Abdominal pain and was found to have ruptured appendix. Patient is feeling better , was able to take around 72 steps, his lower and upper extremity power improving. # Acute severe Diffuse axonal sensorimotor polyneuropathy improving ; going for LP this am , continue IV TPN for now as per Nephro.As per this could be due to nutrition deficiency after rapid weight loss post gastric sleeve surgery. Will continue to hold Aspirin day #5 , to LP by IR in am. # Superimposed severe Radial Neuropathy , daily physical therapy continues. continue TPN per nephro daily Lyme titer positive will send for Western Blot for lyme, daily electrolytes ; Lead level pending , added B-complex tab.daily , patient is on MVI IV, and Minerals # Normocytic anemia , lead is pending, copper is nl level. 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 Recheck the level in 3 months, will continue # Complicated Appendicitis with rupture with fabi-appendicial abscess. s/p laparoscopic RIVERA drainage of the abscess on 11/13, RIVERA is removed now, no further abdominal pain, No further drainage. Patient is tolerating diet well. #HTN: cont BP meds DVT Px: SCds, Heparin 5000u tid
[2016-12-05 06:09] LABS: IgG P18 Present (.); IgG P23 Absent (.); IgG P28 Absent (.); IgG P30 Absent (.); IgG P39 Absent (.); IgG P41 Present (.); IgG P45 Present (.); IgG P58 Present (.); IgG P66 Present (.); IgG P93 Absent (.); IgM P23 Present (.); IgM P39 Absent (.); IgM P41 Absent (.); LYME IGM WB INTERPRE Negative (.)
[2016-12-05] MEDS: MULTIVIT IV SCH ×3 (06:22→18:00)
[2016-12-05] MEDS: MAGNESIUM SULFATE IV SCH ×2 (06:22→18:00)
[2016-12-05] MEDS: [UNRECOGNIZED DRUG - OTHER] IV SCH ×2 (06:22→18:00)
[2016-12-05] MEDS: POTASSIUM CHLORIDE IV SCH ×2 (06:22→18:00)
[2016-12-05] MEDS: HEPARIN NA (PORCINE) 5,000 UNITS/ML 1ML VIAL SQ SCH ×3 (06:24→22:19)
[2016-12-05 07:58] LABS: MCH 29.1 pg (25.7-33.7); MCHC 33.1 g/dl (32.0-35.9); MEAN CELL VOLUME 87.8 fl (80-96); MEAN PLT VOLUME 7.3 fl (7.5-11.1); PLATELET COUNT 282 K/MM3 (134-434); RDW 18.7 % (11.9-15.9); WHITE BLOOD COUNT 5.8 K/mm3 (4.0-10.0)
[2016-12-05 08:13] LABS: ALBUMIN 3.1 g/dl (3.4-5.0); ANION GAP 10 (8-16); BILIRUBIN,TOTAL 0.5 mg/dL (0.2-1.0); CALCIUM 8.9 mg/dL (8.5-10.1); CO2 28 mmol/L (21-32); CREATININE 0.6 mg/dL (0.7-1.3); GLUCOSE,RANDOM 84 mg/dL (74-106); MAGNESIUM 2.2 mg/dL (1.8-2.4); PHOSPHOROUS 4.6 mg/dL (2.5-4.9); SGOT/AST 27 U/L (15-37); SGPT/ALT 51 U/L (12-78); TOT PROT 7.7 g/dl (6.4-8.2)
[2016-12-05 08:14] LABS: ALK PHOS 111 U/L (45-117)
[2016-12-05] MEDS ORDERED: diazePAM 5 MG TABLET PO ONE (09:00)
[2016-12-05] MEDS: PRAMIPEXOLE DIHYDROCHLORIDE 0.25 MG TABLET PO SCH ×2 (09:09→18:00)
[2016-12-05] MEDS ORDERED: PT OWN MED DRAWER 7, Y5N ONE (10:26)
[2016-12-05] MEDS: amLODIPine BESYLATE 10 MG TABLET (FP) PO SCH (10:28)
[2016-12-05] MEDS: VITAMIN B COMPLEX W/C COMBO TABLET (FP) PO SCH ×2 (10:28→16:21)
[2016-12-05] MEDS: LABETALOL HCL 200 MG TABLET (FP) PO SCH ×2 (10:29→22:19)
[2016-12-05] MEDS: CHOLECALCIFEROL (VITAMIN D3) 1,000 UNIT TABLET (FP) PO SCH ×2 (10:29→16:21)
[2016-12-05] MEDS: MULTIVITAMINS THER W-MINERALS COMBO TABLET (FP) PO SCH ×2 (10:30→16:22)
[2016-12-05] MEDS: PANTOPRAZOLE 40 MG TABLET (FP) PO SCH ×2 (10:30→16:22)
[2016-12-05] MEDS: LISINOPRIL 20 MG TABLET (FP) PO SCH (10:30)
[2016-12-05] MEDS: PICC LINE 8 ML FLUSH PROTOCOL IVPUSH PRN (10:30)
--- NOTE | 2016-12-05 10:47 | PN ---
Progress Note, Physician History of Present Illness: The patient is seen in follow up. Work up for nutritional deficiency reviewed. Daily physical therapy notes reviewed and able to stand at times with mod assist of 2. Still has severe bilateral wrist drop and bilateral foot drop. Has been accepted at [facility] and is pending transfer when stable and bed available. Still numbness in hands and legs. Has not obtained wrist splints yet, discussed with therapy and nursing. Exam morbidly obese man NAD lying in bed and seen sitting at the edge of bed Ext trace edema, no calf tenderness Skin no rash N/M bilateral distal upper and lower extremities weakness 0-1/5 better antigravity proximal strength 3-4/5 A/P Severe Axonal Motor sensory PN uncertain etiology, bilateral foot drop and wrist drop prob concurrent Radial and Peroneal Neuropathies, Gait disorder Will order cock up splints, d/w staff cont PT Follow up neurology, check blood work PT/OT [facility] when stable DVT prophylaxis Charles Jesus MD - Current Medication List Current Medications: Active Medications Amlodipine Besylate (Norvasc -) 10 mg PO DAILY [facility] Last Admin: 12/05/16 10:28 Dose: 10 mg Benzocaine/Menthol (Cepacol Lozenge -) 1 each MM Q4H PRN PRN Reason: SORE THROAT Last Admin: 11/19/16 21:54 Dose: 1 each Cholecalciferol (Vitamin D3 -) 10,000 unit PO DAILY [facility] Last Admin: 12/05/16 10:29 Dose: Not Given Heparin Sodium (Porcine) (Heparin -) 5,000 unit SQ TID [facility] Last Admin: 12/05/16 06:24 Dose: Not Given IV Flush (Picc Line Flush) 8 ml IVPUSH PRN PRN PRN Reason: Protocol Last Admin: 12/05/16 10:30 Dose: 8 ml Multivitamins/Minerals 5 ml/Potassium Chloride 10 meq/Magnesium Sulfate 0.98 gm/ Sterile Water/ Amino Acids/Dextrose 600 mls @ 50 mls/hr IV BID@0400,1600 [facility] Last Admin: 12/05/16 06:22 Dose: 50 mls/hr Labetalol HCl (Normodyne -) 200 mg PO BID [facility] Last Admin: 12/05/16 10:29 Dose: 200 mg Lisinopril (Prinivil) 40 mg PO DAILY [facility] Last Admin: 12/05/16 10:30 Dose: 40 mg Multivitamins (Total B With C -) 1 each PO DAILY [facility] Last Admin: 12/05/16 10:28 Dose: 1 each Multivitamins/Minerals (Theragran-M) 1 each PO DAILY [facility] Last Admin: 12/05/16 10:30 Dose: Not Given Ondansetron HCl (Zofran Injection) 4 mg IVPUSH Q6H PRN PRN Reason: NAUSEA Last Admin: 11/22/16 12:56 Dose: 4 mg Pantoprazole Sodium (Protonix -) 40 mg PO DAILY [facility] Last Admin: 12/05/16 10:30 Dose: Not Given Polyethylene Glycol (Miralax (For Daily Use) -) 17 gm PO DAILY PRN PRN Reason: CONSTIPATION Pramipexole Dihydrochloride (Mirapex -) 0.25 mg PO BIDPC [facility] Last Admin: 12/05/16 09:09 Dose: Not Given - Objective Vital Signs: Vital Signs Temperature 97.6 F 12/05/16 06:00 Pulse Rate 67 12/05/16 06:00 Respiratory Rate 20 12/05/16 06:00 Blood Pressure 113/73 12/05/16 06:00 O2 Sat by Pulse Oximetry (%) 96 12/03/16 21:00 Labs: CBC, BMP 12/05/16 06:30 12/05/16 06:30 INR, PTT INR 1.28 (0.82-1.09) H 11/30/16 06:30
[2016-12-05] MEDS ORDERED: diazePAM 5 MG TABLET ONE (11:42)
--- NOTE | 2016-12-05 11:43 | PN ---
Physical Exam: SUBJECTIVE: Patient seen and examined OBJECTIVE: Vital Signs Period Temp Pulse Resp BP Sys/Peoples Pulse Ox Last 24 Hr 97.3 F-98.9 F 66-71 18-20 113-139/56-91 GENERAL: The patient is awake, alert, and fully oriented HEAD: Normal with no signs of trauma. EYES: PERRLA EOMI NECK: Trachea midline, full range of motion, supple. LUNGS: Breath sounds equal, clear to auscultation bilaterally, no wheezes, no crackles, no accessory muscle use. HEART: Regular rate and rhythm, S1, S2 without murmur, rub or gallop. ABDOMEN: Soft, morbidly obese, non tender non distended Midline incision C/D/I NEUROLOGICAL: Cranial nerves II through XII intact. no facial droop or weakness and sensation is intact in the face Normal speech. Sensation of bilateral upper extremities is intact but R>L per patient on exam. RUE: Shoulder abduction, Biceps, and triceps 5/5. right wrist drop noticed on exam. right wrist flexion 4/5 extension 3/5 LUE: Shoulder abduction, Biceps, and triceps 5/5. Left wrist drop noticed on exam. left wrist flexion 4/5 extension 3/5 RLE: knee flexion and extension 5/5 hip flexion 5/5. dorsiflexion of ankle 2/5, plantar flexion 4/5 LLE: 5/5 at all joints except ankle dorsiflexion which is 2/5 Sensation slightly decreased in RUE and RLE when compared to LUE and LLE. Right calf tenderness: negative for DVT on Duplex US Laboratory Results - last 24 hr 12/01/16 12/05/16 12/05/16 06:00 06:30 06:30 WBC 5.8 RBC 3.60 L Hgb 10.5 L Hct 31.6 L MCV 87.8 MCHC 33.1 RDW 18.7 H Plt Count 282 MPV 7.3 L Sodium 137 Potassium 4.2 Chloride 99 Carbon Dioxide 28 Anion Gap 10 BUN 16 Creatinine 0.6 L Creat Clearance w eGFR > 60 Random Glucose 84 Calcium 8.9 Phosphorus 4.6 Magnesium 2.2 Total Bilirubin 0.5 AST 27 ALT 51 Alkaline Phosphatase 111 Total Protein 7.7 Albumin 3.1 L Lyme Screen IgG & IgM 1.08 H Lyme IgM (Western Blot) Negative Active Medications Generic Name Dose Route Start Last Admin Trade Name Freq PRN Reason Stop Dose Admin Amlodipine Besylate 10 mg 11/18/16 10:00 12/05/16 10:28 Norvasc - PO 10 mg DAILY [facility] Administration Benzocaine/Menthol 1 each 11/14/16 18:38 11/19/16 21:54 Cepacol Lozenge - MM 1 each Q4H PRN Administration SORE THROAT Cholecalciferol 10,000 unit 11/30/16 15:00 12/05/16 10:29 Vitamin D3 - PO Not Given DAILY [facility] Heparin Sodium (Porcine) 5,000 unit 11/29/16 22:00 12/05/16 06:24 Heparin - SQ Not Given TID [facility] IV Flush 8 ml 11/23/16 13:43 12/05/16 10:30 Picc Line Flush IVPUSH 8 ml PRN PRN Administration Protocol Multivitamins/Minerals 5 ml/ 600 mls @ 50 mls/hr 12/03/16 16:00 12/05/16 06:22 Potassium Chloride 10 meq/ IV 50 mls/hr Magnesium Sulfate 0.98 gm/ BID@0400,1600 [facility] Administration Sterile Water/ Amino Acids/ Dextrose Labetalol HCl 200 mg 11/17/16 10:06 12/05/16 10:29 Normodyne - PO 200 mg BID [facility] Administration Lisinopril 40 mg 11/17/16 10:00 12/05/16 10:30 Prinivil PO 40 mg DAILY [facility] Administration Multivitamins 1 each 11/30/16 15:15 12/05/16 10:28 Total B With C - PO 1 each DAILY [facility] Administration Multivitamins/Minerals 1 each 11/28/16 18:45 12/05/16 10:30 Theragran-M PO Not Given DAILY [facility] Ondansetron HCl 4 mg 11/13/16 13:51 11/22/16 12:56 Zofran Injection IVPUSH 4 mg Q6H PRN Administration NAUSEA Pantoprazole Sodium 40 mg 11/16/16 14:15 12/05/16 10:30 Protonix - PO Not Given DAILY [facility] Polyethylene Glycol 17 gm 11/29/16 20:05 Miralax (For Daily Use) - PO DAILY PRN CONSTIPATION Pramipexole Dihydrochloride 0.25 mg 11/17/16 09:00 12/05/16 09:09 Mirapex - PO Not Given BIDPC [facility] ASSESSMENT/PLAN: 31M with a PMH of morbid obesity presents to the hospital with abdominal pain found to have a perforated appendicitis in the OR. Sepsis secondary to Perforated appendicitis: CT scan initially read as perforated appendicitis the read changed to non perforated appendicitis. Taken to the OR for attempted Laparoscopic appendectomy found to be perforated. Appendix was not able to be visualized as a result was not resected. Patient s/ p laparoscopic drainage and washout of fabi-appendiceal abscess POD #22. CT scan did not show any worsening pathology abscess moved more medial appendix not visualized ID consult appreciated- HIV test negative surgery consult appreciated recommendations noted stopped Zosyn on day 13 able to tolerate diet more -at post gastrectomy baseline patient is now having excellent oral intake RIVERA drain d/c'ed by Surgery cultures-negative final pain control repeat RUQ US show cholelithiasis without cholecystitis and diffuse fatty infiltration of liver nephrology consult appreciated - on TPN will continue until discharge S/P PICC by IR surgery signed off HIDA scan negative Protein calorie malnutrition: 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 Patient does not need TPN on discharge Tolerating PO at baseline at this time with good oral intake Vitamin D deficiency: continue Vit D 10,000 units daily Transaminitis: resolved likely secondary to diffuse fatty liver infiltration Dehydration: as was indicated by BUN/Cr resolved stopped IVF diffuse severe axonal sensorimotor polyneuropathy Right sided numbness and weakness: polyneuropathy. possible demyelinating disorder: Guillain-Graceville syndrome vs chronic inflammatory demyelinating polyneuropathy vs progressive inflammatory neuropathy vs multifocal motor neuropathy Patient had EMG done read as diffuse severe axonal sensorimotor polyneuropathy, superimposed severe radial neuropathy, no definite myopathy, fasciculations, or demyelinating process. s/p presentation of this patient in neurology grand rounds last night discussed in detail please see Dr. Up's note dated 11/29/[address] negative patient can not fit in MRI machine states had EMG as outpatient does not know results-called Dr. Hickman's office and he was seen by one of his colleagues had distant history of polyneuropathy had EMG done which showed axonal polyneuropathy unsure how severe it was "knees buckled" on him 3 times he is very deconditioned from a combination of Class 3 severe super morbid obesity and lack of movement will continue PT consult nurses made aware that they should not ambulate patient without adequate field technical support consultant and he should always have a chair behind him open MRI as outpatient It is thought patient has severe diffuse axonal sensorimotor polyneuropathy from nutritional/mineral and heavy metal deficiency which may explain why he started to do better once on TPN. grand rounds discussion discussed with patient at length once it was over, including findings and progrnosis and further plans Will schedule LP with IR will go today under sedation Will Check Copper [id number], Selenium-WNL Zinc-WNL B12-WNL, ESR-100, CRP- 4.6, HANNAH screen -WNL, RF-negative, QS-MYL-edbbrtay AntiDNASE-negative , SPEP, and immunoglobulins-pending Fat soluble vitamins A E K-pending vitamin D done and very low at 9, lyme PCR and western blot-negative sent lyme PCR because mixed IgG and IgM is positive Leukocytosis: resolved off Abx continue multivitamins with minerals continue B complex Continue high dose vitamins Neuro exam especially the RLE has significantly improved patient ambulating more Will send [facility] for oligoclonal bands protein routine studies lyme VDRL and immunoglobulins Essential Hypertension: no previous diagnosis per patient but he has been hypertensive in the hospital although pain may be a contributing factor he likely has underlying hypertension Has been well controlled on this regimen: continue lisinopril 40mg po daily continue norvasc 10mg po daily continue PO labetalol to 200 BID Oral Thrush: stop nystatin swish and swallow diflucan stopped HIV negative Morbid Obesity: s/p sleeve gastrectomy follow up outpatient PPx: HSQ protonix working with PT-improved FEN: stop IVF no electrolyte issues wean tpn and continue regular diet as tolerated patient patient being accepted to [facility] Visit type - Emergency Visit Emergency Visit: Yes ED Registration Date: 11/11/16 Care time: The patient presented to the Emergency Department on the above date and was hospitalized for further evaluation of their emergent condition. - New Patient This patient is new to me today: No - Critical Care Critical Care patient: No
--- NOTE | 2016-12-05 14:11 | PN ---
Teaching Attending Note Name of Resident: Ramon Reynoso ATTENDING PHYSICIAN STATEMENT I saw and evaluated the patient. I reviewed the resident's note and discussed the case with the resident. I agree with the resident's findings and plan as documented. Patientis going for 2nd trial of LP today since was not able to get it. Vital Signs Temperature 97.3 F L 12/05/16 10:42 Pulse Rate 71 12/05/16 10:42 Respiratory Rate 20 12/05/16 10:42 Blood Pressure 139/91 12/05/16 10:42 O2 Sat by Pulse Oximetry (%) 96 12/03/16 21:00 CBCD WBC 5.8 K/mm3 (4.0-10.0) 12/05/16 06:30 RBC 3.60 M/mm3 (4.00-5.60) L 12/05/16 06:30 Hgb 10.5 GM/dL (11.7-16.9) L 12/05/16 06:30 Hct 31.6 % (35.4-49) L 12/05/16 06:30 MCV 87.8 fl (80-96) 12/05/16 06:30 MCHC 33.1 g/dl (32.0-35.9) 12/05/16 06:30 RDW 18.7 % (11.9-15.9) H 12/05/16 06:30 Plt Count 282 K/MM3 (134-434) 12/05/16 06:30 MPV 7.3 fl (7.5-11.1) L 12/05/16 06:30 CMP Sodium 137 mmol/L (136-145) 12/05/16 06:30 Potassium 4.2 mmol/L (3.5-5.1) 12/05/16 06:30 Chloride 99 mmol/L (98-107) 12/05/16 06:30 Carbon Dioxide 28 mmol/L (21-32) 12/05/16 06:30 Anion Gap 10 (8-16) 12/05/16 06:30 BUN 16 mg/dL (7-18) 12/05/16 06:30 Creatinine 0.6 mg/dL (0.7-1.3) L 12/05/16 06:30 Creat Clearance w eGFR > 60 (>60) 12/05/16 06:30 Random Glucose 84 mg/dL (74-106) 12/05/16 06:30 Calcium 8.9 mg/dL (8.5-10.1) 12/05/16 06:30 Total Bilirubin 0.5 mg/dL (0.2-1.0) 12/05/16 06:30 AST 27 U/L (15-37) 12/05/16 06:30 ALT 51 U/L (12-78) 12/05/16 06:30 Alkaline Phosphatase 111 U/L (45-117) 12/05/16 06:30 Total Protein 7.7 g/dl (6.4-8.2) 12/05/16 06:30 Albumin 3.1 g/dl (3.4-5.0) L 12/05/16 06:30 CARDIAC ENZYMES Creatine Kinase 135 IU/L (39-308) 11/26/16 06:30 Troponin I < 0.02 ng/ml (0.00-0.05) 11/11/16 16:55 Current Medications Generic Name Dose Route Start Last Admin Trade Name Freq PRN Reason Stop Dose Admin Amlodipine Besylate 10 mg 11/18/16 10:00 12/05/16 10:28 Norvasc - PO 10 mg DAILY [facility] Administration Benzocaine/Menthol 1 each 11/14/16 18:38 11/19/16 21:54 Cepacol Lozenge - MM 1 each Q4H PRN Administration SORE THROAT Cholecalciferol 10,000 unit 11/30/16 15:00 12/05/16 10:29 Vitamin D3 - PO Not Given DAILY [facility] Heparin Sodium (Porcine) 5,000 unit 11/29/16 22:00 12/05/16 13:28 Heparin - SQ Not Given TID [facility] IV Flush 8 ml 11/23/16 13:43 12/05/16 10:30 Picc Line Flush IVPUSH 8 ml PRN PRN Administration Protocol Multivitamins/Minerals 5 ml/ 600 mls @ 50 mls/hr 12/03/16 16:00 12/05/16 06:22 Potassium Chloride 10 meq/ IV 50 mls/hr Magnesium Sulfate 0.98 gm/ BID@0400,1600 [facility] Administration Sterile Water/ Amino Acids/ Dextrose Labetalol HCl 200 mg 11/17/16 10:06 12/05/16 10:29 Normodyne - PO 200 mg BID [facility] Administration Lisinopril 40 mg 11/17/16 10:00 12/05/16 10:30 Prinivil PO 40 mg DAILY [facility] Administration Multivitamins 1 each 11/30/16 15:15 12/05/16 10:28 Total B With C - PO 1 each DAILY [facility] Administration Multivitamins/Minerals 1 each 11/28/16 18:45 12/05/16 10:30 Theragran-M PO Not Given DAILY [facility] Ondansetron HCl 4 mg 11/13/16 13:51 11/22/16 12:56 Zofran Injection IVPUSH 4 mg Q6H PRN Administration NAUSEA Pantoprazole Sodium 40 mg 11/16/16 14:15 12/05/16 10:30 Protonix - PO Not Given DAILY [facility] Polyethylene Glycol 17 gm 11/29/16 20:05 Miralax (For Daily Use) - PO DAILY PRN CONSTIPATION Pramipexole Dihydrochloride 0.25 mg 11/17/16 09:00 12/05/16 09:09 Mirapex - PO Not Given BIDPC [facility] Home Medications Medication Instructions Recorded NK [No Known Home Medication] 10/06/16 PE: as per Resident's note ASSESSMENT AND PLAN: Patient ia a 31 y/o male with h/o Morbid obesity, s/p gastric sleeve sx in Aug 2016 who presented with Abdominal pain and was found to have ruptured appendix. Patient is feeling better , able to take around 72 steps with the help of physical therapy, his lower and upper extremity power improving. # Acute severe Diffuse axonal sensorimotor polyneuropathy improving ; going for 2nd trial of LP, continue IV TPN as per Nephro. As per this could be due to nutrition deficiency after rapid weight loss post gastric sleeve surgery. Will continue to hold Aspirin day #6 . #Superimposed severe Radial Neuropathy , daily physical therapy continues. will continue TPN per nephro daily Lyme titer positive will send for Western Blot for lyme, daily electrolytes ; Lead level pending , added B-complex tab.daily , patient is on MVI IV, and Minerals # Normocytic anemia , lead is pending, copper is nl level. 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 Recheck the level in 3 months, will continue # Complicated Appendicitis with rupture with fabi-appendicial abscess. s/p laparoscopic RIVERA drainage of the abscess on 11/13, RIVERA is removed now, no further abdominal pain, No further drainage. Patient is tolerating diet well. #HTN: cont BP meds DVT Px: SCds, Heparin 5000u tid Laboratory Tests 11/16/16 11/22/16 11/26/16 06:20 12:45 06:30 ESR Total Protein Albumin Globulin Albumin/Globulin Ratio Tuwxd-5-Lphgfiggl Kkvrt-7-Nztxhioib Beta Globulins Gamma Globulins CSF Lyme IgM Ab Interp Serum Copper Selenium Zinc 78 Rheumatoid Factor Double Strand DNA Ab Anti-ss DNA IgG Ab Lyme Screen IgG & IgM 1.47 H Lyme IgM (Western Blot) Negative HIV 1&2 Antibody Screen Negative HIV P24 Antigen Negative Anti-DNase B (Strep) 11/29/16 11/29/16 11/29/16 06:00 06:00 06:00 ESR 100 H Total Protein Albumin Globulin Albumin/Globulin Ratio Zqzvc-4-Duzbdfvrd Nayha-7-Njzfohdxh Beta Globulins Gamma Globulins CSF Lyme IgM Ab Interp Serum Copper 134 Selenium 143 Zinc Rheumatoid Factor < 10.0 Double Strand DNA Ab Anti-ss DNA IgG Ab Lyme Screen IgG & IgM Lyme IgM (Western Blot) HIV 1&2 Antibody Screen HIV P24 Antigen Anti-DNase B (Strep) 11/29/16 11/30/16 12/01/16 06:00 06:30 06:00 ESR Total Protein 7.8 Albumin 3.0 Globulin 4.3 H Albumin/Globulin Ratio 0.7 Lbslj-1-Uxxotgdwe 0.3 Srtpm-3-Pmhngrcaj 0.9 Beta Globulins 1.2 Gamma Globulins 1.9 H CSF Lyme IgM Ab Interp Pending Serum Copper Selenium Zinc Rheumatoid Factor Double Strand DNA Ab <1 Anti-ss DNA IgG Ab <20 Lyme Screen IgG & IgM 1.08 H Lyme IgM (Western Blot) Negative HIV 1&2 Antibody Screen HIV P24 Antigen Anti-DNase B (Strep) <78 12/02/16 09:00 ESR Total Protein 8.5 H Albumin 3.3 L Globulin Albumin/Globulin Ratio Zncob-8-Lugzxjiwf Gqcoa-0-Uqndsbird Beta Globulins Gamma Globulins CSF Lyme IgM Ab Interp Serum Copper Selenium Zinc Rheumatoid Factor Double Strand DNA Ab Anti-ss DNA IgG Ab Lyme Screen IgG & IgM Lyme IgM (Western Blot) HIV 1&2 Antibody Screen HIV P24 Antigen Anti-DNase B (Strep) Possible discharge to rehab in am to [place].
--- NOTE | 2016-12-05 14:37 | PN ---
Progress Note, Physician History of Present Illness: Pt seen and examined at bedside. No new events. He still has weakness but feels it is improving. He is easily fatigued. - Current Medication List Current Medications: Active Medications Amlodipine Besylate (Norvasc -) 10 mg PO DAILY [facility] Last Admin: 12/05/16 10:28 Dose: 10 mg Benzocaine/Menthol (Cepacol Lozenge -) 1 each MM Q4H PRN PRN Reason: SORE THROAT Last Admin: 11/19/16 21:54 Dose: 1 each Cholecalciferol (Vitamin D3 -) 10,000 unit PO DAILY [facility] Last Admin: 12/05/16 10:29 Dose: Not Given Heparin Sodium (Porcine) (Heparin -) 5,000 unit SQ TID [facility] Last Admin: 12/05/16 13:28 Dose: Not Given IV Flush (Picc Line Flush) 8 ml IVPUSH PRN PRN PRN Reason: Protocol Last Admin: 12/05/16 10:30 Dose: 8 ml Multivitamins/Minerals 5 ml/Potassium Chloride 10 meq/Magnesium Sulfate 0.98 gm/ Sterile Water/ Amino Acids/Dextrose 600 mls @ 50 mls/hr IV BID@0400,1600 [facility] Last Admin: 12/05/16 06:22 Dose: 50 mls/hr Labetalol HCl (Normodyne -) 200 mg PO BID [facility] Last Admin: 12/05/16 10:29 Dose: 200 mg Lisinopril (Prinivil) 40 mg PO DAILY [facility] Last Admin: 12/05/16 10:30 Dose: 40 mg Multivitamins (Total B With C -) 1 each PO DAILY [facility] Last Admin: 12/05/16 10:28 Dose: 1 each Multivitamins/Minerals (Theragran-M) 1 each PO DAILY [facility] Last Admin: 12/05/16 10:30 Dose: Not Given Ondansetron HCl (Zofran Injection) 4 mg IVPUSH Q6H PRN PRN Reason: NAUSEA Last Admin: 11/22/16 12:56 Dose: 4 mg Pantoprazole Sodium (Protonix -) 40 mg PO DAILY [facility] Last Admin: 12/05/16 10:30 Dose: Not Given Polyethylene Glycol (Miralax (For Daily Use) -) 17 gm PO DAILY PRN PRN Reason: CONSTIPATION Pramipexole Dihydrochloride (Mirapex -) 0.25 mg PO BIDPC [facility] Last Admin: 12/05/16 09:09 Dose: Not Given - Objective Vital Signs: Vital Signs Temperature 97.3 F L 12/05/16 10:42 Pulse Rate 71 12/05/16 10:42 Respiratory Rate 20 12/05/16 10:42 Blood Pressure 139/91 12/05/16 10:42 O2 Sat by Pulse Oximetry (%) 96 12/03/16 21:00 Constitutional: Yes: Calm Eyes: Yes: Conjunctiva Clear HENT: Yes: Atraumatic Cardiovascular: Yes: S1, S2 Respiratory: Yes: CTA Bilaterally Gastrointestinal: Yes: Soft, Abdomen, Obese Genitourinary: Yes: WNL Musculoskeletal: Yes: Muscle Weakness Edema: No Neurological: Yes: Oriented Psychiatric: Yes: Oriented Labs: CBC, BMP 12/05/16 06:30 12/05/16 06:30 INR, PTT INR 1.28 (0.82-1.09) H 11/30/16 06:30 Problem List - Problems (1) Perforated appendicitis Code(s): K35.2 - ACUTE APPENDICITIS WITH GENERALIZED PERITONITIS (2) Hyponatremia Code(s): E87.1 - HYPO-OSMOLALITY AND HYPONATREMIA (3) Malnutrition Code(s): E46 - UNSPECIFIED PROTEIN-CALORIE MALNUTRITION Assessment/Plan Current Medications Generic Name Dose Route Start Last Admin Trade Name Freq PRN Reason Stop Dose Admin Amlodipine Besylate 10 mg 11/18/16 10:00 12/05/16 10:28 Norvasc - PO 10 mg DAILY [facility] Administration Benzocaine/Menthol 1 each 11/14/16 18:38 11/19/16 21:54 Cepacol Lozenge - MM 1 each Q4H PRN Administration SORE THROAT Cholecalciferol 10,000 unit 11/30/16 15:00 12/05/16 10:29 Vitamin D3 - PO Not Given DAILY [facility] Heparin Sodium (Porcine) 5,000 unit 11/29/16 22:00 12/05/16 13:28 Heparin - SQ Not Given TID [facility] IV Flush 8 ml 11/23/16 13:43 12/05/16 10:30 Picc Line Flush IVPUSH 8 ml PRN PRN Administration Protocol Multivitamins/Minerals 5 ml/ 600 mls @ 50 mls/hr 12/03/16 16:00 12/05/16 06:22 Potassium Chloride 10 meq/ IV 50 mls/hr Magnesium Sulfate 0.98 gm/ BID@0400,1600 [place] Administration Sterile Water/ Amino Acids/ Dextrose Labetalol HCl 200 mg 11/17/16 10:06 12/05/16 10:29 Normodyne - PO 200 mg BID [facility] Administration Lisinopril 40 mg 11/17/16 10:00 12/05/16 10:30 Prinivil PO 40 mg DAILY [facility] Administration Multivitamins 1 each 11/30/16 15:15 12/05/16 10:28 Total B With C - PO 1 each DAILY [place] Administration Multivitamins/Minerals 1 each 11/28/16 18:45 12/05/16 10:30 Theragran-M PO Not Given DAILY [facility] Ondansetron HCl 4 mg 11/13/16 13:51 11/22/16 12:56 Zofran Injection IVPUSH 4 mg Q6H PRN Administration NAUSEA Pantoprazole Sodium 40 mg 11/16/16 14:15 12/05/16 10:30 Protonix - PO Not Given DAILY [facility] Polyethylene Glycol 17 gm 11/29/16 20:05 Miralax (For Daily Use) - PO DAILY PRN CONSTIPATION Pramipexole Dihydrochloride 0.25 mg 11/17/16 09:00 12/05/16 09:09 [facility] 11/22/16 11/29/16 11/29/16 12:45 06:00 06:00 Serum Copper 134 Selenium 143 Zinc 78 DIMPLE M-Octavio Rheumatoid Factor < 10.0 [place] Screen Double Strand DNA Ab Anti-ss DNA IgG Ab 11/29/16 06:00 Serum Copper Selenium Zinc DIMPLE M-Octavio Not observed Rheumatoid Factor HANNAH Screen Negative Double Strand DNA Ab <1 Anti-ss DNA IgG Ab <20 Impression 1. complicated appendicitis 2. malnutrition 3. hyponatremia 4. obesity 5. HTN 6. anemia Plan - monitor lytes - wrote orders for amino acids, per primary team request. orders sent to pharmacy - encourage PO intake - LP unsuccessful today - neurology follow up for duration of TPN - nutrition follow up Dr Mondragon
--- NOTE | 2016-12-05 15:06 | PN ---
Progress Note, Physician History of Present Illness: from gi point of view remains stable no new events - Current Medication List Current Medications: Active Medications Amlodipine Besylate (Norvasc -) 10 mg PO DAILY [facility] Last Admin: 12/05/16 10:28 Dose: 10 mg Benzocaine/Menthol (Cepacol Lozenge -) 1 each MM Q4H PRN PRN Reason: SORE THROAT Last Admin: 11/19/16 21:54 Dose: 1 each Cholecalciferol (Vitamin D3 -) 10,000 unit PO DAILY [facility] Last Admin: 12/05/16 10:29 Dose: Not Given Heparin Sodium (Porcine) (Heparin -) 5,000 unit SQ TID [facility] Last Admin: 12/05/16 13:28 Dose: Not Given IV Flush (Picc Line Flush) 8 ml IVPUSH PRN PRN PRN Reason: Protocol Last Admin: 12/05/16 10:30 Dose: 8 ml Multivitamins/Minerals 5 ml/Potassium Chloride 10 meq/Magnesium Sulfate 0.98 gm/ Sterile Water/ Amino Acids/Dextrose 600 mls @ 50 mls/hr IV BID@0400,1600 [facility] Stop: 12/05/16 15:59 Last Admin: 12/05/16 06:22 Dose: 50 mls/hr Multivitamins/Minerals 10 ml/Sterile Water/ Amino Acids/Dextrose 1,400 mls @ 58.333 mls/hr IV DAILY@1600 [facility] Labetalol HCl (Normodyne -) 200 mg PO BID [facility] Last Admin: 12/05/16 10:29 Dose: 200 mg Lisinopril (Prinivil) 40 mg PO DAILY [facility] Last Admin: 12/05/16 10:30 Dose: 40 mg Multivitamins (Total B With C -) 1 each PO DAILY [facility] Last Admin: 12/05/16 10:28 Dose: 1 each Multivitamins/Minerals (Theragran-M) 1 each PO DAILY [facility] Last Admin: 12/05/16 10:30 Dose: Not Given Ondansetron HCl (Zofran Injection) 4 mg IVPUSH Q6H PRN PRN Reason: NAUSEA Last Admin: 11/22/16 12:56 Dose: 4 mg Pantoprazole Sodium (Protonix -) 40 mg PO DAILY [facility] Last Admin: 12/05/16 10:30 Dose: Not Given Polyethylene Glycol (Miralax (For Daily Use) -) 17 gm PO DAILY PRN PRN Reason: CONSTIPATION Pramipexole Dihydrochloride (Mirapex -) 0.25 mg PO BIDPC [facility] Last Admin: 12/05/16 09:09 Dose: Not Given - Objective Vital Signs: Vital Signs Temperature 97.3 F L 12/05/16 10:42 Pulse Rate 71 12/05/16 10:42 Respiratory Rate 20 12/05/16 10:42 Blood Pressure 139/91 12/05/16 10:42 O2 Sat by Pulse Oximetry (%) 96 12/03/16 21:00 Constitutional: Yes: No Distress, Calm, Obese Cardiovascular: Yes: Regular Rate and Rhythm Respiratory: Yes: Regular, CTA Bilaterally Gastrointestinal: Yes: Normal Bowel Sounds, Soft Musculoskeletal: Yes: Other Extremities: Yes: Other Integumentary: Yes: Other Neurological: Yes: Alert, Oriented Psychiatric: Yes: Alert, Oriented Labs: CBC, BMP 12/05/16 06:30 12/05/16 06:30 INR, PTT INR 1.28 (0.82-1.09) H 11/30/16 06:30 Assessment/Plan ac appendicitis morbid obesity oral thrush abd abscess nausea vomiting wbc increasing plan continue current mgmt physio still on tpn monitor electrolytes
[2016-12-05] MEDS: [UNRECOGNIZED DRUG - OTHER] IV SCH (18:00)
[2016-12-05] MEDS: WATER FOR INJ STERILE IV SCH (18:00)
[2016-12-06 06:06] LABS: IGG SUBCLASS 1 988 mg/dL (422-1292); IGG SUBCLASS 2 658 mg/dL (117-747); IGG SUBCLASS 3 67 mg/dL (41-129); IGG SUBCLASS 4 48 mg/dL (1-291); IGM IMMUNOGLOBULIN 96 mg/dL (20-172); RHEUMATOID ARTHRITITS FACTOR 7.6 IU/mL (0.0-13.9)
[2016-12-06] MEDS: HEPARIN NA (PORCINE) 5,000 UNITS/ML 1ML VIAL SQ SCH ×3 (06:26→21:01)
[2016-12-06] MEDS ORDERED: PT OWN MED DRAWER 7, Y5N ONE ×3 (08:27→17:44)
[2016-12-06] MEDS ORDERED: ACETAMINOPHEN 325 MG TABLET (FP) ONE (08:30)
[2016-12-06] MEDS: PRAMIPEXOLE DIHYDROCHLORIDE 0.25 MG TABLET PO SCH ×2 (08:31→17:46)
[2016-12-06 08:34] LABS: MCH 29.5 pg (25.7-33.7); MCHC 33.7 g/dl (32.0-35.9); MEAN CELL VOLUME 87.7 fl (80-96); MEAN PLT VOLUME 7.3 fl (7.5-11.1); PLATELET COUNT 287 K/MM3 (134-434); RDW 18.7 % (11.9-15.9); WHITE BLOOD COUNT 6.8 K/mm3 (4.0-10.0)
[2016-12-06 08:54] LABS: ALBUMIN 3.3 g/dl (3.4-5.0)
[2016-12-06 08:55] LABS: ALBUMIN 3.3 g/dl (3.4-5.0); ANION GAP 11 (8-16); CALCIUM 9.2 mg/dL (8.5-10.1); CO2 28 mmol/L (21-32); CREATININE 0.6 mg/dL (0.7-1.3); GLUCOSE,RANDOM 93 mg/dL (74-106); MAGNESIUM 1.9 mg/dL (1.8-2.4); SGOT/AST 28 U/L (15-37)
[2016-12-06] MEDS ORDERED: ACETAMINOPHEN 325 MG TABLET (FP) PO ONE (09:00)
[2016-12-06 09:01] LABS: BILIRUBIN,DIRECT 0.3 mg/dL (0.0-0.2); BILIRUBIN,TOTAL 0.5 mg/dL (0.2-1.0); TOT PROT 7.9 g/dl (6.4-8.2)
[2016-12-06 09:07] LABS: ALK PHOS 124 U/L (45-117); BILIRUBIN,TOTAL 0.5 mg/dL (0.2-1.0); PHOSPHOROUS 4.5 mg/dL (2.5-4.9); SGPT/ALT 52 U/L (12-78); TOT PROT 7.7 g/dl (6.4-8.2)
[2016-12-06] MEDS ORDERED: SODIUM CHLORIDE 1,000 ML IV STA (10:02)
[2016-12-06 10:19] LABS: VITAMIN C 0.2 mg/dL (0.2-2.0)
[2016-12-06] MEDS: MULTIVITAMINS THER W-MINERALS COMBO TABLET (FP) PO SCH (10:52)
[2016-12-06] MEDS: amLODIPine BESYLATE 10 MG TABLET (FP) PO SCH (10:52)
[2016-12-06] MEDS: LISINOPRIL 20 MG TABLET (FP) PO SCH (10:52)
[2016-12-06] MEDS: LABETALOL HCL 200 MG TABLET (FP) PO SCH ×2 (10:52→21:01)
[2016-12-06] MEDS: PANTOPRAZOLE 40 MG TABLET (FP) PO SCH (10:52)
[2016-12-06] MEDS: VITAMIN B COMPLEX W/C COMBO TABLET (FP) PO SCH (10:53)
[2016-12-06] MEDS: CHOLECALCIFEROL (VITAMIN D3) 1,000 UNIT TABLET (FP) PO SCH (10:53)
[2016-12-06 11:10] LABS: LYME IGM WB. INTERP NEGATIVE
[2016-12-06 11:14] LABS: TROPONIN I < 0.02 ng/ml (0.00-0.05)
--- NOTE | 2016-12-06 12:59 | PN ---
Progress Note, Physician History of Present Illness: Pt seen and examined at bedside. He is awake and alert. He was hypotensive and a rapid response was called today. He currently says he feels better. - Current Medication List Current Medications: Active Medications Amlodipine Besylate (Norvasc -) 10 mg PO DAILY [facility] Last Admin: 12/06/16 10:52 Dose: Not Given Benzocaine/Menthol (Cepacol Lozenge -) 1 each MM Q4H PRN PRN Reason: SORE THROAT Last Admin: 11/19/16 21:54 Dose: 1 each Cholecalciferol (Vitamin D3 -) 10,000 unit PO DAILY [facility] Last Admin: 12/06/16 10:53 Dose: 10,000 unit Heparin Sodium (Porcine) (Heparin -) 5,000 unit SQ TID [facility] Last Admin: 12/06/16 06:26 Dose: 5,000 unit IV Flush (Picc Line Flush) 8 ml IVPUSH PRN PRN PRN Reason: Protocol Last Admin: 12/05/16 10:30 Dose: 8 ml Multivitamins/Minerals 10 ml/Sterile Water/ Amino Acids/Dextrose 1,400 mls @ 58.333 mls/hr IV DAILY@1600 [facility] Last Admin: 12/05/16 18:00 Dose: 58.333 mls/hr Labetalol HCl (Normodyne -) 200 mg PO BID [facility] Last Admin: 12/06/16 10:52 Dose: Not Given Lisinopril (Prinivil) 40 mg PO DAILY [facility] Last Admin: 12/06/16 10:52 Dose: Not Given Multivitamins (Total B With C -) 1 each PO DAILY [facility] Last Admin: 12/06/16 10:53 Dose: 1 each Multivitamins/Minerals (Theragran-M) 1 each PO DAILY [facility] Last Admin: 12/06/16 10:52 Dose: 1 each Ondansetron HCl (Zofran Injection) 4 mg IVPUSH Q6H PRN PRN Reason: NAUSEA Last Admin: 11/22/16 12:56 Dose: 4 mg Pantoprazole Sodium (Protonix -) 40 mg PO DAILY [facility] Last Admin: 12/06/16 10:52 Dose: 40 mg Polyethylene Glycol (Miralax (For Daily Use) -) 17 gm PO DAILY PRN PRN Reason: CONSTIPATION Pramipexole Dihydrochloride (Mirapex -) 0.25 mg PO BIDPC [facility] Last Admin: 12/06/16 08:31 Dose: 0.25 mg - Objective Vital Signs: Vital Signs Temperature 97.6 F 12/06/16 12:10 Pulse Rate 65 12/06/16 12:10 Respiratory Rate 20 12/06/16 12:10 Blood Pressure 125/68 12/06/16 12:10 O2 Sat by Pulse Oximetry (%) 98 12/05/16 21:00 Constitutional: Yes: Calm Eyes: Yes: Conjunctiva Clear HENT: Yes: Atraumatic Cardiovascular: Yes: S1, S2 Respiratory: Yes: CTA Bilaterally Gastrointestinal: Yes: Soft, Abdomen, Obese Genitourinary: Yes: WNL Musculoskeletal: Yes: Muscle Weakness Edema: Yes Edema: LLE: Trace, RLE: Trace Neurological: Yes: Oriented Psychiatric: Yes: Oriented Labs: CBC, BMP 12/06/16 07:00 12/06/16 07:00 INR, PTT INR 1.28 (0.82-1.09) H 11/30/16 06:30 Problem List - Problems (1) Perforated appendicitis Code(s): K35.2 - ACUTE APPENDICITIS WITH GENERALIZED PERITONITIS (2) Hyponatremia Code(s): E87.1 - HYPO-OSMOLALITY AND HYPONATREMIA (3) Malnutrition Code(s): E46 - UNSPECIFIED PROTEIN-CALORIE MALNUTRITION Assessment/Plan Current Medications Generic Name Dose Route Start Last Admin Trade Name Freq PRN Reason Stop Dose Admin Amlodipine Besylate 10 mg 11/18/16 10:00 12/06/16 10:52 Norvasc - PO Not Given DAILY [facility] Benzocaine/Menthol 1 each 11/14/16 18:38 11/19/16 21:54 Cepacol Lozenge - MM 1 each Q4H PRN Administration SORE THROAT Cholecalciferol 10,000 unit 11/30/16 15:00 12/06/16 10:53 Vitamin D3 - PO 10,000 unit DAILY [facility] Administration Heparin Sodium (Porcine) 5,000 unit 11/29/16 22:00 12/06/16 06:26 Heparin - SQ 5,000 unit TID [facility] Administration IV Flush 8 ml 11/23/16 13:43 12/05/16 10:30 Picc Line Flush IVPUSH 8 ml PRN PRN Administration Protocol Multivitamins/Minerals 10 ml/ 1,400 mls @ 58.333 mls/hr 12/05/16 16:00 18:00 Sterile Water/ Amino Acids/ IV 58.333 mls/hr Dextrose DAILY@1600 [facility] Administration Labetalol HCl 200 mg 11/17/16 10:06 12/06/16 10:52 Normodyne - PO Not Given BID [facility] Lisinopril 40 mg 11/17/16 10:00 12/06/16 10:52 Prinivil PO Not Given DAILY [facility] Multivitamins 1 each 11/30/16 15:15 12/06/16 10:53 Total B With C - PO 1 each DAILY [facility] Administration Multivitamins/Minerals 1 each 11/28/16 18:45 12/06/16 10:52 Theragran-M PO 1 each DAILY [facility] Administration Ondansetron HCl 4 mg 11/13/16 13:51 11/22/16 12:56 Zofran Injection IVPUSH 4 mg Q6H PRN Administration NAUSEA Pantoprazole Sodium 40 mg 11/16/16 14:15 12/06/16 10:52 Protonix - PO 40 mg DAILY [facility] Administration Polyethylene Glycol 17 gm 11/29/16 20:05 Miralax (For Daily Use) - PO DAILY PRN CONSTIP[facility] Pramipexole Dihydrochloride 0.25 mg 11/17/16 09:00 12/06/16 08:31 Mirapex - PO 0.25 mg BIDPC [place] Administration Impression 1. complicated appendicitis 2. malnutrition 3. hyponatremia 4. obesity 5. HTN 6. anemia Plan - discussed with primary team - start normal saline - cont TPN - trend lactic acid - encourage PO intake - neurology follow up Dr Mondragon
--- NOTE | 2016-12-06 13:19 | RAPID ---
[id number] Rate 20 12/06/16 12:10 Blood Pressure 125/68 12/06/16 12:10 O2 Sat by Pulse Oximetry (%) 98 12/05/16 21:00 Constitutional: Yes: Anxious, Moderate Distress HENT: Yes: Other (dry mucus membrane) Neck: Yes: Supple Cardiovascular: Yes: Regular Rate and Rhythm, S1, S2 Respiratory: Yes: Regular, CTA Bilaterally Gastrointestinal: Yes: Normal Bowel Sounds, Soft, Abdomen, Obese Peripheral Pulses: Left Radial: 1+, Right Radial: 1+ Integumentary: Yes: Other (dry skin) Neurological: Yes: Alert, Unsteady Gait Psychiatric: Yes: Alert, Oriented Labs: CBC, BMP 12/06/16 07:00 12/06/16 07:00 Rapid Response - Rapid Response Assessment: Rapid repsonse was called about a 31 year old male who suddenly felt dizzy, lightheaded, nauseous, short of breath, weak with loss of postural tone while in physical therapy. Pt stood up and suddenly became symptomatic. Pt was found to to have dry skin, dry mucus membranes, weak pulses. Pt BP was 80/40, blood sugar 125, O2 sat 96% on 2 liter O2. Impression Presyncope likely rt to dehydration Orthostatic Hypotension Plan O2 nasal cannula, keep O2 sat > 92% [place] position Bolus Normal saline 1 liter EKG CXR Labs already drawn for the morning and results reviewed consider cardiac profile consider Blood culture Dr Reynoso/Dr Goldberg made aware. Coming to see patient and take over care. Dr Reynoso/Dr Goldberg to follow up on labs and imaging Primary Physician Notified: Ramon Reynoso
--- NOTE | 2016-12-06 13:23 | EKG ---
Test Reason : Blood Pressure : / mmHG Vent. Rate : 060 BPM Atrial Rate : 060 BPM P-R Int : 146 ms QRS Dur : 090 ms QT Int : 434 ms P-R-T Axes : 049 022 010 degrees QTc Int : 434 ms NORMAL SINUS RHYTHM NORMAL ECG WHEN COMPARED WITH ECG OF 11-NOV-2016 16:42, VENT. RATE HAS DECREASED BY 38 BPM T WAVE AMPLITUDE HAS INCREASED IN ANTEROLATERAL LEADS Confirmed by HOLLIE BRODERICK, XAVIER ([id number]) on 12/06/2016 1:22:51 PM Referred By: WASHINGTON COLLAZO Confirmed By:XAVIER BROWNE MD
--- NOTE | 2016-12-06 14:49 | PN ---
Progress Note, Physician History of Present Illness: no new issues patient stable from gi point of view - Current Medication List Current Medications: Active Medications Amlodipine Besylate (Norvasc -) 10 mg PO DAILY [facility] Last Admin: 12/06/16 10:52 Dose: Not Given Benzocaine/Menthol (Cepacol Lozenge -) 1 each MM Q4H PRN PRN Reason: SORE THROAT Last Admin: 11/19/16 21:54 Dose: 1 each Cholecalciferol (Vitamin D3 -) 10,000 unit PO DAILY [facility] Last Admin: 12/06/16 10:53 Dose: 10,000 unit Heparin Sodium (Porcine) (Heparin -) 5,000 unit SQ TID [facility] Last Admin: 12/06/16 06:26 Dose: 5,000 unit IV Flush (Picc Line Flush) 8 ml IVPUSH PRN PRN PRN Reason: Protocol Last Admin: 12/05/16 10:30 Dose: 8 ml Multivitamins/Minerals 10 ml/Sterile Water/ Amino Acids/Dextrose 1,400 mls @ 58.333 mls/hr IV DAILY@1600 [facility] Last Admin: 12/05/16 18:00 Dose: 58.333 mls/hr Sodium Chloride (Normal Saline -) 1,000 mls @ 75 mls/hr IV ASDIR [facility] Labetalol HCl (Normodyne -) 200 mg PO BID [facility] Last Admin: 12/06/16 10:52 Dose: Not Given Lisinopril (Prinivil) 40 mg PO DAILY [facility] Last Admin: 12/06/16 10:52 Dose: Not Given Multivitamins (Total B With C -) 1 each PO DAILY [facility] Last Admin: 12/06/16 10:53 Dose: 1 each Multivitamins/Minerals (Theragran-M) 1 each PO DAILY [facility] Last Admin: 12/06/16 10:52 Dose: 1 each Ondansetron HCl (Zofran Injection) 4 mg IVPUSH Q6H PRN PRN Reason: NAUSEA Last Admin: 11/22/16 12:56 Dose: 4 mg Pantoprazole Sodium (Protonix -) 40 mg PO DAILY [facility] Last Admin: 12/06/16 10:52 Dose: 40 mg Polyethylene Glycol (Miralax (For Daily Use) -) 17 gm PO DAILY PRN PRN Reason: CONSTIPATION Pramipexole [facility] Last Admin: 12/06/16 08:31 Dose: 0.25 mg - Objective Vital Signs: Vital Signs Temperature 97.6 F 12/06/16 12:10 Pulse Rate 65 12/06/16 12:10 Respiratory Rate 20 12/06/16 12:10 Blood Pressure 125/68 12/06/16 12:10 O2 Sat by Pulse Oximetry (%) 98 12/05/16 21:00 Constitutional: Yes: No Distress, Calm, Obese Cardiovascular: Yes: Regular Rate and Rhythm Respiratory: Yes: Regular, CTA Bilaterally Gastrointestinal: Yes: Normal Bowel Sounds, Soft Musculoskeletal: Yes: Other Extremities: Yes: Other Neurological: Yes: Alert, Oriented Psychiatric: Yes: Alert, Oriented Labs: CBC, BMP 12/06/16 07:00 12/06/16 07:00 INR, PTT INR 1.28 (0.82-1.09) H 11/30/16 06:30 Assessment/Plan ac appendicitis morbid obesity oral thrush abd abscess nausea vomiting wbc increasing plan continue current mgmt physio still on tpn monitor electrolytes
--- NOTE | 2016-12-06 15:20 | PN ---
Physical Exam: SUBJECTIVE: Patient seen and examined at bedside complained of headache this AM was in PT this morning and while walking and exerting himself a Rapid response was called as he became diaphoretic everything went white and he felt like he was going to pass out SBP noted to be in the 80's during the event. patient was NPO yesterday for most of the day pending LP which again was unsuccessful. Cardiac enzymes negative afebrile lactic acid slightly elevated at 2.1 OBJECTIVE: Vital Signs Period Temp Pulse Resp BP Sys/Peoples Pulse Ox Last 24 Hr 97.6 F-98.9 F 65-82 16-20 118-179/60-74 98 GENERAL: The patient is awake, alert, and fully oriented HEAD: Normal with no signs of trauma. EYES: PERRLA EOMI NECK: Trachea midline, full range of motion, supple. LUNGS: Breath sounds equal, clear to auscultation bilaterally, no wheezes, no crackles, no accessory muscle use. HEART: Regular rate and rhythm, S1, S2 without murmur, rub or gallop. ABDOMEN: Soft, morbidly obese, non tender non distended Midline incision C/D/I NEUROLOGICAL: Cranial nerves II through XII intact. no facial droop or weakness and sensation is intact in the face Normal speech. Sensation of bilateral upper extremities is intact but R>L per patient on exam. but sensation of the biceps and proximal upper extremities proximal to the elbows are equal RUE: Shoulder abduction, Biceps, and triceps 5/5. right wrist drop noticed on exam. right wrist flexion 4/5 extension 2/5 LUE: Shoulder abduction, Biceps, and triceps 5/5. Left wrist drop noticed on exam. left wrist flexion 4/5 extension 3/5 RLE: knee flexion and extension 5/5 hip flexion 4/5. dorsiflexion of ankle 1/5, plantar flexion 4/5 LLE: 5/5 at all joints except ankle dorsiflexion which is 2/5 decreased sensation of RLE vs LLE left ankle jerk 2+ Right ankle jerk 0 left and right biceps jerk 0 right knee jerk 0 left knee jerk 1+ Laboratory Results - last 24 hr 11/29/16 12/01/16 12/02/16 06:00 06:00 09:00 WBC RBC Hgb Hct MCV MCHC RDW Plt Count MPV Sodium Potassium Chloride Carbon Dioxide Anion Gap BUN Creatinine Creat Clearance w eGFR POC Glucometer Random Glucose Lactic Acid Calcium Phosphorus Magnesium Total Bilirubin Direct Bilirubin AST ALT Alkaline Phosphatase Creatine Kinase Creatine Kinase Index CK-MB (CK-2) CK-MB (CK-2) Rel Index Troponin I Total Protein Albumin Triglycerides Vitamin B6 66.4 H Vitamin C 0.2 Vitamin K1 1.08 Serum Folate CSF Lyme IgM Ab Interp Negative IgG 1917 H IgG Subclasses 48 IgA 642 H IgA Subclass 2 658 IgM 96 Rheumatoid Arth Biomark 7.6 Lyme Screen IgG & IgM 1.08 H 12/06/16 12/06/16 12/06/16 07:00 07:00 07:00 WBC 6.8 RBC 3.63 L Hgb 10.7 L Hct 31.8 L MCV 87.7 MCHC 33.7 RDW 18.7 H Plt Count 287 MPV 7.3 L Sodium 137 Potassium 4.2 Chloride 98 Carbon Dioxide 28 Anion Gap 11 BUN 17 Creatinine 0.6 L Creat Clearance w eGFR > 60 POC Glucometer Random Glucose 93 Lactic Acid Calcium 9.2 Phosphorus 4.5 Magnesium 1.9 Total Bilirubin 0.5 0.5 Direct Bilirubin 0.3 H AST 28 27 ALT 52 56 Alkaline Phosphatase 124 H 121 H Creatine Kinase Creatine Kinase Index CK-MB (CK-2) CK-MB (CK-2) Rel Index Troponin I Total Protein 7.7 7.9 Albumin 3.3 L 3.3 L Triglycerides 93 D Vitamin B6 Vitamin C Vitamin K1 Serum Folate 11 CSF Lyme IgM Ab Interp IgG IgG Subclasses IgA IgA Subclass 2 IgM Rheumatoid Arth Biomark Lyme Screen IgG & IgM 12/06/16 12/06/16 12/06/16 09:49 10:00 10:00 WBC RBC Hgb Hct MCV MCHC RDW Plt Count MPV Sodium Potassium Chloride Carbon Dioxide Anion Gap BUN Creatinine Creat Clearance w eGFR POC Glucometer 125 Random Glucose Lactic Acid 2.130 H* Calcium Phosphorus Magnesium Total Bilirubin Direct Bilirubin AST ALT Alkaline Phosphatase Creatine Kinase 194 D Creatine Kinase Index < 0.5 CK-MB (CK-2) < 1.000 CK-MB (CK-2) Rel Index Troponin I < 0.02 Total Protein Albumin Triglycerides Vitamin B6 Vitamin C Vitamin K1 Serum Folate CSF Lyme IgM Ab Interp IgG IgG Subclasses IgA IgA Subclass 2 IgM Rheumatoid Arth Biomark Lyme Screen IgG & IgM 12/06/16 10:00 WBC RBC Hgb Hct MCV MCHC RDW Plt Count MPV Sodium Potassium Chloride Carbon Dioxide Anion Gap BUN Creatinine Creat Clearance w eGFR POC Glucometer Random Glucose Lactic Acid Calcium Phosphorus Magnesium Total Bilirubin Direct Bilirubin AST ALT Alkaline Phosphatase Creatine Kinase Creatine Kinase Index CK-MB (CK-2) CK-MB (CK-2) Rel Index Cancelled Troponin I Total Protein Albumin Triglycerides Vitamin B6 Vitamin C Vitamin K1 Serum Folate CSF Lyme IgM Ab Interp IgG IgG Subclasses IgA IgA Subclass 2 IgM Rheumatoid Arth Biomark Lyme Screen IgG & IgM Active Medications Generic Name Dose Route Start Last Admin Trade Name Freq PRN Reason Stop Dose Admin Amlodipine Besylate 10 mg 11/18/16 10:00 12/06/16 10:52 Norvasc - PO Not Given DAILY EUSEBIA Benzocaine/Menthol 1 each 11/14/16 18:38 11/19/16 21:54 Cepacol Lozenge - MM 1 each Q4H PRN Administration SORE THROAT Cholecalciferol 10,000 unit 11/30/16 15:00 12/06/16 10:53 Vitamin D3 - PO 10,000 unit DAILY EUSEBIA Administration Heparin Sodium (Porcine) 5,000 unit 11/29/16 22:00 12/06/16 06:26 Heparin - SQ 5,000 unit TID EUSEBIA Administration IV Flush 8 ml 11/23/16 13:43 12/05/16 10:30 Picc Line Flush IVPUSH 8 ml PRN PRN Administration Protocol Multivitamins/Minerals 10 ml/ 1,400 mls @ 58.333 mls/hr 12/05/16 16:00 18:00 Sterile Water/ Amino Acids/ IV 58.333 mls/hr Dextrose DAILY@1600 EUSEBIA Administration Sodium Chloride 1,000 mls @ 75 mls/hr 12/06/16 13:00 Normal Saline - IV ASDIR EUSE[place] Labetalol HCl 200 mg 11/17/16 10:06 12/06/16 10:52 Normodyne - PO Not Given BID EUSE[place] Lisinopril 40 mg 11/17/16 10:00 12/06/16 10:52 Prinivil PO Not Given DAILY EUSE[place] Multivitamins 1 each 11/30/16 15:15 12/06/16 10:53 Total B With C - PO 1 each DAILY EUSE[place] Administration Multivitamins/Minerals 1 each 11/28/16 18:45 12/06/16 10:52 Theragran-M PO 1 each DAILY EUSE[place] Administration Ondansetron HCl 4 mg 11/13/16 13:51 11/22/16 12:56 Zofran Injection IVPUSH 4 mg Q6H PRN Administration NAUSEA Pantoprazole Sodium 40 mg 11/16/16 14:15 12/06/16 10:52 Protonix - PO 40 mg DAILY EUSE[place] Administration Polyethylene Glycol 17 gm 11/29/16 20:05 Miralax (For Daily Use) - PO DAILY PRN CONSTIPATION Pramipexole Dihydrochloride 0.25 mg 11/17/16 09:00 12/06/16 08:31 Mirapex - PO 0.25 mg BIDPC EUSE[place] Administration ASSESSMENT/PLAN: 31M with a PMH of morbid obesity presents to the hospital with abdominal pain found to have a perforated appendicitis in the OR. Sepsis secondary to Perforated appendicitis: CT scan initially read as perforated appendicitis the read changed to non perforated appendicitis. Taken to the OR for attempted Laparoscopic appendectomy found to be perforated. Appendix was not able to be visualized as a result was not resected. Patient s/ p laparoscopic drainage and washout of fabi-appendiceal abscess POD #23. CT scan did not show any worsening pathology abscess moved more medial appendix not visualized ID consult appreciated- HIV test negative surgery consult appreciated recommendations noted stopped Zosyn on day 13 able to tolerate diet more -at post gastrectomy baseline patient is now having excellent oral intake RIVERA drain d/c'ed by Surgery cultures-negative final pain control repeat RUQ US show cholelithiasis without cholecystitis and diffuse fatty infiltration of liver nephrology consult appreciated - on TPN will continue until discharge S/P PICC by IR surgery signed off HIDA scan negative Presyncope today: likely from a combination of overexertion and dehydration/ poor oral intake from being NPO for more than half the day yesterday Lactic acid 2.1 will give IVF and trend Cardiac enzymes negative-no further work-up for now Protein calorie malnutrition: Dietary/cell coverer consult appreciated stop IVF continue TPN until discharged. Patient does not need TPN on discharge Tolerating PO at baseline at this time with good oral intake Vitamin D deficiency: continue Vit D 10,000 units daily Transaminitis: resolved likely secondary to diffuse fatty liver infiltration Dehydration: as was indicated by BUN/Cr resolved stopped IVF diffuse severe axonal sensorimotor polyneuropathy Right sided numbness and weakness: polyneuropathy. possible demyelinating disorder: Guillain-[place] syndrome vs chronic inflammatory demyelinating polyneuropathy vs progressive inflammatory neuropathy vs multifocal motor neuropathy Patient had EMG done read as diffuse severe axonal sensorimotor polyneuropathy, superimposed severe radial neuropathy, no definite myopathy, fasciculations, or demyelinating process. s/p presentation of this patient in neurology grand rounds last night discussed in detail please see Dr. Up's note dated 11/29/[address] negative patient can not fit in MRI machine states had EMG as outpatient does not know results-called Dr. Hickman's office and he was seen by one of his colleagues had distant history of polyneuropathy had EMG done which showed axonal polyneuropathy unsure how severe it was "knees buckled" on him 3 times he is very deconditioned from a combination of Class 3 severe super morbid obesity and lack of movement will continue PT consult nurses made aware that they should not ambulate patient without adequate director sales support and he should always have a chair behind him open MRI as outpatient It is thought patient has severe diffuse axonal sensorimotor polyneuropathy from nutritional/mineral and heavy metal deficiency which may explain why he started to do better once on TPN. however his heavy metal levels are WNL grand rounds discussion discussed with patient at length once it was over, including findings and progrnosis and further plans LP unsuccessful x2-no more attempts Copper [id number], Selenium-WNL Zinc-WNL B12-WNL, ESR-100, CRP-4.6, HANNAH screen -WNL, RF-negative, [id number] AntiDNASE-negative , SPEP, and immunoglobulins-pending Fat soluble vitamins A-WNL E-WNL K-WNL vitamin D done and very low at 9, lyme PCR and western blot-negative sent lyme PCR because mixed IgG and IgM is positive continue multivitamins with minerals continue B complex Continue high dose vitamins Neuro exam especially the RLE has significantly improved patient ambulating more Leukocytosis: resolved off Abx Essential Hypertension: no previous diagnosis per patient but he has been hypertensive in the hospital although pain may be a contributing factor he likely has underlying hypertension Hold BP meds for today as patient had hypotension Has been well controlled on this regimen: continue lisinopril 40mg po daily continue norvasc 10mg po daily continue PO labetalol to 200 BID Oral Thrush: stop nystatin swish and swallow diflucan stopped HIV negative Morbid Obesity: s/p sleeve gastrectomy follow up outpatient PPx: HSQ protonix working with PT-improved FEN: NS @ 100ml/hr no electrolyte issues continue tpn and continue regular diet as tolerated dispo: pending being accepted to [facility] Visit type - Emergency Visit Emergency Visit: Yes ED Registration Date: 11/11/16 Care time: The patient presented to the Emergency Department on the above date and was hospitalized for further evaluation of their emergent condition. - New Patient This patient is new to me today: No - Critical Care Critical Care patient: No - Discharge Referral Referred to [facility] No
[2016-12-06] MEDS: oxyCODONE HCL 5 MG TABLET PO PRN (17:46)
[2016-12-06] MEDS: SODIUM CHLORIDE 1,000 ML IV SCH (18:01)
--- NOTE | 2016-12-06 18:50 | PN ---
Teaching Attending Note Name of Resident: Ramon Reynoso ATTENDING PHYSICIAN STATEMENT I saw and evaluated the patient. I reviewed the resident's note and discussed the case with the resident. I agree with the resident's findings and plan as documented. SUBJECTIVE: this am , had near syncopal episode while doing PT. He felt light headedness with everything turning white in front of him , he was made flat and then he gained his vision to NL , but still with KATZ when evaluated around 10 am OBJECTIVE: NAD , lying in bed, AAOX3 CV : RRR Lungs : CTAB ext : no edema Abd : morbidly obese, NL BS , no TTP , well healed mid line abd surgical scar Neuro : Awake and alert , oriented. no facial droop, . round equal pupils , reactive to light . nl facial sensation Strength: RUE : shoulder abduction 5/5 , Biceps 5/5 , triceps 5/5 , hand lapper 4/5, R wrist drop, wrist flexion 4/5 , wrist extension 2/5 , LUE : shoulder abduction 5/5 , Biceps 5/5 , triceps 5/5 , hand lapper 4/5, L wrist drop, wrist flexion 4/5 , wrist extension 3/5 , RLE : hip flexion 4/5, knee flexion 5/5, knee extension 5/5 , Ankle dorsiflecxion 1/5, ankle plantar flexion 4/5 LLE: hip flexion 5/5, knee flexion 5/5, knee extension 5/5 , Ankle dorsiflecxion 1/5, ankle plantar flexion 4/5 Reflexes: 1+ L knee jerk, 0 R knee jerk . biceps 0 on R and 1+ L biceps . ankle jerk 0 Left, 1+ R ankle jerk Sensation: decreased to light touch in R distal upper and whole R Lower ext. Assessment and plan: 31 y/o male with h/o Morbid obesity, s/p gastric sleeve sx in Aug 2016 who presented with Abd pain and was found to have ruptured appendix. 1- Complicated Appendicitis with rupture and fabi-appendicial abscess. s/p laparoscopic RIVERA drainage of the abscess on 11/13 - doing well off Abx 2- Near syncope : with hypotenion at the time of the event ( SBP 80 ) , likely event is vasovagal vS orthostatic hypotension in the setting of not taking good fluids in past few days - lactic elevated due to hypotension , normalized after IVF - cont hydration - monitor BP and hold am BP meds today 3- Peripheral axonal motor and sensory poly-neuropathy likely due to nutritional deficiencies in setting of gastric sx and worsened by appendicitis - cont TPN. - neuro exam waxes and wanes but over all , improvement is seen in terms of ambulation and strength on TPN - cont nutritional supp . - failed LP twice . 4- HTN: hold BP meds today 6- Vit D deficiency: cont Vit D weekly
--- NOTE | 2016-12-06 19:23 | PN ---
Progress Note (short form) - Note Progress Note: NEUROLOGY FOLLOW-UP: Events reviewed. Patient examined. He complains of throbbing headache since two unsuccessful attempts at lumbar puncture. Pt had presyncopal episode in PT today. Became lightheaded and "saw white." Hypotensive (BP = 64/40). Tariq feels as if he is getting strong. Able to flex R Hip. Walked "100 steps. " He feels grasps are stronger. Labs are striking for a possible autoimmune process: AMR=124 mm/hr; CRP=4.6 mg% ; IgA= 642 mg% (nl 90-386); IdD=1751 (nl= 700-1600). H/H=10.1/31.8. EXAM: B/L weakness of wrist and finger extensors (still not antigravity 2/5). Grasps 4/5. R hip flexion 3/5 but R knee extension still 2/5. Proximal strength on the Left is normal (ie: R femoral neuropathy). Ankle dorsiflexion still 1-2/5. Areflexic. Slightly reduced vibration over feet. 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 Consider Polyarteritis Nodosum (HENRY). Presyncope due to hypotension/dehydration. R/O Dysautonomia. Suggest: Increase hydration. Continue nutritional support. Rheumatology consultation. Possible skin and muscle biopsy. ? Steroid Rx. Thank you very much, Nii Up MD
[2016-12-06] MEDS: WATER FOR INJ STERILE IV SCH (20:39)
[2016-12-06] MEDS: MULTIVIT IV SCH (20:39)
[2016-12-06] MEDS: [UNRECOGNIZED DRUG - OTHER] IV SCH (20:39)
[2016-12-07] MEDS: HEPARIN NA (PORCINE) 5,000 UNITS/ML 1ML VIAL SQ SCH ×3 (05:35→21:20)
[2016-12-07] MEDS: [UNRECOGNIZED DRUG - OTHER] IV SCH (07:17)
[2016-12-07] MEDS: WATER FOR INJ STERILE IV SCH (07:17)
[2016-12-07] MEDS: MULTIVIT IV SCH (07:17)
[2016-12-07] MEDS ORDERED: PT OWN MED DRAWER 7, Y5N ONE ×3 (08:30→17:59)
[2016-12-07] MEDS: oxyCODONE HCL 5 MG TABLET PO PRN ×2 (08:34→16:39)
[2016-12-07] MEDS: PRAMIPEXOLE DIHYDROCHLORIDE 0.25 MG TABLET PO SCH ×2 (08:35→18:03)
[2016-12-07 08:37] LABS: ALBUMIN 3.1 g/dl (3.4-5.0); ALK PHOS 132 U/L (45-117); ANION GAP 12 (8-16); BILIRUBIN,TOTAL 0.4 mg/dL (0.2-1.0); CALCIUM 8.5 mg/dL (8.5-10.1); CO2 24 mmol/L (21-32); CREATININE 0.6 mg/dL (0.7-1.3); GLUCOSE,RANDOM 90 mg/dL (74-106); MAGNESIUM 1.8 mg/dL (1.8-2.4); SGOT/AST 34 U/L (15-37); SGPT/ALT 67 U/L (12-78); TOT PROT 7.6 g/dl (6.4-8.2)
[2016-12-07] MEDS: LABETALOL HCL 200 MG TABLET (FP) PO SCH ×2 (10:01→21:21)
[2016-12-07] MEDS: MULTIVITAMINS THER W-MINERALS COMBO TABLET (FP) PO SCH (10:02)
[2016-12-07] MEDS: VITAMIN B COMPLEX W/C COMBO TABLET (FP) PO SCH (10:02)
[2016-12-07] MEDS: PANTOPRAZOLE 40 MG TABLET (FP) PO SCH (10:02)
[2016-12-07] MEDS: CHOLECALCIFEROL (VITAMIN D3) 1,000 UNIT TABLET (FP) PO SCH (10:03)
--- NOTE | 2016-12-07 10:06 | PN ---
Teaching Attending Note Name of Resident: Ramon Reynoso ATTENDING PHYSICIAN STATEMENT I saw and evaluated the patient. I reviewed the resident's note and discussed the case with the resident. I agree with the resident's findings and plan as documented. SUBJECTIVE: has back pain and KATZ . no visual changes, feels his extremities are stronger now . forced himself to eat yesterday OBJECTIVE: NAD , lying in bed, AAOX3 CV : RRR Lungs : CTAB ext : no edema Abd : morbidly obese, NL BS , no TTP , well healed mid line abd surgical scar Neuro : Awake and alert , oriented. no facial droop, . round equal pupils , reactive to light . nl facial sensation Strength: RUE : shoulder abduction 5/5 ,shoulder flexion 5/5, Biceps 5/5 , triceps 5/5 , hand copywriting intern 4/5, R wrist drop, wrist flexion 4/5 , wrist extension 3/5 , LUE : shoulder abduction 5/5 , shoulder flexion 5/5, Biceps 5/5 , triceps 5/5 , hand copywriting intern 4/5, L wrist drop, wrist flexion 4/5 , wrist extension 3/5 , RLE : hip flexion 4/5, knee flexion 5/5, knee extension 4/5 , Ankle dorsiflecxion 1/5, ankle plantar flexion 4/5 LLE: hip flexion 5/5, knee flexion 5/5, knee extension 5/5 , Ankle dorsiflecxion 1/5, ankle plantar flexion 4/5 Reflexes: 0+ L knee jerk, 0 R knee jerk . biceps 0 on R and 1+ L biceps . Sensation: decreased to light touch in R distal upper and whole R Lower ext. Assessment and plan: 31 y/o male with h/o Morbid obesity, s/p gastric sleeve sx in Aug 2016 who presented with Abd pain and was found to have ruptured appendix. 1- Complicated Appendicitis with rupture and fabi-appendicial abscess. s/p laparoscopic RIVERA drainage of the abscess on 11/13 ( RIVERA removed ) - doing well off Abx 2- hypotension with near syncope : did not recur . BP is satble now , but within nl limits off Meds - cont hydration . - dc lisinopril and norvasc - cont labetalol with holding parameters. 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 - stable neuro exam - cont nutritional supp . 4- HTN: hold ACEI and Norvasc holding parameters on BB 6- Vit D deficiency: cont Vit D weekly
--- NOTE | 2016-12-07 12:12 | PN ---
Physical Exam: SUBJECTIVE: Patient seen and examined at bedside complains of headache OBJECTIVE: Vital Signs Period Temp Pulse Resp BP Sys/Peoples Pulse Ox Last 24 Hr 97.9 F-99.2 F 69-91 16-20 115-142/51-88 98 GENERAL: The patient is awake, alert, and fully oriented HEAD: Normal with no signs of trauma. EYES: PERRLA EOMI NECK: Trachea midline, full range of motion, supple. LUNGS: Breath sounds equal, clear to auscultation bilaterally, no wheezes, no crackles, no accessory muscle use. HEART: Regular rate and rhythm, S1, S2 without murmur, rub or gallop. ABDOMEN: Soft, morbidly obese, non tender non distended Midline incision C/D/I NEUROLOGICAL: Cranial nerves II through XII intact. no facial droop or weakness and sensation is intact in the face Normal speech. Sensation of bilateral upper extremities is intact but R>L per patient on exam. but sensation of the biceps and proximal upper extremities proximal to the elbows are equal RUE: Shoulder abduction, Biceps, and triceps 5/5. right wrist drop noticed on exam. right wrist flexion 4/5 extension 2/5 LUE: Shoulder abduction, Biceps, and triceps 5/5. Left wrist drop noticed on exam. left wrist flexion 4/5 extension 3/5 RLE: knee flexion and extension 5/5 hip flexion 4/5. dorsiflexion of ankle 1/5, plantar flexion 4/5 LLE: 5/5 at all joints except ankle dorsiflexion which is 2/5 decreased sensation of RLE vs LLE left ankle jerk 2+ Right ankle jerk 0 left and right biceps jerk 0 right knee jerk 0 left knee jerk 1+ Laboratory Results - last 24 hr 12/01/16 12/06/16 12/07/16 06:00 16:00 06:15 Sodium 139 Potassium 4.0 Chloride 103 Carbon Dioxide 24 Anion Gap 12 BUN 16 Creatinine 0.6 L Creat Clearance w eGFR > 60 Random Glucose 90 Lactic Acid 1.238 Calcium 8.5 Phosphorus 4.0 Magnesium 1.8 Total Bilirubin 0.4 AST 34 D ALT 67 Alkaline Phosphatase 132 H Total Protein 7.6 Albumin 3.1 L Vitamin K1 1.08 Active Medications Generic Name Dose Route Start Last Admin Trade Name Freq PRN Reason Stop Dose Admin Benzocaine/Menthol 1 each 03/14/17 18:38 11/19/16 21:54 Cepacol Lozenge - MM 1 each Q4H PRN Administration SORE THROAT Cholecalciferol 50,000 unit 12/08/16 10:00 Vitamin D3 - PO Q7D [facility] Heparin Sodium (Porcine) 5,000 unit 11/29/16 22:00 12/07/16 05:35 Heparin - SQ 5,000 unit TID [place] Administration IV Flush 8 ml 11/23/16 13:43 12/05/16 10:30 Picc Line Flush IVPUSH 8 ml PRN PRN Administration Protocol Multivitamins/Minerals 10 ml/ 1,400 mls @ 58.333 mls/hr 12/05/16 16:00 07:17 Sterile Water/ Amino Acids/ IV Not Given Dextrose DAILY@1600 [place] Sodium Chloride 1,000 mls @ 75 mls/hr 12/06/16 13:00 12/06/16 18:01 Normal Saline - IV 75 mls/hr ASDIR [place] Administration Labetalol HCl 200 mg 12/07/16 07:49 12/07/16 10:01 Normodyne - PO 200 mg BID [facility] Administration Multivitamins 1 each 11/30/16 15:15 12/07/16 10:02 Total B With C - PO 1 each DAILY [facility] Administration Multivitamins/Minerals 1 each 11/28/16 18:45 12/07/16 10:02 Theragran-M PO 1 each DAILY [facility] Administration Ondansetron HCl 4 mg 11/13/16 13:51 11/22/16 12:56 Zofran Injection IVPUSH 4 mg Q6H PRN Administration NAUSEA Oxycodone HCl 5 mg 12/06/16 17:25 12/07/16 08:34 Roxicodone - PO 5 mg Q6H PRN Administration PAIN Pantoprazole Sodium 40 mg 11/16/16 14:15 12/07/16 10:02 Protonix - PO 40 mg DAILY [facility] Administration Polyethylene Glycol 17 gm 11/29/16 20:05 Miralax (For Daily Use) - PO DAILY PRN CONSTIPATION Pramipexole Dihydrochloride 0.25 mg 11/17/16 09:00 12/07/16 08:35 Mirapex - PO 0.25 mg BIDPC [place] Administration ASSESSMENT/PLAN: 31M with a PMH of morbid obesity presents to the hospital with abdominal pain found to have a perforated appendicitis in the OR. Sepsis secondary to Perforated appendicitis: CT scan initially read as perforated appendicitis the read changed to non perforated appendicitis. Taken to the OR for attempted Laparoscopic appendectomy found to be perforated. Appendix was not able to be visualized as a result was not resected. Patient s/ p laparoscopic drainage and washout of fabi-appendiceal abscess POD #24. CT scan did not show any worsening pathology abscess moved more medial appendix not visualized ID consult appreciated- HIV test negative surgery consult appreciated recommendations noted stopped Zosyn on day 13 able to tolerate diet more -at post gastrectomy baseline patient is now having excellent oral intake RIVERA drain d/c'ed by Surgery cultures-negative final pain control repeat RUQ US show cholelithiasis without cholecystitis and diffuse fatty infiltration of liver nephrology consult appreciated - on TPN will continue until discharge S/P PICC by IR surgery signed off HIDA scan negative Presyncope today: likely from a combination of overexertion and dehydration/ poor oral intake from being NPO for more than half the day yesterday Lactic acid normal Cardiac enzymes negative-no further work-up for now Nausea/vomiting: antiemetics IVF for hydration Protein calorie malnutrition: Dietary/security professionals consult appreciated stop IVF continue TPN until discharged. Patient does not need TPN on discharge Tolerating PO at baseline at this time with good oral intake Vitamin D deficiency: continue Vit D 50,000units Q7 days Transaminitis: resolved likely secondary to diffuse fatty liver infiltration Dehydration: as was indicated by BUN/Cr resolved continue IVF diffuse severe axonal sensorimotor polyneuropathy Right sided numbness and weakness: polyneuropathy. possible demyelinating disorder: Guillain-[place] syndrome vs chronic inflammatory demyelinating polyneuropathy vs progressive inflammatory neuropathy vs multifocal motor neuropathy Patient had EMG done read as diffuse severe axonal sensorimotor polyneuropathy, superimposed severe radial neuropathy, no definite myopathy, fasciculations, or demyelinating process. s/p presentation of this patient in neurology grand rounds last night discussed in detail please see Dr. Up's note dated 11/29/[address] negative patient can not fit in MRI machine states had EMG as outpatient does not know results-called Dr. Hickman's office and he was seen by one of his colleagues had distant history of polyneuropathy had EMG done which showed axonal polyneuropathy unsure how severe it was "knees buckled" on him 3 times he is very deconditioned from a combination of Class 3 severe super morbid obesity and lack of movement will continue PT consult nurses made aware that they should not ambulate patient without adequate network support administrator and he should always have a chair behind him open MRI as outpatient It is thought patient has severe diffuse axonal sensorimotor polyneuropathy from nutritional/mineral and heavy metal deficiency which may explain why he started to do better once on TPN. however his heavy metal levels are WNL grand rounds discussion discussed with patient at length once it was over, including findings and progrnosis and further plans LP unsuccessful x2-no more attempts Copper [id number], Selenium-WNL Zinc-WNL B12-WNL, ESR-100, CRP-4.6, HANNAH screen -WNL, RF-negative, RE-[id number] AntiDNASE-negative , SPEP, and immunoglobulins-pending Fat soluble vitamins A-WNL E-WNL K-WNL vitamin D done and very low at 9, lyme PCR and western blot-negative sent lyme PCR because mixed IgG and IgM is positive continue multivitamins with minerals continue B complex Continue high dose vitamins Neuro exam especially the RLE has significantly improved patient ambulating more given results of immunoglobulins CRP ESR and neurology consultatiion will get rheumatology consult Leukocytosis: resolved off Abx Essential Hypertension: no previous diagnosis per patient but he has been hypertensive in the hospital although pain may be a contributing factor he likely has underlying hypertension Has been well controlled on this regimen but will revise given hypotension: hold lisinopril 40mg po daily hold norvasc 10mg po daily continue PO labetalol to 200 BID with hold parameters Oral Thrush: stop nystatin swish and swallow diflucan stopped HIV negative Morbid Obesity: s/p sleeve gastrectomy follow up outpatient PPx: HSQ protonix working with PT-improved FEN: NS @ 100ml/hr no electrolyte issues continue tpn and continue regular diet as tolerated dispo: pending being accepted to [facility] Visit type - Emergency Visit Emergency Visit: Yes ED Registration Date: 11/11/16 Care time: The patient presented to the Emergency Department on the above date and was hospitalized for further evaluation of their emergent condition. - New Patient This patient is new to me today: No - Critical Care Critical Care patient: No - Discharge Referral Referred to [facility] Med P.C.: No
[2016-12-07] MEDS: ONDANSETRON 4 MG/2 ML VIAL IVPUSH PRN (12:23)
[2016-12-07] MEDS: SODIUM CHLORIDE 1,000 ML IV SCH (12:29)
--- NOTE | 2016-12-07 13:08 | PN ---
Progress Note, Physician History of Present Illness: Pt seen and examined at bedside. He says he is unable to tolerate food today and threw up everything he ate. He denies shortness of breath. - Current Medication List Current Medications: Active Medications Benzocaine/Menthol (Cepacol Lozenge -) 1 each MM Q4H PRN PRN Reason: SORE THROAT Last Admin: 11/19/16 21:54 Dose: 1 each Cholecalciferol (Vitamin D3 -) 50,000 unit PO Q7D [facility] Heparin Sodium (Porcine) (Heparin -) 5,000 unit SQ TID [facility] Last Admin: 12/07/16 05:35 Dose: 5,000 unit IV Flush (Picc Line Flush) 8 ml IVPUSH PRN PRN PRN Reason: Protocol Last Admin: 12/05/16 10:30 Dose: 8 ml Multivitamins/Minerals 10 ml/Sterile Water/ Amino Acids/Dextrose 1,400 mls @ 58.333 mls/hr IV DAILY@1600 [facility] Last Admin: 12/07/16 07:17 Dose: Not Given Sodium Chloride (Normal Saline -) 1,000 mls @ 75 mls/hr IV ASDIR [facility] Last Admin: 12/07/16 12:29 Dose: 75 mls/hr Labetalol HCl (Normodyne -) 200 mg PO BID [facility] Last Admin: 12/07/16 10:01 Dose: 200 mg Multivitamins (Total B With C -) 1 each PO DAILY [facility] Last Admin: 12/07/16 10:02 Dose: 1 each Multivitamins/Minerals (Theragran-M) 1 each PO DAILY [facility] Last Admin: 12/07/16 10:02 Dose: 1 each Ondansetron HCl (Zofran Injection) 4 mg IVPUSH Q6H PRN PRN Reason: NAUSEA Last Admin: 12/07/16 12:23 Dose: 4 mg Oxycodone HCl (Roxicodone -) 5 mg PO Q6H PRN PRN Reason: PAIN Last Admin: 12/07/16 08:34 Dose: 5 mg Pantoprazole Sodium (Protonix -) 40 mg PO DAILY [facility] Last Admin: 12/07/16 10:02 Dose: 40 mg Polyethylene Glycol (Miralax (For Daily Use) -) 17 gm PO DAILY PRN PRN Reason: CONSTIPATION Pramipexole Dihydrochloride (Mirapex -) 0.25 mg PO BIDPC [place] Last Admin: 12/07/16 08:35 Dose: 0.25 mg - Objective Vital Signs: Vital Signs Temperature 98.9 F 12/07/16 06:00 Pulse Rate 69 12/07/16 06:00 Respiratory Rate 20 12/07/16 06:00 Blood Pressure 115/51 12/07/16 06:00 O2 Sat by Pulse Oximetry (%) 98 12/06/16 21:00 Constitutional: Yes: Calm Eyes: Yes: Conjunctiva Clear HENT: Yes: Atraumatic Neck: Yes: Supple Cardiovascular: Yes: S1, S2 Respiratory: Yes: CTA Bilaterally Gastrointestinal: Yes: Soft, Abdomen, Obese Genitourinary: Yes: WNL Musculoskeletal: Yes: Muscle Weakness Edema: Yes Edema: LLE: Trace, RLE: Trace Neurological: Yes: Oriented Psychiatric: Yes: Oriented Labs: CBC, BMP 12/06/16 07:00 12/07/16 06:15 INR, PTT INR 1.28 (0.82-1.09) H 11/30/16 06:30 Problem List - Problems (1) Perforated appendicitis Code(s): K35.2 - ACUTE APPENDICITIS WITH GENERALIZED PERITONITIS (2) Hyponatremia Code(s): E87.1 - HYPO-OSMOLALITY AND HYPONATREMIA (3) Malnutrition Code(s): E46 - UNSPECIFIED PROTEIN-CALORIE MALNUTRITION Assessment/Plan Current Medications Generic Name Dose Route Start Last Admin Trade Name Freq PRN Reason Stop Dose Admin Benzocaine/Menthol 1 each 11/14/16 18:38 11/19/16 21:54 Cepacol Lozenge - MM 1 each Q4H PRN Administration SORE THROAT Cholecalciferol 50,000 unit 12/08/16 10:00 Vitamin D3 - PO Q7D [facility] Heparin Sodium (Porcine) 5,000 unit 11/29/16 22:00 12/07/16 05:35 Heparin - SQ 5,000 unit TID [place] Administration IV Flush 8 ml 11/23/16 13:43 12/05/16 10:30 Picc Line Flush IVPUSH 8 ml PRN PRN Administration Protocol Multivitamins/Minerals 10 ml/ 1,400 mls @ 58.333 mls/hr 12/05/16 16:00 07:17 Sterile Water/ Amino Acids/ IV Not Given Dextrose DAILY@1600 [place] Sodium Chloride 1,000 mls @ 75 mls/hr 12/06/16 13:00 12/07/16 12:29 Normal Saline - IV 75 mls/hr ASDIR [place] Administration Labetalol HCl 200 mg 12/07/16 07:49 12/07/16 10:01 Normodyne - PO 200 mg BID [place] Administration Multivitamins 1 each 11/30/16 15:15 12/07/16 10:02 Total B With C - PO 1 each DAILY [place] Administration Multivitamins/Minerals 1 each 11/28/16 18:45 12/07/16 10:02 Theragran-M PO 1 each DAILY [place] Administration Ondansetron HCl 4 mg 11/13/16 13:51 12/07/16 12:23 Zofran Injection IVPUSH 4 mg Q6H PRN Administration NAUSEA Oxycodone HCl 5 mg 12/06/16 17:25 12/07/16 08:34 Roxicodone - PO 5 mg Q6H PRN Administration PAIN Pantoprazole Sodium 40 mg 11/16/16 14:15 12/07/16 10:02 Protonix - PO 40 mg DAILY [place] Administration Polyethylene Glycol 17 gm 11/29/16 20:05 Miralax (For Daily Use) - PO DAILY PRN CONSTIPATION Pramipexole Dihydrochloride 0.25 mg 11/17/16 09:00 12/07/16 08:35 Mirapex - PO 0.25 mg BIDPC [place] Administration Impression 1. complicated appendicitis 2. malnutrition 3. hyponatremia 4. obesity 5. HTN 6. anemia Plan - will continue TPN, orders written and sent to pharmacy - surgery follow up - monitor lytes - repeat labs in am - lactic acid improved - encourage PO intake - neurology follow up Dr Mondragon
--- NOTE | 2016-12-07 15:08 | PN ---
Progress Note, Physician History of Present Illness: patient had lumbar puncture tried twice says he feels nauseous again threw up this morning after breakfast body does not feels like eating - Current Medication List Current Medications: Active Medications Benzocaine/Menthol (Cepacol Lozenge -) 1 each MM Q4H PRN PRN Reason: SORE THROAT Last Admin: 11/19/16 21:54 Dose: 1 each Cholecalciferol (Vitamin D3 -) 50,000 unit PO Q7D [facility] Heparin Sodium (Porcine) (Heparin -) 5,000 unit SQ TID [facility] Last Admin: 12/07/16 14:10 Dose: 5,000 unit IV Flush (Picc Line Flush) 8 ml IVPUSH PRN PRN PRN Reason: Protocol Last Admin: 12/05/16 10:30 Dose: 8 ml Multivitamins/Minerals 10 ml/Sterile Water/ Amino Acids/Dextrose 1,400 mls @ 58.333 mls/hr IV DAILY@1600 [facility] Stop: 12/07/16 15:59 Last Admin: 12/07/16 07:17 Dose: Not Given Sodium Chloride (Normal Saline -) 1,000 mls @ 75 mls/hr IV ASDIR [facility] Last Admin: 12/07/16 12:29 Dose: 75 mls/hr Multivitamins/Minerals 10 ml/Sterile Water/ Amino Acids/Dextrose 1,500 mls @ 62.5 mls/hr IV DAILY@1600 [place] Fat Emulsion Intravenous (Intralipid -) 250 mls @ 20.833 mls/hr IV DAILY@2200 [facility] Labetalol HCl (Normodyne -) 200 mg PO BID [facility] Last Admin: 12/07/16 10:01 Dose: 200 mg Multivitamins (Total B With C -) 1 each PO DAILY [facility] Last Admin: 12/07/16 10:02 Dose: 1 each Multivitamins/Minerals (Theragran-M) 1 each PO DAILY [facility] Last Admin: 12/07/16 10:02 Dose: 1 each Ondansetron HCl (Zofran Injection) 4 mg IVPUSH Q6H PRN PRN Reason: NAUSEA Last Admin: 12/07/16 12:23 Dose: 4 mg Oxycodone HCl (Roxicodone -) 5 mg PO Q6H PRN PRN Reason: PAIN Last Admin: 12/07/16 08:34 Dose: 5 mg Pantoprazole Sodium (Protonix -) 40 mg PO DAILY [facility] Last Admin: 12/07/16 10:02 Dose: 40 mg Polyethylene Glycol (Miralax (For Daily Use) -) 17 gm PO DAILY PRN PRN Reason: CONSTIPATION Pramipexole Dihydrochloride (Mirapex -) 0.25 mg PO BIDPC [facility] Last Admin: 12/07/16 08:35 Dose: 0.25 mg - Objective Vital Signs: Vital Signs Temperature 98.1 F 12/07/16 13:56 Pulse Rate 70 12/07/16 13:56 Respiratory Rate 16 12/07/16 13:56 Blood Pressure 110/60 12/07/16 13:56 O2 Sat by Pulse Oximetry (%) 98 12/06/16 21:00 Constitutional: Yes: Calm, Mild Distress, Obese HENT: Yes: Atraumatic Cardiovascular: Yes: Regular Rate and Rhythm Respiratory: Yes: Regular, CTA Bilaterally Gastrointestinal: Yes: Normal Bowel Sounds, Soft Musculoskeletal: Yes: WNL Extremities: Yes: Other Integumentary: Yes: WNL Wound/Incision: Yes: Well Approximated Neurological: Yes: Alert, Oriented, Other Psychiatric: Yes: Alert, Oriented Labs: CBC, BMP 12/06/16 07:00 12/07/16 06:15 INR, PTT INR 1.28 (0.82-1.09) H 11/30/16 06:30 Assessment/Plan ac appendicitis morbid obesity oral thrush abd abscess nausea vomiting plan continue current mgmt continue tpn monitor for increase in vomiting rest as per primary
[2016-12-07] MEDS ORDERED: [UNRECOGNIZED DRUG - OTHER] IV SCH (16:00)
[2016-12-07] MEDS ORDERED: WATER FOR INJ STERILE IV SCH (16:00)
[2016-12-07] MEDS ORDERED: MULTIVIT IV SCH (16:00)
[2016-12-07] MEDS: FAT EMULSIONS 250 ML IV SCH (21:29)
--- NOTE | 2016-12-07 21:36 | CONSULT ---
Consult Consult Specialty:: Rheumatology - History of Present Illness History of Present Illness: 31 year old male, Hx of morbid obesity, s/p bariatric surgery (August 2016, ( he lost >120 lb)), admitted for surgery for perforated appendix and retroperitoneal periappendical abscess. 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 Rule out autoimmune disease. HPI. Prior to this admission the patient had paresthesias in calfs and probably weakness in the lower extremities, however he was able to walk well. . After the surgery he developed right wrist drop and bilateral foot drop. Two weeks ago he developed left wrist drop. Since then he had partial improvement in the strength in hands. With PT he has been able to walk, however only intermittently due to weakness. Since the surgery his oral intake has been very poor due to vomiting - TPN was started. EMG: diffuse severe axonal sensory motor polyneuropathy,mainly sensory with superimpiosed radial and peroneal neuropathy. LP was unsuccessful in 2 occasions and he has had presyncopal episodes probably related to drop in BP. Laboratory work-up revealed ESR 100 and CRP 4.6. Normal serum levels of folate , vitamins A, B6, B12, C, D, E, and K1. CK 194 and TSH 3.43. Creatinine 0.6, urinalysis with protein 1+, ketones 1+ and no blood. HANNAH, anti-DNA ds, and rheumatoid factor were negative. DIMPLE negative for M spike. Tyson direct negative. - Past Medical History Additional Medical History: morbid obesity - Past Surgical History Additional Surgical History: 08/2016 gastric sleeve for morbid obesity at [facility] (Dr. Mele Heard) - Alcohol/Substance Use Hx Alcohol Use: No - Smoking History Smoking history: Never smoked Have you smoked in the past 12 months: No Home Medications - Allergies Allergies/Adverse Reactions: Allergies Allergy/AdvReac Type Severity Reaction Status Date / Time No Known Drug Allergies Allergy Verified 11/11/16 16:33 - Home Medications Home Medications: Ambulatory Orders NK [No Known Home Medication] 10/06/16 Review of Systems - Review of Systems Constitutional: reports: Weakness Eyes: reports: No Symptoms HENT: reports: No Symptoms Neck: reports: No Symptoms Cardiovascular: reports: No Symptoms Respiratory: reports: No Symptoms Genitourinary: reports: No Symptoms Breasts: reports: No Symptoms Reported Musculoskeletal: reports: Other (No jouint pain or moprning stiffness.) Neurological: reports: Other (See HPI) Physical Exam Vital Signs: Vital Signs Temperature 98.7 F 12/07/16 17:15 Pulse Rate 66 12/07/16 17:15 Respiratory Rate 18 12/07/16 17:15 Blood Pressure 138/88 12/07/16 17:15 O2 Sat by Pulse Oximetry (%) 98 12/06/16 21:00 Constitutional: Yes: Mild Distress Eyes: Yes: WNL HENT: Yes: WNL Neck: Yes: WNL Cardiovascular: Yes: WNL Respiratory: Yes: WNL Gastrointestinal: Yes: WNL Musculoskeletal: Yes: Other (No active joints) Neurological: Yes: Other (Bilateral wrist drop, partial in the left. Bilateral foot drop. Proximal muscle strength decreased in the right fthigh, otherwise apparently normal.) Labs: CBC, BMP 12/06/16 07:00 12/07/16 06:15 Problem List - Problems (1) Mononeuritis multiplex Assessment/Plan: I found 2 papers reporting foot drop as a neurological complication of bariatric surgery (abstracts in chart). The etiology is not clear, micronutrient deficiencies is a possibility. The patient does not have other clinical changes suggestive of a vasculitis, besides elevated ESR. There is no involvement of Lungs or kidneys or other organs. Most likely he does not have vasculitis or other connective tissue disease related to the mononeuritis multiplex, however I will request further serology, and I suggest a trial of steroids -ie. Solumedrol 40 mg BID (see in chart paper of mononeuritis multiplex and Cron[place]ite-[place] syndrome). If there is no some response in one week I would taper down and DC. I will discuss case with Drs. Up and Abigail. Thanks. Say Barker MD Code(s): G58.7 - MONONEURITIS MULTIPLEX
[2016-12-08] MEDS: HEPARIN NA (PORCINE) 5,000 UNITS/ML 1ML VIAL SQ SCH ×3 (05:38→21:38)
[2016-12-08 08:40] LABS: MCH 29.2 pg (25.7-33.7); MCHC 33.2 g/dl (32.0-35.9); MEAN PLT VOLUME 7.6 fl (7.5-11.1); PLATELET COUNT 244 K/MM3 (134-434); RDW 18.6 % (11.9-15.9); WHITE BLOOD COUNT 6.5 K/mm3 (4.0-10.0)
[2016-12-08] MEDS ORDERED: PT OWN MED DRAWER 7, Y5N ONE ×2 (09:02→17:23)
[2016-12-08 09:03] LABS: ALBUMIN 3.2 g/dl (3.4-5.0); ANION GAP 11 (8-16); CO2 28 mmol/L (21-32); GLUCOSE,RANDOM 87 mg/dL (74-106); MAGNESIUM 1.8 mg/dL (1.8-2.4)
[2016-12-08] MEDS: MULTIVITAMINS THER W-MINERALS COMBO TABLET (FP) PO SCH (09:03)
[2016-12-08] MEDS: PRAMIPEXOLE DIHYDROCHLORIDE 0.25 MG TABLET PO SCH ×2 (09:04→18:18)
[2016-12-08] MEDS: methylPREDNISolone NA SUCC 40 MG/1 ML VIAL IVPB SCH ×2 (09:04→21:45)
[2016-12-08] MEDS: PANTOPRAZOLE 40 MG TABLET (FP) PO SCH (09:04)
[2016-12-08] MEDS: oxyCODONE HCL 5 MG TABLET PO PRN (09:04)
[2016-12-08 09:05] LABS: ALK PHOS 262 U/L (45-117); BILIRUBIN,TOTAL 0.5 mg/dL (0.2-1.0); COCKROFT - GAULT 403.72; CREATININE 0.6 mg/dL (0.7-1.3); PHOSPHOROUS 4.3 mg/dL (2.5-4.9); SGOT/AST 79 U/L (15-37); SGPT/ALT 151 U/L (12-78); TOT PROT 7.5 g/dl (6.4-8.2)
[2016-12-08] MEDS: LABETALOL HCL 200 MG TABLET (FP) PO SCH ×2 (09:05→21:38)
[2016-12-08] MEDS: VITAMIN B COMPLEX W/C COMBO TABLET (FP) PO SCH (12:18)
--- NOTE | 2016-12-08 13:44 | PN ---
Physical Exam: SUBJECTIVE: Patient seen and examined at bedside eating breakfast in bed states has good appetite today complains of neck and back pain-headaches has resolved OBJECTIVE: Vital Signs Period Temp Pulse Resp BP Sys/Peoples Pulse Ox Last 24 Hr 98.0 F-99.5 F 64-70 16-20 108-138/52-88 93 GENERAL: The patient is awake, alert, and fully oriented HEAD: Normal with no signs of trauma. EYES: PERRLA EOMI NECK: Trachea midline, full range of motion, supple. LUNGS: Breath sounds equal, clear to auscultation bilaterally, no wheezes, no crackles, no accessory muscle use. HEART: Regular rate and rhythm, S1, S2 without murmur, rub or gallop. ABDOMEN: Soft, morbidly obese, non tender non distended Midline incision C/D/I NEUROLOGICAL: Cranial nerves II through XII intact. no facial droop or weakness and sensation is intact in the face Normal speech. Sensation of bilateral upper extremities is intact but R>L per patient on exam. but sensation of the biceps and proximal upper extremities proximal to the elbows are equal RUE: Shoulder abduction, Biceps, and triceps 5/5. right wrist drop noticed on exam. right wrist flexion 4/5 extension 2/5 LUE: Shoulder abduction, Biceps, and triceps 5/5. Left wrist drop noticed on exam. left wrist flexion 4/5 extension 3/5 RLE: knee flexion and extension 5/5 hip flexion 4/5. dorsiflexion of ankle 1/5, plantar flexion 4/5 LLE: 5/5 at all joints except ankle dorsiflexion which is 2/5 decreased sensation of RLE vs LLE left ankle jerk 2+ Right ankle jerk 0 left and right biceps jerk 0 right knee jerk 0 left knee jerk 0 Laboratory Results - last 24 hr 12/02/16 12/08/16 12/08/16 09:00 06:15 06:15 WBC 6.5 RBC 3.43 L Hgb 10.0 L Hct 30.2 L MCV 88.0 MCHC 33.2 RDW 18.6 H Plt Count 244 MPV 7.6 Sodium 139 Potassium 3.9 Chloride 100 Carbon Dioxide 28 Anion Gap 11 BUN 13 Creatinine 0.6 L Creat Clearance w eGFR > 60 Random Glucose 87 Calcium 9.0 Phosphorus 4.3 Magnesium 1.8 Total Bilirubin 0.5 D AST 79 H D ALT 151 H D Alkaline Phosphatase 262 H D Total Protein 7.5 Albumin 3.2 L Vitamin B2 160.0 Active Medications Generic Name Dose Route Start Last Admin Trade Name Freq PRN Reason Stop Dose Admin Benzocaine/Menthol 1 each 11/14/16 18:38 11/19/16 21:54 Cepacol Lozenge - MM 1 each Q4H PRN Administration SORE THROAT Cholecalciferol 50,000 unit 12/08/16 10:00 Vitamin D3 - PO Q7D [place] Heparin Sodium (Porcine) 5,000 unit 11/29/16 22:00 12/08/16 05:38 Heparin - SQ 5,000 unit TID [place] Administration IV Flush 8 ml 11/23/16 13:43 12/05/16 10:30 Picc Line Flush IVPUSH 8 ml PRN PRN Administration Protocol Sodium Chloride 1,000 mls @ 75 mls/hr 12/06/16 13:00 12/07/16 12:29 Normal Saline - IV 75 mls/hr ASDIR [place] Administration Multivitamins/Minerals 10 ml/ 1,500 mls @ 62.5 mls/hr 12/07/16 16:00 12/07/16 19:56 Sterile Water/ Amino Acids/ IV Not Given Dextrose DAILY@1600 [facility] Fat Emulsion Intravenous 250 mls @ 20.833 mls/hr 12/07/16 22:00 12/07/16 21:29 Intralipid - IV 20.833 mls/hr DAILY@2200 [facility] Administration Labetalol HCl 200 mg 12/07/16 07:49 12/08/16 09:05 Normodyne - PO 200 mg BID [place] Administration Methylprednisolone Sodium Succinate 40 mg 12/08/16 10:00 12/08/16 09:04 Solu-Medrol - IVPB 40 mg BID [place] Administration Multivitamins 1 each 11/30/16 15:15 12/08/16 12:18 Total B With C - PO 1 each DAILY [place] Administration Multivitamins/Minerals 1 each 11/28/16 18:45 12/08/16 09:03 Theragran-M PO 1 each DAILY [place] Administration Ondansetron HCl 4 mg 11/13/16 13:51 12/07/16 12:23 Zofran Injection IVPUSH 4 mg Q6H PRN Administration NAUSEA Oxycodone HCl 5 mg 12/06/16 17:25 12/08/16 09:04 Roxicodone - PO 5 mg Q6H PRN Administration PAIN Pantoprazole Sodium 40 mg 11/16/16 14:15 12/08/16 09:04 Protonix - PO 40 mg DAILY [place] Administration Polyethylene Glycol 17 gm 11/29/16 20:05 Miralax (For Daily Use) - PO DAILY PRN CONSTIPATION Pramipexole Dihydrochloride 0.25 mg 11/17/16 09:00 12/08/16 09:04 Mirapex - PO 0.25 mg BIDPC [place] Administration ASSESSMENT/PLAN: 31M with a PMH of morbid obesity presents to the hospital with abdominal pain found to have a perforated appendicitis in the OR. Sepsis secondary to Perforated appendicitis: CT scan initially read as perforated appendicitis the read changed to non perforated appendicitis. Taken to the OR for attempted Laparoscopic appendectomy found to be perforated. Appendix was not able to be visualized as a result was not resected. Patient s/ p laparoscopic drainage and washout of fabi-appendiceal abscess CT scan did not show any worsening pathology abscess moved more medial appendix not visualized surgery consult appreciated recommendations noted stopped Zosyn on day 13 able to tolerate diet more -at post gastrectomy baseline patient is now having excellent oral intake RIVERA drain d/c'ed by Surgery cultures-negative final pain control repeat RUQ US show cholelithiasis without cholecystitis and diffuse fatty infiltration of liver nephrology consult appreciated - on TPN will continue until discharge S/P PICC by IR surgery signed off HIDA scan negative Nausea/vomiting:Resolved antiemetics IVF for hydration Protein calorie malnutrition: Dietary/kitchen food server consult appreciated stop IVF continue TPN until discharged. Patient does not need TPN on discharge Tolerating PO at baseline at this time with good oral intake Vitamin D deficiency: continue Vit D 50,000units Q7 days Transaminitis: AST/ALT and Alk Phos bumped up again to abnormal limits likely secondary to diffuse fatty liver infiltration vs hypotensive episode will trend LFTs and if they continue to go up will get liver US Dehydration: as was indicated by BUN/Cr resolved continue IVF diffuse severe axonal sensorimotor polyneuropathy Right sided numbness and weakness: polyneuropathy. possible demyelinating disorder: Guillain-Greenleaf syndrome vs chronic inflammatory demyelinating polyneuropathy vs progressive inflammatory neuropathy vs multifocal motor neuropathy Patient had EMG done read as diffuse severe axonal sensorimotor polyneuropathy, superimposed severe radial neuropathy, no definite myopathy, fasciculations, or demyelinating process. s/p presentation of this patient in neurology grand rounds last night discussed in detail please see Dr. Up's note dated 11/29/[address] negative patient can not fit in MRI machine states had EMG as outpatient does not know results-called Dr. Hickman's office and he was seen by one of his colleagues had distant history of polyneuropathy had EMG done which showed axonal polyneuropathy unsure how severe it was "knees buckled" on him 3 times he is very deconditioned from a combination of Class 3 severe super morbid obesity and lack of movement will continue PT consult nurses made aware that they should not ambulate patient without adequate it application support analyst and he should always have a chair behind him open MRI as outpatient It is thought patient has severe diffuse axonal sensorimotor polyneuropathy from nutritional/mineral and heavy metal deficiency which may explain why he started to do better once on TPN. however his heavy metal levels are WNL grand rounds discussion discussed with patient at length once it was over, including findings and progrnosis and further plans LP unsuccessful x2-no more attempts Copper [id number], Selenium-WNL Zinc-WNL B12-WNL, ESR-100, CRP-4.6, HANNAH screen -WNL, RF-negative, LB-NFN-sontgutn AntiDNASE-negative , SPEP, and immunoglobulins-pending Fat soluble vitamins A-WNL E-WNL K-WNL vitamin D done and very low at 9, lyme PCR and western blot-negative sent lyme PCR because mixed IgG and IgM is positive continue multivitamins with minerals continue B complex Continue high dose vitamins Neuro exam especially the RLE has significantly improved patient ambulating more Rheumatology consult noted and appreciated. will follow up labs ordered. Dr. Barker does not believe patient has a connective tissue disorder or a rheuatological disorder will follow up work up also started on solumedrol will see if patient does better on steroids. If he does not will taper and stop it Leukocytosis: resolved off Abx Essential Hypertension: no previous diagnosis per patient but he has been hypertensive in the hospital although pain may be a contributing factor he likely has underlying hypertension Has been well controlled on this regimen but will revise given hypotension: hold lisinopril 40mg po daily hold norvasc 10mg po daily continue PO labetalol to 200 BID with hold parameters Oral Thrush:Resolved stop nystatin swish and swallow diflucan stopped HIV negative Morbid Obesity: s/p sleeve gastrectomy follow up outpatient PPx: HSQ protonix working with PT FEN: NS @ 100ml/hr no electrolyte issues continue tpn and continue regular diet as tolerated dispo: pending being accepted to [facility] Visit type - Emergency Visit Emergency Visit: Yes ED Registration Date: 11/11/16 Care time: The patient presented to the Emergency Department on the above date and was hospitalized for further evaluation of their emergent condition. - New Patient This patient is new to me today: No - Critical Care Critical Care patient: No - Discharge Referral Referred to [facility] Med P.C.: No
--- NOTE | 2016-12-08 13:45 | PN ---
Progress Note, Physician History of Present Illness: Pt seen and examined at bedside. He was able to hold down food today. - Current Medication List Current Medications: Active Medications Benzocaine/Menthol (Cepacol Lozenge -) 1 each MM Q4H PRN PRN Reason: SORE THROAT Last Admin: 11/19/16 21:54 Dose: 1 each Cholecalciferol (Vitamin D3 -) 50,000 unit PO Q7D [facility] Heparin Sodium (Porcine) (Heparin -) 5,000 unit SQ TID [facility] Last Admin: 12/08/16 05:38 Dose: 5,000 unit IV Flush (Picc Line Flush) 8 ml IVPUSH PRN PRN PRN Reason: Protocol Last Admin: 12/05/16 10:30 Dose: 8 ml Sodium Chloride (Normal Saline -) 1,000 mls @ 75 mls/hr IV ASDIR [facility] Last Admin: 12/07/16 12:29 Dose: 75 mls/hr Multivitamins/Minerals 10 ml/Sterile Water/ Amino Acids/Dextrose 1,500 mls @ 62.5 mls/hr IV DAILY@1600 [facility] Last Admin: 12/07/16 19:56 Dose: Not Given Fat Emulsion Intravenous (Intralipid -) 250 mls @ 20.833 mls/hr IV DAILY@2200 [facility] Last Admin: 12/07/16 21:29 Dose: 20.833 mls/hr Labetalol HCl (Normodyne -) 200 mg PO BID [facility] Last Admin: 12/08/16 09:05 Dose: 200 mg Methylprednisolone Sodium Succinate (Solu-Medrol -) 40 mg IVPB BID [facility] Last Admin: 12/08/16 09:04 Dose: 40 mg Multivitamins (Total B With C -) 1 each PO DAILY [facility] Last Admin: 12/08/16 12:18 Dose: 1 each Multivitamins/Minerals (Theragran-M) 1 each PO DAILY [facility] Last Admin: 12/08/16 09:03 Dose: 1 each Ondansetron HCl (Zofran Injection) 4 mg IVPUSH Q6H PRN PRN Reason: NAUSEA Last Admin: 12/07/16 12:23 Dose: 4 mg Oxycodone HCl (Roxicodone -) 5 mg PO Q6H PRN PRN Reason: PAIN Last Admin: 12/08/16 09:04 Dose: 5 mg Pantoprazole Sodium (Protonix -) 40 mg PO DAILY [place] Last Admin: 12/08/16 09:04 Dose: 40 mg Polyethylene Glycol (Miralax (For Daily Use) -) 17 gm PO DAILY PRN PRN Reason: CONSTIPATION Pramipexole Dihydrochloride (Mirapex -) 0.25 mg PO BIDPC [place] Last Admin: 12/08/16 09:04 Dose: 0.25 mg - Objective Vital Signs: Vital Signs Temperature 99.5 F 12/08/16 09:00 Pulse Rate 65 12/08/16 11:32 Respiratory Rate 20 12/08/16 09:00 Blood Pressure 108/58 12/08/16 09:00 O2 Sat by Pulse Oximetry (%) 93 L 12/08/16 11:32 Constitutional: Yes: Calm Eyes: Yes: Conjunctiva Clear HENT: Yes: Atraumatic Neck: Yes: Supple Cardiovascular: Yes: S1, S2 Respiratory: Yes: CTA Bilaterally Gastrointestinal: Yes: Soft, Abdomen, Obese Musculoskeletal: Yes: Muscle Weakness Edema: Yes Edema: LLE: Trace, RLE: Trace Neurological: Yes: Oriented Psychiatric: Yes: Oriented Labs: CBC, BMP 12/08/16 06:15 12/08/16 06:15 INR, PTT INR 1.28 (0.82-1.09) H 11/30/16 06:30 Problem List - Problems (1) Perforated appendicitis Code(s): K35.2 - ACUTE APPENDICITIS WITH GENERALIZED PERITONITIS (2) Hyponatremia Code(s): E87.1 - HYPO-OSMOLALITY AND HYPONATREMIA (3) Malnutrition Code(s): E46 - UNSPECIFIED PROTEIN-CALORIE MALNUTRITION Assessment/Plan Current Medications Generic Name Dose Route Start Last Admin Trade Name Freq PRN Reason Stop Dose Admin Benzocaine/Menthol 1 each 11/14/16 18:38 11/19/16 21:54 Cepacol Lozenge - MM 1 each Q4H PRN Administration SORE THROAT Cholecalciferol 50,000 unit 12/08/16 10:00 Vitamin D3 - PO Q7D [place] Heparin Sodium (Porcine) 5,000 unit 11/29/16 22:00 12/08/16 05:38 Heparin - SQ 5,000 unit TID [place] Administration IV Flush 8 ml 11/23/16 13:43 12/05/16 10:30 Picc Line Flush IVPUSH 8 ml PRN PRN Administration Protocol Sodium Chloride 1,000 mls @ 75 mls/hr 12/06/16 13:00 12/07/16 12:29 Normal Saline - IV 75 mls/hr ASDIR [place] Administration Multivitamins/Minerals 10 ml/ 1,500 mls @ 62.5 mls/hr 12/07/16 16:00 12/07/16 19:56 Sterile Water/ Amino Acids/ IV Not Given Dextrose DAILY@1600 [facility] Fat Emulsion Intravenous 250 mls @ 20.833 mls/hr 12/07/16 22:00 12/07/16 21:29 Intralipid - IV 20.833 mls/hr DAILY@2200 [facility] Administration Labetalol HCl 200 mg 12/07/16 07:49 12/08/16 09:05 Normodyne - PO 200 mg BID [place] Administration Methylprednisolone Sodium Succinate 40 mg 12/08/16 10:00 12/08/16 09:04 Solu-Medrol - IVPB 40 mg BID [place] Administration Multivitamins 1 each 11/30/16 15:15 12/08/16 12:18 Total B With C - PO 1 each DAILY [place] Administration Multivitamins/Minerals 1 each 11/28/16 18:45 12/08/16 09:03 Theragran-M PO 1 each DAILY [place] Administration Ondansetron HCl 4 mg 11/13/16 13:51 12/07/16 12:23 Zofran Injection IVPUSH 4 mg Q6H PRN Administration NAUSEA Oxycodone HCl 5 mg 12/06/16 17:25 12/08/16 09:04 Roxicodone - PO 5 mg Q6H PRN Administration PAIN Pantoprazole Sodium 40 mg 11/16/16 14:15 12/08/16 09:04 Protonix - PO 40 mg DAILY [place] Administration Polyethylene Glycol 17 gm 11/29/16 20:05 Miralax (For Daily Use) - PO DAILY PRN CONSTIPATION Pramipexole Dihydrochloride 0.25 mg 11/17/16 09:00 12/08/16 09:04 Mirapex - PO 0.25 mg BIDPC [place] Administration Impression 1. complicated appendicitis 2. malnutrition 3. hyponatremia 4. obesity 5. HTN 6. anemia Plan - rheumatology eval appreciated - pt still has TPN running - will need to discuss duration with neurology and primary team - repeat labs in am - repeat LFTs - encourage PO intake Dr Mondragon
[2016-12-08] MEDS: SODIUM CHLORIDE 1,000 ML IV SCH (14:05)
--- NOTE | 2016-12-08 14:24 | PN ---
Progress Note, Physician History of Present Illness: no vomiting today tolerating diet no issues - Current Medication List Current Medications: Active Medications Benzocaine/Menthol (Cepacol Lozenge -) 1 each MM Q4H PRN PRN Reason: SORE THROAT Last Admin: 11/19/16 21:54 Dose: 1 each Cholecalciferol (Vitamin D3 -) 50,000 unit PO Q7D [facility] Heparin Sodium (Porcine) (Heparin -) 5,000 unit SQ TID [facility] Last Admin: 12/08/16 14:04 Dose: 5,000 unit IV Flush (Picc Line Flush) 8 ml IVPUSH PRN PRN PRN Reason: Protocol Last Admin: 12/05/16 10:30 Dose: 8 ml Sodium Chloride (Normal Saline -) 1,000 mls @ 75 mls/hr IV ASDIR [facility] Last Admin: 12/08/16 14:05 Dose: 75 mls/hr Multivitamins/Minerals 10 ml/Sterile Water/ Amino Acids/Dextrose 1,500 mls @ 62.5 mls/hr IV DAILY@1600 [facility] Last Admin: 12/07/16 19:56 Dose: Not Given Fat Emulsion Intravenous (Intralipid -) 250 mls @ 20.833 mls/hr IV DAILY@2200 [facility] Last Admin: 12/07/16 21:29 Dose: 20.833 mls/hr Labetalol HCl (Normodyne -) 200 mg PO BID [facility] Last Admin: 12/08/16 09:05 Dose: 200 mg Methylprednisolone Sodium Succinate (Solu-Medrol -) 40 mg IVPB BID [facility] Last Admin: 12/08/16 09:04 Dose: 40 mg Multivitamins (Total B With C -) 1 each PO DAILY [facility] Last Admin: 12/08/16 12:18 Dose: 1 each Multivitamins/Minerals (Theragran-M) 1 each PO DAILY [facility] Last Admin: 12/08/16 09:03 Dose: 1 each Ondansetron HCl (Zofran Injection) 4 mg IVPUSH Q6H PRN PRN Reason: NAUSEA Last Admin: 12/07/16 12:23 Dose: 4 mg Oxycodone HCl (Roxicodone -) 5 mg PO Q6H PRN PRN Reason: PAIN Last Admin: 12/08/16 09:04 Dose: 5 mg Pantoprazole Sodium (Protonix -) 40 mg PO DAILY [facility] Last Admin: 12/08/16 09:04 Dose: 40 mg Polyethylene Glycol (Miralax (For Daily Use) -) 17 gm PO DAILY PRN PRN Reason: CONSTIPATION Pramipexole Dihydrochloride ([facility]x -) [facility] Last Admin: 12/08/16 09:04 Dose: 0.25 mg - Objective Vital Signs: Vital Signs Temperature 99.5 F 12/08/16 09:00 Pulse Rate 65 12/08/16 11:32 Respiratory Rate 20 12/08/16 09:00 Blood Pressure 108/58 12/08/16 09:00 O2 Sat by Pulse Oximetry (%) 93 L 12/08/16 11:32 Constitutional: Yes: No Distress, Calm, Obese Cardiovascular: Yes: Regular Rate and Rhythm Respiratory: Yes: Regular, CTA Bilaterally Gastrointestinal: Yes: Normal Bowel Sounds, Soft Musculoskeletal: Yes: Other Extremities: Yes: Other Integumentary: Yes: WNL Neurological: Yes: Alert, Oriented Psychiatric: Yes: Alert, Oriented Labs: CBC, BMP 12/08/16 06:15 12/08/16 06:15 INR, PTT INR 1.28 (0.82-1.09) H 11/30/16 06:30 Assessment/Plan ac appendicitis morbid obesity oral thrush abd abscess nausea vomiting plan continue current mgmt continue tpn tolerating diet rest as per primary
--- NOTE | 2016-12-08 19:01 | PN ---
Teaching Attending Note Name of Resident: Ramon Reynoso ATTENDING PHYSICIAN STATEMENT I saw and evaluated the patient. I reviewed the resident's note and discussed the case with the resident. I agree with the resident's findings and plan as documented. SUBJECTIVE: no fever or chills. feels "OK " today . tolerated diet . OBJECTIVE: NAD, AAOX3 CV : RRR ext : no edema Abd : morbidly obese, NL BS , TTP in RUQ , well healed mid line abd surgical scar. Neuro : Awake and alert , oriented. no facial droop, . round equal pupils , reactive to light . nl facial sensation Strength: RUE : shoulder abduction 5/5 ,shoulder flexion 5/5, Biceps 5/5 , triceps 5/5 , hand molded frames assembler 4/5, R wrist drop, wrist flexion 4/5 , wrist extension 3/5 , LUE : shoulder abduction 5/5 , shoulder flexion 5/5, Biceps 5/5 , triceps 5/5 , hand molded frames assembler 4/5, L wrist drop, wrist flexion 4/5 , wrist extension 3/5 , RLE : hip flexion 4/5, knee flexion 5/5, knee extension 4/5 , Ankle dorsiflecxion 1/5, ankle plantar flexion 4/5 LLE: hip flexion 5/5, knee flexion 5/5, knee extension 5/5 , Ankle dorsiflecxion 1/5, ankle plantar flexion 4/5 Reflexes: 0+ L knee jerk, 0 R knee jerk . biceps 0 on R and 0 L biceps . Sensation: decreased to light touch in R distal upper and whole R Lower ext. Assessment and plan: 31 y/o male with h/o Morbid obesity, s/p gastric sleeve sx in Aug 2016 who presented with Abd pain and was found to have ruptured appendix. 1- Complicated Appendicitis with rupture and fabi-appendicial abscess. s/p laparoscopic RIVERA drainage of the abscess on 11/13 ( RIVERA removed ) - doing well off Abx 2- Elevated LFTS : worse today . has minimal tenderness in RUQ. will check levels tomorrow if cont to increase will repeat US 3- Peripheral axonal motor and sensory poly-neuropathy likely due to nutritional deficiencies in setting of gastric sx and worsened by appendicitis - appreciate Dr. Munoz help: no suspicion for vasculitis or connective tissue disease - will monitor response on steroids - cont TPN. - Stable neuro exam - cont nutritional supp . 4- HTN: cont to hold ACEI and Norvasc cont BB . might need to resume other meds while on steroids 6- Vit D deficiency: cont Vit D weekly dispo : pending placement
[2016-12-08] MEDS: MULTIVIT IV SCH (22:00)
[2016-12-08] MEDS: [UNRECOGNIZED DRUG - OTHER] IV SCH (22:00)
[2016-12-09 03:44] LABS: URINE APPEARANCE CLEAR; URINE BILIRUBIN NEGATIVE (NEGATIVE); URINE BLOOD NEGATIVE (NEGATIVE); URINE COLOR LTYELLOW; URINE GLUCOSE (UA) NEGATIVE (NEGATIVE); URINE KETONE NEGATIVE (NEGATIVE); URINE LEUK ESTERASE NEGATIVE (NEGATIVE); URINE NITRITE NEGATIVE (NEGATIVE); URINE PROTEIN NEGATIVE (NEGATIVE); URINE UROBILINOGEN NEGATIVE E.U./dl (0.2-1.0)
[2016-12-09] MEDS: HEPARIN NA (PORCINE) 5,000 UNITS/ML 1ML VIAL SQ SCH ×3 (06:16→21:43)
[2016-12-09] MEDS: SODIUM CHLORIDE 1,000 ML IV SCH ×2 (06:18→15:03)
[2016-12-09 08:11] LABS: MCH 29.7 pg (25.7-33.7); MCHC 33.6 g/dl (32.0-35.9); MEAN CELL VOLUME 88.2 fl (80-96); MEAN PLT VOLUME 7.6 fl (7.5-11.1); PLATELET COUNT 259 K/MM3 (134-434); RDW 19.6 % (11.9-15.9); WHITE BLOOD COUNT 8.5 K/mm3 (4.0-10.0)
[2016-12-09] MEDS ORDERED: PT OWN MED DRAWER 7, Y5N ONE (08:17)
[2016-12-09] MEDS: PRAMIPEXOLE DIHYDROCHLORIDE 0.25 MG TABLET PO SCH ×2 (08:27→18:10)
[2016-12-09 08:40] LABS: ALBUMIN 3.3 g/dl (3.4-5.0); ANION GAP 10 (8-16); CALCIUM 9.2 mg/dL (8.5-10.1); CO2 27 mmol/L (21-32); COCKROFT - GAULT 485.02; CREATININE 0.5 mg/dL (0.7-1.3); GLUCOSE,RANDOM 112 mg/dL (74-106); MAGNESIUM 1.8 mg/dL (1.8-2.4); PHOSPHOROUS 3.8 mg/dL (2.5-4.9); SGOT/AST 33 U/L (15-37); SGPT/ALT 112 U/L (12-78)
[2016-12-09 08:42] LABS: ALK PHOS 225 U/L (45-117); BILIRUBIN,TOTAL 0.5 mg/dL (0.2-1.0); TOT PROT 7.9 g/dl (6.4-8.2)
--- NOTE | 2016-12-09 10:09 | PN ---
Physical Exam: SUBJECTIVE: Patient seen and examined at bedside when i asked him how is he feeling he responded "i feel beautiful and i havent felt this great in a long time. i woke up in a great mood this morning" patient believes the steroids are making him stronger OBJECTIVE: Vital Signs Period Temp Pulse Resp BP Sys/Peoples Pulse Ox Last 24 Hr 97.8 F-98.4 F 65-95 16-20 130-159/63-95 93-96 GENERAL: The patient is awake, alert, and fully oriented HEAD: Normal with no signs of trauma. EYES: PERRLA EOMI NECK: Trachea midline, full range of motion, supple. LUNGS: Breath sounds equal, clear to auscultation bilaterally, no wheezes, no crackles, no accessory muscle use. HEART: Regular rate and rhythm, S1, S2 without murmur, rub or gallop. ABDOMEN: Soft, morbidly obese, non tender non distended Midline incision C/D/I NEUROLOGICAL: Cranial nerves II through XII intact. no facial droop or weakness and sensation is intact in the face Normal speech. Sensation of bilateral upper extremities is intact but R>L per patient on exam. but sensation of the biceps and proximal upper extremities proximal to the elbows are equal RUE: Shoulder abduction, Biceps, and triceps 5/5. right wrist drop noticed on exam. right wrist flexion 4/5 extension 2/5 LUE: Shoulder abduction, Biceps, and triceps 5/5. Left wrist drop noticed on exam. left wrist flexion 4/5 extension 3/5 RLE: knee flexion and extension 5/5 hip flexion 5/5. dorsiflexion of ankle 1/5, plantar flexion 4/5 LLE: 5/5 at all joints except ankle dorsiflexion which is 2/5 decreased sensation of RLE vs LLE left ankle jerk 1+ Right ankle jerk 0 left and right biceps jerk 0 right knee jerk 0 left knee jerk 0 Laboratory Results - last 24 hr 12/08/16 12/09/16 12/09/16 06:15 03:00 06:20 WBC 8.5 D RBC 3.60 L Hgb 10.7 L Hct 31.7 L MCV 88.2 MCHC 33.6 RDW 19.6 H Plt Count 259 MPV 7.6 Sodium Potassium Chloride Carbon Dioxide Anion Gap BUN Creatinine Creat Clearance w eGFR Random Glucose Calcium Phosphorus Magnesium Total Bilirubin AST ALT Alkaline Phosphatase Total Protein Albumin Urine Color Ltyellow Urine Appearance Clear Urine pH 6.0 Ur Specific Gardiner 1.013 Urine Protein Negative Urine Glucose (UA) Negative Urine Ketones Negative Urine Blood Negative Urine Nitrite Negative Urine Bilirubin Negative Urine Urobilinogen Negative Ur Leukocyte Esterase Negative Hep Bs Antigen Negative Hepatitis C Antibody 0.1 12/09/16 06:20 WBC RBC Hgb Hct MCV MCHC RDW Plt Count MPV Sodium 140 Potassium 4.0 Chloride 103 Carbon Dioxide 27 Anion Gap 10 BUN 15 Creatinine 0.5 L Creat Clearance w eGFR > 60 Random Glucose 112 H D Calcium 9.2 Phosphorus 3.8 Magnesium 1.8 Total Bilirubin 0.5 AST 33 D ALT 112 H D Alkaline Phosphatase 225 H Total Protein 7.9 Albumin 3.3 L Urine Color Urine Appearance Urine pH Ur Specific Gardiner Urine Protein Urine Glucose (UA) Urine Ketones Urine Blood Urine Nitrite Urine Bilirubin Urine Urobilinogen Ur Leukocyte Esterase Hep Bs Antigen Hepatitis C Antibody Active Medications Generic Name Dose Route Start Last Admin Trade Name Freq PRN Reason Stop Dose Admin Benzocaine/Menthol 1 each 11/14/16 18:38 11/19/16 21:54 Cepacol Lozenge - MM 1 each Q4H PRN Administration SORE THROAT Cholecalciferol 50,000 unit 12/08/16 10:00 Vitamin D3 - PO Q7D [facility] Heparin Sodium (Porcine) 5,000 unit 11/29/16 22:00 12/09/16 06:16 Heparin - SQ 5,000 unit TID [facility] Administration IV Flush 8 ml 11/23/16 13:43 12/05/16 10:30 Picc Line Flush IVPUSH 8 ml PRN PRN Administration Protocol Sodium Chloride 1,000 mls @ 75 mls/hr 12/06/16 13:00 12/09/16 06:18 Normal Saline - IV 75 mls/hr ASDIR [facility] Administration Fat Emulsion Intravenous 250 mls @ 20.833 mls/hr 12/07/16 22:00 12/07/16 21:29 Intralipid - IV 20.833 mls/hr DAILY@2200 [facility] Administration Multivitamins/Minerals 10 ml/ 1,500 mls @ 62.5 mls/hr 12/08/16 16:00 12/08/16 22:00 Trace Metals 1 ml/ Sterile IV 62.5 mls/hr Water/ Amino Acids/ Dextrose DAILY@1600 [facility] Administration Labetalol HCl 200 mg 12/07/16 07:49 12/08/16 21:38 Normodyne - PO 200 mg BID [facility] Administration Methylprednisolone Sodium Succinate 40 mg 12/08/16 10:00 12/08/16 21:45 Solu-Medrol - IVPB 40 mg BID [place] Administration Multivitamins 1 each 11/30/16 15:15 12/08/16 12:18 Total B With C - PO 1 each DAILY [place] Administration Multivitamins/Minerals 1 each 11/28/16 18:45 12/08/16 09:03 Theragran-M PO 1 each DAILY [facility] Administration Ondansetron HCl 4 mg 11/13/16 13:51 12/07/16 12:23 Zofran Injection IVPUSH 4 mg Q6H PRN Administration NAUSEA Oxycodone HCl 5 mg 12/06/16 17:25 12/08/16 09:04 Roxicodone - PO 5 mg Q6H PRN Administration PAIN Pantoprazole Sodium 40 mg 11/16/16 14:15 12/08/16 09:04 Protonix - PO 40 mg DAILY [place] Administration Polyethylene Glycol 17 gm 11/29/16 20:05 Miralax (For Daily Use) - PO DAILY PRN CONSTIPATION Pramipexole Dihydrochloride 0.25 mg 11/17/16 09:00 12/09/16 08:27 Mirapex - PO 0.25 mg BIDPC [place] Administration ASSESSMENT/PLAN: 31M with a PMH of morbid obesity presents to the hospital with abdominal pain found to have a perforated appendicitis in the OR. Sepsis secondary to Perforated appendicitis: CT scan initially read as perforated appendicitis the read changed to non perforated appendicitis. Taken to the OR for attempted Laparoscopic appendectomy found to be perforated. Appendix was not able to be visualized as a result was not resected. Patient s/ p laparoscopic drainage and washout of fabi-appendiceal abscess CT scan did not show any worsening pathology abscess moved more medial appendix not visualized surgery consult appreciated recommendations noted stopped Zosyn on day 13 able to tolerate diet more -at post gastrectomy baseline patient is now having excellent oral intake RIVERA drain d/c'ed by Surgery cultures-negative final pain control repeat RUQ US show cholelithiasis without cholecystitis and diffuse fatty infiltration of liver nephrology consult appreciated - on TPN will continue until discharge S/P PICC by IR surgery signed off HIDA scan negative Nausea/vomiting:Resolved antiemetics IVF for hydration Protein calorie malnutrition: Dietary/human resources clerk consult appreciated stop IVF continue TPN until discharged. Patient does not need TPN on discharge Tolerating PO at baseline at this time with good oral intake Vitamin D deficiency: continue Vit D 50,000units Q7 days Transaminitis: AST/ALT and Alk Phos bumped up again to abnormal limits likely secondary to diffuse fatty liver infiltration vs hypotensive episode LFTS trending down no need for ultrasound at this time will continue to trend LFTs Dehydration: as was indicated by BUN/Cr resolved continue IVF diffuse severe axonal sensorimotor polyneuropathy Right sided numbness and weakness: polyneuropathy. possible demyelinating disorder: Guillain-Shanks syndrome vs chronic inflammatory demyelinating polyneuropathy vs progressive inflammatory neuropathy vs multifocal motor neuropathy Patient had EMG done read as diffuse severe axonal sensorimotor polyneuropathy, superimposed severe radial neuropathy, no definite myopathy, fasciculations, or demyelinating process. s/p presentation of this patient in neurology grand rounds last night discussed in detail please see Dr. Up's note dated 11/29/[address] negative patient can not fit in MRI machine states had EMG as outpatient does not know results-called Dr. Hickman's office and he was seen by one of his colleagues had distant history of polyneuropathy had EMG done which showed axonal polyneuropathy unsure how severe it was "knees buckled" on him 3 times he is very deconditioned from a combination of Class 3 severe super morbid obesity and lack of movement will continue PT consult nurses made aware that they should not ambulate patient without adequate rn support services and he should always have a chair behind him open MRI as outpatient It is thought patient has severe diffuse axonal sensorimotor polyneuropathy from nutritional/mineral and heavy metal deficiency which may explain why he started to do better once on TPN. however his heavy metal levels are WNL grand rounds discussion discussed with patient at length once it was over, including findings and progrnosis and further plans LP unsuccessful x2-no more attempts Copper [id number], Selenium-WNL Zinc-WNL B12-WNL, ESR-100, CRP-4.6, HANNAH screen -WNL, RF-negative, [id number] AntiDNASE-negative , SPEP, and immunoglobulins-pending Fat soluble vitamins A-WNL E-WNL K-WNL vitamin D done and very low at 9, lyme PCR and western blot-negative sent lyme PCR because mixed IgG and IgM is positive continue multivitamins with minerals continue B complex Continue high dose vitamins Neuro exam especially the RLE has significantly improved patient ambulating more Rheumatology consult noted and appreciated. will follow up labs ordered. Dr. Barker does not believe patient has a connective tissue disorder or a rheuatological disorder will follow up work up also started on solumedrol will see if patient does better on steroids. If he does not will taper and stop it so far seems to be improving Leukocytosis: resolved off Abx Essential Hypertension: no previous diagnosis per patient but he has been hypertensive in the hospital although pain may be a contributing factor he likely has underlying hypertension continue to hold hold lisinopril 40mg po daily continue PO labetalol to 200 BID with hold parameters restart Norvasc 10mg po daily Oral Thrush:Resolved stop nystatin swish and swallow diflucan stopped HIV negative Morbid Obesity: s/p sleeve gastrectomy follow up outpatient PPx: HSQ protonix working with PT FEN: NS @ 100ml/hr no electrolyte issues continue tpn and continue regular diet as tolerated dispo: pending being accepted to [facility] Visit type - Emergency Visit Emergency Visit: Yes ED Registration Date: 11/11/16 Care time: The patient presented to the Emergency Department on the above date and was hospitalized for further evaluation of their emergent condition. - New Patient This patient is new to me today: No - Critical Care Critical Care patient: No
--- NOTE | 2016-12-09 10:31 | PN ---
Progress Note (short form) - Note Progress Note: RENAL Pt is awake and alert comfortable eating better. had chicken he has been on ppn has weakness from nutritional deficiency Last Vital Signs Temp Pulse Resp BP Pulse Ox 98.2 F 82 20 159/95 96 12/09/16 06:00 12/09/16 06:00 12/09/16 06:00 12/09/16 06:00 12/08/16 21:00 obese man lying in bed comfortably cvs s1s2 rr abd soft, obese ext no edema neuro moves all extremities though is weak Current Medications Generic Name Dose Route Start Last Admin Trade Name Freq PRN Reason Stop Dose Admin Benzocaine/Menthol 1 each 11/14/16 18:38 11/19/16 21:54 Cepacol Lozenge - MM 1 each Q4H PRN Administration SORE THROAT Cholecalciferol 50,000 unit 12/08/16 10:00 Vitamin D3 - PO Q7D [place] Heparin Sodium (Porcine) 5,000 unit 11/29/16 22:00 12/09/16 06:16 Heparin - SQ 5,000 unit TID [place] Administration IV Flush 8 ml 11/23/16 13:43 12/05/16 10:30 Picc Line Flush IVPUSH 8 ml PRN PRN Administration Protocol Sodium Chloride 1,000 mls @ 75 mls/hr 12/06/16 13:00 12/09/16 06:18 Normal Saline - IV 75 mls/hr ASDIR [place] Administration Fat Emulsion Intravenous 250 mls @ 20.833 mls/hr 12/07/16 22:00 12/07/16 21:29 Intralipid - IV 20.833 mls/hr DAILY@2200 [place] Administration Multivitamins/Minerals 10 ml/ 1,500 mls @ 62.5 mls/hr 12/08/16 16:00 12/08/16 22:00 Trace Metals 1 ml/ Sterile IV 62.5 mls/hr Water/ Amino Acids/ Dextrose DAILY@1600 [place] Administration Labetalol HCl 200 mg 12/07/16 07:49 12/08/16 21:38 Normodyne - PO 200 mg BID [place] Administration Methylprednisolone Sodium Succinate 40 mg 12/08/16 10:00 12/08/16 21:45 Solu-Medrol - IVPB 40 mg BID [place] Administration Multivitamins 1 each 11/30/16 15:15 12/08/16 12:18 Total B With C - PO 1 each DAILY [place] Administration Multivitamins/Minerals 1 each 11/28/16 18:45 12/08/16 09:03 Theragran-M PO 1 each DAILY [place] Administration Ondansetron HCl 4 mg 11/13/16 13:51 12/07/16 12:23 Zofran Injection IVPUSH 4 mg Q6H PRN Administration NAUSEA Oxycodone HCl 5 mg 12/06/16 17:25 12/08/16 09:04 Roxicodone - PO 5 mg Q6H PRN Administration PAIN Pantoprazole Sodium 40 mg 11/16/16 14:15 12/08/16 09:04 Protonix - PO 40 mg DAILY [place] Administration Polyethylene Glycol 17 gm 11/29/16 20:05 Miralax (For Daily Use) - PO DAILY PRN CONSTIPATION Pramipexole Dihydrochloride 0.25 mg 11/17/16 09:00 12/09/16 08:27 Mirapex - PO 0.25 mg BIDPC [place] Administration CBC, BMP 12/09/16 06:20 12/09/16 06:20 Impression 1. complicated appendicitis 2. malnutrition 3. hyponatremia 4. obesity 5. HTN 6. anemia 7 transaminitis likely from tpn Plan - pt still has TPN running - will need to discuss duration with neurology and primary team - repeat labs in am - repeat LFTs - encourage PO intake no active renal issues MV
[2016-12-09] MEDS: methylPREDNISolone NA SUCC 40 MG/1 ML VIAL IVPB SCH ×2 (10:56→21:44)
[2016-12-09] MEDS: oxyCODONE HCL 5 MG TABLET PO PRN (10:56)
[2016-12-09] MEDS: MULTIVITAMINS THER W-MINERALS COMBO TABLET (FP) PO SCH (10:57)
[2016-12-09] MEDS: PANTOPRAZOLE 40 MG TABLET (FP) PO SCH (10:57)
[2016-12-09] MEDS: LABETALOL HCL 200 MG TABLET (FP) PO SCH ×2 (10:57→21:44)
[2016-12-09] MEDS: VITAMIN B COMPLEX W/C COMBO TABLET (FP) PO SCH (10:58)
--- NOTE | 2016-12-09 12:44 | PN ---
Progress Note, Physician History of Present Illness: stable no new issues - Current Medication List Current Medications: Active Medications Benzocaine/Menthol (Cepacol Lozenge -) 1 each MM Q4H PRN PRN Reason: SORE THROAT Last Admin: 11/19/16 21:54 Dose: 1 each Cholecalciferol (Vitamin D3 -) 50,000 unit PO Q7D [facility] Heparin Sodium (Porcine) (Heparin -) 5,000 unit SQ TID [facility] Last Admin: 12/09/16 06:16 Dose: 5,000 unit IV Flush (Picc Line Flush) 8 ml IVPUSH PRN PRN PRN Reason: Protocol Last Admin: 12/05/16 10:30 Dose: 8 ml Sodium Chloride (Normal Saline -) 1,000 mls @ 75 mls/hr IV ASDIR [facility] Last Admin: 12/09/16 06:18 Dose: 75 mls/hr Fat Emulsion Intravenous (Intralipid -) 250 mls @ 20.833 mls/hr IV DAILY@2200 [facility] Last Admin: 12/07/16 21:29 Dose: 20.833 mls/hr Multivitamins/Minerals 10 ml/Trace Metals 1 ml/ Sterile Water/ Amino Acids/ Dextrose 1,500 mls @ 62.5 mls/hr IV DAILY@1600 [facility] Last Admin: 12/08/16 22:00 Dose: 62.5 mls/hr Labetalol HCl (Normodyne -) 200 mg PO BID [facility] Last Admin: 12/09/16 10:57 Dose: 200 mg Methylprednisolone Sodium Succinate (Solu-Medrol -) 40 mg IVPB BID [facility] Last Admin: 12/09/16 10:56 Dose: 40 mg Multivitamins (Total B With C -) 1 each PO DAILY [facility] Last Admin: 12/09/16 10:58 Dose: 1 each Multivitamins/Minerals (Theragran-M) 1 each PO DAILY [facility] Last Admin: 12/09/16 10:57 Dose: 1 each Ondansetron HCl (Zofran Injection) 4 mg IVPUSH Q6H PRN PRN Reason: NAUSEA Last Admin: 12/07/16 12:23 Dose: 4 mg Oxycodone HCl (Roxicodone -) 5 mg PO Q6H PRN PRN Reason: PAIN Last Admin: 12/09/16 10:56 Dose: 5 mg Pantoprazole Sodium (Protonix -) 40 mg PO DAILY [facility] Last Admin: 12/09/16 10:57 Dose: 40 mg Polyethylene Glycol (Miralax (For Daily Use) -) 17 gm PO DAILY PRN PRN Reason: CONSTIPATION Pramipexole Dihydrochloride (Mirapex -) 0.25 mg PO BIDPC [facility] Last Admin: 12/09/16 08:27 Dose: 0.25 mg - Objective Vital Signs: Vital Signs Temperature 98.2 F 12/09/16 06:00 Pulse Rate 82 12/09/16 06:00 Respiratory Rate 20 12/09/16 06:00 Blood Pressure 159/95 12/09/16 06:00 O2 Sat by Pulse Oximetry (%) 96 12/08/16 21:00 Constitutional: Yes: No Distress, Calm Cardiovascular: Yes: Regular Rate and Rhythm Respiratory: Yes: Regular, CTA Bilaterally Gastrointestinal: Yes: Normal Bowel Sounds, Soft Musculoskeletal: Yes: WNL Extremities: Yes: Other Neurological: Yes: Alert, Oriented Psychiatric: Yes: Alert Labs: CBC, BMP 12/09/16 06:20 12/09/16 06:20 INR, PTT INR 1.28 (0.82-1.09) H 11/30/16 06:30 Assessment/Plan ac appendicitis morbid obesity oral thrush abd abscess nausea vomiting plan continue current mgmt continue tpn tolerating diet rest as per primary
[2016-12-09] MEDS: PICC LINE 8 ML FLUSH PROTOCOL IVPUSH PRN (14:20)
--- NOTE | 2016-12-09 15:58 | PN ---
Teaching Attending Note Name of Resident: Ramon Reynoso ATTENDING PHYSICIAN STATEMENT I saw and evaluated the patient. I reviewed the resident's note and discussed the case with the resident. I agree with the resident's findings and plan as documented. SUBJECTIVE: feels stronger today , has good spirit OBJECTIVE: NAD, AAOX3 CV : RRR ext : no edema Abd : morbidly obese, NL BS , NT , well healed mid line abd surgical scar. Neuro : Awake and alert , oriented. no facial droop, . round equal pupils , reactive to light . nl facial sensation Strength: RUE : shoulder abduction 5/5 ,shoulder flexion 5/5, Biceps 5/5 , triceps 5/5 , hand paper coater 4/5, R wrist drop, wrist flexion 4/5 , wrist extension 3/5 , LUE : shoulder abduction 5/5 , shoulder flexion 5/5, Biceps 5/5 , triceps 5/5 , hand paper coater 4/5, L wrist drop, wrist flexion 4/5 , wrist extension 3/5 , RLE : hip flexion 4/5, knee flexion 5/5, knee extension 4/5 , Ankle dorsiflecxion 2/5, ankle plantar flexion 4/5 LLE: hip flexion 5/5, knee flexion 5/5, knee extension 5/5 , Ankle dorsiflecxion 2/5, ankle plantar flexion 4/5 Reflexes: 0+ L knee jerk, 0 R knee jerk . biceps 0 on R and 0 L biceps . Sensation: decreased to light touch in R distal upper and whole R Lower ext. Assessment and plan: 31 y/o male with h/o Morbid obesity, s/p gastric sleeve sx in Aug 2016 who presented with Abd pain and was found to have ruptured appendix. 1- Complicated Appendicitis with rupture and fabi-appendicial abscess. s/p laparoscopic RIVERA drainage of the abscess on 11/13 ( RIVERA removed ) - Monitor off Abx 2- Elevated LFTS: improved today with no TTP in RUQ. will monitor LFTS 3- Peripheral axonal motor and sensory poly-neuropathy likely due to nutritional deficiencies in setting of gastric sx and worsened by appendicitis improved neuro exam - Appreciate Dr. Munoz help: no suspicion for vasculitis or connective tissue disease - Cont steroids. it seems of a help in this case - Cont TPN. 4- HTN: BP is climbing up again Stop IVF Resume norvasc Cont labetalol. 6- Vit D deficiency: cont Vit D weekly Dispo : pending placement
[2016-12-09] MEDS: MULTIVIT IV SCH (17:02)
[2016-12-09] MEDS: [UNRECOGNIZED DRUG - OTHER] IV SCH (17:02)
[2016-12-09] MEDS ORDERED: SODIUM PHOSPHATE/NA BIPHOS 133 ML ENEMA PR ONE (18:00)
[2016-12-09] MEDS: amLODIPine BESYLATE 10 MG TABLET (FP) PO SCH (18:10)
[2016-12-10] MEDS: HEPARIN NA (PORCINE) 5,000 UNITS/ML 1ML VIAL SQ SCH ×3 (06:24→22:00)
[2016-12-10 08:20] LABS: MCH 29.7 pg (25.7-33.7); MCHC 33.8 g/dl (32.0-35.9); MEAN PLT VOLUME 7.6 fl (7.5-11.1); PLATELET COUNT 274 K/MM3 (134-434); RDW 19.5 % (11.9-15.9); WHITE BLOOD COUNT 10.4 K/mm3 (4.0-10.0)
[2016-12-10] MEDS ORDERED: PT OWN MED DRAWER 7, Y5N ONE (08:49)
[2016-12-10 08:56] LABS: ALBUMIN 3.4 g/dl (3.4-5.0); ALK PHOS 195 U/L (45-117); ANION GAP 11 (8-16); BILIRUBIN,TOTAL 0.5 mg/dL (0.2-1.0); CALCIUM 9.4 mg/dL (8.5-10.1); CO2 27 mmol/L (21-32); COCKROFT - GAULT 485.02; CREATININE 0.5 mg/dL (0.7-1.3); GLUCOSE,RANDOM 106 mg/dL (74-106); MAGNESIUM 1.8 mg/dL (1.8-2.4); PHOSPHOROUS 4.2 mg/dL (2.5-4.9); SGOT/AST 16 U/L (15-37); SGPT/ALT 84 U/L (12-78)
[2016-12-10] MEDS: amLODIPine BESYLATE 10 MG TABLET (FP) PO SCH (09:17)
[2016-12-10] MEDS: PANTOPRAZOLE 40 MG TABLET (FP) PO SCH (09:18)
[2016-12-10] MEDS: LABETALOL HCL 200 MG TABLET (FP) PO SCH ×2 (09:18→22:00)
[2016-12-10] MEDS: methylPREDNISolone NA SUCC 40 MG/1 ML VIAL IVPB SCH ×2 (09:18→22:00)
[2016-12-10] MEDS: MULTIVITAMINS THER W-MINERALS COMBO TABLET (FP) PO SCH (09:18)
[2016-12-10] MEDS: PRAMIPEXOLE DIHYDROCHLORIDE 0.25 MG TABLET PO SCH ×3 (09:19→18:12)
[2016-12-10] MEDS: VITAMIN B COMPLEX W/C COMBO TABLET (FP) PO SCH (09:19)
[2016-12-10] MEDS: PICC LINE 8 ML FLUSH PROTOCOL IVPUSH PRN (09:19)
[2016-12-10] MEDS ORDERED: ERGOCALCIFEROL (VITAMIN D2) 50,000 UNIT CAPSULE (FP) PO SCH (10:00)
--- NOTE | 2016-12-10 11:59 | PN ---
Progress Note (short form) - Note Progress Note: RENAL Pt is awake and alert comfortable eating better. he has been on ppn has weakness from nutritional deficiency says he is better with steroids Last Vital Signs Temp Pulse Resp BP Pulse Ox 98.2 F 68 18 148/86 98 12/09/16 22:00 12/09/16 15:04 12/09/16 21:00 12/09/16 22:00 12/09/16 21:00 obese man lying in bed comfortably cvs s1s2 rr abd soft, obese ext no edema neuro moves all extremities though is weak Current Medications Current Medications Generic Name Dose Route Start Last Admin Trade Name Freq PRN Reason Stop Dose Admin Amlodipine Besylate 10 mg 12/09/16 18:00 12/10/16 09:17 Norvasc - PO 10 mg DAILY [place] Administration Benzocaine/Menthol 1 each 11/14/16 18:38 11/19/16 21:54 Cepacol Lozenge - MM 1 each Q4H PRN Administration SORE THROAT Ergocalciferol 50,000 unit 12/10/16 10:00 12/10/16 09:19 Drisdol - PO 50,000 unit Q7D@10 [place] Administration Heparin Sodium (Porcine) 5,000 unit 11/29/16 22:00 12/10/16 06:24 Heparin - SQ 5,000 unit TID [place] Administration IV Flush 8 ml 11/23/16 13:43 12/10/16 09:19 Picc Line Flush IVPUSH 8 ml PRN PRN Administration Protocol Fat Emulsion Intravenous 250 mls @ 20.833 mls/hr 12/07/16 22:00 12/07/16 21:29 Intralipid - IV 20.833 mls/hr DAILY@2200 [place] Administration Multivitamins/Minerals 10 ml/ 1,500 mls @ 62.5 mls/hr 12/08/16 16:00 12/09/16 17:02 Trace Metals 1 ml/ Sterile IV 62.5 mls/hr Water/ Amino Acids/ Dextrose DAILY@1600 [place] Administration Labetalol HCl 200 mg 12/07/16 07:49 12/10/16 09:18 Normodyne - PO 200 mg BID [place] Administration Methylprednisolone Sodium Succinate 40 mg 12/08/16 10:00 12/10/16 09:18 Solu-Medrol - IVPB 40 mg BID [place] Administration Multivitamins 1 each 11/30/16 15:15 12/10/16 09:19 Total B With C - PO 1 each DAILY [place] Administration Multivitamins/Minerals 1 each 11/28/16 18:45 12/10/16 09:18 Theragran-M PO 1 each DAILY [place] Administration Ondansetron HCl 4 mg 11/13/16 13:51 12/07/16 12:23 Zofran Injection IVPUSH 4 mg Q6H PRN Administration NAUSEA Oxycodone HCl 5 mg 12/06/16 17:25 12/09/16 10:56 Roxicodone - PO 5 mg Q6H PRN Administration PAIN Pantoprazole Sodium 40 mg 11/16/16 14:15 12/10/16 09:18 Protonix - PO 40 mg DAILY [place] Administration Polyethylene Glycol 17 gm 11/29/16 20:05 Miralax (For Daily Use) - PO DAILY PRN CONSTIPATION Pramipexole Dihydrochloride 0.25 mg 11/17/16 09:00 12/10/16 09:19 Mirapex - PO 0.25 mg BIDPC [place] Administration CBC, BMP 12/09/16 06:20 12/09/16 06:20 Impression 1. complicated appendicitis 2. malnutrition 3. hyponatremia 4. obesity 5. HTN 6. anemia 7 transaminitis likely from tpn- improved with reduction in tpn Plan - pt still has TPN running - will need to discuss duration with neurology and primary team - repeat labs in am - repeat LFTs - encourage PO intake - no active renal issues MV
[2016-12-10 13:56] LABS: IGG IMMUNOGLOBULIN 1917
--- NOTE | 2016-12-10 15:16 | PN ---
Progress Note (short form) - Note Progress Note: Subjective: no fever or chills, no abd pain , no diarrhea . Sat in chair yesterday Objective: Vital Signs: Last Vital Signs Temp Pulse Resp BP Pulse Ox 98.2 F 68 18 148/86 98 12/09/16 22:00 12/09/16 15:04 12/09/16 21:00 12/09/16 22:00 12/09/16 21:00 Laboratory Results - last 24 hr 11/29/16 12/10/16 12/10/16 06:00 06:30 06:30 WBC 10.4 H RBC 3.67 L Hgb 10.9 L Hct 32.3 L MCV 88.0 MCHC 33.8 RDW 19.5 H Plt Count 274 MPV 7.6 Sodium 141 Potassium 4.1 Chloride 103 Carbon Dioxide 27 Anion Gap 11 BUN 18 Creatinine 0.5 L Creat Clearance w eGFR > 60 Random Glucose 106 Calcium 9.4 Phosphorus 4.2 Magnesium 1.8 Total Bilirubin 0.5 AST 16 D ALT 84 H D Alkaline Phosphatase 195 H Total Protein 8.0 Albumin 3.4 IgG 1917 Physical Exam: NAD, AAOX3 CV : RRR ext : no edema Abd : morbidly obese, NL BS , NT , well healed mid line abd surgical scar. Neuro : Awake and alert , oriented. no facial droop, . round equal pupils , reactive to light . nl facial sensation Strength: RUE : shoulder abduction 5/5 ,shoulder flexion 5/5, Biceps 5/5 , triceps 5/5 , hand signs sales representative 4/5, R wrist drop, wrist flexion 4/5 , wrist extension 3/5 LUE : shoulder abduction 5/5 , shoulder flexion 5/5, Biceps 5/5 , triceps 5/5 , hand signs sales representative 4/5, L wrist drop, wrist flexion 4/5 , wrist extension 3/5 RLE : hip flexion 4/5, knee flexion 5/5, knee extension 5/5 , Ankle dorsiflecxion 1/5, ankle plantar flexion 5/5 LLE: hip flexion 5/5, knee flexion 5/5, knee extension 5/5 , Ankle dorsiflecxion 1/5, ankle plantar flexion 5/5 Reflexes: 0+ L knee jerk, 0 R knee jerk . biceps 0 on R and 0 L biceps . Sensation: decreased to light touch in L LE today . but nL and equal in upper extremities . Assessment and plan: 31 y/o male with h/o Morbid obesity, s/p gastric sleeve sx in Aug 2016 who presented with Abd pain and was found to have ruptured appendix. 1- Complicated Appendicitis with rupture and fabi-appendicial abscess. s/p laparoscopic RIVERA drainage of the abscess on 11/13 ( RIVERA removed ) - Monitor off Abx 2- Elevated LFTS: cont to improve with no TTP in RUQ. - monitor LFTS 3- Peripheral axonal motor and sensory poly-neuropathy likely due to nutritional deficiencies in setting of gastric sx and worsened by appendicitis improved neuro exam with TPN and steroids - cont steroids which are helping . - Cont TPN. will probably stop TPN tomorrow , given improved po intake and in preparation for dc 4- HTN: slightly elevated with steroids Cont norvasc Cont labetalol. 6- Vit D deficiency: cont Vit D weekly will resume discharge planning. Will stop TPN tomorrow Visit type - Emergency Visit Emergency Visit: Yes ED Registration Date: 11/11/16 Care time: The patient presented to the Emergency Department on the above date and was hospitalized for further evaluation of their emergent condition. - New Patient This patient is new to me today: No - Critical Care Critical Care patient: No
--- NOTE | 2016-12-10 15:33 | PN ---
Progress Note, Physician History of Present Illness: feels much better strength returning - Current Medication List Current Medications: Active Medications Amlodipine Besylate (Norvasc -) 10 mg PO DAILY [facility] Last Admin: 12/10/16 09:17 Dose: 10 mg Benzocaine/Menthol (Cepacol Lozenge -) 1 each MM Q4H PRN PRN Reason: SORE THROAT Last Admin: 11/19/16 21:54 Dose: 1 each Ergocalciferol (Drisdol -) 50,000 unit PO Q7D@10 [facility] Last Admin: 12/10/16 09:19 Dose: 50,000 unit Heparin Sodium (Porcine) (Heparin -) 5,000 unit SQ TID [facility] Last Admin: 12/10/16 15:27 Dose: 5,000 unit IV Flush (Picc Line Flush) 8 ml IVPUSH PRN PRN PRN Reason: Protocol Last Admin: 12/10/16 09:19 Dose: 8 ml Fat Emulsion Intravenous (Intralipid -) 250 mls @ 20.833 mls/hr IV DAILY@2200 [facility] Last Admin: 12/07/16 21:29 Dose: 20.833 mls/hr Multivitamins/Minerals 10 ml/Trace Metals 1 ml/ Sterile Water/ Amino Acids/ Dextrose 1,500 mls @ 62.5 mls/hr IV DAILY@1600 [facility] Stop: 12/10/16 15:59 Last Admin: 12/09/16 17:02 Dose: 62.5 mls/hr Multivitamins/Minerals 10 ml/Sterile Water/ Amino Acids/Dextrose 1,500 mls @ 62.5 mls/hr IV DAILY@1600 [facility] Labetalol HCl (Normodyne -) 200 mg PO BID [facility] Last Admin: 12/10/16 09:18 Dose: 200 mg Methylprednisolone Sodium Succinate (Solu-Medrol -) 40 mg IVPB BID [facility] Last Admin: 12/10/16 09:18 Dose: 40 mg Multivitamins (Total B With C -) 1 each PO DAILY [facility] Last Admin: 12/10/16 09:19 Dose: 1 each Multivitamins/Minerals (Theragran-M) 1 each PO DAILY [facility] Last Admin: 12/10/16 09:18 Dose: 1 each Ondansetron HCl (Zofran Injection) 4 mg IVPUSH Q6H PRN PRN Reason: NAUSEA Last Admin: 12/07/16 12:23 Dose: 4 mg Oxycodone HCl (Roxicodone -) 5 mg PO Q6H PRN PRN Reason: PAIN Last Admin: 12/09/16 10:56 Dose: 5 mg Pantoprazole Sodium (Protonix -) 40 mg PO DAILY [facility] Last Admin: 12/10/16 09:18 Dose: 40 mg Polyethylene Glycol (Miralax (For Daily Use) -) 17 gm PO DAILY PRN PRN Reason: CONSTIPATION Pramipexole Dihydrochloride (Mirapex -) 0.25 mg PO BIDPC [facility] Last Admin: 12/10/16 09:19 Dose: 0.25 mg - Objective Vital Signs: Vital Signs Temperature 98.2 F 12/09/16 22:00 Pulse Rate 68 12/09/16 15:04 Respiratory Rate 18 12/09/16 21:00 Blood Pressure 148/86 12/09/16 22:00 O2 Sat by Pulse Oximetry (%) 98 12/09/16 21:00 Constitutional: Yes: No Distress, Calm, Obese Cardiovascular: Yes: Regular Rate and Rhythm Respiratory: Yes: Regular, CTA Bilaterally Musculoskeletal: Yes: WNL Extremities: Yes: Other Neurological: Yes: Alert, Oriented Psychiatric: Yes: Alert, Oriented Labs: CBC, BMP 12/10/16 06:30 12/10/16 06:30 INR, PTT INR 1.28 (0.82-1.09) H 11/30/16 06:30 Assessment/Plan ac appendicitis morbid obesity oral thrush abd abscess nausea vomiting plan continue current mgmt continue tpn tolerating diet rest as per primary physio
[2016-12-10] MEDS ORDERED: MULTIVIT IV SCH (16:00)
[2016-12-10] MEDS ORDERED: [UNRECOGNIZED DRUG - OTHER] IV SCH (16:00)
[2016-12-10] MEDS ORDERED: WATER FOR INJ STERILE IV SCH (16:00)
[2016-12-10] MEDS: FAT EMULSIONS 250 ML IV SCH (22:01)
[2016-12-11] MEDS: HEPARIN NA (PORCINE) 5,000 UNITS/ML 1ML VIAL SQ SCH ×3 (06:19→21:18)
[2016-12-11] MEDS ORDERED: PT OWN MED DRAWER 7, Y5N ONE ×3 (08:59→18:13)
[2016-12-11] MEDS: LABETALOL HCL 200 MG TABLET (FP) PO SCH ×2 (09:29→21:18)
[2016-12-11] MEDS: PRAMIPEXOLE DIHYDROCHLORIDE 0.25 MG TABLET PO SCH ×2 (09:29→17:50)
[2016-12-11] MEDS: MULTIVITAMINS THER W-MINERALS COMBO TABLET (FP) PO SCH (09:30)
[2016-12-11] MEDS: PANTOPRAZOLE 40 MG TABLET (FP) PO SCH (09:30)
[2016-12-11] MEDS: methylPREDNISolone NA SUCC 40 MG/1 ML VIAL IVPB SCH (09:30)
[2016-12-11] MEDS: amLODIPine BESYLATE 10 MG TABLET (FP) PO SCH (09:30)
[2016-12-11] MEDS: LISINOPRIL 20 MG TABLET (FP) PO SCH (12:00)
--- NOTE | 2016-12-11 13:11 | PN ---
Physical Exam: SUBJECTIVE: Patient seen and examined at bedside feels well excited about doing rehab today OBJECTIVE: Vital Signs Period Temp Pulse Resp BP Sys/Peoples Pulse Ox Last 24 Hr 97.3 F-97.8 F 67-84 18-20 153-154/87-106 98 GENERAL: The patient is awake, alert, and fully oriented HEAD: Normal with no signs of trauma. EYES: PERRLA EOMI NECK: Trachea midline, full range of motion, supple. LUNGS: Breath sounds equal, clear to auscultation bilaterally, no wheezes, no crackles, no accessory muscle use. HEART: Regular rate and rhythm, S1, S2 without murmur, rub or gallop. ABDOMEN: Soft, morbidly obese, non tender non distended Midline incision C/D/I NEUROLOGICAL: Cranial nerves II through XII intact. no facial droop or weakness and sensation is intact in the face Normal speech. Sensation of bilateral upper extremities is intact but R>L per patient on exam. but sensation of the biceps and proximal upper extremities proximal to the elbows are equal RUE: Shoulder abduction, Biceps, and triceps 5/5. right wrist drop noticed on exam. right wrist flexion 4/5 extension 3/5 LUE: Shoulder abduction, Biceps, and triceps 5/5. Left wrist drop noticed on exam. left wrist flexion 4/5 extension 3/5 RLE: knee flexion and extension 5/5 hip flexion 5/5. dorsiflexion of ankle 1/5, plantar flexion 4/5 LLE: 5/5 at all joints except ankle dorsiflexion which is 1/5 decreased sensation of RLE vs LLE left ankle jerk 0 Right ankle jerk 0 left and right biceps jerk 0 right knee jerk 0 left knee jerk 0 Decreased sensation over proximal RLE when compared to LLE Laboratory Results - last 24 hr 11/29/16 06:00 IgG 1917 Active Medications Generic Name Dose Route Start Last Admin Trade Name Freq PRN Reason Stop Dose Admin Amlodipine Besylate 10 mg 12/09/16 18:00 12/11/16 09:30 Norvasc - PO 10 mg DAILY [facility] Administration Benzocaine/Menthol 1 each 11/14/16 18:38 11/19/16 21:54 Cepacol Lozenge - MM 1 each Q4H PRN Administration SORE THROAT Ergocalciferol 50,000 unit 04/09/17 10:00 12/10/16 09:19 Drisdol - PO 50,000 unit Q7D@10 [facility] Administration Heparin Sodium (Porcine) 5,000 unit 11/29/16 22:00 12/11/16 06:19 Heparin - SQ 5,000 unit TID [facility] Administration IV Flush 8 ml 11/23/16 13:43 12/10/16 09:19 Picc Line Flush IVPUSH 8 ml PRN PRN Administration Protocol Labetalol HCl 200 mg 12/07/16 07:49 12/11/16 09:29 Normodyne - PO 200 mg BID [facility] Administration Lisinopril 20 mg 12/11/16 10:15 12/11/16 12:00 Prinivil PO 20 mg DAILY [facility] Administration Methylprednisolone Sodium Succinate 40 mg 12/08/16 10:00 12/11/16 09:30 Solu-Medrol - IVPB 40 mg BID [facility] Administration Multivitamins 1 each 11/30/16 15:15 12/10/16 09:19 Total B With C - PO 1 each DAILY [facility] Administration Multivitamins/Minerals 1 each 11/28/16 18:45 12/11/16 09:30 Theragran-M PO 1 each DAILY [facility] Administration Ondansetron HCl 4 mg 11/13/16 13:51 12/07/16 12:23 Zofran Injection IVPUSH 4 mg Q6H PRN Administration NAUSEA Oxycodone HCl 5 mg 12/06/16 17:25 12/09/16 10:56 Roxicodone - PO 5 mg Q6H PRN Administration PAIN Pantoprazole Sodium 40 mg 11/16/16 14:15 12/11/16 09:30 Protonix - PO 40 mg DAILY [facility] Administration Polyethylene Glycol 17 gm 11/29/16 20:05 Miralax (For Daily Use) - PO DAILY PRN CONSTIPATION Pramipexole Dihydrochloride 0.25 mg 11/17/16 09:00 12/11/16 09:29 Mirapex - PO 0.25 mg BIDPC [facility] Administration ASSESSMENT/PLAN: 31M with a PMH of morbid obesity presents to the hospital with abdominal pain found to have a perforated appendicitis in the OR. Sepsis secondary to Perforated appendicitis: CT scan initially read as perforated appendicitis the read changed to non perforated appendicitis. Taken to the OR for attempted Laparoscopic appendectomy found to be perforated. Appendix was not able to be visualized as a result was not resected. Patient s/ p laparoscopic drainage and washout of fabi-appendiceal abscess CT scan did not show any worsening pathology abscess moved more medial appendix not visualized surgery consult appreciated recommendations noted stopped Zosyn on day 13 able to tolerate diet more -at post gastrectomy baseline patient is now having excellent oral intake RIVERA drain d/c'ed by Surgery cultures-negative final pain control repeat RUQ US show cholelithiasis without cholecystitis and diffuse fatty infiltration of liver nephrology consult appreciated - will stop TPN today S/P PICC by IR surgery signed off HIDA scan negative Nausea/vomiting:Resolved antiemetics IVF for hydration Protein calorie malnutrition: Dietary/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 possible demyelinating disorder: Guillain-[place] syndrome vs chronic inflammatory demyelinating polyneuropathy vs progressive inflammatory neuropathy vs multifocal motor neuropathy Patient had EMG done read as diffuse severe axonal sensorimotor polyneuropathy, superimposed severe radial neuropathy, no definite myopathy, fasciculations, or demyelinating process. s/p presentation of this patient in neurology grand rounds last night discussed in detail please see Dr. Up's note dated 11/29/[address] negative patient can not fit in MRI machine states had EMG as outpatient does not know results-called Dr. Hickman's office and he was seen by one of his colleagues had distant history of polyneuropathy had EMG done which showed axonal polyneuropathy unsure how severe it was "knees buckled" on him 3 times he is very deconditioned from a combination of Class 3 severe super morbid obesity and lack of movement will continue PT consult nurses made aware that they should not ambulate patient without adequate system support technician and he should always have a chair behind him open MRI as outpatient It is thought patient has severe diffuse axonal sensorimotor polyneuropathy from nutritional/mineral and heavy metal deficiency which may explain why he started to do better once on TPN. however his heavy metal levels are WNL grand rounds discussion discussed with patient at length once it was over, including findings and progrnosis and further plans LP unsuccessful x2-no more attempts Copper [id number], Selenium-WNL Zinc-WNL B12-WNL, ESR-100, CRP-4.6, HANNAH screen -WNL, RF-negative, [id number] AntiDNASE-negative , SPEP, and immunoglobulins-pending Fat soluble vitamins A-WNL E-WNL K-WNL vitamin D done and very low at 9, lyme PCR and western blot-negative sent lyme PCR because mixed IgG and IgM is positive continue multivitamins with minerals continue B complex Continue high dose vitamins Neuro exam especially the RLE has significantly improved patient ambulating more Rheumatology consult noted and appreciated. will follow up labs ordered. Dr. Barker does not believe patient has a connective tissue disorder or a rheuatological disorder Seems to be improving on solumedrol although neurological exam is waxing and waning. WIll keep on IV Medrol until discharge then he will be on a long PO Prednisone taper. Leukocytosis: resolved off Abx Essential Hypertension: no previous diagnosis per patient but he has been hypertensive in the hospital although pain may be a contributing factor he likely has underlying hypertension SBP running in 150's-160's Restart lisinopril but at 20mg po kelsie not 40 as observe BP continue PO labetalol to 200 BID with hold parameters restart Norvasc 10mg po daily Oral Thrush:Resolved stop nystatin swish and swallow diflucan stopped HIV negative Morbid Obesity: s/p sleeve gastrectomy follow up outpatient PPx: HSQ protonix working with PT FEN: Stop IVF no electrolyte issues continue tpn and continue regular diet as tolerated dispo: pending being accepted to [facility] Visit type - Emergency Visit Emergency Visit: Yes ED Registration Date: 11/11/16 Care time: The patient presented to the Emergency Department on the above date and was hospitalized for further evaluation of their emergent condition. - New Patient This patient is new to me today: No - Critical Care Critical Care patient: No - Discharge Referral Referred to [facility] Med P.C.: No
--- NOTE | 2016-12-11 14:42 | PN ---
Progress Note, Physician History of Present Illness: Pt seen and examined at bedside. He is awake and alert. He says he is slowly getting stronger. - Current Medication List Current Medications: Active Medications Amlodipine Besylate (Norvasc -) 10 mg PO DAILY [facility] Last Admin: 12/11/16 09:30 Dose: 10 mg Benzocaine/Menthol (Cepacol Lozenge -) 1 each MM Q4H PRN PRN Reason: SORE THROAT Last Admin: 11/19/16 21:54 Dose: 1 each Ergocalciferol (Drisdol -) 50,000 unit PO Q7D@10 [facility] Last Admin: 12/10/16 09:19 Dose: 50,000 unit Heparin Sodium (Porcine) (Heparin -) 5,000 unit SQ TID [facility] Last Admin: 12/11/16 06:19 Dose: 5,000 unit IV Flush (Picc Line Flush) 8 ml IVPUSH PRN PRN PRN Reason: Protocol Last Admin: 12/10/16 09:19 Dose: 8 ml Labetalol HCl (Normodyne -) 200 mg PO BID [facility] Last Admin: 12/11/16 09:29 Dose: 200 mg Lisinopril (Prinivil) 20 mg PO DAILY [facility] Last Admin: 12/11/16 12:00 Dose: 20 mg Methylprednisolone Sodium Succinate (Solu-Medrol -) 40 mg IVPB BID [facility] Last Admin: 12/11/16 09:30 Dose: 40 mg Multivitamins (Total B With C -) 1 each PO DAILY [facility] Last Admin: 12/10/16 09:19 Dose: 1 each Multivitamins/Minerals (Theragran-M) 1 each PO DAILY [facility] Last Admin: 12/11/16 09:30 Dose: 1 each Ondansetron HCl (Zofran Injection) 4 mg IVPUSH Q6H PRN PRN Reason: NAUSEA Last Admin: 12/07/16 12:23 Dose: 4 mg Oxycodone HCl (Roxicodone -) 5 mg PO Q6H PRN PRN Reason: PAIN Last Admin: 12/09/16 10:56 Dose: 5 mg Pantoprazole Sodium (Protonix -) 40 mg PO DAILY [facility] Last Admin: 12/11/16 09:30 Dose: 40 mg Polyethylene Glycol (Miralax (For Daily Use) -) 17 gm PO DAILY PRN PRN Reason: CONSTIPATION Pramipexole Dihydrochloride (Mirapex -) 0.25 mg PO BIDPC [facility] Last Admin: 12/11/16 09:29 Dose: 0.25 mg - Objective Vital Signs: Vital Signs Temperature 97.8 F 12/11/16 07:33 Pulse Rate 75 12/11/16 10:00 Respiratory Rate 18 12/11/16 10:00 Blood Pressure 153/87 12/11/16 10:00 O2 Sat by Pulse Oximetry (%) 98 12/10/16 21:00 Constitutional: Yes: Calm Eyes: Yes: Conjunctiva Clear HENT: Yes: Atraumatic Neck: Yes: Supple Cardiovascular: Yes: S1, S2 Respiratory: Yes: CTA Bilaterally Gastrointestinal: Yes: Normal Bowel Sounds, Soft, Abdomen, Obese Genitourinary: Yes: WNL Musculoskeletal: Yes: Muscle Weakness Edema: No Neurological: Yes: Oriented Labs: CBC, BMP 12/10/16 06:30 12/10/16 06:30 INR, PTT INR 1.28 (0.82-1.09) H 11/30/16 06:30 Problem List - Problems (1) Perforated appendicitis Code(s): K35.2 - ACUTE APPENDICITIS WITH GENERALIZED PERITONITIS (2) Hyponatremia Code(s): E87.1 - HYPO-OSMOLALITY AND HYPONATREMIA (3) Malnutrition Code(s): E46 - UNSPECIFIED PROTEIN-CALORIE MALNUTRITION Assessment/Plan Current Medications Generic Name Dose Route Start Last Admin Trade Name Freq PRN Reason Stop Dose Admin Amlodipine Besylate 10 mg 12/09/16 18:00 12/11/16 09:30 Norvasc - PO 10 mg DAILY [facility] Administration Benzocaine/Menthol 1 each 11/14/16 18:38 11/19/16 21:54 Cepacol Lozenge - MM 1 each Q4H PRN Administration SORE THROAT Ergocalciferol 50,000 unit 12/10/16 10:00 12/10/16 09:19 Drisdol - PO 50,000 unit Q7D@10 [facility] Administration Heparin Sodium (Porcine) 5,000 unit 11/29/16 22:00 12/11/16 06:19 Heparin - SQ 5,000 unit TID [facility] Administration IV Flush 8 ml 11/23/16 13:43 12/10/16 09:19 Picc Line Flush IVPUSH 8 ml PRN PRN Administration Protocol Labetalol HCl 200 mg 12/07/16 07:49 12/11/16 09:29 Normodyne - PO 200 mg BID [facility] Administration Lisinopril 20 mg 12/11/16 10:15 12/11/16 12:00 Prinivil PO 20 mg DAILY [facility] Administration Methylprednisolone Sodium Succinate 40 mg 12/08/16 10:00 12/11/16 09:30 Solu-Medrol - IVPB 40 mg BID [facility] Administration Multivitamins 1 each 11/30/16 15:15 12/10/16 09:19 Total B With C - PO 1 each DAILY [facility] Administration Multivitamins/Minerals 1 each 11/28/16 18:45 12/11/16 09:30 Theragran-M PO 1 each DAILY [facility] Administration Ondansetron HCl 4 mg 11/13/16 13:51 12/07/16 12:23 Zofran Injection IVPUSH 4 mg Q6H PRN Administration NAUSEA Oxycodone HCl 5 mg 12/06/16 17:25 12/09/16 10:56 Roxicodone - PO 5 mg Q6H PRN Administration PAIN Pantoprazole Sodium 40 mg 11/16/16 14:15 12/11/16 09:30 Protonix - PO 40 mg DAILY [facility] Administration Polyethylene Glycol 17 gm 11/29/16 20:05 Miralax (For Daily Use) - PO DAILY PRN [facility]ST[facility] Pramipexole Dihydrochloride 0.25 mg 11/17/16 09:00 12/11/16 09:29 Mirapex - PO 0.25 mg BIDPC [facility] Administration Impression 1. complicated appendicitis 2. malnutrition 3. hyponatremia 4. obesity 5. HTN 6. anemia Plan - will stop TPN - reconsult PRN - discussed with medical attending Dr Mondragon
[2016-12-11] MEDS: VITAMIN B COMPLEX W/C COMBO TABLET (FP) PO SCH ×2 (15:04→17:49)
--- NOTE | 2016-12-11 15:29 | PN ---
Progress Note (short form) - Note Progress Note: Since the patioent was started on steroids vomiting resolved, eating well. He reports slight improvement in movement of the wrists, he can extend the joint, cannot extend fingers. No improvement in foot drop. PE. No fever. Lungs clear. S1 and S2 normal. No synovitis. Serology for hepatitis B and C negative. ANCA pending. A. 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 No other evidence of vasculitis or connective tissue disease. P. As per discussion with Dr. Up, I suggest to obtain biopsies of skin, muscle (gastrocnemius, lateral) and nerve (sural). I will decrease Solumedrol to 60 mg daily. 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
--- NOTE | 2016-12-11 18:54 | PN ---
Teaching Attending Note Name of Resident: Ramon Reynoso ATTENDING PHYSICIAN STATEMENT I saw and evaluated the patient. I reviewed the resident's note and discussed the case with the resident. I agree with the resident's findings and plan as documented. SUBJECTIVE: no fever or chills. cont to feel stronger OBJECTIVE: NAD, AAOX3 CV : RRR ext : no edema Abd : morbidly obese, NL BS , NT , well healed mid line abd surgical scar. Neuro : Awake and alert , oriented. no facial droop, . round equal pupils . nl facial sensation Strength: RUE : shoulder abduction 5/5 ,shoulder flexion 5/5, Biceps 5/5 , triceps 5/5 , hand glass handler 4/5, R wrist drop, wrist flexion 4/5 , wrist extension 3/5 LUE : shoulder abduction 5/5 , shoulder flexion 5/5, Biceps 5/5 , triceps 5/5 , hand glass handler 4/5, L wrist drop, wrist flexion 4/5 , wrist extension 3/5 RLE : hip flexion 4/5, knee flexion 5/5, knee extension 5/5 , Ankle dorsiflecxion 1/5, ankle plantar flexion 5/5 LLE: hip flexion 5/5, knee flexion 5/5, knee extension 5/5 , Ankle dorsiflecxion 1/5, ankle plantar flexion 5/5 Reflexes: 0+ L knee jerk, 0 R knee jerk . biceps 0 on R and 0 L biceps . Sensation: decreased to light touch in L LE . but nL and equal in upper extremities . Assessment and plan: 31 y/o male with h/o Morbid obesity, s/p gastric sleeve sx in Aug 2016 who presented with Abd pain and was found to have ruptured appendix. 1- Complicated Appendicitis with rupture and fabi-appendicial abscess. s/p laparoscopic RIVERA drainage of the abscess on 11/13 - Doing well off Abx - dc TPN 2- Elevated LFTS: cont to improve with no TTP in RUQ. - monitor LFTS 3- Peripheral axonal motor and sensory poly-neuropathy likely due to nutritional deficiencies in setting of gastric sx and weight loss . No evidence of autoimmune disorder improved neuro exam with TPN and steroids - will stop TPN today - cont dietary supp - cont but decrease steroids - add thiamine pills ( MVT pills and B complex have low doses ) - case was d/w Dr. Futron. Will consult Sx for gastroceminus muscle and sural nerve Bx . 4- HTN: slightly elevated with steroids. Cont norvasc and labetalol , add 20 mg of lisinopril 6- Vit D deficiency: cont Vit D weekly case d/w SW for DC planning
--- NOTE | 2016-12-11 20:02 | PN ---
Progress Note, Physician History of Present Illness: stable no gi complaints rheumatology note noted patient otherwise doing well - Current Medication List Current Medications: Active Medications Amlodipine Besylate (Norvasc -) 10 mg PO DAILY [facility] Last Admin: 12/11/16 09:30 Dose: 10 mg Benzocaine/Menthol (Cepacol Lozenge -) 1 each MM Q4H PRN PRN Reason: SORE THROAT Last Admin: 11/19/16 21:54 Dose: 1 each Ergocalciferol (Drisdol -) 50,000 unit PO Q7D@10 [facility] Last Admin: 12/10/16 09:19 Dose: 50,000 unit Heparin Sodium (Porcine) (Heparin -) 5,000 unit SQ TID [facility] Last Admin: 12/11/16 14:41 Dose: 5,000 unit IV Flush (Picc Line Flush) 8 ml IVPUSH PRN PRN PRN Reason: Protocol Last Admin: 12/10/16 09:19 Dose: 8 ml Labetalol HCl (Normodyne -) 200 mg PO BID [facility] Last Admin: 12/11/16 09:29 Dose: 200 mg Lisinopril (Prinivil) 20 mg PO DAILY [facility] Last Admin: 12/11/16 12:00 Dose: 20 mg Methylprednisolone Sodium Succinate (Solu-Medrol -) 60 mg IVPB DAILY [facility] Multivitamins (Total B With C -) 1 each PO DAILY [facility] Last Admin: 12/11/16 17:49 Dose: 1 each Multivitamins/Minerals (Theragran-M) 1 each PO DAILY [facility] Last Admin: 12/11/16 09:30 Dose: 1 each Ondansetron HCl (Zofran Injection) 4 mg IVPUSH Q6H PRN PRN Reason: NAUSEA Last Admin: 12/07/16 12:23 Dose: 4 mg Oxycodone HCl (Roxicodone -) 5 mg PO Q6H PRN PRN Reason: PAIN Last Admin: 12/09/16 10:56 Dose: 5 mg Pantoprazole Sodium (Protonix -) 40 mg PO DAILY [facility] Last Admin: 12/11/16 09:30 Dose: 40 mg Polyethylene Glycol (Miralax (For Daily Use) -) 17 gm PO DAILY PRN PRN Reason: CONSTIPATION [facility]am[facility] Last Admin: 12/11/16 17:50 Dose: 0.25 mg Thiamine HCl (Vitamin B1 -) 100 mg PO DAILY [facility] - Objective Vital Signs: Vital Signs Temperature 98.8 F 12/11/16 17:12 Pulse Rate 90 12/11/16 17:12 Respiratory Rate 90 H 12/11/16 17:12 Blood Pressure 139/93 12/11/16 17:12 O2 Sat by Pulse Oximetry (%) 98 12/10/16 21:00 Constitutional: Yes: No Distress, Calm, Obese Cardiovascular: Yes: Regular Rate and Rhythm Respiratory: Yes: Regular, CTA Bilaterally Gastrointestinal: Yes: Normal Bowel Sounds, Soft Musculoskeletal: Yes: Other Extremities: Yes: Other Wound/Incision: Yes: Clean/Dry Neurological: Yes: Alert, Oriented, Other Psychiatric: Yes: Alert, Oriented Labs: CBC, BMP 12/10/16 06:30 12/10/16 06:30 INR, PTT INR 1.28 (0.82-1.09) H 11/30/16 06:30 Assessment/Plan ac appendicitis morbid obesity oral thrush abd abscess nausea vomiting plan continue current mgmt continue tpn tolerating diet rest as per primary rheumatology note noted suggestion for biopsies
[2016-12-11] MEDS: oxyCODONE HCL 5 MG TABLET PO PRN (21:23)
[2016-12-12] MEDS: HEPARIN NA (PORCINE) 5,000 UNITS/ML 1ML VIAL SQ SCH ×3 (06:28→21:33)
[2016-12-12] MEDS ORDERED: PT OWN MED DRAWER 7, Y5N ONE (10:11)
[2016-12-12] MEDS: amLODIPine BESYLATE 10 MG TABLET (FP) PO SCH (10:24)
[2016-12-12] MEDS: LISINOPRIL 20 MG TABLET (FP) PO SCH (10:24)
[2016-12-12] MEDS: LABETALOL HCL 200 MG TABLET (FP) PO SCH ×2 (10:24→21:32)
[2016-12-12] MEDS: PANTOPRAZOLE 40 MG TABLET (FP) PO SCH (10:24)
[2016-12-12] MEDS: THIAMINE HCL 100 MG TABLET (FP) PO SCH (10:24)
[2016-12-12] MEDS: VITAMIN B COMPLEX W/C COMBO TABLET (FP) PO SCH (10:24)
[2016-12-12] MEDS: MULTIVITAMINS THER W-MINERALS COMBO TABLET (FP) PO SCH (10:25)
[2016-12-12] MEDS: PRAMIPEXOLE DIHYDROCHLORIDE 0.25 MG TABLET PO SCH ×2 (10:25→18:30)
[2016-12-12] MEDS: methylPREDNISolone NA SUCC 40 MG/1 ML VIAL IVPB SCH (10:25)
[2016-12-12] MEDS: oxyCODONE HCL 5 MG TABLET PO PRN (10:32)
--- NOTE | 2016-12-12 12:28 | PN ---
Physical Exam: SUBJECTIVE: Patient seen and examined at bedside was excited about rehab this morning walked 25 feet twice got dizzy and his neck and back started hurting OBJECTIVE: Vital Signs Period Temp Pulse Resp BP Sys/Peoples Pulse Ox Last 24 Hr 97.3 F-98.8 F 57-90 18-98 129-146/79-93 98 GENERAL: The patient is awake, alert, and fully oriented HEAD: Normal with no signs of trauma. EYES: PERRLA EOMI NECK: Trachea midline, full range of motion, supple. LUNGS: Breath sounds equal, clear to auscultation bilaterally, no wheezes, no crackles, no accessory muscle use. HEART: Regular rate and rhythm, S1, S2 without murmur, rub or gallop. ABDOMEN: Soft, morbidly obese, non tender non distended Midline incision C/D/I NEUROLOGICAL: Cranial nerves II through XII intact. no facial droop or weakness and sensation is intact in the face Normal speech. Sensation of bilateral upper extremities is intact but R>L per patient on exam. but sensation of the biceps and proximal upper extremities proximal to the elbows are equal RUE: Shoulder abduction, Biceps, and triceps 5/5. right wrist drop noticed on exam. right wrist flexion 4/5 extension 3/5 LUE: Shoulder abduction, Biceps, and triceps 5/5. Left wrist drop noticed on exam. left wrist flexion 4/5 extension 3/5 RLE: knee flexion and extension 5/5 hip flexion 4/5. dorsiflexion of ankle 1/5, plantar flexion 4/5 LLE: 4/5 hip flexion 5/5 at all other joints except ankle dorsiflexion which is 1/5 decreased sensation of RLE vs LLE left ankle jerk 0 Right ankle jerk 0 left and right biceps jerk 0 right knee jerk 0 left knee jerk 0 Decreased sensation over proximal RLE when compared to LLE Active Medications Generic Name Dose Route Start Last Admin Trade Name Freq PRN Reason Stop Dose Admin Amlodipine Besylate 10 mg 12/09/16 18:00 12/12/16 10:24 Norvasc - PO 10 mg DAILY [facility] Administration Benzocaine/Menthol 1 each 11/14/16 18:38 11/19/16 21:54 Cepacol Lozenge - MM 1 each Q4H PRN Administration SORE THROAT Ergocalciferol 50,000 unit 12/10/16 10:00 12/10/16 09:19 Drisdol - PO 50,000 unit Q7D@10 [facility] Administration Heparin Sodium (Porcine) 5,000 unit 11/29/16 22:00 12/12/16 06:28 Heparin - SQ 5,000 unit TID [facility] Administration IV Flush 8 ml 11/23/16 13:43 12/10/16 09:19 Picc Line Flush IVPUSH 8 ml PRN PRN Administration Protocol Labetalol HCl 200 mg 12/07/16 07:49 12/12/16 10:24 Normodyne - PO 200 mg BID [place] Administration Lisinopril 20 mg 12/11/16 10:15 12/12/16 10:24 Prinivil PO 20 mg DAILY [facility] Administration Methylprednisolone Sodium Succinate 60 mg 12/12/16 10:00 12/12/16 10:25 Solu-Medrol - IVPB 60 mg DAILY [facility] Administration Multivitamins 1 each 11/30/16 15:15 12/12/16 10:24 Total B With C - PO 1 each DAILY [place] Administration Multivitamins/Minerals 1 each 11/28/16 18:45 12/12/16 10:25 Theragran-M PO 1 each DAILY [facility] Administration Ondansetron HCl 4 mg 11/13/16 13:51 12/07/16 12:23 Zofran Injection IVPUSH 4 mg Q6H PRN Administration NAUSEA Oxycodone HCl 5 mg 12/06/16 17:25 12/12/16 10:32 Roxicodone - PO 5 mg Q6H PRN Administration PAIN Pantoprazole Sodium 40 mg 11/16/16 14:15 12/12/16 10:24 Protonix - PO 40 mg DAILY [place] Administration Polyethylene Glycol 17 gm 11/29/16 20:05 Miralax (For Daily Use) - PO DAILY PRN CONSTIPATION Pramipexole Dihydrochloride 0.25 mg 11/17/16 09:00 12/12/16 10:25 Mirapex - PO 0.25 mg BIDPC [place] Administration Thiamine HCl 100 mg 12/12/16 10:00 12/12/16 10:24 Vitamin B1 - PO 100 mg DAILY [place] Administration ASSESSMENT/PLAN: 31M with a PMH of morbid obesity presents to the hospital with abdominal pain found to have a perforated appendicitis in the OR. Sepsis secondary to Perforated appendicitis: CT scan initially read as perforated appendicitis the read changed to non perforated appendicitis. Taken to the OR for attempted Laparoscopic appendectomy found to be perforated. Appendix was not able to be visualized as a result was not resected. Patient s/ p laparoscopic drainage and washout of fabi-appendiceal abscess CT scan did not show any worsening pathology abscess moved more medial appendix not visualized surgery consult appreciated recommendations noted stopped Zosyn on day 13 able to tolerate diet more -at post gastrectomy baseline patient is now having excellent oral intake RIVERA drain d/c'ed by Surgery cultures-negative final pain control repeat RUQ US show cholelithiasis without cholecystitis and diffuse fatty infiltration of liver nephrology consult appreciated - off tpn S/P PICC by IR surgery signed off HIDA scan negative Nausea/vomiting:Resolved antiemetics IVF for hydration Protein calorie malnutrition: Dietary/tapper balance wheel screw hole consult appreciated stop IVF off TPN Tolerating PO at baseline at this time with good oral intake Vitamin D deficiency: continue Vit D 50,000units Q7 days Transaminitis: AST/ALT and Alk Phos bumped up again to abnormal limits likely secondary to diffuse fatty liver infiltration vs hypotensive episode LFTS trending down no need for ultrasound at this time Dehydration: as was indicated by BUN/Cr resolved discontinue IVF diffuse severe axonal sensorimotor polyneuropathy Right sided numbness and weakness: polyneuropathy. possible demyelinating disorder: Guillain-Oxford syndrome vs chronic inflammatory demyelinating polyneuropathy vs progressive inflammatory neuropathy vs multifocal motor neuropathy Patient had EMG done read as diffuse severe axonal sensorimotor polyneuropathy, superimposed severe radial neuropathy, no definite myopathy, fasciculations, or demyelinating process. s/p presentation of this patient in neurology grand rounds last night discussed in detail please see Dr. Up's note dated 11/29/[address] negative patient can not fit in MRI machine states had EMG as outpatient does not know results-called Dr. Hickman's office and he was seen by one of his colleagues had distant history of polyneuropathy had EMG done which showed axonal polyneuropathy unsure how severe it was "knees buckled" on him 3 times he is very deconditioned from a combination of Class 3 severe super morbid obesity and lack of movement will continue PT consult nurses made aware that they should not ambulate patient without adequate ground crewman aircraft support and he should always have a chair behind him open MRI as outpatient It is thought patient has severe diffuse axonal sensorimotor polyneuropathy from nutritional/mineral and heavy metal deficiency which may explain why he started to do better once on TPN. however his heavy metal levels are WNL grand rounds discussion discussed with patient at length once it was over, including findings and progrnosis and further plans LP unsuccessful x2-no more attempts Copper [id number], Selenium-WNL Zinc-WNL B12-WNL, ESR-100, CRP-4.6, HANNAH screen -WNL, RF-negative, [id number] AntiDNASE-negative , SPEP, and immunoglobulins-pending Fat soluble vitamins A-WNL E-WNL K-WNL vitamin D done and very low at 9, lyme PCR and western blot-negative sent lyme PCR because mixed IgG and IgM is positive continue multivitamins with minerals continue B complex continue thiamine Continue high dose vitamins Neuro exam especially the RLE has significantly improved patient ambulating more Rheumatology consult noted and appreciated. will follow up labs ordered. Dr. Barker does not believe patient has a connective tissue disorder or a rheuatological disorder Seems to be improving on solumedrol although neurological exam is waxing and waning. Will keep on IV Medrol until discharge then he will be on a long PO Prednisone taper. Will consult surgery about doing a muscle skin nerve biopsy (gastrocnemius and sural nerve) Leukocytosis: resolved off Abx Essential Hypertension: no previous diagnosis per patient but he has been hypertensive in the hospital although pain may be a contributing factor he likely has underlying hypertension SBP better controlled continue lisinopril 20mg po daily continue PO labetalol to 200 BID with hold parameters restart Norvasc 10mg po daily Oral Thrush:Resolved stop nystatin swish and swallow diflucan stopped HIV negative Morbid Obesity: s/p sleeve gastrectomy follow up outpatient PPx: HSQ protonix working with PT FEN: Stop IVF no electrolyte issues stop TPN continue regular diet as tolerated dispo: pending being accepted to [facility] Visit type - Emergency Visit Emergency Visit: Yes ED Registration Date: 11/11/16 Care time: The patient presented to the Emergency Department on the above date and was hospitalized for further evaluation of their emergent condition. - New Patient This patient is new to me today: No - Critical Care Critical Care patient: No
--- NOTE | 2016-12-12 18:36 | PN ---
Teaching Attending Note Name of Resident: Ramon Reynoso ATTENDING PHYSICIAN STATEMENT I saw and evaluated the patient. I reviewed the resident's note and discussed the case with the resident. I agree with the resident's findings and plan as documented. SUBJECTIVE: no fever or chills. no events over night . At PT he felt light headed , an had KATZ , and had to sit down . BP was not measured yet . OBJECTIVE: CV : RRR Ext: no edema Abd: morbidly obese, NL BS , NT , well healed mid line abd surgical scar. Neuro: Awake and alert , oriented. no facial droop, . round equal pupils . nl facial sensation Strength: RUE : shoulder abduction 5/5 ,shoulder flexion 5/5, Biceps 5/5 , triceps 5/5 , hand social services coordinator 4/5, R wrist drop, wrist flexion 4/5 , wrist extension 3/5 LUE : shoulder abduction 5/5 , shoulder flexion 5/5, Biceps 5/5 , triceps 5/5 , hand social services coordinator 4/5, L wrist drop, wrist flexion 4/5 , wrist extension 3/5 RLE : hip flexion 4/5, knee flexion 5/5, knee extension 5/5 , Ankle dorsiflecxion 1/5, ankle plantar flexion 5/5 LLE: hip flexion 5/5, knee flexion 5/5, knee extension 5/5 , Ankle dorsiflecxion 1/5, ankle plantar flexion 5/5 Reflexes: 0+ L knee jerk, 0 R knee jerk . biceps 0 on R and 0 L biceps . Sensation: decreased to light touch in L LE . but nL and equal in upper extremities . Assessment and plan: 31 y/o male with h/o Morbid obesity, s/p gastric sleeve sx in Aug 2016 who presented with Abd pain and was found to have ruptured appendix. 1- Complicated Appendicitis with rupture and fabi-appendicial abscess. s/p laparoscopic RIVERA drainage of the abscess on 11/13 - Doing well off Abx - off TPN 2- Elevated LFTS: cont to improve with no TTP in RUQ. - monitor LFTS 3- Peripheral axonal motor and sensory poly-neuropathy likely due to nutritional deficiencies in setting of gastric sx and weight loss . No evidence of autoimmune disorder improved neuro exam with TPN and steroids . - cont dietary supp - cont steroids - spoke to Dr. Sauer for a muscle and nerve Bx -cont thiamin , MVT , B complex even after dc - Neuro to be contacted for a complete plan after dc ( steroids management, f/u , further w/u ) 4- HTN: Cont norvasc and labetalol , decrease lisinopril due to episodes of light headedness with PT check Orthostatic VS 6- Vit D deficiency: cont Vit D weekly Case d/w SW, peer to peer review done . pt will be accepted to acute rehab.
--- NOTE | 2016-12-12 23:28 | PN ---
Progress Note, Physician History of Present Illness: no new issues feeling patient for muscle and nerve biopsy - Current Medication List Current Medications: Active Medications Amlodipine Besylate (Norvasc -) 10 mg PO DAILY [facility] Last Admin: 12/12/16 10:24 Dose: 10 mg Benzocaine/Menthol (Cepacol Lozenge -) 1 each MM Q4H PRN PRN Reason: SORE THROAT Last Admin: 11/19/16 21:54 Dose: 1 each Ergocalciferol (Drisdol -) 50,000 unit PO Q7D@10 [facility] Last Admin: 12/10/16 09:19 Dose: 50,000 unit Heparin Sodium (Porcine) (Heparin -) 5,000 unit SQ TID [facility] Last Admin: 12/12/16 21:33 Dose: 5,000 unit IV Flush (Picc Line Flush) 8 ml IVPUSH PRN PRN PRN Reason: Protocol Last Admin: 12/10/16 09:19 Dose: 8 ml Labetalol HCl (Normodyne -) 200 mg PO BID [facility] Last Admin: 12/12/16 21:32 Dose: 200 mg Lisinopril (Prinivil) 20 mg PO DAILY [facility] Last Admin: 12/12/16 10:24 Dose: 20 mg Methylprednisolone Sodium Succinate (Solu-Medrol -) 60 mg IVPB DAILY [facility] Last Admin: 12/12/16 10:25 Dose: 60 mg Multivitamins (Total B With C -) 1 each PO DAILY [facility] Last Admin: 12/12/16 10:24 Dose: 1 each Multivitamins/Minerals (Theragran-M) 1 each PO DAILY [facility] Last Admin: 12/12/16 10:25 Dose: 1 each Ondansetron HCl (Zofran Injection) 4 mg IVPUSH Q6H PRN PRN Reason: NAUSEA Last Admin: 12/07/16 12:23 Dose: 4 mg Oxycodone HCl (Roxicodone -) 5 mg PO Q6H PRN PRN Reason: PAIN Last Admin: 12/12/16 10:32 Dose: 5 mg Pantoprazole Sodium (Protonix -) 40 mg PO DAILY [facility] Last Admin: 12/12/16 10:24 Dose: 40 mg Polyethylene Glycol (Miralax (For Daily Use) -) 17 gm PO DAILY PRN PRN Reason: CONSTIPATION Pramipexole Dihydrochloride (Mirapex -) 0.25 mg PO BIDPC [facility] Last Admin: 12/12/16 10:25 Dose: 0.25 mg Thiamine HCl (Vitamin B1 -) 100 mg PO DAILY [facility] Last Admin: 12/12/16 10:24 Dose: 100 mg - Objective Vital Signs: Vital Signs Temperature 98.4 F 12/12/16 22:00 Pulse Rate 70 12/12/16 22:00 Respiratory Rate 18 12/12/16 22:00 Blood Pressure 152/93 12/12/16 22:00 O2 Sat by Pulse Oximetry (%) 98 12/12/16 21:00 Constitutional: Yes: No Distress, Calm, Obese Cardiovascular: Yes: Regular Rate and Rhythm Respiratory: Yes: Regular, CTA Bilaterally Gastrointestinal: Yes: Normal Bowel Sounds, Soft Musculoskeletal: Yes: WNL Extremities: Yes: Other Neurological: Yes: Alert, Oriented, Other Psychiatric: Yes: Alert, Oriented Labs: CBC, BMP 12/10/16 06:30 12/10/16 06:30 INR, PTT INR 1.28 (0.82-1.09) H 11/30/16 06:30 Assessment/Plan ac appendicitis morbid obesity oral thrush abd abscess nausea vomiting plan continue current mgmt continue tpn tolerating diet rest as per primary rheumatology note noted patient for biopsies
[2016-12-13 00:06] LABS: C-ANCA <1:20 titer (Neg:<1:20); MYELOPEROXIDASE ANTIBODY <9.0 U/mL (0.0-9.0); P-ANCA <1:20 titer (Neg:<1:20); PROTEINASE-3 ANTIBODY <3.5 U/mL (0.0-3.5)
[2016-12-13] MEDS: HEPARIN NA (PORCINE) 5,000 UNITS/ML 1ML VIAL SQ SCH (05:46)
[2016-12-13] MEDS ORDERED: PT OWN MED DRAWER 7, Y5N ONE (09:08)
[2016-12-13] MEDS: amLODIPine BESYLATE 10 MG TABLET (FP) PO SCH (09:10)
[2016-12-13] MEDS: MULTIVITAMINS THER W-MINERALS COMBO TABLET (FP) PO SCH (09:10)
[2016-12-13] MEDS: THIAMINE HCL 100 MG TABLET (FP) PO SCH (09:10)
[2016-12-13] MEDS: PANTOPRAZOLE 40 MG TABLET (FP) PO SCH (09:10)
[2016-12-13] MEDS: LABETALOL HCL 200 MG TABLET (FP) PO SCH (09:10)
[2016-12-13] MEDS: methylPREDNISolone NA SUCC 40 MG/1 ML VIAL IVPB SCH (09:11)
[2016-12-13] MEDS: VITAMIN B COMPLEX W/C COMBO TABLET (FP) PO SCH (09:11)
[2016-12-13] MEDS: PRAMIPEXOLE DIHYDROCHLORIDE 0.25 MG TABLET PO SCH (09:12)
[2016-12-13] MEDS ORDERED: LISINOPRIL 10 MG TABLET (FP) PO SCH (10:00)
--- NOTE | 2016-12-13 11:02 | PN ---
Physical Exam: SUBJECTIVE: Patient seen and examined at bedside no complaints feels well OBJECTIVE: Vital Signs Period Temp Pulse Resp BP Sys/Peoples Pulse Ox Last 24 Hr 97.8 F-98.9 F 62-77 18-20 100-152/52-93 97-98 GENERAL: The patient is awake, alert, and fully oriented HEAD: Normal with no signs of trauma. EYES: PERRLA EOMI NECK: Trachea midline, full range of motion, supple. LUNGS: Breath sounds equal, clear to auscultation bilaterally, no wheezes, no crackles, no accessory muscle use. HEART: Regular rate and rhythm, S1, S2 without murmur, rub or gallop. ABDOMEN: Soft, morbidly obese, non tender non distended Midline incision C/D/I NEUROLOGICAL: Cranial nerves II through XII intact. no facial droop or weakness and sensation is intact in the face Normal speech. Sensation of bilateral upper extremities is intact but R>L per patient on exam. but sensation of the biceps and proximal upper extremities proximal to the elbows are equal RUE: Shoulder abduction, Biceps, and triceps 5/5. right wrist drop noticed on exam. right wrist flexion 4/5 extension 3/5 LUE: Shoulder abduction, Biceps, and triceps 5/5. Left wrist drop noticed on exam. left wrist flexion 4/5 extension 3/5 RLE: knee flexion and extension 5/5 hip flexion 4/5. dorsiflexion of ankle 1/5, plantar flexion 4/5 LLE: 4/5 hip flexion 5/5 at all other joints except ankle dorsiflexion which is 1/5 decreased sensation of RLE vs LLE left ankle jerk 0 Right ankle jerk 0 left and right biceps jerk 0 right knee jerk 0 left knee jerk 0 Decreased sensation over proximal RLE when compared to LLE Laboratory Results - last 24 hr 12/08/16 06:15 c-ANCA <1:20 Proteinase 3 (PR3) <3.5 p-ANCA <1:20 Atypical p-ANCA <1:20 Myeloperoxidase Ab <9.0 Active Medications Generic Name Dose Route Start Last Admin Trade Name Freq PRN Reason Stop Dose Admin Amlodipine Besylate 10 mg 12/09/16 18:00 12/13/16 09:10 Norvasc - PO 10 mg DAILY [place] Administration Benzocaine/Menthol 1 each 11/14/16 18:38 11/19/16 21:54 Cepacol Lozenge - MM 1 each Q4H PRN Administration SORE THROAT Ergocalciferol 50,000 unit 12/10/16 10:00 12/10/16 09:19 Drisdol - PO 50,000 unit Q7D@10 [place] Administration Heparin Sodium (Porcine) 5,000 unit 11/29/16 22:00 12/13/16 05:46 Heparin - SQ 5,000 unit TID [place] Administration IV Flush 8 ml 11/23/16 13:43 12/10/16 09:19 Picc Line Flush IVPUSH 8 ml PRN PRN Administration Protocol Labetalol HCl 200 mg 12/07/16 07:49 12/13/16 09:10 Normodyne - PO 200 mg BID [place] Administration Lisinopril 10 mg 12/13/16 10:00 12/13/16 09:10 Prinivil PO 10 mg DAILY [place] Administration Methylprednisolone Sodium Succinate 60 mg 12/12/16 10:00 12/13/16 09:11 Solu-Medrol - IVPB 60 mg DAILY [place] Administration Multivitamins 1 each 11/30/16 15:15 12/13/16 09:11 Total B With C - PO 1 each DAILY [place] Administration Multivitamins/Minerals 1 each 11/28/16 18:45 12/13/16 09:10 Theragran-M PO 1 each DAILY [place] Administration Ondansetron HCl 4 mg 11/13/16 13:51 12/07/16 12:23 Zofran Injection IVPUSH 4 mg Q6H PRN Administration NAUSEA Oxycodone HCl 5 mg 12/06/16 17:25 12/12/16 10:32 Roxicodone - PO 5 mg Q6H PRN Administration PAIN Pantoprazole Sodium 40 mg 11/16/16 14:15 12/13/16 09:10 Protonix - PO 40 mg DAILY [place] Administration Polyethylene Glycol 17 gm 11/29/16 20:05 Miralax (For Daily Use) - PO DAILY PRN CONSTIPATION Pramipexole Dihydrochloride 0.25 mg 11/17/16 09:00 12/13/16 09:12 Mirapex - PO 0.25 mg BIDPC [place] Administration Thiamine HCl 100 mg 12/12/16 10:00 12/13/16 09:10 Vitamin B1 - PO 100 mg DAILY [place] Administration ASSESSMENT/PLAN: 31M with a PMH of morbid obesity presents to the hospital with abdominal pain found to have a perforated appendicitis in the OR. Sepsis secondary to Perforated appendicitis: CT scan initially read as perforated appendicitis the read changed to non perforated appendicitis. Taken to the OR for attempted Laparoscopic appendectomy found to be perforated. Appendix was not able to be visualized as a result was not resected. Patient s/ p laparoscopic drainage and washout of fabi-appendiceal abscess CT scan did not show any worsening pathology abscess moved more medial appendix not visualized Resolved diffuse severe axonal sensorimotor polyneuropathy Right sided numbness and weakness: polyneuropathy. possible demyelinating disorder: Guillain-[place] syndrome vs chronic inflammatory demyelinating polyneuropathy vs progressive inflammatory neuropathy vs multifocal motor neuropathy Patient had EMG done read as diffuse severe axonal sensorimotor polyneuropathy, superimposed severe radial neuropathy, no definite myopathy, fasciculations, or demyelinating process. s/p presentation of this patient in neurology grand rounds last night discussed in detail please see Dr. Up's note dated 11/29/[address] negative patient can not fit in MRI machine states had EMG as outpatient does not know results-called Dr. Hickman's office and he was seen by one of his colleagues had distant history of polyneuropathy had EMG done which showed axonal polyneuropathy unsure how severe it was "knees buckled" on him 3 times he is very deconditioned from a combination of Class 3 severe super morbid obesity and lack of movement will continue PT consult nurses made aware that they should not ambulate patient without adequate production support specialist and he should always have a chair behind him open MRI as outpatient It is thought patient has severe diffuse axonal sensorimotor polyneuropathy from nutritional/mineral and heavy metal deficiency which may explain why he started to do better once on TPN. however his heavy metal levels are WNL grand rounds discussion discussed with patient at length once it was over, including findings and progrnosis and further plans LP unsuccessful x2-no more attempts Copper [id number], Selenium-WNL Zinc-WNL B12-WNL, ESR-100, CRP-4.6, HANNAH screen -WNL, RF-negative, [id number] AntiDNASE-negative , SPEP, and immunoglobulins-pending Fat soluble vitamins A-WNL E-WNL K-WNL vitamin D done and very low at 9, lyme PCR and western blot-negative sent lyme PCR because mixed IgG and IgM is positive continue multivitamins with minerals continue B complex continue thiamine Continue high dose vitamins Neuro exam especially the RLE has significantly improved patient ambulating more Rheumatology consult noted and appreciated. Dr. Barker does not believe patient has a connective tissue disorder or a rheuatological disorder P-ANCA and C-ANCA negative myeloperoxidase negative Seems to be improving on solumedrol although neurological exam is waxing and waning. Will keep on IV Medrol until discharge then he will be on a long PO Prednisone taper. surgery Dr. Baeza to do a muscle skin nerve biopsy (gastrocnemius and sural nerve)-likely this sunday Nausea/vomiting:Resolved antiemetics IVF for hydration Protein calorie malnutrition: Dietary/credit collector consult appreciated stop IVF off TPN Tolerating PO at baseline at this time with good oral intake Vitamin D deficiency: continue Vit D 50,000units Q7 days Transaminitis: likely secondary to diffuse fatty liver infiltration vs hypotensive episode Resolved Dehydration: as was indicated by BUN/Cr resolved discontinue IVF Leukocytosis: resolved off Abx Essential Hypertension: no previous diagnosis per patient but he has been hypertensive in the hospital although pain may be a contributing factor he likely has underlying hypertension SBP better controlled Change lisinopril to 10mg po daily from 20mg po daily continue PO labetalol to 200 BID with hold parameters continue Norvasc 10mg po daily Oral Thrush:Resolved Morbid Obesity: s/p sleeve gastrectomy follow up outpatient PPx: HSQ protonix working with PT FEN: Stop IVF no electrolyte issues regular diet dispo: accepted to [facility] awaiting authorization Visit type - Emergency Visit Emergency Visit: Yes ED Registration Date: 11/11/16 Care time: The patient presented to the Emergency Department on the above date and was hospitalized for further evaluation of their emergent condition. - New Patient This patient is new to me today: No - Critical Care Critical Care patient: No - Discharge Referral Referred to [facility] Med P.C.: No
--- NOTE | 2016-12-13 11:25 | PN ---
Progress Note (short form) - Note Progress Note: Attending Surgeon Patient seen and evaluated yesterday; d/w him request for me to perform muscle; nerve and skin bx. to help define patients underlying neurological pathology; d/ w him r/b/t; he wished to think about it and would not agree to the procedures as of our conversation yesterday. Will f/u. Tj Baeza MD FACS
--- NOTE | 2016-12-13 12:28 | PN ---
Teaching Attending Note Name of Resident: Ramon Reynoso ATTENDING PHYSICIAN STATEMENT I saw and evaluated the patient. I reviewed the resident's note and discussed the case with the resident. I agree with the resident's findings and plan as documented. Comfortable with no acute distress. Strength is better but the wrists are still the same. Vital Signs Temperature 97.8 F 12/13/16 06:00 Pulse Rate 62 12/13/16 11:02 Respiratory Rate 20 12/13/16 06:00 Blood Pressure 117/52 12/13/16 06:00 O2 Sat by Pulse Oximetry (%) 97 12/13/16 11:02 CBCD WBC 10.4 K/mm3 (4.0-10.0) H 12/10/16 06:30 RBC 3.67 M/mm3 (4.00-5.60) L 12/10/16 06:30 Hgb 10.9 GM/dL (11.7-16.9) L 12/10/16 06:30 Hct 32.3 % (35.4-49) L 12/10/16 06:30 MCV 88.0 fl (80-96) 12/10/16 06:30 MCHC 33.8 g/dl (32.0-35.9) 12/10/16 06:30 RDW 19.5 % (11.9-15.9) H 12/10/16 06:30 Plt Count 274 K/MM3 (134-434) 12/10/16 06:30 MPV 7.6 fl (7.5-11.1) 12/10/16 06:30 CMP Sodium 141 mmol/L (136-145) 12/10/16 06:30 Potassium 4.1 mmol/L (3.5-5.1) 12/10/16 06:30 Chloride 103 mmol/L (98-107) 12/10/16 06:30 Carbon Dioxide 27 mmol/L (21-32) 12/10/16 06:30 Anion Gap 11 (8-16) 12/10/16 06:30 BUN 18 mg/dL (7-18) 12/10/16 06:30 Creatinine 0.5 mg/dL (0.7-1.3) L 12/10/16 06:30 Creat Clearance w eGFR > 60 (>60) 12/10/16 06:30 Random Glucose 106 mg/dL (74-106) 12/10/16 06:30 Calcium 9.4 mg/dL (8.5-10.1) 12/10/16 06:30 Total Bilirubin 0.5 mg/dL (0.2-1.0) 12/10/16 06:30 AST 16 U/L (15-37) D 12/10/16 06:30 ALT 84 U/L (12-78) H D 12/10/16 06:30 Alkaline Phosphatase 195 U/L (45-117) H 12/10/16 06:30 Total Protein 8.0 g/dl (6.4-8.2) 12/10/16 06:30 Albumin 3.4 g/dl (3.4-5.0) 12/10/16 06:30 CARDIAC ENZYMES Creatine Kinase 194 IU/L (39-308) D 12/06/16 10:00 Troponin I < 0.02 ng/ml (0.00-0.05) 12/06/16 10:00 Current Medications Generic Name Dose Route Start Last Admin Trade Name Freq PRN Reason Stop Dose Admin Amlodipine Besylate 10 mg 12/09/16 18:00 12/13/16 09:10 Norvasc - PO 10 mg DAILY [place] Administration Benzocaine/Menthol 1 each 11/14/16 18:38 11/19/16 21:54 Cepacol Lozenge - MM 1 each Q4H PRN Administration SORE THROAT Ergocalciferol 50,000 unit 12/10/16 10:00 12/10/16 09:19 Drisdol - PO 50,000 unit Q7D@10 [place] Administration Heparin Sodium (Porcine) 5,000 unit 11/29/16 22:00 12/13/16 05:46 Heparin - SQ 5,000 unit TID [place] Administration IV Flush 8 ml 11/23/16 13:43 12/10/16 09:19 Picc Line Flush IVPUSH 8 ml PRN PRN Administration Protocol Labetalol HCl 200 mg 12/07/16 07:49 12/13/16 09:10 Normodyne - PO 200 mg BID [place] Administration Lisinopril 10 mg 12/13/16 10:00 12/13/16 09:10 Prinivil PO 10 mg DAILY [place] Administration Methylprednisolone Sodium Succinate 60 mg 12/12/16 10:00 12/13/16 09:11 Solu-Medrol - IVPB 60 mg DAILY [place] Administration Multivitamins 1 each 11/30/16 15:15 12/13/16 09:11 Total B With C - PO 1 each DAILY [place] Administration Multivitamins/Minerals 1 each 11/28/16 18:45 12/13/16 09:10 Theragran-M PO 1 each DAILY [place] Administration Ondansetron HCl 4 mg 11/13/16 13:51 12/07/16 12:23 Zofran Injection IVPUSH 4 mg Q6H PRN Administration NAUSEA Oxycodone HCl 5 mg 12/06/16 17:25 12/12/16 10:32 Roxicodone - PO 5 mg Q6H PRN Administration PAIN Pantoprazole Sodium 40 mg 11/16/16 14:15 12/13/16 09:10 Protonix - PO 40 mg DAILY [place] Administration Polyethylene Glycol 17 gm 11/29/16 20:05 Miralax (For Daily Use) - PO DAILY PRN CONSTIPATION Pramipexole Dihydrochloride 0.25 mg 11/17/16 09:00 12/13/16 09:12 Mirapex - PO 0.25 mg BIDPC [place] Administration Thiamine HCl 100 mg 12/12/16 10:00 12/13/16 09:10 Vitamin B1 - PO 100 mg DAILY [place] Administration Home Medications Medication Instructions Recorded NK [No Known Home Medication] 10/06/16 ROS/PE as per resident's note. Laboratory Tests 11/16/16 11/22/16 11/26/16 06:20 12:45 06:30 ESR Total Protein Albumin Globulin Albumin/Globulin Ratio Vbfte-3-Xqdvhisfg Fhebf-6-Fhsbbkugi Beta Globulins Gamma Globulins CSF Lyme IgM Ab Interp Serum Copper Selenium Zinc 78 IgG IgG Subclasses IgA IgA Subclass 2 IgM DIMPLE M-Octavio Rheumatoid Factor Rheumatoid Arth Biomark c-ANCA Proteinase 3 (PR3) p-ANCA Atypical p-ANCA Myeloperoxidase Ab Double Strand DNA Ab Anti-ss DNA IgG Ab Lyme Screen IgG & IgM 1.47 H Lyme IgM (Western Blot) Negative Hep Bs Antigen Hepatitis C Antibody HIV 1&2 Antibody Screen Negative HIV P24 Antigen Negative Anti-DNase B (Strep) 11/29/16 11/29/16 11/29/16 06:00 06:00 06:00 ESR 100 H Total Protein Albumin Globulin Albumin/Globulin Ratio Rsgqh-6-Byrzgzlsu Fxbji-6-Parwnhafl Beta Globulins Gamma Globulins CSF Lyme IgM Ab Interp Serum Copper 134 Selenium 143 Zinc IgG IgG Subclasses IgA IgA Subclass 2 IgM DIMPLE M-Ocatvio Rheumatoid Factor < 10.0 Rheumatoid Arth Biomark c-ANCA Proteinase 3 (PR3) p-ANCA Atypical p-ANCA Myeloperoxidase Ab Double Strand DNA Ab Anti-ss DNA IgG Ab Lyme Screen IgG & IgM Lyme IgM (Western Blot) Hep Bs Antigen Hepatitis C Antibody HIV 1&2 Antibody Screen HIV P24 Antigen Anti-DNase B (Strep) 11/29/16 11/30/16 12/01/16 06:00 06:30 06:00 ESR Total Protein 7.8 Albumin 3.0 Globulin 4.3 H Albumin/Globulin Ratio 0.7 Kfuth-2-Pdsdrawsh 0.3 Ftcsi-8-Sllmlfjje 0.9 Beta Globulins 1.2 Gamma Globulins 1.9 H CSF Lyme IgM Ab Interp Negative Serum Copper Selenium Zinc IgG 1917 IgG Subclasses 48 IgA 642 H IgA Subclass 2 658 IgM 96 DIMPLE M-Octavio Not observed Rheumatoid Factor Rheumatoid Arth Biomark 7.6 c-ANCA Proteinase 3 (PR3) p-ANCA Atypical p-ANCA Myeloperoxidase Ab Double Strand DNA Ab <1 Anti-ss DNA IgG Ab <20 Lyme Screen IgG & IgM 1.08 H Lyme IgM (Western Blot) Negative Hep Bs Antigen Hepatitis C Antibody HIV 1&2 Antibody Screen HIV P24 Antigen Anti-DNase B (Strep) <78 12/02/16 12/08/16 12/08/16 09:00 06:15 06:15 ESR Total Protein 8.5 H Albumin 3.3 L Globulin Albumin/Globulin Ratio Utcls-7-Xavowbamc Wqrob-1-Sioqxcwpv Beta Globulins Gamma Globulins CSF Lyme IgM Ab Interp Serum Copper Selenium Zinc IgG IgG Subclasses IgA IgA Subclass 2 IgM DIMPLE M-Octavio Rheumatoid Factor Rheumatoid Arth Biomark c-ANCA <1:20 Proteinase 3 (PR3) <3.5 p-ANCA <1:20 Atypical p-ANCA <1:20 Myeloperoxidase Ab <9.0 Double Strand DNA Ab Anti-ss DNA IgG Ab Lyme Screen IgG & IgM Lyme IgM (Western Blot) Hep Bs Antigen Negative Hepatitis C Antibody 0.1 HIV 1&2 Antibody Screen HIV P24 Antigen Anti-DNase B (Strep) ASSESSMENT AND PLAN: Patient is a 31 y/o male with h/o Morbid obesity, s/p gastric sleeve sx in Aug 2016 who presented with Abdominal pain and was found to have ruptured appendix. # s/p complicated Appendicitis with rupture and fabi-appendicial abscess. s/p laparoscopic RIVERA drainage of the abscess on 11/13 doen by the surgeon. Patient completed Abx , s/p TPN. # Acute severe Diffuse axonal sensorimotor polyneuropathy improving s/p, off IV TPN As per ; the neurologist this could be due to nutrition deficiency after rapid weight loss post gastric sleeve surgery. #Superimposed severe Radial Neuropathy , daily physical therapy continues. Lyme titer positive but Western Blot for lyme was negative ; continue the meds. # Normocytic anemia , lead is still pending, copper is nl level. 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 Recheck the level in 3 months, will continue. # Elevated LFTS: improving # HTN: controlled cont. norvasc and labetalol . Patient is getting dicharged to today to rehab. Follow with post discharge from rehab. getting discharged on Prednisone. nerve bx as an outpatient as per . discharge the patient to rehab.
--- NOTE | 2016-12-13 12:50 | PN ---
Progress Note, Physician History of Present Illness: stable no new issues - Current Medication List Current Medications: Active Medications Amlodipine Besylate (Norvasc -) 10 mg PO DAILY [facility] Last Admin: 12/13/16 09:10 Dose: 10 mg Benzocaine/Menthol (Cepacol Lozenge -) 1 each MM Q4H PRN PRN Reason: SORE THROAT Last Admin: 11/19/16 21:54 Dose: 1 each Ergocalciferol (Drisdol -) 50,000 unit PO Q7D@10 [facility] Last Admin: 12/10/16 09:19 Dose: 50,000 unit Heparin Sodium (Porcine) (Heparin -) 5,000 unit SQ TID [facility] Last Admin: 12/13/16 05:46 Dose: 5,000 unit IV Flush (Picc Line Flush) 8 ml IVPUSH PRN PRN PRN Reason: Protocol Last Admin: 12/10/16 09:19 Dose: 8 ml Labetalol HCl (Normodyne -) 200 mg PO BID [facility] Last Admin: 12/13/16 09:10 Dose: 200 mg Lisinopril (Prinivil) 10 mg PO DAILY [facility] Last Admin: 12/13/16 09:10 Dose: 10 mg Methylprednisolone Sodium Succinate (Solu-Medrol -) 60 mg IVPB DAILY [facility] Last Admin: 12/13/16 09:11 Dose: 60 mg Multivitamins (Total B With C -) 1 each PO DAILY [facility] Last Admin: 12/13/16 09:11 Dose: 1 each Multivitamins/Minerals (Theragran-M) 1 each PO DAILY [facility] Last Admin: 12/13/16 09:10 Dose: 1 each Ondansetron HCl (Zofran Injection) 4 mg IVPUSH Q6H PRN PRN Reason: NAUSEA Last Admin: 12/07/16 12:23 Dose: 4 mg Oxycodone HCl (Roxicodone -) 5 mg PO Q6H PRN PRN Reason: PAIN Last Admin: 12/12/16 10:32 Dose: 5 mg Pantoprazole Sodium (Protonix -) 40 mg PO DAILY [facility] Last Admin: 12/13/16 09:10 Dose: 40 mg Polyethylene Glycol (Miralax (For Daily Use) -) 17 gm PO DAILY PRN PRN Reason: CONSTIPATION Pramipexole Dihydrochloride (Mirapex -) 0.25 mg PO BIDPC [facility] Last Admin: 12/13/16 09:12 Dose: 0.25 mg Thiamine HCl (Vitamin B1 -) 100 mg PO DAILY [facility] Last Admin: 12/13/16 09:10 Dose: 100 mg - Objective Vital Signs: Vital Signs Temperature 97.8 F 12/13/16 06:00 Pulse Rate 62 12/13/16 11:02 Respiratory Rate 20 12/13/16 06:00 Blood Pressure 117/52 12/13/16 06:00 O2 Sat by Pulse Oximetry (%) 97 12/13/16 11:02 Constitutional: Yes: No Distress, Calm, Obese Cardiovascular: Yes: Regular Rate and Rhythm Respiratory: Yes: Regular, CTA Bilaterally Gastrointestinal: Yes: Normal Bowel Sounds, Soft Musculoskeletal: Yes: Other Extremities: Yes: Other Integumentary: Yes: WNL Psychiatric: Yes: Alert, Oriented Labs: CBC, BMP 12/10/16 06:30 12/10/16 06:30 INR, PTT INR 1.28 (0.82-1.09) H 11/30/16 06:30 Assessment/Plan ac appendicitis morbid obesity oral thrush abd abscess nausea vomiting plan continue current mgmt continue tpn tolerating diet rest as per primary rheumatology note noted patient for biopsies
--- NOTE | 2016-12-13 15:08 | DS ---
Physical Exam: SUBJECTIVE: Patient seen and examined OBJECTIVE: Vital Signs Period Temp Pulse Resp BP Sys/Peoples Pulse Ox Last 24 Hr 97.8 F-98.9 F 62-77 18-20 100-152/52-93 97-98 PHYSICAL EXAM GENERAL: The patient is awake, alert, and fully oriented HEAD: Normal with no signs of trauma. EYES: PERRLA EOMI NECK: Trachea midline, full range of motion, supple. LUNGS: Breath sounds equal, clear to auscultation bilaterally, no wheezes, no crackles, no accessory muscle use. HEART: Regular rate and rhythm, S1, S2 without murmur, rub or gallop. ABDOMEN: Soft, morbidly obese, non tender non distended Midline incision C/D/I NEUROLOGICAL: Cranial nerves II through XII intact. no facial droop or weakness and sensation is intact in the face Normal speech. Sensation of bilateral upper extremities is intact but R>L per patient on exam. but sensation of the biceps and proximal upper extremities proximal to the elbows are equal RUE: Shoulder abduction, Biceps, and triceps 5/5. right wrist drop noticed on exam. right wrist flexion 4/5 extension 3/5 LUE: Shoulder abduction, Biceps, and triceps 5/5. Left wrist drop noticed on exam. left wrist flexion 4/5 extension 3/5 RLE: knee flexion and extension 5/5 hip flexion 4/5. dorsiflexion of ankle 1/5, plantar flexion 4/5 LLE: 4/5 hip flexion 5/5 at all other joints except ankle dorsiflexion which is 1/5 decreased sensation of RLE vs LLE left ankle jerk 0 Right ankle jerk 0 left and right biceps jerk 0 right knee jerk 0 left knee jerk 0 Decreased sensation over proximal RLE when compared to LLE LABS Laboratory Results - last 24 hr 12/08/16 06:15 c-ANCA <1:20 Proteinase 3 (PR3) <3.5 p-ANCA <1:20 Atypical p-ANCA <1:20 Myeloperoxidase Ab <9.0 HOSPITAL COURSE: Date of Admission:11/11/16 Date of Discharge: 12/13/16 31M with history of morbid obesity presented to the hospital on 11/11/2016 with abdominal pain found to have a perforated appendicitis went to the OR and had a laparoscopic washout and attempted appendectomy however the appendix could not be visualized so an appendectomy was not done. He was on ABx for about 2 weeks and this issues has resolved. his hospital stay was complicated when the patient started to have weakness. Patient was worked up with labs and an EMG and was found to have severe diffuse axonal sensorimotor polyneuropathy. He started to have right upper extremity weakness and numbness which then progressed to bilateral wrist drop and bilateral foot drop. Per the patient he was seen at Dr. Hickman's office a few weeks prior to being admitted to the hospital for similar neurological complaints but they were not as severe. in fact he only has slight weakness in his RUE and some sensory deficits before being admitted to the hospital. He had an EMG done as an outpatient prior to presentation but he never followed up as he was hospitalized. Neurology consulted and patient was discussed in neurology grand rounds. It was thought that the patients symptoms were from nutritional deficiency as his symptoms started to improve once he was started on TPN and there were a few case reports of similar findings in patients wafter bariatric surgery who lost a significant amount of weight in a short period of time. he was worked up for rheumatological and connective tissues disease and the work up was negative. He also had an LP attempted twice by interventional radiology but they were unsuccessful. He was started on steroids by rheumatology and his strength continued to improve. His neurological exam continued to wax and wane throughout the hospital stay. He has been receiving inpatient acute rehab. During rehab he at times would get lightheaded and dizzy and his antihypertensives were scaled back. He was newly diagnosed with hypertension during this hospital stay and was started on labetelol 200mg po bid norvasc 10mg po daily and lisinopril 40mg po daily. although he was well controlled on this regimen eventually the lisinopril was cut back to 10mg po daily as he would get hypotensive during rehab and was getting dizzy on ambulating. His BP is now well controlled and he is no longer symptomatic while participating in rehab. Rheumatology recommended that he get a skin/muscle/nerve biopsy from the gastrocnemius muscle and sural nerve and he will follow up with a surgeon as an outpatient for this. Results should be forwarded to Dr. Barker (Rheumatology) and Dr. Up (neurology). Patient is stable for discharge and at this point aggressive rehabilitation is best for this patient. Spoke to Dr. Up prior to discharge and he recommended a very long steroid taper of prednisone 40mg po daily for 7 days then 30mg for 7 days then 20mg for 14 days and then 10mg and he is to stay on this until he follows up with Dr. Up after rehab. Attempt to reach Dr. Barker was unsuccessful but the patient will follow up with him as an outpatient. This is the plan from his most recent progress note: 31M with a PMH of morbid obesity presents to the hospital with abdominal pain found to have a perforated appendicitis in the OR. Sepsis secondary to Perforated appendicitis: CT scan initially read as perforated appendicitis the read changed to non perforated appendicitis. Taken to the OR for attempted Laparoscopic appendectomy found to be perforated. Appendix was not able to be visualized as a result was not resected. Patient s/ p laparoscopic drainage and washout of fabi-appendiceal abscess CT scan did not show any worsening pathology abscess moved more medial appendix not visualized Resolved diffuse severe axonal sensorimotor polyneuropathy Right sided numbness and weakness: polyneuropathy. possible demyelinating disorder: Guillain-Lignum syndrome vs chronic inflammatory demyelinating polyneuropathy vs progressive inflammatory neuropathy vs multifocal motor neuropathy Patient had EMG done read as diffuse severe axonal sensorimotor polyneuropathy, superimposed severe radial neuropathy, no definite myopathy, fasciculations, or demyelinating process. s/p presentation of this patient in neurology grand rounds last night discussed in detail please see Dr. Up's note dated 11/29/[address] negative patient can not fit in MRI machine states had EMG as outpatient does not know results-called Dr. Hickman's office and he was seen by one of his colleagues had distant history of polyneuropathy had EMG done which showed axonal polyneuropathy unsure how severe it was "knees buckled" on him 3 times he is very deconditioned from a combination of Class 3 severe super morbid obesity and lack of movement will continue PT consult nurses made aware that they should not ambulate patient without adequate technical support engineer and he should always have a chair behind him open MRI as outpatient It is thought patient has severe diffuse axonal sensorimotor polyneuropathy from nutritional/mineral and heavy metal deficiency which may explain why he started to do better once on TPN. however his heavy metal levels are WNL grand rounds discussion discussed with patient at length once it was over, including findings and progrnosis and further plans LP unsuccessful x2-no more attempts Copper [id number], Selenium-WNL Zinc-WNL B12-WNL, ESR-100, CRP-4.6, HANNAH screen -WNL, RF-negative, [id number] AntiDNASE-negative , SPEP, and immunoglobulins-pending Fat soluble vitamins A-WNL E-WNL K-WNL vitamin D done and very low at 9, lyme PCR and western blot-negative sent lyme PCR because mixed IgG and IgM is positive continue multivitamins with minerals continue B complex continue thiamine Continue high dose vitamins Neuro exam especially the RLE has significantly improved patient ambulating more Rheumatology consult noted and appreciated. Dr. Barker does not believe patient has a connective tissue disorder or a rheuatological disorder P-ANCA and C-ANCA negative myeloperoxidase negative Seems to be improving on solumedrol although neurological exam is waxing and waning. Will keep on IV Medrol until discharge then he will be on a long PO Prednisone taper. surgery Dr. aBeza to do a muscle skin nerve biopsy (gastrocnemius and sural nerve)-likely this sunday Nausea/vomiting:Resolved antiemetics IVF for hydration Protein calorie malnutrition: Dietary/periodicals clerk consult appreciated stop IVF off TPN Tolerating PO at baseline at this time with good oral intake Vitamin D deficiency: continue Vit D 50,000units Q7 days Transaminitis: likely secondary to diffuse fatty liver infiltration vs hypotensive episode Resolved Dehydration: as was indicated by BUN/Cr resolved discontinue IVF Leukocytosis: resolved off Abx Essential Hypertension: no previous diagnosis per patient but he has been hypertensive in the hospital although pain may be a contributing factor he likely has underlying hypertension SBP better controlled Change lisinopril to 10mg po daily from 20mg po daily continue PO labetalol to 200 BID with hold parameters continue Norvasc 10mg po daily Oral Thrush:Resolved Morbid Obesity: s/p sleeve gastrectomy follow up outpatient PPx: HSQ protonix working with PT FEN: Stop IVF no electrolyte issues regular diet dispo: accepted to [facility] rehab awaiting authorization Minutes to complete discharge: 90 Discharge Summary Reason For Visit: RUPTURE OF APPENDIX Current Active Problems Axonal sensorimotor neuropathy (Acute) Hypertension (Acute) Hyponatremia (Acute) Malnutrition (Acute) Mononeuritis multiplex (Acute) Paresthesias (Acute) Perforated appendicitis (Acute) Morbid obesity with BMI of 50.0-59.9, adult (Chronic) Morbid obesity with body mass index (BMI) greater than or equal to 50 (Chronic) Condition: Improved - Instructions Diet, Activity, Other Instructions: eat a low sodium diet you need to follow up with a surgeon to do the biopsy. See Dr. Baeza first if he can not do it see Dr. De Jesus referrals were given for both. follow up with your primary care doctor if you would like to see a different doctor for primary care you can see me Dr. Ramon Reynoso on from 05-[address] [place] [id number] phone number is [phone]. You need to follow up with your bariatric surgeon who did your sleeve gastrectomy you need to follow up with Dr. Up from neurology once you are discharged from rehab You should see Dr. Barker from rheumatology you should have the results of the muscle biopsy sent to the granite sandblaster apprentice and neurologist you need to eat at least 3 solid meals a day. drink ensures take multivitamins you will be on prednsione 40mg a day for 7 days then 30mg a day for 7 days then 20mg a day for 14 days then 10mg a day and continue that until you see the neurologist Dr. Up after you get out of rehab if you get too dizzy while working out then the doctors at the rehab may have to scale back on your blood pressure medications It was a pleasure taking care of you I wish you the best and good luck follow up with me Dr. Ramon Reynoso Referrals: Tj Baeza MD [Staff Physician] - 2 Weeks (schedule appointment for biopsy of gastrocnemius sural nerve and skin ) Nii Up MD [Staff Physician] - 1 Month Say Barker MD [Staff Physician] - 2 Weeks Deepak Chowdhury MD [Staff Physician] - 1 Month Harry De Jesus MD [Staff Physician] - 2 Weeks (schedule appointment for biopsy of gastrocnemius and sural nerve and skin ) STAFF,NOT ON [Primary Care Provider] - 2 Weeks Disposition: INTERMEDIATE FACILITY - Home Medications Comprehensive Discharge Medication List: Ambulatory Orders Amlodipine Besylate [Norvasc -] 10 mg PO DAILY tablet 12/13/16 Ergocalciferol [Drisdol -] 50,000 unit PO Q7D@10 cap 12/13/16 Labetalol HCl [Normodyne -] 200 mg PO BID tablet 12/13/16 Lisinopril [Prinivil] 10 mg PO DAILY tablet 12/13/16 Mv-Mn/FA/Coq10/Lycopene/Lutein [Theragran-M Premier 50+ Caplet] 1 each PO DAILY #30 tablet 12/13/16 Oxycodone HCl [Roxicodone -] 5 mg PO Q6H PRN #0 tablet MDD 4 tabs 12/13/16 Polyethylene Glycol 3350 [Miralax 119 gm Btl -] 17 gm PO DAILY PRN #0 bottle 08/19 Pramipexole Dihydrochloride [Mirapex -] 0.25 mg PO BIDPC tablet 12/13/16 Prednisone 10 mg PO ASDIR #150 tablet 12/13/16 Thiamine HCl [Vitamin B1 -] 100 mg PO DAILY tablet 12/13/16 Vitamin B Comp W-C [Total B with C -] 1 each PO DAILY tablet 12/13/16 This patient is new to me today: No Emergency Visit: Yes ED Registration Date: 11/11/16 Care time: The patient presented to the Emergency Department on the above date and was hospitalized for further evaluation of their emergent condition. Critical Care patient: No - Discharge Referral Referred to [facility] No
[2016-12-13 15:11] VITALS: BP 124/63; PULSE 86; TEMP 98.8
== END 2016-12-13 16:54 | DRG 853 ==
LOC: JER 16:25 → JERBED 20:55 → J8W 22:47
PROVIDERS: ADMIT Internal Medicine; ATTEND Internal Medicine
PROC: 0W9H40Z Drainage of Retroperitoneum with Drainage Device, Percutaneous Endoscopic Approach (ICD-10-PCS; principal; 2016-11-13 10:00)
PROC: 02HV33Z Insertion of Infusion Device into Superior Vena Cava, Percutaneous Approach (ICD-10-PCS; 2016-11-21)
PROC: 3E0336Z Introduction of Nutritional Substance into Peripheral Vein, Percutaneous Approach (ICD-10-PCS; 2016-11-22)
PROC: 02PY33Z Removal of Infusion Device from Great Vessel, Percutaneous Approach (ICD-10-PCS; 2016-11-23)
PROC: 02HV33Z Insertion of Infusion Device into Superior Vena Cava, Percutaneous Approach (ICD-10-PCS; 2016-11-23)
PROC: 009U3ZX Drainage of Spinal Canal, Percutaneous Approach, Diagnostic (ICD-10-PCS; 2016-12-04)
PROC: B01BYZZ Fluoroscopy of Spinal Cord using Other Contrast (ICD-10-PCS; 2016-12-04)
PROC: 009U3ZX Drainage of Spinal Canal, Percutaneous Approach, Diagnostic (ICD-10-PCS; 2016-12-05)
PROC: B01BYZZ Fluoroscopy of Spinal Cord using Other Contrast (ICD-10-PCS; 2016-12-05)
DX: A41.9 Sepsis, unspecified organism (principal); K35.2 Acute appendicitis with generalized peritonitis; Z68.43 Body mass index [BMI] 50.0-59.9, adult; B37.0 Candidal stomatitis; K91.3 Postprocedural intestinal obstruction; E87.1 Hypo-osmolality and hyponatremia; E46 Unspecified protein-calorie malnutrition; J98.11 Atelectasis; E66.01 Morbid (severe) obesity due to excess calories; I10 Essential (primary) hypertension; G43.809 Other migraine, not intractable, without status migrainosus; G25.81 Restless legs syndrome; Y83.8 Other surgical procedures as the cause of abnormal reaction of the patient, or of later complication, without mention of misadventure at the time of the procedure; D72.828 Other elevated white blood cell count; D64.9 Anemia, unspecified; R53.1 Weakness; G62.89 Other specified polyneuropathies; E55.9 Vitamin D deficiency, unspecified; K80.80 Other cholelithiasis without obstruction; K76.0 Fatty (change of) liver, not elsewhere classified; E86.0 Dehydration; R74.0 Nonspecific elevation of levels of transaminase and lactic acid dehydrogenase [LDH]; E83.42 Hypomagnesemia; M21.372 Foot drop, left foot; M21.371 Foot drop, right foot; R11.2 Nausea with vomiting, unspecified; G58.7 Mononeuritis multiplex; Z71.3 Dietary counseling and surveillance; R50.9 Fever, unspecified; Z98.84 Bariatric surgery status
CPT/HCPCS: 36415; 36569; 36584; 62272; 70450-TC; 70470-TC; 71010-TC; 72126-TC; 73560-TC-RT; 74000-TC; 74176-TC; 74177-TC; 76000-TC; 76705-TC; 77001-TC; 78226-TC; 80048; 80053; 80061; 80076; 81003; 81015; 82180; 82306; 82436; 82525; 82550; 82553; 82607; 82746; 82747; 82784; 82787; 83520; 83540; 83550; 83605; 83690; 83721; 83735; 83883; 83930; 83935; 84100; 84133; 84155; 84165; 84207; 84252; 84255; 84300; 84443; 84446; 84478; 84484; 84590; 84597; 84630; 85014; 85025; 85027; 85610; 85651; 85730; 86038; 86140; 86215; 86225; 86226; 86256; 86431; 86618; 86850; 86900; 86901; 87040; 87086; 87340; 87389; 93005; 93010; 93970-TC; 94010; 94760; 97116-GP; 97162-GP; 99285-25; A9537; C1751; J1644; Q9967